=== PATIENT | female | born 1935 | race Caucasian/White ===

== ENCOUNTER 2019-12-17 15:47 | Outpatient (CLI) | payer MEDICARE, SELFPAY ==
--- NOTE | ~2019-12-17 | XR_ITS ---
EXAMINATION: XR abdomen obstructive series DATE: 12/17/2019 16:37 INDICATION: Crohn disease TECHNIQUE: Upright and supine views of the abdomen were obtained. COMPARISON: None. FINDINGS: There is a large volume of colonic stool. No dilated loops of bowel are evident. There is n o free intraperitoneal gas. The visualized lung bases are clear. There is calcified atherosclerosis. IMPRESSION: 1. Constipation. Reviewed, dictated and finalized at location A. IMPRESSION: 1. Constipation.
[2019-12-17 16:12] LABS: Hematocrit 38.7 % (37.0-47.0); Hemoglobin 12.1 g/dL (12.0-15.0); Mean Corpuscular HGB Conc 31.3 g/dl (32-36); Mean Corpuscular Hemoglobin 32.1 pg (26-34); Mean Corpuscular Volume 102.7 fl (80-100); Mean Platelet Volume 9.6 fl (7.4-10.4); Platelet Count Result 368 k/mm3 (150-375); Red Blood Count 3.77 M/mm3 (4.2-5.4); Red Cell Distribution Width 12.5 % (11.5-14.5); White Blood Count 7.1 K/mm3 (4.5-10.0)
[2019-12-17 16:25] LABS: Alanine Aminotransferase 10 U/L (4-35); Albumin Level 4.3 g/dL (3.5-5.1); Alkaline Phosphatase 62 U/L (38-126); Aspartate Amino Transferase 26 U/L (14-36); Bilirubin,Total 0.4 mg/dL (0.2-1.3); Blood Urea Nitrogen 12 mg/dL (7-17); Calcium 9.4 mg/dL (8.4-10.2); Carbon Dioxide 32 mmol/L (22-30); Chloride 100 mmol/L (98-107); Estimated Glomerular Filt Rate > 60; Glucose 102 mg/dL (65-105); Sodium 137 mmol/L (137-145)
[2019-12-17 16:41] LABS: Erythrocyte Sedimentation Rate 58 mm/hr (0-20)
== END 2019-12-17 15:48 | disposition home or self-care (01) ==
DX: K50.90 Crohn's disease, unspecified, without complications (principal); K59.00 Constipation, unspecified
CPT/HCPCS: 36415; 74019; 80053; 85027; 85652

== ENCOUNTER 2020-05-18 16:40 | Outpatient (CLI) | payer MEDICARE, SELFPAY ==
--- NOTE | ~2020-05-18 | XR_ITS ---
EXAMINATION: XR lumbar spine 2-3V DATE: 05/18/2020 17:47 INDICATION: Low back pain. Injury. TECHNIQUE: 3 views of lumbar spine were obtained. COMPARISON: Lumbar spine radiographs 12/15/2018 FINDINGS: There is 5 degrees dextrocurvature of lumbar spine. Vertebral body heights are normal. Ther e is mildly decreased disc height at L4-L5. There is moderate facet joint osteoarthritis in lower lum bar spine. IMPRESSION: 1. Mild lumbar spondylosis. Reviewed, dictated and finalized at location A. IMPRESSION: 1. Mild lumbar spondylosis.
--- NOTE | ~2020-05-18 | XR_ITS ---
EXAMINATION: XR_CERV2-3V_CR DATE: 05/18/2020 17:47 INDICATION: Spine pain. TECHNIQUE: 3 views of cervical spine on 4 radiographs were obtained. COMPARISON: Spine radiographs 04/22/2013 FINDINGS: There is 15 degrees levoscoliosis of cervicothoracic spine. Vertebral body heights are norm al. There is mildly decreased disc height at C4-C5 and moderately decreased disc height at C5-C6 and C6-C7. There is multilevel severe facet joint osteoarthritis. There is mild central canal stenosis at C5-C6. No prevertebral soft tissue swelling. IMPRESSION: 1. Moderate cervical spondylosis. 2. Cervicothoracic levoscoliosis. Reviewed, dictated and finalized at location A.
--- NOTE | ~2020-05-18 | XR_ITS ---
EXAMINATION: XR thoracic spine 3V DATE: 05/18/2020 17:47 INDICATION: Spine pain. TECHNIQUE: 3 views of thoracic spine were obtained. COMPARISON: Chest 2 views 09/17/2017, chest CT 09/19/2017 FINDINGS: There is 12 degrees dextroscoliosis of upper thoracic spine and 10 degrees levoscoliosis of lower thoracic spine. There is kyphosis of thoracic spine. Vertebral body heights are normal. There is moderately decreased disc height at multiple levels in mid thoracic spine. There are endplate oste ophytes at most levels. IMPRESSION: 1. Moderate thoracic spondylosis. 2. Scoliosis and thoracic kyphosis. Reviewed, dictated and finalized at location A.
[2020-05-18 18:06] LABS: Hematocrit 35.9 % (37.0-47.0); Hemoglobin 11.4 g/dL (12.0-15.0)
[2020-05-18 18:13] LABS: Alanine Aminotransferase 9 U/L (4-35); Albumin Level 4.4 g/dL (3.5-5.1); Alkaline Phosphatase 58 U/L (38-126); Anion Gap 7 mmol/L (8-16); Aspartate Amino Transferase 25 U/L (14-36); Bilirubin,Total 0.4 mg/dL (0.2-1.3); Blood Urea Nitrogen 15 mg/dL (7-17); Calcium 9.3 mg/dL (8.4-10.2); Carbon Dioxide 28 mmol/L (22-30); Chloride 100 mmol/L (98-107); Estimated Glomerular Filt Rate 60; Glucose 97 mg/dL (65-105); Potassium 4.1 mmol/L (3.4-5.0); Sodium 135 mmol/L (137-145)
[2020-05-18 18:46] LABS: Iron 59 ug/dL (37-170)
[2020-05-18 18:56] LABS: Percent Iron Saturation 22 % (20-50)
[2020-05-18 20:36] LABS: Vitamin D 25 Hydroxy 75.5 ng/mL
== END 2020-05-18 16:41 | disposition home or self-care (01) ==
PROVIDERS: Visit Provider Internal Medicine
DX: M54.9 Dorsalgia, unspecified (principal); D50.9 Iron deficiency anemia, unspecified; E53.8 Deficiency of other specified B group vitamins; I50.30 Unspecified diastolic (congestive) heart failure; N18.3 Chronic kidney disease, stage 3 (moderate); E55.9 Vitamin D deficiency, unspecified; M47.816 Spondylosis without myelopathy or radiculopathy, lumbar region; M47.814 Spondylosis without myelopathy or radiculopathy, thoracic region; M41.84 Other forms of scoliosis, thoracic region; M40.294 Other kyphosis, thoracic region; M47.812 Spondylosis without myelopathy or radiculopathy, cervical region; M41.83 Other forms of scoliosis, cervicothoracic region
CPT/HCPCS: 36415; 72040; 72072; 72100; 80053; 82306; 82607; 83540; 83550; 85014; 85018

== ENCOUNTER 2020-11-18 14:58 | Outpatient (CLI) | payer MEDICARE, SELFPAY ==
[2020-11-18 15:17] LABS: Hematocrit 35.2 % (35.0-42.0); Hemoglobin 10.8 g/dL (11.7-13.8)
[2020-11-18 15:47] LABS: Alanine Aminotransferase 8 U/L (14-59); Albumin Level 3.9 g/dL (3.4-5.0); Alkaline Phosphatase 49 U/L (46-116); Anion Gap 12 mmol/L (8-16); Aspartate Amino Transferase 16 U/L (15-37); Bilirubin,Total 0.4 mg/dL (0.00-1.00); Blood Urea Nitrogen 19 mg/dL (7-18); Calcium 8.6 mg/dL (8.5-10.1); Carbon Dioxide 30 mmol/L (21-32); Chloride 98 mmol/L (98-108); Cholesterol 173 mg/dL (0-200); Estimated Glomerular Filt Rate 47; Glucose 156 mg/dL (70-99); HDL Direct 78 mg/dL (40-60); Iron 78 ug/dL (50-170); LDL Cholesterol Calculated 67 mg/dL (<130); Osmolality Calculated 295 mOsm/kg (285-295); Percent Iron Saturation 33 % (12-57); Potassium 4.1 mmol/L (3.5-5.1); Sodium 140 mmol/L (136-145); Total Protein 6.7 g/dL (6.4-8.2); Triglycerides 140 mg/dL (0-150)
== END 2020-11-18 14:59 | disposition home or self-care (01) ==
LOC: CHSLAB 15:01
PROVIDERS: Visit Provider Nurse Practitioner
DX: E78.5 Hyperlipidemia, unspecified (principal); D50.9 Iron deficiency anemia, unspecified
CPT/HCPCS: 36415; 80053; 80061; 83540; 83550; 85014; 85018

== ENCOUNTER 2021-01-14 00:38 | Inpatient (IN) | payer MEDICARE, SELFPAY ==
[2021-01-14] VITALS (21 sets, daily range): BP systolic 130–166; BP diastolic 58–91; PULSE 81–131; RESP 16–26; TEMP 36.2–37; O2SAT 84–99; BMI 20.2
--- NOTE | ~2021-01-14 | XR_ITS ---
EXAMINATION: XR chest 1V portable INDICATION: Shortness of breath TECHNIQUE: Portable AP chest at 0533 hours COMPARISON: 01/21/2021 FINDINGS: There are minimal airspace opacities of the lung bases. No pleural effusion or pneumothorax is identified. The cardiomediastinal silhouette is stable. IMPRESSION: 1. Minimal bibasilar airspace opacity, consistent with atelectasis versus pneumonia. Reviewed, dictated and finalized at location A. IMPRESSION: 1. Minimal bibasilar airspace opacity, consistent with atelectasis versus pneum onia.
--- NOTE | ~2021-01-14 | XR_ITS ---
EXAMINATION: XR chest 1V portable DATE: 01/21/2021 05:48 INDICATION: Bilateral pneumonia TECHNIQUE: frontal view of the chest was obtained. COMPARISON: Chest radiograph dated 01/17/2021 FINDINGS: Increased lucency with some architectural distortion consistent with emphysema in the bilateral upper lung zones. Scattered mild linear discoid atelectasis/scarring most prominent in the right upper dany g zone. No pulmonary edema, pleural effusion or pneumothorax. The cardiomediastinal silhouette is nor mal. Mild thoracolumbar levocurvature and mild scattered degenerative skeletal changes. IMPRESSION: 1. Scattered mild linear discoid atelectasis. 2. Emphysema. Reviewed, dictated and finalized at location A.
--- NOTE | ~2021-01-14 | XR_ITS ---
XR chest 1V portable DATE: 01/14/2021 01:44 INDICATION: Dyspnea. Shortness of breath. Hypoxia. History of COPD. TECHNIQUE: Portable AP chest on 01/14/2021 at 0145 hours COMPARISON: 01/14/2021 CT pulmonary scan 09/17/2017 PA and lateral chest 09/19/2017 CT pulmonary scan FINDINGS: Bilateral hyperinflation and relative flattening the diaphragms consistent with COPD. Patchy infiltrate in the left mid lung and to a greater extent left lower lung field. Cardiomegaly. Aortic calcification. No pleural effusion or pulmonary vascular congestion or pneumothorax is evident. Diffuse osteopenia. Dextroscoliosis of the thoracic spine. IMPRESSION: Left mid and particularly left lower lung infiltrate, suggesting pneumonia COPD Cardiomegaly Aortic atherosclerosis Reviewed, dictated and finalized at location A. IMPRESSION: Left mid and particularly left lower lung infiltrate, suggesting pn eumonia COPD Cardiomegaly Aortic atherosclerosis
--- NOTE | ~2021-01-14 | MR_ITS ---
EXAMINATION: MR brain/brain stem wo/w con EXAM DATE: 01/17/2021 15:12 INDICATION: Stroke. Right-sided hemiparesis. Symptoms started 3 days ago. TECHNIQUE: Magnetic resonance imaging (MRI) of the brain/brain stem obtained without contrast. Sagit venancio T1, axial diffusion, gradient echo (T2*), T1, T2, FLAIR sequences obtained. Patient was then inj ected with 10 cc intravenous Multihance contrast. Axial and coronal postcontrast T1 weighted sequence s obtained. There is no prior study for comparison. FINDINGS: There is a punctate acute infarction in the left cerebellar hemisphere. There is no acute h emorrhage seen on the T2*, a hemosiderin sensitive sequence. No intraparenchymal brain mass lesion. There is moderate periventricular and subcortical T2/FLAIR signal hyperintensity, nonspecific but pro bably related to small vessel ischemic disease (microangiopathy). There is mild prominence of the s ulci and ventricles related to cerebral atrophy. There are no extra-axial collections. Flow voids are seen in the cerebral arteries on the T2-weighted sequences consistent with their expected patency . Patient has had bilateral ocular lens surgery. Soft tissue is unremarkable. There are no areas o f abnormal enhancement on the postcontrast images. Arachnoid granulation in the sagittal sinus poste riorly. IMPRESSION: 1. Punctate acute left cerebellar infarction. 2. Chronic age related findings. Reviewed, dictated and finalized at location A.
--- NOTE | ~2021-01-14 | XR_ITS ---
EXAMINATION: XR chest 1V portable DATE: 01/17/2021 05:31 INDICATION: Shortness of breath. TECHNIQUE: A single frontal view of the chest was obtained. COMPARISON: Chest single view 01/14/2021, chest CT 01/14/2021 FINDINGS: There are lucencies in the lungs, consistent with emphysema. There is bandlike scarring in right upper lobe. There are airspace opacities in right perihilar region and at left lung base. No pl eural effusion or pneumothorax. Cardiomegaly is noted. IMPRESSION: 1. Airspace opacities in right perihilar region and at left lung base with worsening on the right and improvement on the left, consistent with pneumonia. 2. Severe emphysema. 3. Cardiomegaly. Reviewed, dictated and finalized at location A. IMPRESSION: 1. Airspace opacities in right perihilar region and at left lung base with wors ening on the right and improvement on the left, consistent with pneumonia. 2. Severe emphysema. 3. Cardiomegaly.
--- NOTE | ~2021-01-14 | XR_ITS ---
EXAMINATION: XR ankle RT 2V INDICATION: Right ankle pain and swelling TECHNIQUE: Two views of the right ankle are obtained. COMPARISON: 08/01/2015 FINDINGS: There is soft tissue swelling the ankle. No fracture is identified. Bone alignment is ned l. The bones are osteopenic. IMPRESSION: 1. Soft tissue swelling without acute osseous abnormality. Reviewed, dictated and finalized at location A.
--- NOTE | ~2021-01-14 | US_ITS ---
EXAMINATION: US carotid duplex BI EXAM DATE: 01/17/2021 14:59 INDICATION: Stroke. TECHNIQUE: Grayscale, color and pulsed Doppler images of the cervical carotid arteries were obtained . The degree of vessel stenosis is placed in one of the following categories: normal, <50% stenosis, 50-69% stenosis, >=70% stenosis but less than near-occlusion, near-occlusion, or occlusion. Note that percent stenosis relative to normal distal artery lumen diameter is indirectly measured from velocit y measurements as described by Artemio, et al. Radiology 2003; 229:340-346. There is no prior study fo r comparison. FINDINGS: RIGHT SIDE: Right common carotid artery peak systolic velocity (PSV in cm/s): 70 Right bulb/internal carotid artery peak systolic velocity (PSV in cm/s): 55 Right internal carotid artery end diastolic velocity (EDV in cm/s): 16 Right ICA/CCA peak systolic ratio: 0.8 Right external carotid artery peak systolic velocity (PSV in cm/s): 68 Right vertebral artery antegrade flow: yes There is mild carotid bulb plaque. Velocity and Doppler waveforms in the common and internal carotid arteries is normal. LEFT SIDE: Left common carotid artery peak systolic velocity (PSV in cm/s): 85 Left bulb/internal carotid artery peak systolic velocity (PSV in cm/s): 74 Left internal carotid artery end diastolic velocity (EDV in cm/s): 24 Left ICA/CCA peak systolic ratio: 0.9 Left external carotid artery peak systolic velocity (PSV in cm/s): 82 Left vertebral artery antegrade flow: yes There is mild carotid bulb plaque. Velocity and Doppler waveforms in the common and internal carotid arteries is normal. IMPRESSION: 1. Less than 50 percent stenosis in the right internal carotid artery. 2. Less than 50 percent stenosis in the left internal carotid artery. Reviewed, dictated and finalized at location A.
--- NOTE | ~2021-01-14 | CT_ITS ---
EXAMINATION: CTA chest PE protocol DATE: 01/14/2021 02:53 INDICATION: Shortness of breath. Hypoxia. TECHNIQUE: Computed tomography angiography (CTA) of the chest was performed with 100 mL Omnipaque-350 intravenous contrast timed to evaluate the pulmonary arteries. Coronal maximum intensity projection 3D-reconstructions were created by the technologist. Automated exposure control and iterative reconst ruction technique were employed. Exam dose: 191.28 mGy-cm total exam DLP. COMPARISON: 01/14/2021 portable AP chest 09/19/2017 CT pulmonary scan FINDINGS: There is diagnostic contrast enhancement of the pulmonary arteries and no evidence of pulmo nary embolism. No hilar or mediastinal mass lesion or lymphadenopathy. No thoracic aortic aneurysm or dissection. There is atherosclerotic calcification of the thoracic and abdominal aorta and great vessels. There are 2 new interval intersecting discoid bands of density in the anterior right upper lobe since 09/19/2017 with approximately 6.4 x 15 mm associated soft tissue density (series 4 image 37). Approximately 4 x 6 mm new opacity in the medial right upper lung (series 4 image 30). Consider PET/CT imaging to exclude malignancy. Severe emphysematous changes of the lungs are again demonstrated. Interval patchy peripheral bilateral left upper lobe infiltrate, suggesting infectious process. There are patchy infiltrates in the left lower lobe, particularly in the posterior basilar left lower lobe where air bronchograms are demonstrated. Findings suggest pneumonia. No suspicious osteolytic or osteoblastic lesions. IMPRESSION: No evidence of pulmonary embolism Emphysema Left upper and to a greater extent left lower lobe pulmonary infiltrates suggesting pneumonia New opacities of the right upper lobe; differential diagnosis includes scarring versus malignancy. Co nsider PET/CT imaging Reviewed, dictated and finalized at [facility]. Reviewed, dictated and finalized at location A. IMPRESSION: No evidence of pulmonary embolism Emphysema Left upper and to a greater extent left lower lobe pulmonary infiltrates sugges ting pneumonia New opacities of the right upper lobe; differential diagnosis includes scarring versus malignancy. Consider PET/CT imaging
--- NOTE | 2021-01-14 00:50 | ECG_ITS ---
Measurements Intervals [place] Rate: 128 P: [place]: 0 QRS: -50 QRSD: 124 T: 66 QT: 317 QTc: 464 Interpretive Statements SINUS TACHYCARDIA INCOMPLETE RIGHT BUNDLE BRANCH BLOCK LEFT ANTERIOR FASCICULAR BLOCK BASELINE WANDER- III, AVF, V4 ABNORMAL ECG Electronically Signed On 01-14-2021 6:48:30 CDT by Gato Fisher D.O.
[2021-01-14] MEDS: ALBUTEROL SULFATE NEB 2.5 MG/0.5 ML INH 5 MG INHALATION ×4 (01:02→19:45)
[2021-01-14] MEDS: IPRATROPIUM BR 0.02% INH SOLN 0.5 MG/2.5 ML VIAL INHALATION ×4 (01:03→19:45)
[2021-01-14 01:08] LABS: Basophils Absolute Auto 0.1 K/mm3 (0.0-0.1); Basophils Percent Auto 0.2 % (0.2-1.2); Hematocrit 37.6 % (37.0-47.0); Hemoglobin 12.2 g/dL (12.0-15.0); Immature Granulocyte Absolute 0.82 K/mm3 (0.00-0.031); Immature Granulocyte Percent A 2.4 % (0-0.5); Lymphocytes Absolute Auto 0.52 K/mm3 (0.9-3.2); Lymphocytes Percent Auto 1.5 % (18.3-44.2); Mean Corpuscular HGB Conc 32.4 g/dl (32-36); Mean Corpuscular Hemoglobin 33.7 pg (26-34); Mean Corpuscular Volume 103.9 fl (80-100); Mean Platelet Volume 10.1 fl (7.4-10.4); Monocytes Absolute Auto 1.3 K/mm3 (0.1-0.6); Monocytes Percent Auto 3.9 % (2.6-8.5); Neutrophils Absolute Auto 31.6 K/mm3 (1.3-6.7); Platelet Count Result 306 k/mm3 (150-375); Red Blood Count 3.62 M/mm3 (4.2-5.4); Red Cell Distribution Width 12.4 % (11.5-14.5); White Blood Count 34.4 K/mm3 (4.5-10.0)
[2021-01-14] MEDS: methylPREDNISolone SOD SUCC 125 MG VIAL IV PUSH (01:15)
--- NOTE | 2021-01-14 01:20 | PC.NURSE ---
Pt here for shortness of breath and increased work of breathing. reports hx of copd. here c who drove pt to ED; no hx of covid exposure or covid vaccines. former smoker.
[2021-01-14 01:21] LABS: Alanine Aminotransferase 12 U/L (4-35); Albumin Level 4.6 g/dL (3.5-5.1); Alkaline Phosphatase 58 U/L (38-126); Anion Gap 8 mmol/L (8-16); Aspartate Amino Transferase 35 U/L (14-36); Bilirubin,Total 0.6 mg/dL (0.2-1.3); Blood Urea Nitrogen 13 mg/dL (7-17); Calcium 9.7 mg/dL (8.4-10.2); Carbon Dioxide 32 mmol/L (22-30); Chloride 97 mmol/L (98-107); Estimated Glomerular Filt Rate > 60; Glucose 154 mg/dL (65-105); Magnesium 1.7 mg/dL (1.6-2.3); Potassium 4.2 mmol/L (3.4-5.0); Sodium 137 mmol/L (137-145)
[2021-01-14 01:22] LABS: Lactic Acid Reflex 1.3 mmol/L (0.7-2.1)
[2021-01-14 01:27] LABS: INR 0.9; Prothrombin Time 12.8 Seconds (11.1-14.7)
[2021-01-14 01:28] LABS: Partial Thromboplastin Time 34.4 SECONDS (22.3-36.8)
[2021-01-14 01:33] LABS: NT Pro B Type Natriuretic Pept 2620 pg/mL (5-100)
[2021-01-14 02:22] LABS: Alveolar/Arterial O2 Gradient 100.2 mmHg; Fractional Inspired Oxygen 32 %; HCO3 ABG 25.3 mEq/l (22.0-26.0); Oxygen Content ABG 15.8 %vol (16.0-22.0); Oxygen Saturation ABG 96.3 % (95.0-100.0); Oxyhemoglobin 94.7 % THb (90.0-100.0); PCO2 ABG 39.4 mmHg (35.0-45.0); PO2 ABG 81.9 mmHg (80.0-100.0); PO2 FiO2 Ratio Arterial Blood 2.56 %; Total Hemoglobin 11.8 g/dL (12.0-18.0); pH ABG 7.426 (7.350-7.450)
[2021-01-14 02:23] LABS: Device NASAL CANNULA; Modified Allen's Test Pass; Site Drawn RIGHT RADIAL
--- NOTE | 2021-01-14 02:39 | ED.GENADULT ---
HPI - General Adult General Chief complaint: Shortness of Breath/Dyspnea Stated complaint: sob Time Seen by Provider: 01/14/21 00:47 History of Present Illness HPI narrative: Patient is a 85-year-old female who presents the emergency department with chief complaint of shortness of breath. The patient states that approximately 4 AM she started having discomfort and more shortness of breath. The patient states that she noticed that her oxygen levels were lower than normal and reports that she is had a low-grade fever of 99 at home. The patient states that she has had some wheezing and has had coughing. Patient reports she has prior history of COPD and has had prior admissions for COPD exacerbations in the past. Patient reports that she has not had COVID-19 previously and reports that she has not had a Covid vaccine. Related Data Home Medications Medication Instructions Recorded Confirmed albuterol sulfate 2.5 mg INHALATION Q4-6H PRN 09/16/19 12/14/20 albuterol sulfate 90 mcg/actuation 1 puff INHALATION Q4H PRN 09/16/19 12/14/20 aerosol inhaler aspirin 81 mg tablet,delayed 81 mg PO DAILY 09/16/19 12/14/20 release sulfasalazine 500 mg tablet 0.5 gm PO DAILY 09/16/19 12/14/20 calcium carbonate 500 mg (1,250 1 tablet PO DAILY 07/11/20 12/14/20 mg)-vitamin D3 125 unit tablet mecobalamin (vitamin B12) 1,000 1,000 mcg PO DAILY 12/11/20 12/14/20 mcg chewable tablet Allergies Allergy/AdvReac Type Severity Reaction Status Date / Time No Known Allergies Allergy Unknown Verified 01/14/21 01:12 Review of Systems Review of Systems: Narrative: A 10 system review of systems was completed on the patient and is negative except for what is stated in the HPI. Nursing and ancillary documentation was reviewed. [facility] Past Medical History Medical History (Updated 01/14/21 @ 03:49 by Alex Alvarenga MD) Hypertension, essential Family History Family History Mother Family history of cardiovascular disease Father Family history of emphysema Family history of chronic obstructive pulmonary disease Sibling Family history of malignant neoplasm Social History Social History Smoking packs per day: 1 Smoking cigarettes per day: 20.0 Years smoked: 40 Smoking pack-years: 40.00 Smoking status: Former smoker Second hand tobacco smoke exposure: No Smoking end date: 09/01/12 Alcohol intake: never Exam Narrative: Exam Narrative: GENERAL: Well-appearing, well-nourished, and in no acute distress. HEAD: Normocephalic, atraumatic. EYES: PERRLA and EOMI. ENT: Nares clear, no rhinorrhea or epistaxis. Mucous membranes moist. NECK: Supple. CHEST: Diminished breath sounds bilaterally moderate respiratory distress. HEART: Tachycardic rate and rhythm. No murmur heard. Normal peripheral pulses. ABDOMEN: Soft, nontender, nondistended, normal active bowel sounds. EXTREMITIES: Normal range of motion. No edema. SKIN: Warm, dry, no rash. NEURO: No focal deficits. Alert and oriented x3. PSYCH: Normal mood and affect. Course Vital Signs Vital signs: Vital Signs Temperature 36.3 C L 01/14/21 00:41 Pulse Rate 131 H 01/14/21 00:41 Respiratory Rate 26 H 01/14/21 00:41 Blood Pressure 166/91 H 01/14/21 00:41 Pulse Oximetry 84 L 01/14/21 00:41 Temperature 36.3 C L 01/14/21 00:41 Pulse Rate 111 H 01/14/21 03:15 Respiratory Rate 22 H 01/14/21 03:15 Blood Pressure 138/68 01/14/21 03:15 Pulse Oximetry 98 01/14/21 03:15 Medical Decision Making Vital Signs Vital Signs: Vital Signs Temperature 36.3 C L 01/14/21 00:41 Pulse Rate 131 H 01/14/21 00:41 Respiratory Rate 26 H 01/14/21 00:41 Blood Pressure 166/91 H 01/14/21 00:41 Pulse Oximetry 84 L 01/14/21 00:41 Temperature 36.3 C L 01/14/21 00:41 Pulse Rate 111 H
--- NOTE | 2021-01-14 04:38 | PM.IMHP ---
H&P: HPI History of Present Illness Date/Time: 01/14/21 04:38 Chief Complaint: SHORTNESS OF BREATH Narrative: This is an 85-year-old female with past medical history significant for COPD/emphysema patient is on 2 L of supplemental by nasal cannula at home patient states that she has not been feeling well for the last 3 days or so she had been to her doctor who asked her to increase her oxygen to 2-1/2 with activity patient noticed that she was progressively getting worse and decided to increase it to 3 she was not able to asleep due to worsening shortness of breath on to she finally decided to come to the emergency room. Patient states that she has had some chills some cough with sputum production of greenish yellowish sputum to bradshaw sputum. Preliminary workup was significant for leukocytosis, chest x-ray with right lower lobe infiltrate and a CTA with no pulmonary emboli, BNP was elevated. Patient that denies any nausea vomiting abdominal pain or diarrhea no leg swelling.States that her appetite is good. Review of Systems Review of Systems: Narrative: PATIENT CAME TO THE EMERGENCY ROOM SHE WAS BROUGHT BY HER DUE TO WORSENING SHORTNESS OF BREATH PATIENT HAD BEEN TO HER DOCTOR WHO HAS ASKED HER TO INCREASE HER OXYGEN TO 2 AND HALF SHE INCREASED TO 3 AND STILL NOT WORKING AND SHE GOT PROGRESSIVELY MORE SHORT OF BREATH SHE WAS UNABLE TO GET ANY SLEEP WAS GETTING TIRED Constitutional: Constitutional: Reports chills, Reports fatigue and Reports fever(s) Eyes: Eyes: Denies change in vision ENT: Denies dysphagia, Denies nasal congestion, Denies nasal discharge and Denies neck pain Cardiovascular: Cardiovascular: Denies irregular heart rhythm, Denies leg edema and Denies lightheadedness Respiratory: Respiratory: Reports change in phlegm color, Reports cough, Reports dyspnea and Reports wheezing Gastrointestinal: Gastrointestinal: Denies abdominal pain, Denies dysphagia, Denies dyspepsia, Denies heartburn, Denies diarrhea and Denies vomiting Genitourinary: Genitourinary: Denies dysuria Musculoskeletal: Musculoskeletal: Denies muscle weakness Integumentary/Breasts: Skin/Breast: Denies rash Neurologic: Denies focal weakness and Denies Sensory deficit (Neuro) Endocrine: Endocrine: Denies no additional endocrine complaints Hematologic/Lymphatic: Hematologic/Lymphatic: Denies no additional hematologic/lymphatic complaints Allergic/Immunologic: Allergic/Immunologic: Denies no additional allergic/immunologic complaints [facility] Past Medical History Medical History (Updated 01/14/21 @ 04:51 by Francisca Stevens MD) Hypertension, essential Family History Family History Mother Family history of cardiovascular disease Father Family history of emphysema Family history of chronic obstructive pulmonary disease Sibling Family history of malignant neoplasm Social History Social History Smoking packs per day: 1 Smoking cigarettes per day: 20.0 Years smoked: 40 Smoking pack-years: 40.00 Smoking status: Former smoker Second hand tobacco smoke exposure: No Smoking end date: 09/01/12 Alcohol intake: never Meds Home Medications and Allergies Home Medications Medication Instructions Recorded Confirmed Type albuterol sulfate 2.5 mg INHALATION Q4-6H PRN 09/16/19 12/14/20 History albuterol sulfate 90 mcg/actuation 1 puff INHALATION Q4H PRN 09/16/19 12/14/20 History aerosol inhaler aspirin 81 mg tablet,delayed 81 mg PO DAILY 09/16/19 12/14/20 History release sulfasalazine 500 mg tablet 0.5 gm PO DAILY 09/16/19 12/14/20 History arformoterol 15 mcg/2 mL solution 2 ml INHALATION BID 30 Days #60 ml 01/17/20 12/14/20 Rx for nebulization budesonide 0.5 mg/2 mL suspension 0.5 mg INHALATION BID 30 Days #120 02/04/20 12/14/20 Rx for nebulization ml atorvastat
[2021-01-14] MEDS: SODIUM CHLORIDE 0.9% IV 1,000 ML 125 ML IV CONT ×2 (05:29→14:24)
[2021-01-14 06:06] LABS: Add Urine Microscopic? YES; Appearance Urine Clear (Clear); Bilirubin Urine Negative (Negative); Blood Urine Negative (Negative); Color Urine Yellow (Yellow); Glucose Urine UA Negative (Negative); Ketones Urine 1+ mg/dL (Negative); Leukocyte Esterase Ur Negative LEU/UL (Negative); Mucus Urine Rare /lpf; Nitrate Urine Negative (Negative); Protein Urine 1+ mg/dL (Negative); RBC Urine 0-2 /hpf (0-2); Squamous Epithelial Cell Urine Rare /hpf (Few); Urobilinogen Urine Negative mg/dL (<2.0); WBC Urine 0-3 /hpf
[2021-01-14 06:15] LABS: Specific Grav Ur 1.047 (1.001-1.035)
[2021-01-14] MEDS: methylPREDNISolone SOD SUCC 125 MG VIAL 60 MG IV PUSH ×3 (06:52→22:03)
--- NOTE | 2021-01-14 07:44 | ADMGEN ---
This patient, Humaira Moralez, was admitted to 3 [facility] Surg Room 303-01. Patient/family oriented to hospital policies and general routines including ID bracelet, bed and alarms, visiting hours, pain management, procedures, bathroom and other care routines, personal items, smoking policy, room service/diet, and visiting hours. Information on how to activate the Rapid Response Team has been discussed. Patient/Family are encouraged to report perceived risks to care and to ask questions if they do not understand what they are told or what they should do. Patient arrived at 0545, all policies and procedures discussed, questions answered. General assessment and skin check performed.
--- NOTE | 2021-01-14 09:15 | PM.IMPN ---
Progress Note: A&P Assessment and Plan (1) Acute and chronic respiratory failure with hypoxia: Code(s): J96.21 - Acute and chronic respiratory failure with hypoxia Status: Acute Assessment and Plan: IMPROVED. now back on 2 L O2 NC (home level) - down from 3 L NC, able to carry on conversations with myself and her nurses feeling much better today left lower chest pain and pressure has resolved today Troponin x1 WNL, and EKG without ST concerns. FELIPE and LLL pneumonia. not had her COVID vaccination CTA PE protocol showed emphysema, severe COPD, No PE, speech therapy swallow study eval, which she passed on regular foods and consistencies. continue her IV azithromycin and IV Rocephin, ipratropium and albuterol nebulizer treatments, added Mucinex. white count was impressive at 34.4 and her COVID test results are pending. RR 22-23, no fevers. BNP level is 2620. Considering lasix dose, appears to be vascularly dry and no CHF findings on the CT scan. Holding off on the lasix at this time. Ordered ECHO. slightly tachy 90-100s, regular, with BP 142/74 CTA scan: there are 2 new interval intersecting discoid bands of density in the anterior right upper lobe since 09/19/2017 with approximately 6.4 x 15 mm associated soft tissue density. Approximately 4 x 6 mm new opacity in the medial right upper lung. (2) Acute exacerbation of chronic obstructive pulmonary disease: Code(s): J44.1 - Chronic obstructive pulmonary disease with (acute) exacerbation Status: Acute Assessment and Plan: ACUTE on CHRONIC Started on 60 mg methylprednisone IV every 6 hours after 3 doses, titrated down to every 8 hours now back on 2 L O2 NC (home level) - down from 3 L NC Needs her COVID vaccination CTA PE protocol showed emphysema, severe COPD, No PE, continue her IV azithromycin and IV Rocephin, ipratropium and albuterol nebulizer treatments, added Mucinex. white count was impressive at 34.4 and her COVID test results are pending. RR 22-23, no fevers (3) Left lower lobe pneumonia: Qualifiers: Pneumonia type: due to unspecified organism Qualified Code(s): J18.9 - Pneumonia, unspecified organism Code(s): J18.9 - Pneumonia, unspecified organism Status: Acute Assessment and Plan: now back on 2 L O2 NC (home level) - down from 3 L NC, able to carry on conversations with myself and her nurses feeling much better today left lower chest pain and pressure has resolved today FELIPE and LLL pneumonia. not had her COVID vaccination speech therapy swallow study eval, which she passed on regular foods and consistencies. continue her IV azithromycin and IV Rocephin, ipratropium and albuterol nebulizer treatments, added Mucinex. white count was impressive at 34.4 and her COVID test results are pending. RR 22-23, no fevers. (4) Dependence on supplemental oxygen: Code(s): Z99.81 - Dependence on supplemental oxygen Status: Acute Assessment and Plan: CONTINUE SUPPLEMENTAL OXYGEN at 2 L or more as needed (5) (HFpEF) heart failure with preserved ejection fraction: Code(s): I50.30 - Unspecified diastolic (congestive) heart failure Status: Acute Assessment and Plan: BNP elevated at 2620 paired with SOB ECHO order placed patient was on 125 mils per hour of IV fluids from the ER, discontinued considering Lasix dosing ordered strict intake and output order daily weights (6) Chronic kidney disease, stage III (moderate): Code(s): N18.3 - Chronic kidney disease, stage 3 (moderate) Status: Acute Assessment and Plan: BUN AND CREATININE AT PATIENT'S BASELINE, creatinine 0.8 UA was clear ordered strict I&O (7) QAMAR (obstructive sleep apnea): Code(s): G47.33 - Obstructive sleep apnea (adult) (pediatric) Status: Acute Assessment and Plan: patient is on continuous oxygen per nasal cannula 2 L (8) Former smoker: Code(s): Z87.89
[2021-01-14] MEDS: sulfaSALAzine 500 MG TABLET PO (10:50)
[2021-01-14] MEDS: FERROUS SULFATE 324 MG TABLET PO ×2 (10:51→16:40)
[2021-01-14] MEDS: ATORVASTATIN 5 MG TABLET PO (10:51)
[2021-01-14] MEDS: ASPIRIN 81 MG ENTERIC TABLET PO (10:51)
[2021-01-14] MEDS: guaiFENesin 12 HR 600 MG TABCR PO ×2 (10:51→22:03)
[2021-01-14] MEDS: CYANOCOBALAMIN 1,000 MCG TABLET 1000 MCG PO (10:51)
[2021-01-14] MEDS: lisinopriL 20 MG TABLET PO (10:51)
[2021-01-14] MEDS: PANTOPRAZOLE 40 MG TABLET PO (10:51)
[2021-01-14] MEDS: MONTELUKAST SODIUM 10 MG TABLET PO (10:51)
[2021-01-14] MEDS: MAGNESIUM OXIDE 400 MG TABLET PO (10:52)
--- NOTE | 2021-01-14 13:36 | PCSTNOTE ---
Bedside swallow evaluation completed. Please see ST evaluation for details and recommendations.
[2021-01-14] MEDS: BUDESONIDE RESPULE NEB 0.5 MG/2 ML AMP INHALATION (19:45)
[2021-01-14] MEDS: SALMETEROL XINAFOATE 50 MCG DISKUS 1 PUFF INHALATION (19:45)
[2021-01-15] VITALS (16 sets, daily range): BP systolic 146–184; BP diastolic 69–86; PULSE 89–102; RESP 18–24; TEMP 36.4–37; O2SAT 95–98
[2021-01-15] MEDS: ALBUTEROL SULFATE NEB 2.5 MG/0.5 ML INH 5 MG INHALATION ×4 (01:57→20:59)
[2021-01-15] MEDS: IPRATROPIUM BR 0.02% INH SOLN 0.5 MG/2.5 ML VIAL INHALATION ×4 (01:58→20:58)
[2021-01-15] MEDS: methylPREDNISolone SOD SUCC 125 MG VIAL 60 MG IV PUSH ×3 (05:56→21:29)
[2021-01-15 06:25] LABS: Basophils Absolute Auto 0.1 K/mm3 (0.0-0.1); Basophils Percent Auto 0.2 % (0.2-1.2); Eosinophils Percent Auto 0.1 % (0-4.4); Hemoglobin 9.6 g/dL (12.0-15.0); Immature Granulocyte Absolute 1.21 K/mm3 (0.00-0.031); Immature Granulocyte Percent A 4.2 % (0-0.5); Lymphocytes Absolute Auto 0.33 K/mm3 (0.9-3.2); Lymphocytes Percent Auto 1.1 % (18.3-44.2); Mean Corpuscular Hemoglobin 33.3 pg (26-34); Mean Corpuscular Volume 104.2 fl (80-100); Mean Platelet Volume 10.7 fl (7.4-10.4); Monocytes Absolute Auto 0.7 K/mm3 (0.1-0.6); Monocytes Percent Auto 2.3 % (2.6-8.5); Neutrophils Absolute Auto 26.8 K/mm3 (1.3-6.7); Neutrophils Percent Auto 92.1 % (45.5-73.1); Platelet Count Result 252 k/mm3 (150-375); Red Blood Count 2.88 M/mm3 (4.2-5.4); Red Cell Distribution Width 12.3 % (11.5-14.5); White Blood Count 29.1 K/mm3 (4.5-10.0)
[2021-01-15 06:45] LABS: NT Pro B Type Natriuretic Pept 5010 pg/mL (5-100)
[2021-01-15 06:49] LABS: Anion Gap 5 mmol/L (8-16); Blood Urea Nitrogen 18 mg/dL (7-17); Calcium 9.6 mg/dL (8.4-10.2); Carbon Dioxide 30 mmol/L (22-30); Chloride 102 mmol/L (98-107); Estimated CRCL calculation 34 ml/min; Estimated Glomerular Filt Rate > 60; Glucose 161 mg/dL (65-105); Potassium 3.7 mmol/L (3.4-5.0); Sodium 137 mmol/L (137-145)
[2021-01-15] MEDS: BUDESONIDE RESPULE NEB 0.5 MG/2 ML AMP INHALATION ×2 (07:50→20:59)
[2021-01-15] MEDS: SALMETEROL XINAFOATE 50 MCG DISKUS 1 PUFF INHALATION ×2 (07:51→21:00)
[2021-01-15] MEDS: sulfaSALAzine 500 MG TABLET PO (09:51)
[2021-01-15] MEDS: ASPIRIN 81 MG ENTERIC TABLET PO (09:51)
[2021-01-15] MEDS: MONTELUKAST SODIUM 10 MG TABLET PO (09:51)
[2021-01-15] MEDS: lisinopriL 20 MG TABLET PO (09:51)
[2021-01-15] MEDS: guaiFENesin 12 HR 600 MG TABCR PO ×2 (09:51→21:30)
[2021-01-15] MEDS: FERROUS SULFATE 324 MG TABLET PO ×2 (09:51→16:50)
[2021-01-15] MEDS: MAGNESIUM OXIDE 400 MG TABLET PO (09:51)
[2021-01-15] MEDS: CYANOCOBALAMIN 1,000 MCG TABLET 1000 MCG PO (09:51)
[2021-01-15] MEDS: ATORVASTATIN 5 MG TABLET PO (09:51)
[2021-01-15] MEDS: PANTOPRAZOLE 40 MG TABLET PO (09:51)
[2021-01-15 11:59] LABS: Hematocrit 31.1 % (37.0-47.0); Hemoglobin 9.9 g/dL (12.0-15.0)
--- NOTE | 2021-01-15 14:57 | PM.IMPN ---
Progress Note: A&P Assessment and Plan (1) Left lower lobe pneumonia: Qualifiers: Pneumonia type: due to unspecified organism Qualified Code(s): J18.9 - Pneumonia, unspecified organism <Ruba Zelaya PA-C - Last Filed: 01/15/21 15:09> Code(s): J18.9 - Pneumonia, unspecified organism <Rubadave Zelaya PA-C - Last Filed: 01/15/21 15:09> Status: Acute <Ruba ABj Zelaya PA-C - Last Filed: 01/15/21 15:09> Assessment and Plan: CTA showing left sided PNA consistent with her symptoms -Continue ceftriaxone, azithromycin, and solumedrol (decreased to Q12 hours today) -Pt is at her home o2 settings of 2L -sputum cx growing gram + cocci in pairs, await further identification -Awaiting COVID PCR, although seems less likely -speech therapy swallow study eval showed she passed on regular foods and consistencies. -Continue breathing tx -WBC coming down nicely even with steroids. It was quiet high on admission <Rubadave Zelaya PA-C - Last Filed: 01/15/21 15:09> (2) Acute and chronic respiratory failure with hypoxia: Code(s): J96.21 - Acute and chronic respiratory failure with hypoxia <Rubadave Zelaya PA-C - Last Filed: 01/15/21 15:09> Status: Acute <Ruba Alexa Zelaya PA-C - Last Filed: 01/15/21 15:09> Assessment and Plan: Resolved. Pt back to her baseline o2 requirements -continue tx as above -BNP elevated, previous provider has ordered an echo. Will await results. <Rubadave Zelaya PA-C - Last Filed: 01/15/21 15:09> (3) Acute exacerbation of chronic obstructive pulmonary disease: Code(s): J44.1 - Chronic obstructive pulmonary disease with (acute) exacerbation <Rubadave Zelaya PA-C - Last Filed: 01/15/21 15:09> Status: Acute <Ruba ABj Zelaya PA-C - Last Filed: 01/15/21 15:09> Assessment and Plan: As above -continues steroids, abx, and nebulizers. <Ruba A. Cadmus, PA-C - Last Filed: 01/15/21 15:09> (4) Dependence on supplemental oxygen: Code(s): Z99.81 - Dependence on supplemental oxygen <Ruba A. Cadmus, PA-C - Last Filed: 01/15/21 15:09> Status: Acute <Ruba A. Cadmus, PA-C - Last Filed: 01/15/21 15:09> Assessment and Plan: Continue on 2L as needed <Ruba A. Cadmus, PA-C - Last Filed: 01/15/21 15:09> (5) (HFpEF) heart failure with preserved ejection fraction: Code(s): I50.30 - Unspecified diastolic (congestive) heart failure <Ruba A. Cadmus, PA-C - Last Filed: 01/15/21 15:09> Status: Acute <Ruba A. Cadmus, PA-C - Last Filed: 01/15/21 15:09> Assessment and Plan: BNP elevated paired with SOB -ECHO ordered by previous provider; await results. -No lasix needed at this time but will monitor <Ruba A. Cadmus, PA-C - Last Filed: 01/15/21 15:09> (6) Chronic kidney disease, stage III (moderate): Code(s): N18.3 - Chronic kidney disease, stage 3 (moderate) <Ruba A. Cadmus, PA-C - Last Filed: 01/15/21 15:09> Status: Acute <Ruba A. Cadmus, PA-C - Last Filed: 01/15/21 15:09> Assessment and Plan: at baseline -monitor <Ruba A. Cadmus, PA-C - Last Filed: 01/15/21 15:09> (7) QAMAR (obstructive sleep apnea): Code(s): G47.33 - Obstructive sleep apnea (adult) (pediatric) <Ruba A. Cadmus, PA-C - Last Filed: 01/15/21 15:09> Status: Acute <Ruba A. Cadmus, PA-C - Last Filed: 01/15/21 15:09> Assessment and Plan: Chronic <Ruba A. Cadmus, PA-C - Last Filed: 01/15/21 15:09> (8) Former smoker: Code(s): Z87.891 - Personal history of nicotine dependence <Ruba Zelaya PA-C - Last Filed: 01/15/21 15:09> Status: Acute <Ruba Zelaya PA-C - Last Filed: 01/15/21 15:09> Assessment and Plan: NO longer smokes <Ruba Zelaya PA-C - Last Filed: 01/15/21 15:09> (9) HTN (h
[2021-01-15 18:48] LABS: SARS-CoV-2 RNA PCR Negative
[2021-01-16] VITALS (11 sets, daily range): BP systolic 144–173; BP diastolic 68–82; PULSE 94–104; RESP 18–24; TEMP 36.4–36.7; O2SAT 92–94
--- NOTE | 2021-01-16 | ECHO_ITS ---
Patient Info Name: Humaira Moralez Age: 85 years : 1935 Gender: Female Ht: 61 in Wt: 107 lbs BSA: 1.45 m2 HR: 110 bpm BP: 144 / 68 mmHg Technical Quality: Good Exam Date: 01/16/2021 8:51 AM Exam Location: [facility] Pulmonary Patient Status: Inpatient Admit Date: 01/14/2021 Staff Ordering Physician: Annette Cherry NP Public Safety Telecommunicator: Bryson Riggs RDCS, RT Attending Provider: Ruba Zelaya PA-C Referring Physician: Dilip VENEGAS; Exam Type: CA echo dop color flow w con Study Info Indications R06.02 - Shortness of breath Complete two-dimensional, color flow and Doppler transthoracic echocardiogram is performed. Strain analysis performed. Summary 1. Complete two-dimensional, color flow and Doppler transthoracic echocardiogram is performed. 2. Left ventricular chamber dimension is normal. 3. Left ventricular systolic function is normal, estimated at 55-60%. 4. There is mildly increased left ventricular wall thickness. 5. The left ventricular diastolic function is grade I diastolic dysfunction. 6. E/e' 19 is elevated. 7. Global longitudinal strain is abnormal at -15.2%. 8. Left atrial chamber dimension is mildly enlarged. 9. The mitral valve has mildly calcified annulus. 10. There is mild to moderate tricuspid valve regurgitation. 11. Moderate pulmonary hypertension, estimated pulmonary arterial systolic pressure is 55 mmHg. Left Ventricle E/e' 19 is elevated. Global longitudinal strain is abnormal at -15.2%. Left ventricular chamber dimension is normal. Left ventricular systolic function is normal, estimated at 55-60%. There is mildly increased left ventricular wall thickness. The left ventricular diastolic function is grade I diastolic dysfunction. Right Ventricle Right ventricular systolic function is normal with normal TAPSE 2.3 cm. Right ventricular chamber dimension is normal. Left Atria Left atrial chamber dimension is mildly enlarged. Right Atria Right atrial chamber dimension is normal. Aortic Valve The aortic valve is trileaflet. There is no aortic valve stenosis. There is no aortic valve regurgitation. Pulmonic Valve There is no pulmonic regurgitation. Mitral Valve The mitral valve has mildly calcified annulus. There is no mitral valve stenosis. There is no mitral valve regurgitation. Tricuspid Valve There is mild to moderate tricuspid valve regurgitation. Moderate pulmonary hypertension, estimated pulmonary arterial systolic pressure is 55 mmHg. Pericardium/Pleural There is no pericardial effusion. Inferior Vena Cava Normal inferior vena cava with >50% collapse upon inspiration consistent with normal right atrial pressure, 5 mmHg. Aorta The aortic root size at the sinus of Valsalva is normal. Left Ventricular Outflow Tract Name Value Normal LVOT 2D LVOT Diameter 2.01 cm LVOT Doppler LVOT Peak Gradient 6 mmHg LVOT Mean Gradient 3 mmHg LVOT VTI 20.22 cm LVOT VTI/AV VTI Ratio 0.63 LVOT Stroke Volume 63.99 ml
[2021-01-16] MEDS: ALBUTEROL SULFATE NEB 2.5 MG/0.5 ML INH 5 MG INHALATION ×4 (02:37→19:58)
[2021-01-16] MEDS: IPRATROPIUM BR 0.02% INH SOLN 0.5 MG/2.5 ML VIAL INHALATION ×4 (02:37→19:58)
[2021-01-16 06:21] LABS: Basophils Absolute Auto 0.1 K/mm3 (0.0-0.1); Basophils Percent Auto 0.3 % (0.2-1.2); Hematocrit 28.6 % (37.0-47.0); Hemoglobin 9.3 g/dL (12.0-15.0); Immature Granulocyte Percent A 4.2 % (0-0.5); Lymphocytes Percent Auto 1.4 % (18.3-44.2); Mean Corpuscular HGB Conc 32.5 g/dl (32-36); Mean Corpuscular Hemoglobin 32.7 pg (26-34); Mean Corpuscular Volume 100.7 fl (80-100); Mean Platelet Volume 10.7 fl (7.4-10.4); Monocytes Absolute Auto 0.6 K/mm3 (0.1-0.6); Monocytes Percent Auto 2.7 % (2.6-8.5); Neutrophils Absolute Auto 19.7 K/mm3 (1.3-6.7); Neutrophils Percent Auto 91.4 % (45.5-73.1); Platelet Count Result 281 k/mm3 (150-375); Red Blood Count 2.84 M/mm3 (4.2-5.4); Red Cell Distribution Width 12.2 % (11.5-14.5); White Blood Count 21.6 K/mm3 (4.5-10.0)
[2021-01-16] MEDS: sulfaSALAzine 500 MG TABLET PO (07:58)
[2021-01-16] MEDS: ATORVASTATIN 5 MG TABLET PO (07:58)
[2021-01-16] MEDS: PANTOPRAZOLE 40 MG TABLET PO (07:59)
[2021-01-16] MEDS: guaiFENesin 12 HR 600 MG TABCR PO ×2 (07:59→20:53)
[2021-01-16] MEDS: CYANOCOBALAMIN 1,000 MCG TABLET 1000 MCG PO (07:59)
[2021-01-16] MEDS: MAGNESIUM OXIDE 400 MG TABLET PO (07:59)
[2021-01-16] MEDS: lisinopriL 20 MG TABLET PO (07:59)
[2021-01-16] MEDS: FERROUS SULFATE 324 MG TABLET PO ×2 (07:59→16:48)
[2021-01-16] MEDS: ASPIRIN 81 MG ENTERIC TABLET PO (07:59)
[2021-01-16] MEDS: methylPREDNISolone SOD SUCC 125 MG VIAL 60 MG IV PUSH ×2 (08:00→20:53)
[2021-01-16] MEDS: MONTELUKAST SODIUM 10 MG TABLET PO (08:01)
[2021-01-16] MEDS: BUDESONIDE RESPULE NEB 0.5 MG/2 ML AMP INHALATION ×2 (08:23→19:58)
[2021-01-16] MEDS: polyethylene glycoL 3350 17 GM POWD.PACK PO (13:04)
--- NOTE | 2021-01-16 16:37 | PM.IMPN ---
Progress Note: A&P Assessment and Plan (1) Left lower lobe pneumonia: Qualifiers: Pneumonia type: due to unspecified organism Qualified Code(s): J18.9 - Pneumonia, unspecified organism Code(s): J18.9 - Pneumonia, unspecified organism Status: Acute Assessment and Plan: CTA showing left sided PNA rpt cxr hanna Am -Continue ceftriaxone, azithromycin, and solumedrol to continue -Pt is at her home o2 settings of 2L -Continue breathing treatment. continue current treatments rpt CXr tomorrow COVID is negative wcc is high (2) Acute and chronic respiratory failure with hypoxia: Code(s): J96.21 - Acute and chronic respiratory failure with hypoxia Status: Acute Assessment and Plan: -Left ventricular systolic function is normal, estimated at 55-60%. (3) Acute exacerbation of chronic obstructive pulmonary disease: Code(s): J44.1 - Chronic obstructive pulmonary disease with (acute) exacerbation Status: Acute Assessment and Plan: -Continues steroids, abx, and nebulizers. (4) Dependence on supplemental oxygen: Code(s): Z99.81 - Dependence on supplemental oxygen Status: Acute Assessment and Plan: Continue on 2L as needed (5) (HFpEF) heart failure with preserved ejection fraction: Code(s): I50.30 - Unspecified diastolic (congestive) heart failure Status: Acute Assessment and Plan: Continue SUMAN inhibitors (6) Chronic kidney disease, stage III (moderate): Code(s): N18.3 - Chronic kidney disease, stage 3 (moderate) Status: Acute Assessment and Plan: creat is 0.8 (7) QAMAR (obstructive sleep apnea): Code(s): G47.33 - Obstructive sleep apnea (adult) (pediatric) Status: Acute Assessment and Plan: Chronic (8) Former smoker: Code(s): Z87.891 - Personal history of nicotine dependence Status: Acute Assessment and Plan: Ex smoker (9) HTN (hypertension): Onset Date: 02/06/15 Code(s): I10 - Essential (primary) hypertension Status: Acute Assessment and Plan: -Continue lisinopril and Cardizem (10) Atrial fibrillation: Code(s): I48.91 - Unspecified atrial fibrillation Status: Acute Assessment and Plan: Chronic with rate control -Continue Diltiazem 120 mg daily 81mg daily aspirin (11) Chronic bilateral low back pain without sciatica: Code(s): M54.5 - Low back pain; G89.29 - Other chronic pain Status: Acute Assessment and Plan: Pt is better now she is out of bed and in the chair Continue PT/ OT (12) GERD without esophagitis: Code(s): K21.9 - Gastro-esophageal reflux disease without esophagitis Status: Acute Assessment and Plan: Continue pantoprazole 40 mg daily (13) Abnormal CT scan, lung: Code(s): R91.8 - Other nonspecific abnormal finding of lung field Status: Acute Assessment and Plan: CTA shows new opacities of the right upper lobe which could be scarring vs malignancy -Would recommend repeat CT outpt or PET scan in 3 months -after discharge Subjective Date/time seen: 01/16/21 16:37 Interval history: Pt is a 85 y/o female here for PNA. Pt feels Sob with cough doing well with nebuliser treatments. I will order CXR for HANNA AM Review of Systems Review of Systems: All systems reviewed & are unremarkable except as noted in HPI and below Exam Narrative: Exam Narrative: General: Well developed, SOB at rest with cough HEENT: normocephalic Neck: supple Neuro: Alert and oriented x4 CV:RRR Resp: Abd: Soft, non distended. No pain to palpation. Positive bowel sounds Extremities: No swelling, erythema, or pain to palpation. Objective Data Vital Signs Vital Signs: Vital Signs - 24 hr 01/15/21 20:00 01/15/21 21:05 01/15/21 21:23 Temperature 36.7 C
[2021-01-16] MEDS: SALMETEROL XINAFOATE 50 MCG DISKUS 1 PUFF INHALATION (20:08)
[2021-01-17] VITALS (13 sets, daily range): BP systolic 154–172; BP diastolic 87–90; PULSE 83–109; RESP 16–20; TEMP 36.3–36.9; O2SAT 88–98
[2021-01-17] MEDS: ALBUTEROL SULFATE NEB 2.5 MG/0.5 ML INH 5 MG INHALATION ×4 (01:54→19:37)
[2021-01-17] MEDS: IPRATROPIUM BR 0.02% INH SOLN 0.5 MG/2.5 ML VIAL INHALATION ×4 (01:54→19:37)
[2021-01-17] MEDS: BUDESONIDE RESPULE NEB 0.5 MG/2 ML AMP INHALATION ×2 (08:43→19:37)
[2021-01-17] MEDS: ASPIRIN 81 MG ENTERIC TABLET PO (09:19)
[2021-01-17] MEDS: MAGNESIUM OXIDE 400 MG TABLET PO (09:19)
[2021-01-17] MEDS: PANTOPRAZOLE 40 MG TABLET PO (09:19)
[2021-01-17] MEDS: MONTELUKAST SODIUM 10 MG TABLET PO (09:19)
[2021-01-17] MEDS: ATORVASTATIN 5 MG TABLET PO (09:19)
[2021-01-17] MEDS: guaiFENesin 12 HR 600 MG TABCR PO ×2 (09:19→21:22)
[2021-01-17] MEDS: FERROUS SULFATE 324 MG TABLET PO ×2 (09:20→16:30)
[2021-01-17] MEDS: sulfaSALAzine 500 MG TABLET PO (09:20)
[2021-01-17] MEDS: lisinopriL 20 MG TABLET PO (09:20)
[2021-01-17] MEDS: methylPREDNISolone SOD SUCC 125 MG VIAL 60 MG IV PUSH ×2 (09:20→21:20)
[2021-01-17] MEDS: CYANOCOBALAMIN 1,000 MCG TABLET 1000 MCG PO (09:20)
[2021-01-17] MEDS: polyethylene glycoL 3350 17 GM POWD.PACK PO (09:21)
--- NOTE | 2021-01-17 13:50 | PM.IMPN ---
Progress Note: A&P Assessment and Plan (1) Left lower lobe pneumonia: Qualifiers: Pneumonia type: due to unspecified organism Qualified Code(s): J18.9 - Pneumonia, unspecified organism Code(s): J18.9 - Pneumonia, unspecified organism Status: Acute Assessment and Plan: CTA showing left sided PNA rpt cxr shanelle Am -Continue ceftriaxone, azithromycin, and solumedrol to continue -Pt is at her home o2 settings of 2L -Continue breathing treatment. continue current treatments Wcc being monitored, cxr rpt reviwed (2) Acute and chronic respiratory failure with hypoxia: Code(s): J96.21 - Acute and chronic respiratory failure with hypoxia Status: Acute Assessment and Plan: -Left ventricular systolic function is normal, estimated at 55-60%. (3) Acute exacerbation of chronic obstructive pulmonary disease: Code(s): J44.1 - Chronic obstructive pulmonary disease with (acute) exacerbation Status: Acute Assessment and Plan: -Continues steroids, abx, and nebulizers. (4) Dependence on supplemental oxygen: Code(s): Z99.81 - Dependence on supplemental oxygen Status: Acute Assessment and Plan: Continue on 2L as needed (5) (HFpEF) heart failure with preserved ejection fraction: Code(s): I50.30 - Unspecified diastolic (congestive) heart failure Status: Acute Assessment and Plan: Continue SUMAN inhibitors (6) Chronic kidney disease, stage III (moderate): Code(s): N18.3 - Chronic kidney disease, stage 3 (moderate) Status: Acute Assessment and Plan: creat is 0.8 (7) QAMAR (obstructive sleep apnea): Code(s): G47.33 - Obstructive sleep apnea (adult) (pediatric) Status: Acute Assessment and Plan: Chronic (8) Former smoker: Code(s): Z87.891 - Personal history of nicotine dependence Status: Acute Assessment and Plan: Ex smoker (9) HTN (hypertension): Onset Date: 02/06/15 Code(s): I10 - Essential (primary) hypertension Status: Acute Assessment and Plan: -Continue lisinopril and Cardizem (10) Atrial fibrillation: Code(s): I48.91 - Unspecified atrial fibrillation Status: Acute Assessment and Plan: Chronic with rate control -Continue Diltiazem 120 mg daily 81mg daily aspirin (11) Chronic bilateral low back pain without sciatica: Code(s): M54.5 - Low back pain; G89.29 - Other chronic pain Status: Acute Assessment and Plan: Pt is better now she is out of bed and in the chair Continue PT/ OT (12) GERD without esophagitis: Code(s): K21.9 - Gastro-esophageal reflux disease without esophagitis Status: Acute Assessment and Plan: Continue pantoprazole 40 mg daily (13) Abnormal CT scan, lung: Code(s): R91.8 - Other nonspecific abnormal finding of lung field Status: Acute Assessment and Plan: CTA shows new opacities of the right upper lobe which could be scarring vs malignancy -Would recommend repeat CT outpt or PET scan in 3 months -after discharge (14) Weakness: Code(s): R53.1 - Weakness Status: Acute Assessment and Plan: R sided weakness arm and leg order MRI brain, us carotid and echo already completed already Subjective Date/time seen: 01/17/21 13:50 Interval history: Pt is a 85 y/o female here for PNA. Pt feels Sob with cough, but improving from respiratory point of view. Cxr BL pneumonia and emphysema. Pt concerned about right sided weakness in her arm and leg. Feels she had a stroke on day of admission but is not sure. I will order MRI brain to determine stroke. Pt notes her right ankle in swollen. I will order xray of he right ankle. Review of Systems Review of Systems: All systems reviewed & are unremarkable except as noted in HPI and below Exam
--- NOTE | 2021-01-17 14:25 | PC.NURSE ---
Patient down to MRI,X-RAY,US per stretcher.
--- NOTE | 2021-01-17 15:26 | PC.NURSE ---
Patient returned to room from MRI,US,XRAY per stretcher.
[2021-01-17] MEDS: SALMETEROL XINAFOATE 50 MCG DISKUS 1 PUFF INHALATION (19:37)
[2021-01-18] VITALS (13 sets, daily range): BP systolic 140–173; BP diastolic 77–84; PULSE 87–104; RESP 18–24; TEMP 36.4–36.5; O2SAT 91–98
[2021-01-18] MEDS: IPRATROPIUM BR 0.02% INH SOLN 0.5 MG/2.5 ML VIAL INHALATION ×4 (01:44→20:13)
[2021-01-18] MEDS: ALBUTEROL SULFATE NEB 2.5 MG/0.5 ML INH 5 MG INHALATION ×4 (01:45→20:13)
[2021-01-18] MEDS: BUDESONIDE RESPULE NEB 0.5 MG/2 ML AMP INHALATION ×2 (07:36→20:13)
[2021-01-18] MEDS: SALMETEROL XINAFOATE 50 MCG DISKUS 1 PUFF INHALATION (07:37)
[2021-01-18] MEDS: ASPIRIN 81 MG ENTERIC TABLET PO (07:51)
[2021-01-18] MEDS: guaiFENesin 12 HR 600 MG TABCR PO ×2 (07:51→20:28)
[2021-01-18] MEDS: ATORVASTATIN 5 MG TABLET PO (07:51)
[2021-01-18] MEDS: MAGNESIUM OXIDE 400 MG TABLET PO (07:51)
[2021-01-18] MEDS: sulfaSALAzine 500 MG TABLET PO (07:51)
[2021-01-18] MEDS: CYANOCOBALAMIN 1,000 MCG TABLET 1000 MCG PO (07:51)
[2021-01-18] MEDS: lisinopriL 20 MG TABLET PO (07:51)
[2021-01-18] MEDS: PANTOPRAZOLE 40 MG TABLET PO (07:51)
[2021-01-18] MEDS: MONTELUKAST SODIUM 10 MG TABLET PO (07:52)
[2021-01-18] MEDS: polyethylene glycoL 3350 17 GM POWD.PACK PO (07:52)
[2021-01-18] MEDS: FERROUS SULFATE 324 MG TABLET PO ×2 (07:52→16:23)
[2021-01-18] MEDS: methylPREDNISolone SOD SUCC 125 MG VIAL 60 MG IV PUSH ×2 (07:52→20:28)
--- NOTE | 2021-01-18 12:35 | PM.IMPN ---
Progress Note: A&P Assessment and Plan (1) Left lower lobe pneumonia: Qualifiers: Pneumonia type: due to unspecified organism Qualified Code(s): J18.9 - Pneumonia, unspecified organism Code(s): J18.9 - Pneumonia, unspecified organism Status: Acute Assessment and Plan: CTA showing left sided PNA rpt cxr shanelle Am -Continue ceftriaxone, azithromycin, and solumedrol to continue -Pt is at her home o2 settings of 2L -Continue breathing treatment. continue current treatments Wcc being monitored, cxr rpt reviwed (2) Acute and chronic respiratory failure with hypoxia: Code(s): J96.21 - Acute and chronic respiratory failure with hypoxia Status: Acute Assessment and Plan: -Left ventricular systolic function is normal, estimated at 55-60%. (3) Acute exacerbation of chronic obstructive pulmonary disease: Code(s): J44.1 - Chronic obstructive pulmonary disease with (acute) exacerbation Status: Acute Assessment and Plan: -Continues steroids, abx, and nebulizers. (4) Dependence on supplemental oxygen: Code(s): Z99.81 - Dependence on supplemental oxygen Status: Acute Assessment and Plan: Continue on 2L as needed (5) (HFpEF) heart failure with preserved ejection fraction: Code(s): I50.30 - Unspecified diastolic (congestive) heart failure Status: Acute Assessment and Plan: Continue SUMAN inhibitors (6) Chronic kidney disease, stage III (moderate): Code(s): N18.3 - Chronic kidney disease, stage 3 (moderate) Status: Acute Assessment and Plan: creat is 0.8 (7) QAMAR (obstructive sleep apnea): Code(s): G47.33 - Obstructive sleep apnea (adult) (pediatric) Status: Acute Assessment and Plan: Chronic (8) Former smoker: Code(s): Z87.891 - Personal history of nicotine dependence Status: Acute Assessment and Plan: Ex smoker (9) HTN (hypertension): Onset Date: 02/06/15 Code(s): I10 - Essential (primary) hypertension Status: Acute Assessment and Plan: -Continue lisinopril and Cardizem (10) Atrial fibrillation: Code(s): I48.91 - Unspecified atrial fibrillation Status: Acute Assessment and Plan: Chronic with rate control -Continue Diltiazem 120 mg daily 81mg daily aspirin (11) Chronic bilateral low back pain without sciatica: Code(s): M54.5 - Low back pain; G89.29 - Other chronic pain Status: Acute Assessment and Plan: Pt is better now she is out of bed and in the chair Continue PT/ OT (12) GERD without esophagitis: Code(s): K21.9 - Gastro-esophageal reflux disease without esophagitis Status: Acute Assessment and Plan: Continue pantoprazole 40 mg daily (13) Abnormal CT scan, lung: Code(s): R91.8 - Other nonspecific abnormal finding of lung field Status: Acute Assessment and Plan: CTA shows new opacities of the right upper lobe which could be scarring vs malignancy -Would recommend repeat CT outpt or PET scan in 3 months -after discharge (14) Weakness: Code(s): R53.1 - Weakness Status: Acute Assessment and Plan: R sided weakness arm and leg order MRI brain, us carotid and echo already completed already (15) Stroke: Code(s): I63.9 - Cerebral infarction, unspecified Status: Acute Assessment and Plan: Recent stroke mild left leg weakness, no speech or swallow problems STarted on ASA started PT/ OT neurology consulted ECHO and US carotids completed Subjective Date/time seen: 01/18/21 12:35 Interval history: Pt is a 85 y/o female here for PNA. Pt feels Sob with cough, but improving from respiratory point of view. Cxr BL pneumonia and emphysema. Pt concerned about right sided weakness in her arm and leg. Feels she had a stroke on day o
--- NOTE | 2021-01-18 12:51 | WPDNEURCNPN ---
Assessment and Plan Additional Plan as ordered Consult date: 01/20/21 Time Seen: 12:51 HPI: Humaira Moralez is a 85 year old female admitted to the hospital with the complaints of difficulties in breathing and with the history of underlying COPD with emphysema for which she is on 2L of supplemental oxygen by nasal cannula at home. Patient has bone repeatedly not feeling well over the last several days and initial workup was done in the emergency room with negative CTA of the chest but abnormal chest x-ray evaluation up until now include the WBC 21.6 with hemoglobin only 9.3 and the platelet count of 281 chemistry with blood sugar of 161 UA with specific gravity of 1047 1+ protein 1+ ketone and serology negative for COVID brain MRI documented punctate acute left cerebellar infarction, echocardiogram documented left atrial chamber mildly enlarged with mitral valvular calcification of the annulus Review of Systems Review of Systems: All systems reviewed & are unremarkable except as noted in HPI and below PMFSH Past Medical History Medical History Hypertension, essential Family History Family History Mother Family history of cardiovascular disease Father Family history of emphysema Family history of chronic obstructive pulmonary disease Sibling Family history of malignant neoplasm Social History Social History Smoking status: Former smoker Second hand tobacco smoke exposure: No Alcohol intake: never Substance use: never Gender identity (if verbalized by the patient): Female Spiritual care concerns: No Meds Home Medications and Allergies Home Medications Medication Instructions Recorded Confirmed Type albuterol sulfate 2.5 mg INHALATION QID 09/16/19 01/14/21 History albuterol sulfate 90 mcg/actuation 1 puff INHALATION Q4H 09/16/19 01/19/21 History aerosol inhaler aspirin 81 mg tablet,delayed 81 mg PO DAILY 09/16/19 01/14/21 History release sulfasalazine 500 mg tablet 0.5 gm PO DAILY 09/16/19 01/14/21 History arformoterol 15 mcg/2 mL solution 2 ml INHALATION BID 30 Days #60 ml 01/17/20 01/14/21 Rx for nebulization budesonide 0.5 mg/2 mL suspension 0.5 mg INHALATION BID 30 Days #120 02/04/20 01/14/21 Rx for nebulization ml atorvastatin 10 mg tablet 5 mg PO DAILY #90 tablet 02/11/20 01/14/21 Rx calcium carbonate 500 mg (1,250 1 tablet PO DAILY 07/11/20 01/14/21 History mg)-vitamin D3 125 unit tablet diltiazem HCl 120 mg See Rx Instructions .ROUTE 11/21/20 01/14/21 Rx capsule,extended release 24 hr .COMPLEX #90 cap ergocalciferol (vitamin D2) 1,250 See Rx Instructions .ROUTE 11/21/20 01/14/21 Rx mcg (50,000 unit) capsule .COMPLEX #12 cap mecobalamin (vitamin B12) 1,000 1,000 mcg PO DAILY 12/11/20 01/14/21 History mcg chewable tablet alendronate 70 mg PO WEEKLY 01/14/21 01/14/21 History ferrous sulfate 325 mg PO BID 01/14/21 01/14/21 History lisinopril 20 mg PO DAILY 01/14/21 01/14/21 History montelukast 10 mg PO DAILY 01/14/21 01/14/21 History pantoprazole 40 mg PO DAILY 01/14/21 01/14/21 History Allergies Allergy/AdvReac Type Severity Reaction Status Date / Time No Known Allergies Allergy Unknown Verified 01/14/21 01:12 Vital Signs Vital Signs - 24 hr 01/17/21 13:42 01/17/21 13:49 01/17/21 19:35 Temperature Pulse Rate 109 H 100 94 Respiratory Rate 20 20 20 Blood Pressure Pulse Oximetry 94 01/17/21 19:51 01/17/21 22:00 01/18/21 01:45 Temperature 36.3 C L Pulse Rate 95 94 87 Respiratory Rate 20 20 24 H Blood Pressure 154/90 H Pulse Oximetry 98 01/18/21 01:54 01/18/21 05:59 01/18/21 07:36 Temperature 36.4 C Pulse Rate 88 95 97 Respiratory Rate 22 H 20 20 Blood Pressure 173/81 H Pulse Oximetry 97 94 01/18/21 07:53 01/18/21 08:00 Temperature Pulse
[2021-01-18] MEDS: ASPIRIN 325 MG TABLET PO (16:22)
[2021-01-19] VITALS (11 sets, daily range): BP systolic 152–171; BP diastolic 76–81; PULSE 88–102; RESP 14–24; TEMP 36.2–36.3; O2SAT 91–100
[2021-01-19] MEDS: ALBUTEROL SULFATE NEB 2.5 MG/0.5 ML INH 5 MG INHALATION ×4 (02:14→20:16)
[2021-01-19] MEDS: IPRATROPIUM BR 0.02% INH SOLN 0.5 MG/2.5 ML VIAL INHALATION ×4 (02:14→20:16)
[2021-01-19 06:30] LABS: Hemoglobin 10.8 g/dL (12.0-15.0); Mean Corpuscular HGB Conc 30.9 g/dl (32-36); Mean Corpuscular Volume 103.9 fl (80-100); Mean Platelet Volume 10.5 fl (7.4-10.4); Platelet Count Result 334 k/mm3 (150-375); Red Blood Count 3.37 M/mm3 (4.2-5.4); Red Cell Distribution Width 12.3 % (11.5-14.5); White Blood Count 15.5 K/mm3 (4.5-10.0)
[2021-01-19 06:47] LABS: Anion Gap 2 mmol/L (8-16); Blood Urea Nitrogen 28 mg/dL (7-17); Calcium 9.1 mg/dL (8.4-10.2); Carbon Dioxide 38 mmol/L (22-30); Chloride 97 mmol/L (98-107); Estimated CRCL calculation 31 ml/min; Estimated Glomerular Filt Rate 60; Glucose 170 mg/dL (65-105); Potassium 4.1 mmol/L (3.4-5.0); Sodium 137 mmol/L (137-145)
[2021-01-19] MEDS: BUDESONIDE RESPULE NEB 0.5 MG/2 ML AMP INHALATION ×2 (07:47→20:16)
[2021-01-19] MEDS: MONTELUKAST SODIUM 10 MG TABLET PO (08:25)
[2021-01-19] MEDS: sulfaSALAzine 500 MG TABLET PO (08:25)
[2021-01-19] MEDS: PANTOPRAZOLE 40 MG TABLET PO (08:25)
[2021-01-19] MEDS: lisinopriL 20 MG TABLET PO (08:25)
[2021-01-19] MEDS: MAGNESIUM OXIDE 400 MG TABLET PO (08:25)
[2021-01-19] MEDS: CYANOCOBALAMIN 1,000 MCG TABLET 1000 MCG PO (08:25)
[2021-01-19] MEDS: methylPREDNISolone SOD SUCC 125 MG VIAL 60 MG IV PUSH ×2 (08:26→21:00)
[2021-01-19] MEDS: FERROUS SULFATE 324 MG TABLET PO ×2 (08:26→16:53)
[2021-01-19] MEDS: ASPIRIN 325 MG TABLET PO (08:26)
[2021-01-19] MEDS: ATORVASTATIN 5 MG TABLET PO (08:26)
[2021-01-19] MEDS: guaiFENesin 12 HR 600 MG TABCR PO ×2 (10:34→21:00)
[2021-01-19] MEDS: SALMETEROL XINAFOATE 50 MCG DISKUS 1 PUFF INHALATION ×2 (12:23→20:22)
--- NOTE | 2021-01-19 12:34 | PM.IMPN ---
Progress Note: A&P Assessment and Plan (1) Left lower lobe pneumonia: Qualifiers: Pneumonia type: due to unspecified organism Qualified Code(s): J18.9 - Pneumonia, unspecified organism Code(s): J18.9 - Pneumonia, unspecified organism Status: Acute Assessment and Plan: CTA showing left sided PNA BC and sputum cultures are negative -Continue ceftriaxone, azithromycin, and solumedrol to continue -Pt is at her home o2 settings of 2L -Continue breathing treatment. continue current treatments Wcc staying high because of steroids. (2) Acute and chronic respiratory failure with hypoxia: Code(s): J96.21 - Acute and chronic respiratory failure with hypoxia Status: Acute Assessment and Plan: -Left ventricular systolic function is normal, estimated at 55-60%. (3) Acute exacerbation of chronic obstructive pulmonary disease: Code(s): J44.1 - Chronic obstructive pulmonary disease with (acute) exacerbation Status: Acute Assessment and Plan: -Continues steroids, abx, and nebulizers. (4) Dependence on supplemental oxygen: Code(s): Z99.81 - Dependence on supplemental oxygen Status: Acute Assessment and Plan: Continue on 2L as needed (5) (HFpEF) heart failure with preserved ejection fraction: Code(s): I50.30 - Unspecified diastolic (congestive) heart failure Status: Acute Assessment and Plan: Continue SUMAN inhibitors (6) Chronic kidney disease, stage III (moderate): Code(s): N18.3 - Chronic kidney disease, stage 3 (moderate) Status: Acute Assessment and Plan: creat is 0.8 (7) QAMAR (obstructive sleep apnea): Code(s): G47.33 - Obstructive sleep apnea (adult) (pediatric) Status: Acute Assessment and Plan: Chronic (8) Former smoker: Code(s): Z87.891 - Personal history of nicotine dependence Status: Acute Assessment and Plan: Ex smoker (9) HTN (hypertension): Onset Date: 02/06/15 Code(s): I10 - Essential (primary) hypertension Status: Acute Assessment and Plan: -Continue lisinopril and Cardizem (10) Atrial fibrillation: Code(s): I48.91 - Unspecified atrial fibrillation Status: Acute Assessment and Plan: Chronic with rate control -Continue Diltiazem 120 mg daily 81mg daily aspirin (11) Chronic bilateral low back pain without sciatica: Code(s): M54.5 - Low back pain; G89.29 - Other chronic pain Status: Acute Assessment and Plan: Pt is better now she is out of bed and in the chair Continue PT/ OT (12) GERD without esophagitis: Code(s): K21.9 - Gastro-esophageal reflux disease without esophagitis Status: Acute Assessment and Plan: Continue pantoprazole 40 mg daily (13) Abnormal CT scan, lung: Code(s): R91.8 - Other nonspecific abnormal finding of lung field Status: Acute Assessment and Plan: CTA shows new opacities of the right upper lobe which could be scarring vs malignancy -Would recommend repeat CT outpt or PET scan in 3 months -after discharge (14) Weakness: Code(s): R53.1 - Weakness Status: Acute Assessment and Plan: R sided weakness arm and leg order MRI brain, us carotid and echo already completed already (15) Stroke: Code(s): I63.9 - Cerebral infarction, unspecified Status: Acute Assessment and Plan: Recent stroke mild left leg weakness, no speech or swallow problems STarted on ASA started PT/ OT neurology consulted ECHO and US carotids completed Subjective Date/time seen: 01/19/21 12:34 Interval history: Pt is a 85 y/o female here for PNA. Pt feels Sob with cough, but improving from respiratory point of view. Cxr BL pneumonia and emphysema. Pt concerned about right sided weakness in her arm and leg. Feels she h
[2021-01-20] VITALS (13 sets, daily range): BP systolic 149–165; BP diastolic 71–80; PULSE 76–99; RESP 16–22; TEMP 36.7–36.8; O2SAT 95–98
[2021-01-20] MEDS: ALBUTEROL SULFATE NEB 2.5 MG/0.5 ML INH 5 MG INHALATION ×4 (01:51→19:22)
[2021-01-20] MEDS: IPRATROPIUM BR 0.02% INH SOLN 0.5 MG/2.5 ML VIAL INHALATION ×4 (01:51→19:22)
[2021-01-20] MEDS: ACETAMINOPHEN 325 MG TABLET 650 MG PO ×2 (06:20→21:14)
[2021-01-20] MEDS: ASPIRIN 325 MG TABLET PO (08:51)
[2021-01-20] MEDS: ATORVASTATIN 5 MG TABLET PO (08:51)
[2021-01-20] MEDS: FERROUS SULFATE 324 MG TABLET PO ×2 (08:51→17:48)
[2021-01-20] MEDS: lisinopriL 20 MG TABLET PO (08:52)
[2021-01-20] MEDS: MONTELUKAST SODIUM 10 MG TABLET PO (08:52)
[2021-01-20] MEDS: PANTOPRAZOLE 40 MG TABLET PO (08:52)
[2021-01-20] MEDS: CYANOCOBALAMIN 1,000 MCG TABLET 1000 MCG PO (08:52)
[2021-01-20] MEDS: MAGNESIUM OXIDE 400 MG TABLET PO (08:52)
[2021-01-20] MEDS: guaiFENesin 12 HR 600 MG TABCR PO ×2 (08:52→21:15)
[2021-01-20] MEDS: sulfaSALAzine 500 MG TABLET PO (08:53)
[2021-01-20] MEDS: methylPREDNISolone SOD SUCC 125 MG VIAL 60 MG IV PUSH ×2 (08:53→21:15)
[2021-01-20] MEDS: BUDESONIDE RESPULE NEB 0.5 MG/2 ML AMP INHALATION ×2 (09:28→19:22)
[2021-01-20] MEDS: SALMETEROL XINAFOATE 50 MCG DISKUS 1 PUFF INHALATION ×2 (09:29→21:27)
--- NOTE | 2021-01-20 12:28 | P.PNIM_ITS ---
Progress Note: A&P Assessment and Plan (1) Left lower lobe pneumonia: Qualifiers: Pneumonia type: due to unspecified organism Qualified Code(s): J18.9 - Pneumonia, unspecified organism Code(s): J18.9 - Pneumonia, unspecified organism Status: Acute Assessment and Plan: CTA showing left sided PNA BC and sputum cultures are negative -Continue ceftriaxone, azithromycin, and solumedrol to continue -Pt is at her home o2 settings of 2L -Continue breathing treatment. continue current treatments Wcc staying high because of steroids. (2) Acute and chronic respiratory failure with hypoxia: Code(s): J96.21 - Acute and chronic respiratory failure with hypoxia Status: Acute Assessment and Plan: -Left ventricular systolic function is normal, estimated at 55-60%. (3) Acute exacerbation of chronic obstructive pulmonary disease: Code(s): J44.1 - Chronic obstructive pulmonary disease with (acute) exacerbation Status: Acute Assessment and Plan: -Continues steroids, abx, and nebulizers. (4) Dependence on supplemental oxygen: Code(s): Z99.81 - Dependence on supplemental oxygen Status: Acute Assessment and Plan: Continue on 2L as needed (5) (HFpEF) heart failure with preserved ejection fraction: Code(s): I50.30 - Unspecified diastolic (congestive) heart failure Status: Acute Assessment and Plan: Continue SUMAN inhibitors (6) Chronic kidney disease, stage III (moderate): Code(s): N18.3 - Chronic kidney disease, stage 3 (moderate) Status: Acute Assessment and Plan: creat is 0.8 (7) QAMAR (obstructive sleep apnea): Code(s): G47.33 - Obstructive sleep apnea (adult) (pediatric) Status: Acute Assessment and Plan: Chronic (8) Former smoker: Code(s): Z87.891 - Personal history of nicotine dependence Status: Acute Assessment and Plan: Ex smoker (9) HTN (hypertension): Onset Date: 02/06/15 Code(s): I10 - Essential (primary) hypertension Status: Acute Assessment and Plan: -Continue lisinopril and Cardizem (10) Atrial fibrillation: Code(s): I48.91 - Unspecified atrial fibrillation Status: Acute Assessment and Plan: Chronic with rate control -Continue Diltiazem 120 mg daily 81mg daily aspirin (11) Chronic bilateral low back pain without sciatica: Code(s): M54.5 - Low back pain; G89.29 - Other chronic pain Status: Acute Assessment and Plan: Pt is better now she is out of bed and in the chair Continue PT/ OT (12) GERD without esophagitis: Code(s): K21.9 - Gastro-esophageal reflux disease without esophagitis Status: Acute Assessment and Plan: Continue pantoprazole 40 mg daily (13) Abnormal CT scan, lung: Code(s): R91.8 - Other nonspecific abnormal finding of lung field Status: Acute Assessment and Plan: CTA shows new opacities of the right upper lobe which could be scarring vs malignancy -Would recommend repeat CT outpt or PET scan in 3 months -after discharge (14) Weakness: Code(s): R53.1 - Weakness Status: Acute Assessment and Plan: R sided weakness arm and leg order MRI brain, us
[2021-01-20] MEDS: ONDANSETRON INJ 4 MG/2 ML VIAL IV PUSH (22:21)
[2021-01-21] VITALS (13 sets, daily range): BP systolic 143–159; BP diastolic 67–89; PULSE 80–93; RESP 16–20; TEMP 36.1–37.1; O2SAT 93–98
[2021-01-21] MEDS: ALBUTEROL SULFATE NEB 2.5 MG/0.5 ML INH 5 MG INHALATION ×4 (01:32→20:20)
[2021-01-21] MEDS: IPRATROPIUM BR 0.02% INH SOLN 0.5 MG/2.5 ML VIAL INHALATION ×4 (01:32→20:20)
[2021-01-21] MEDS: ONDANSETRON INJ 4 MG/2 ML VIAL IV PUSH (06:53)
[2021-01-21] MEDS: SALMETEROL XINAFOATE 50 MCG DISKUS 1 PUFF INHALATION ×2 (09:26→20:53)
[2021-01-21] MEDS: BUDESONIDE RESPULE NEB 0.5 MG/2 ML AMP INHALATION ×2 (09:26→20:20)
[2021-01-21] MEDS: ATORVASTATIN 5 MG TABLET PO (09:54)
[2021-01-21] MEDS: CYANOCOBALAMIN 1,000 MCG TABLET 1000 MCG PO (09:54)
[2021-01-21] MEDS: FERROUS SULFATE 324 MG TABLET PO ×2 (09:54→17:25)
[2021-01-21] MEDS: sulfaSALAzine 500 MG TABLET PO (09:54)
[2021-01-21] MEDS: guaiFENesin 12 HR 600 MG TABCR PO ×2 (09:54→20:49)
[2021-01-21] MEDS: MONTELUKAST SODIUM 10 MG TABLET PO (09:54)
[2021-01-21] MEDS: ASPIRIN 325 MG TABLET PO (09:54)
[2021-01-21] MEDS: PANTOPRAZOLE 40 MG TABLET PO (09:54)
[2021-01-21] MEDS: MAGNESIUM OXIDE 400 MG TABLET PO (09:55)
[2021-01-21] MEDS: methylPREDNISolone SOD SUCC 125 MG VIAL 60 MG IV PUSH (09:55)
[2021-01-21] MEDS: lisinopriL 20 MG TABLET PO (09:55)
[2021-01-21] MEDS: ACETAMINOPHEN 325 MG TABLET 650 MG PO (09:57)
[2021-01-21] MEDS: LOPERAMIDE HCL 2 MG CAPSULE PO (10:59)
--- NOTE | 2021-01-21 11:48 | PCPTNOTE ---
Per RN patient has been using the restroom a lot this morning and is weak. Spoke with patient about participating in therapy and she would like therapy to come back at a later time. Will check on patient at a later time.
--- NOTE | 2021-01-21 12:55 | PCPTNOTE ---
Patient was sitting with her eating lunch. Will check back on patient at later time/date.
--- NOTE | 2021-01-21 13:12 | PM.IMPN ---
Progress Note: A&P Assessment and Plan (1) Left lower lobe pneumonia: Qualifiers: Pneumonia type: due to unspecified organism Qualified Code(s): J18.9 - Pneumonia, unspecified organism Code(s): J18.9 - Pneumonia, unspecified organism Status: Acute Assessment and Plan: CTA showing left sided PNA BC and sputum cultures are negative -Dc Iv zithromax wean off steroids -Pt is at her home o2 settings of 2L -Continue breathing treatment. continue current treatments (2) Acute and chronic respiratory failure with hypoxia: Code(s): J96.21 - Acute and chronic respiratory failure with hypoxia Status: Acute Assessment and Plan: -Left ventricular systolic function is normal, estimated at 55-60%. (3) Acute exacerbation of chronic obstructive pulmonary disease: Code(s): J44.1 - Chronic obstructive pulmonary disease with (acute) exacerbation Status: Acute Assessment and Plan: -Continues steroids, abx, and nebulizers. (4) Dependence on supplemental oxygen: Code(s): Z99.81 - Dependence on supplemental oxygen Status: Acute Assessment and Plan: Continue on 2L as needed (5) (HFpEF) heart failure with preserved ejection fraction: Code(s): I50.30 - Unspecified diastolic (congestive) heart failure Status: Acute Assessment and Plan: Continue SUMAN inhibitors (6) Chronic kidney disease, stage III (moderate): Code(s): N18.3 - Chronic kidney disease, stage 3 (moderate) Status: Acute Assessment and Plan: creat is 0.8 (7) QAMAR (obstructive sleep apnea): Code(s): G47.33 - Obstructive sleep apnea (adult) (pediatric) Status: Acute Assessment and Plan: Chronic (8) Former smoker: Code(s): Z87.891 - Personal history of nicotine dependence Status: Acute Assessment and Plan: Ex smoker (9) HTN (hypertension): Onset Date: 02/06/15 Code(s): I10 - Essential (primary) hypertension Status: Acute Assessment and Plan: -Continue lisinopril and Cardizem (10) Atrial fibrillation: Code(s): I48.91 - Unspecified atrial fibrillation Status: Acute Assessment and Plan: Chronic with rate control -Continue Diltiazem 120 mg daily 81mg daily aspirin (11) Chronic bilateral low back pain without sciatica: Code(s): M54.5 - Low back pain; G89.29 - Other chronic pain Status: Acute Assessment and Plan: Pt is better now she is out of bed and in the chair Continue PT/ OT (12) GERD without esophagitis: Code(s): K21.9 - Gastro-esophageal reflux disease without esophagitis Status: Acute Assessment and Plan: Continue pantoprazole 40 mg daily (13) Abnormal CT scan, lung: Code(s): R91.8 - Other nonspecific abnormal finding of lung field Status: Acute Assessment and Plan: CTA shows new opacities of the right upper lobe which could be scarring vs malignancy -Would recommend repeat CT outpt or PET scan in 3 months -after discharge (14) Weakness: Code(s): R53.1 - Weakness Status: Acute Assessment and Plan: R sided weakness arm and leg order MRI brain, us carotid and echo already completed already (15) Stroke: Code(s): I63.9 - Cerebral infarction, unspecified Status: Acute Assessment and Plan: Recent stroke mild left leg weakness, no speech or swallow problems STarted on ASA started PT/ OT neurology consulted ECHO and US carotids completed Subjective Date/time seen: 01/21/21 13:12 Interval history: Pt is a 85 y/o female here for PNA. Pt feels Sob with cough, but improving from respiratory point of view. Cxr BL pneumonia and emphysema. Pt concerned about right sided weakness in her arm and leg. Feels she had a stroke on day of admission but is not sure. MRI shows punct
--- NOTE | 2021-01-21 13:22 | PCPTNOTE ---
Attempted to see patient for PT this afternoon, however patient declined due to having to walk to the restroom multiple times today and is worn out. Reported she will participate with therapy tomorrow.
--- NOTE | 2021-01-21 14:00 | PCOTNOTE ---
Patient declined treatment this pm due to c/o fatigue and I just don't feel well today. I did not have a good night sleep . Patient declined lunch tray on bedside table stating I don't have an appetite this afternoon .
[2021-01-21] MEDS: AMOXICILLIN/CLAVULANATE K 875-125 MG TAB 1 TABLET PO (20:49)
[2021-01-22] VITALS (13 sets, daily range): BP systolic 112–145; BP diastolic 60–94; PULSE 76–112; RESP 16–26; TEMP 36.3–36.6; O2SAT 92–99
[2021-01-22] MEDS: IPRATROPIUM BR 0.02% INH SOLN 0.5 MG/2.5 ML VIAL INHALATION ×4 (01:49→20:46)
[2021-01-22] MEDS: ALBUTEROL SULFATE NEB 2.5 MG/0.5 ML INH 5 MG INHALATION ×4 (01:50→20:46)
[2021-01-22] MEDS: ACETAMINOPHEN 325 MG TABLET 650 MG PO ×2 (08:50→22:51)
[2021-01-22] MEDS: guaiFENesin 12 HR 600 MG TABCR PO ×2 (08:51→20:14)
[2021-01-22] MEDS: AMOXICILLIN/CLAVULANATE K 875-125 MG TAB 1 TABLET PO ×2 (08:51→20:14)
[2021-01-22] MEDS: ATORVASTATIN 5 MG TABLET PO (08:51)
[2021-01-22] MEDS: sulfaSALAzine 500 MG TABLET PO (08:51)
[2021-01-22] MEDS: MAGNESIUM OXIDE 400 MG TABLET PO (08:51)
[2021-01-22] MEDS: CYANOCOBALAMIN 1,000 MCG TABLET 1000 MCG PO (08:51)
[2021-01-22] MEDS: FERROUS SULFATE 324 MG TABLET PO ×2 (08:51→17:21)
[2021-01-22] MEDS: lisinopriL 20 MG TABLET PO (08:52)
[2021-01-22] MEDS: methylPREDNISolone SOD SUCC 40 MG VIAL IV PUSH (08:52)
[2021-01-22] MEDS: MONTELUKAST SODIUM 10 MG TABLET PO (08:52)
[2021-01-22] MEDS: ASPIRIN 325 MG TABLET PO (08:52)
[2021-01-22] MEDS: SALMETEROL XINAFOATE 50 MCG DISKUS 1 PUFF INHALATION ×2 (08:55→20:46)
[2021-01-22] MEDS: BUDESONIDE RESPULE NEB 0.5 MG/2 ML AMP INHALATION ×2 (09:20→20:46)
--- NOTE | 2021-01-22 11:07 | PCNWS ---
Weekly nutritional screen. Patient is tolerating current diet with adequate intake. No weight loss reported. No nutritional needs at this time.
--- NOTE | 2021-01-22 14:29 | PM.IMPN ---
Progress Note: A&P Assessment and Plan (1) Left lower lobe pneumonia: Qualifiers: Pneumonia type: due to unspecified organism Qualified Code(s): J18.9 - Pneumonia, unspecified organism Code(s): J18.9 - Pneumonia, unspecified organism Status: Acute Assessment and Plan: CTA showing left sided PNA BC and sputum cultures are negative -Dc Iv zithromax wean off steroids -Pt is at her home o2 settings of 2L -Continue breathing treatment. continue current treatments CXR for tomorrow (2) Acute and chronic respiratory failure with hypoxia: Code(s): J96.21 - Acute and chronic respiratory failure with hypoxia Status: Acute Assessment and Plan: -Left ventricular systolic function is normal, estimated at 55-60%. (3) Acute exacerbation of chronic obstructive pulmonary disease: Code(s): J44.1 - Chronic obstructive pulmonary disease with (acute) exacerbation Status: Acute Assessment and Plan: -Continues steroids, abx, and nebulizers. (4) Dependence on supplemental oxygen: Code(s): Z99.81 - Dependence on supplemental oxygen Status: Acute Assessment and Plan: Continue on 2L as needed (5) (HFpEF) heart failure with preserved ejection fraction: Code(s): I50.30 - Unspecified diastolic (congestive) heart failure Status: Acute Assessment and Plan: Continue SUMAN inhibitors (6) Chronic kidney disease, stage III (moderate): Code(s): N18.3 - Chronic kidney disease, stage 3 (moderate) Status: Acute Assessment and Plan: creat is 0.8 (7) QAMAR (obstructive sleep apnea): Code(s): G47.33 - Obstructive sleep apnea (adult) (pediatric) Status: Acute Assessment and Plan: Chronic (8) Former smoker: Code(s): Z87.891 - Personal history of nicotine dependence Status: Acute Assessment and Plan: Ex smoker (9) HTN (hypertension): Onset Date: 02/06/15 Code(s): I10 - Essential (primary) hypertension Status: Acute Assessment and Plan: -Continue lisinopril and Cardizem (10) Atrial fibrillation: Code(s): I48.91 - Unspecified atrial fibrillation Status: Acute Assessment and Plan: Chronic with rate control -Continue Diltiazem 120 mg daily 81mg daily aspirin (11) Chronic bilateral low back pain without sciatica: Code(s): M54.5 - Low back pain; G89.29 - Other chronic pain Status: Acute Assessment and Plan: Pt is better now she is out of bed and in the chair Continue PT/ OT (12) GERD without esophagitis: Code(s): K21.9 - Gastro-esophageal reflux disease without esophagitis Status: Acute Assessment and Plan: Continue pantoprazole 40 mg daily (13) Abnormal CT scan, lung: Code(s): R91.8 - Other nonspecific abnormal finding of lung field Status: Acute Assessment and Plan: CTA shows new opacities of the right upper lobe which could be scarring vs malignancy -Would recommend repeat CT outpt or PET scan in 3 months -after discharge (14) Weakness: Code(s): R53.1 - Weakness Status: Acute Assessment and Plan: R sided weakness arm and leg order MRI brain, us carotid and echo already completed already (15) Stroke: Code(s): I63.9 - Cerebral infarction, unspecified Status: Acute Assessment and Plan: Recent stroke mild left leg weakness, no speech or swallow problems STarted on ASA started PT/ OT neurology consulted ECHO and US carotids completed Subjective Date/time seen: 01/22/21 14:29 Interval history: Pt is a 85 y/o female here for PNA. Pt feels Sob with cough, but improving from respiratory point of view. Cxr BL pneumonia and emphysema. Pt concerned about right sided weakness in her arm and leg. Feels she had a stroke on day of admission. MRI shows pu
[2021-01-22] MEDS: PANTOPRAZOLE 40 MG TABLET PO (17:21)
[2021-01-22] MEDS: LOPERAMIDE HCL 2 MG CAPSULE PO ×2 (18:38→22:39)
[2021-01-23] VITALS (11 sets, daily range): BP systolic 154–163; BP diastolic 71–86; PULSE 66–97; RESP 16–24; TEMP 36.4–36.7; O2SAT 96–100
--- NOTE | 2021-01-23 00:14 | PC.NURSE ---
patient had 6+ bouts of watery diarrhea before 00:00 tonight (01/22/21).. Wondering if it may be due to amoxicillin use as opposed to the fast food she has been brought. -AEW RN
[2021-01-23] MEDS: ALBUTEROL SULFATE NEB 2.5 MG/0.5 ML INH 5 MG INHALATION ×4 (02:09→19:53)
[2021-01-23] MEDS: IPRATROPIUM BR 0.02% INH SOLN 0.5 MG/2.5 ML VIAL INHALATION ×4 (02:09→19:53)
[2021-01-23] MEDS: guaiFENesin 12 HR 600 MG TABCR PO ×2 (08:59→21:57)
[2021-01-23] MEDS: lisinopriL 20 MG TABLET PO (08:59)
[2021-01-23] MEDS: ATORVASTATIN 5 MG TABLET PO (08:59)
[2021-01-23] MEDS: LOPERAMIDE HCL 2 MG CAPSULE PO (08:59)
[2021-01-23] MEDS: CYANOCOBALAMIN 1,000 MCG TABLET 1000 MCG PO (08:59)
[2021-01-23] MEDS: methylPREDNISolone SOD SUCC 40 MG VIAL IV PUSH (09:00)
[2021-01-23] MEDS: MONTELUKAST SODIUM 10 MG TABLET PO (09:00)
[2021-01-23] MEDS: PANTOPRAZOLE 40 MG TABLET PO (09:00)
[2021-01-23] MEDS: ASPIRIN 325 MG TABLET PO (09:00)
[2021-01-23] MEDS: FERROUS SULFATE 324 MG TABLET PO ×2 (09:00→16:26)
[2021-01-23] MEDS: MAGNESIUM OXIDE 400 MG TABLET PO (09:00)
[2021-01-23] MEDS: sulfaSALAzine 500 MG TABLET PO (09:00)
[2021-01-23] MEDS: BUDESONIDE RESPULE NEB 0.5 MG/2 ML AMP INHALATION ×2 (09:13→19:53)
[2021-01-23] MEDS: SALMETEROL XINAFOATE 50 MCG DISKUS 1 PUFF INHALATION ×2 (09:14→19:53)
[2021-01-23] MEDS: ACETAMINOPHEN 325 MG TABLET 650 MG PO (11:53)
--- NOTE | 2021-01-23 14:18 | P.PNIM_ITS ---
Progress Note: A&P Assessment and Plan (1) Left lower lobe pneumonia: Qualifiers: Pneumonia type: due to unspecified organism Qualified Code(s): J18.9 - Pneumonia, unspecified organism Code(s): J18.9 - Pneumonia, unspecified organism Status: Acute Assessment and Plan: CTA showing left sided PNA BC and sputum cultures are negative -Dc Iv zithromax wean off steroids -Pt is at her home o2 settings of 2L -Continue breathing treatment. continue current treatments CXR for tomorrow 01/23/21 14:18 Patient 85-year-old female admitted with shortness of breath was found to have pneumonia and had been treated with antibiotics, steroids and updraft repeat chest x-ray today showed near resolution of the pneumonia, and is clinically stable wants to go home, patient does have loose bowel movement most likely secondary to antibiotic does not seem to be C diff by stool is sent to check for C diff and culture, if remains clinically stable and C diff is negative will discharge the patient home tomorrow. (2) Acute and chronic respiratory failure with hypoxia: Code(s): J96.21 - Acute and chronic respiratory failure with hypoxia Status: Acute Assessment and Plan: -Left ventricular systolic function is normal, estimated at 55-60%. (3) Acute exacerbation of chronic obstructive pulmonary disease: Code(s): J44.1 - Chronic obstructive pulmonary disease with (acute) exacerbation Status: Acute Assessment and Plan: -Continues steroids, abx, and nebulizers. (4) Dependence on supplemental oxygen: Code(s): Z99.81 - Dependence on supplemental oxygen Status: Acute Assessment and Plan: Continue on 2L as needed (5) (HFpEF) heart failure with preserved ejection fraction: Code(s): I50.30 - Unspecified diastolic (congestive) heart failure Status: Acute Assessment and Plan: Continue SUMAN inhibitors (6) Chronic kidney disease, stage III (moderate): Code(s): N18.3 - Chronic kidney disease, stage 3 (moderate) Status: Acute Assessment and Plan: creat is 0.8 (7) QAMAR (obstructive sleep apnea): Code(s): G47.33 - Obstructive sleep apnea (adult) (pediatric) Status: Acute Assessment and Plan: Chronic (8) Former smoker: Code(s): Z87.891 - Personal history of nicotine dependence Status: Acute Assessment and Plan: Ex smoker (9) HTN (hypertension): Onset Date: 02/06/15 Code(s): I10 - Essential (primary) hypertension Status: Acute Assessment and Plan: -Continue lisinopril and Cardizem (10) Atrial fibrillation: Code(s): I48.91 - Unspecified atrial fibrillation Status: Acute Assessment and Plan: Chronic with rate control -Continue Diltiazem 120 mg daily 81mg daily aspirin (11) Chronic bilateral low back pain without sciatica: Code(s): M54.5 - Low back pain; G89.29 - Other chronic pain Status: Acute Assessment and Plan: Pt is better now she is out of bed and in the chair Continue PT/ OT (12) GERD without esophagitis: Code(s): K21.9 - Gastro-esophageal reflux disease without esophagitis Status: Acute Assessment and Plan: Continue pantoprazole 40 mg daily (13) Abnormal CT scan, lung: Code
[2021-01-24] MEDS: IPRATROPIUM BR 0.02% INH SOLN 0.5 MG/2.5 ML VIAL INHALATION ×2 (01:42→09:20)
[2021-01-24] MEDS: ALBUTEROL SULFATE NEB 2.5 MG/0.5 ML INH 5 MG INHALATION ×2 (01:42→09:19)
[2021-01-24 01:45] VITALS: PULSE 81; RESP 18
[2021-01-24 01:50] VITALS: PULSE 67; RESP 18
[2021-01-24 05:40] VITALS: BP 152/65; PULSE 76; RESP 18; TEMP 36.4; O2SAT 100
[2021-01-24 08:00] VITALS: O2SAT 95
[2021-01-24] MEDS: FERROUS SULFATE 324 MG TABLET PO (08:52)
[2021-01-24] MEDS: sulfaSALAzine 500 MG TABLET PO (08:53)
[2021-01-24] MEDS: CYANOCOBALAMIN 1,000 MCG TABLET 1000 MCG PO (08:53)
[2021-01-24] MEDS: PANTOPRAZOLE 40 MG TABLET PO (08:53)
[2021-01-24] MEDS: guaiFENesin 12 HR 600 MG TABCR PO (08:53)
[2021-01-24] MEDS: lisinopriL 20 MG TABLET PO (08:53)
[2021-01-24] MEDS: ATORVASTATIN 5 MG TABLET PO (08:53)
[2021-01-24] MEDS: MAGNESIUM OXIDE 400 MG TABLET PO (08:53)
[2021-01-24] MEDS: MONTELUKAST SODIUM 10 MG TABLET PO (08:53)
[2021-01-24] MEDS: ASPIRIN 325 MG TABLET PO (08:53)
[2021-01-24] MEDS: predniSONE 20 MG TABLET 40 MG PO (08:53)
[2021-01-24] MEDS: ACETAMINOPHEN 325 MG TABLET 650 MG PO (09:04)
[2021-01-24] MEDS: BUDESONIDE RESPULE NEB 0.5 MG/2 ML AMP INHALATION (09:20)
[2021-01-24 09:22] VITALS: PULSE 81; RESP 20; O2SAT 91
[2021-01-24] MEDS: SALMETEROL XINAFOATE 50 MCG DISKUS 1 PUFF INHALATION (09:32)
[2021-01-24 09:36] VITALS: PULSE 85; RESP 20
--- NOTE | 2021-01-24 10:04 | WPDNEUROPN ---
Progress Note: A&P Additional Plan stable treatment as such Review of Systems Review of Systems: All systems reviewed & are unremarkable except as noted in HPI and below Exam Const: General: cooperative Nutritional Appearance: thin Orientation/consciousness: oriented to person HENMT: Head: normal to inspection General nose exam: Normal external nose present Eyes: General: appearance normal, both eyes and all related structures Resp: Effort & Inspection: normal respiratory effort Neuro: General: oriented to person Cranial nerves: Yes CN's II-XII intact bilaterally Cognition (Neuro): normal cognition Gait exam (Neuro): Unable to assess gait Motor exam (neuro): Abnormal motor strength present Deep tendon reflexes (DTR's): Right triceps reflex intensity grade: 1+, Left triceps reflex intensity grade: 1+, Rt Biceps (C5, C6): 1+, Left biceps reflex intensity grade: 1+, Right brachioradialis reflex intensity grade: 1+, Left brachioradialis reflex intensity grade: 1+, Right patellar reflex intensity grade: 1+, Left patellar reflex intensity grade: 1+, Right ankle reflex intensity grade: 1+ and Left ankle reflex intensity grade: 1+ Plantar Reflex Responses: equivocal: bilateral Objective Data Vital Signs Vital Signs: Vital Signs - 24 hr 01/23/21 14:00 01/23/21 14:33 01/23/21 14:50 Temperature 36.4 C Pulse Rate 94 96 77 Respiratory Rate 16 20 20 Blood Pressure 157/75 H Pulse Oximetry 100 01/23/21 19:58 01/23/21 20:09 01/23/21 22:00 Temperature 36.7 C Pulse Rate 94 97 93 Respiratory Rate 16 16 20 Blood Pressure 163/86 H Pulse Oximetry 97 96 01/24/21 01:45 01/24/21 01:50 01/24/21 05:40 Temperature 36.4 C L Pulse Rate 81 67 76 Respiratory Rate 18 18 18 Blood Pressure 152/65 H Pulse Oximetry 100 01/24/21 08:00 01/24/21 09:22 01/24/21 09:36 Temperature Pulse Rate 81 85 Respiratory Rate 20 20 Blood Pressure Pulse Oximetry 95 91 Intake/Output Intake/Output: Intake & Output 01/21/21 01/22/21 01/23/21 01/24/21 23:59 23:59 23:59 23:59 Intake Total 1040 1770 1780 600 Balance 1040 1770 1780 600 Meds/Results Medications: Active Medications Generic Name Dose Route Start Last Admin Trade Name Freq PRN Reason Stop Dose Admin Acetaminophen 650 mg 01/19/21 21:16 01/24/21 09:04 Acetaminophen 325 Mg Tablet PO 650 mg Q4H PRN Administration Pain Rated 4-6 Albuterol 5 mg 01/14/21 08:00 01/24/21 09:19 Albuterol Sulfate Neb 2.5 Mg/0.5 Ml Inh INHALATION 5 mg Q6HRT KALA Administration Albuterol 2.5 mg 01/14/21 05:12 Albuterol Sulfate Neb 2.5 Mg/0.5 Ml Inh INHALATION Q4HRT PRN Shortness Of Breath Aspirin 325 mg 01/18/21 12:45 01/24/21 08:53 Aspirin 325 Mg Tablet PO 325 mg DAILY@0800 KALA Administration Atorvastatin Calcium 5 mg 01/14/21 09:00 01/24/21 08:53 Atorvastatin 5 Mg Tablet PO 5 mg DAILY KALA Administration Bisacodyl 5 mg 01/15/21 14:40 Bisacodyl 5 Mg Tablet Ec PO PRN PRN Constipation Budesonide 0.5 mg 01/14/21 08:00 01/24/21 09:20 Budesonide Respule Neb 0.5 Mg/2 Ml Amp INHALATION 0.5 mg Q12HRT KALA Administration Calcium Carbonate 500 mg 01/14/21 09:00 01/24/21 08:53 Calcium/Vitamin D 500 Mg Tablet PO 500 mg DAILY KALA Administration Cyanocobalamin 1,000 mcg 01/14/21 09:00 01/24/21 08:53 Cyanocobalamin 1,000 Mcg Tablet PO 02/14/21 09:01 1,000 mcg DAILY KALA Administration Diltiazem HCl 120 mg 01/14/21 09:15 01/24/21 08:52 Diltiazem Hcl Cd 120 Mg Cap.Sa.24h BY MOUTH 120 mg DAILY KALA Administration Ferrous Sulfate 324 mg 01/14/21 09:25 01/24/21 08:52 Ferrous Sulfate 324 Mg Tablet PO 324 mg BIDWM KALA Administration Guaifenesin 600 mg 01/14/21 09:10 01/24/21 08:53 Guaifenesin 12 Hr 600 Mg Tabcr PO 600 mg Q12HR KALA Administration Ipratropium [place] 0.5 mg 01/14/21 08:00 01/24/21 09:20 Ipratropium Br 0.02% Inh Soln 0.5 M
--- NOTE | 2021-01-24 11:54 | PM.DS ---
DS: Admitting Diagnosis Admitting Diagnosis Admitting Diagnosis: Chief Complaint: SHORTNESS OF BREATH DS: Discharge Diagnosis Discharge Diagnosis (1) Left lower lobe pneumonia: Qualifiers: Pneumonia type: due to unspecified organism Qualified Code(s): J18.9 - Pneumonia, unspecified organism Code(s): J18.9 - Pneumonia, unspecified organism Status: Acute Assessment and Plan: CTA showing left sided PNA BC and sputum cultures are negative -Dc Iv zithromax wean off steroids -Pt is at her home o2 settings of 2L -Continue breathing treatment. continue current treatments CXR for tomorrow 01/23/21 14:18 Patient 85-year-old female admitted with shortness of breath was found to have pneumonia and had been treated with antibiotics, steroids and updraft repeat chest x-ray today showed near resolution of the pneumonia, and is clinically stable wants to go home, patient does have loose bowel movement most likely secondary to antibiotic does not seem to be C diff by stool is sent to check for C diff and culture, if remains clinically stable and C diff is negative will discharge the patient home tomorrow. (2) Acute and chronic respiratory failure with hypoxia: Code(s): J96.21 - Acute and chronic respiratory failure with hypoxia Status: Acute Assessment and Plan: -Left ventricular systolic function is normal, estimated at 55-60%. (3) Acute exacerbation of chronic obstructive pulmonary disease: Code(s): J44.1 - Chronic obstructive pulmonary disease with (acute) exacerbation Status: Acute Assessment and Plan: -Continues steroids, abx, and nebulizers. (4) Dependence on supplemental oxygen: Code(s): Z99.81 - Dependence on supplemental oxygen Status: Acute Assessment and Plan: Continue on 2L as needed (5) (HFpEF) heart failure with preserved ejection fraction: Code(s): I50.30 - Unspecified diastolic (congestive) heart failure Status: Acute Assessment and Plan: Continue SUMAN inhibitors (6) Chronic kidney disease, stage III (moderate): Code(s): N18.3 - Chronic kidney disease, stage 3 (moderate) Status: Acute Assessment and Plan: creat is 0.8 (7) QAMAR (obstructive sleep apnea): Code(s): G47.33 - Obstructive sleep apnea (adult) (pediatric) Status: Acute Assessment and Plan: Chronic (8) Former smoker: Code(s): Z87.891 - Personal history of nicotine dependence Status: Acute Assessment and Plan: Ex smoker (9) HTN (hypertension): Onset Date: 02/06/15 Code(s): I10 - Essential (primary) hypertension Status: Acute Assessment and Plan: -Continue lisinopril and Cardizem (10) Atrial fibrillation: Code(s): I48.91 - Unspecified atrial fibrillation Status: Acute Assessment and Plan: Chronic with rate control -Continue Diltiazem 120 mg daily 81mg daily aspirin (11) Chronic bilateral low back pain without sciatica: Code(s): M54.5 - Low back pain; G89.29 - Other chronic pain Status: Acute Assessment and Plan: Pt is better now she is out of bed and in the chair Continue PT/ OT (12) GERD without esophagitis: Code(s): K21.9 - Gastro-esophageal reflux disease without esophagitis Status: Acute Assessment and Plan: Continue pantoprazole 40 mg daily (13) Abnormal CT scan, lung: Code(s): R91.8 - Other nonspecific abnormal finding of lung field Status: Acute Assessment and Plan: CTA shows new opacities of the right upper lobe which could be scarring vs malignancy -Would recommend repeat CT outpt or PET scan in 3 months -after discharge (14) Weakness: Code(s): R53.1 - Weakness Status: Acute Assessment and Plan: R sided weakness arm and leg order MRI brain, us carotid and
== END 2021-01-24 12:30 | disposition home or self-care (01) | DRG 193 ==
LOC: ANHED 03:49 → ANH3MEDSUR 05:06
PROVIDERS: Family Medicine; Physician Assistant; Admitting Provider Internal Medicine; Emergency Provider Emergency Medicine; PCP Internal Medicine; Visit Provider Physician Assistant
DX: J18.9 Pneumonia, unspecified organism (principal); J96.21 Acute and chronic respiratory failure with hypoxia; I50.31 Acute diastolic (congestive) heart failure; I63.9 Cerebral infarction, unspecified; G81.91 Hemiplegia, unspecified affecting right dominant side; I13.0 Hypertensive heart and chronic kidney disease with heart failure and stage 1 through stage 4 chronic kidney disease, or unspecified chronic kidney disease; J43.9 Emphysema, unspecified; Z20.822 Contact with and (suspected) exposure to COVID-19; N18.30 Chronic kidney disease, stage 3 unspecified; G47.33 Obstructive sleep apnea (adult) (pediatric); M54.5 Low back pain; G89.29 Other chronic pain; I48.91 Unspecified atrial fibrillation; R91.8 Other nonspecific abnormal finding of lung field; K21.9 Gastro-esophageal reflux disease without esophagitis; M13.0 Polyarthritis, unspecified; Z87.891 Personal history of nicotine dependence; Z99.81 Dependence on supplemental oxygen
CPT/HCPCS: 36415; 36600; 70553; 71045; 71275; 73600; 80048; 80053; 81001; 82805; 83605; 83735; 83880; 84484; 85014; 85018; 85025; 85027; 85610; 85730; 87040; 87045; 87046; 87070; 87205; 87324; 87427; 92610; 93005; 93880; 94640; 94667; 94668; 96365; 96375; 97110; 97116; 97161; 97165; 97530; 97535; 99285; A9270; A9577; C8929; C9803; J0131; J0456; J0696; J2405; J2920; J2930; J7030; J7512; Q9967; U0003; U0005

== ENCOUNTER 2021-01-31 14:18 | Outpatient (CLI) | payer MEDICARE, SELFPAY ==
--- NOTE | ~2021-01-31 | XR_ITS ---
XR chest 2V DATE: 01/31/2021 14:48 INDICATION: Pneumonia TECHNIQUE: AP and lateral views COMPARISON: 01/23/2021 portable upright AP chest 01/14/2021 CT pulmonary scan FINDINGS: There is cardiomegaly. There is aortic calcification. The central pulmonary arteries are pr ominent, consistent with pulmonary hypertension. Emphysematous changes are noted including bilateral hyperinflation and relative flattening the diaphragm. There is discoid scarring in the right upper lobe. There is mild infiltrate, atelectasis and/or fibrotic change at the lower lung zones. IMPRESSION: Patchy infiltrate, atelectasis and/or scarring in the lower lung zones Emphysema Cardiomegaly Aortic atherosclerosis Diffuse osteopenia Reviewed, dictated and finalized at location A. IMPRESSION: Patchy infiltrate, atelectasis and/or scarring in the lower lung zo lynn Emphysema Cardiomegaly Aortic atherosclerosis Diffuse osteopenia
== END 2021-01-31 14:19 | disposition home or self-care (01) ==
PROVIDERS: PCP Internal Medicine; Visit Provider Nurse Practitioner
DX: J18.9 Pneumonia, unspecified organism (principal); R91.8 Other nonspecific abnormal finding of lung field; J43.9 Emphysema, unspecified; I51.7 Cardiomegaly; I70.0 Atherosclerosis of aorta; M85.89 Other specified disorders of bone density and structure, multiple sites
CPT/HCPCS: 71046

== ENCOUNTER 2021-02-12 12:06 | Outpatient (CLI) | payer MEDICARE, SELFPAY ==
[2021-02-12 12:43] LABS: Anion Gap 8 mmol/L (8-16); Blood Urea Nitrogen 14 mg/dL (7-17); Calcium 9.1 mg/dL (8.4-10.2); Carbon Dioxide 34 mmol/L (22-30); Chloride 99 mmol/L (98-107); Estimated Glomerular Filt Rate 60; Glucose 124 mg/dL (65-105); Potassium 4.1 mmol/L (3.4-5.0); Sodium 141 mmol/L (137-145)
== END 2021-02-12 12:07 | disposition home or self-care (01) ==
PROVIDERS: PCP Internal Medicine; Visit Provider Nurse Practitioner
DX: R60.9 Edema, unspecified (principal)
CPT/HCPCS: 36415; 80048

== ENCOUNTER 2021-03-15 13:00 | Outpatient (RCR) | payer MEDICARE, SELFPAY ==
--- NOTE | 2021-01-03 10:57 | PTOPEVAL ---
PHYSICAL THERAPY EVALUATION AND PLAN OF CARE 01-03-21 Thank you for referring Humaira Moralez to [facility] for the diagnosis of decreased gait and balance. She is scheduled to be seen for therapy? 2 x/week for 5 weeks. Please review, sign, date and return this plan of care NEAL. I agree with and certify that the following plan of care is medically necessary. Referring Physician Date Attending Provider: Jluis Damon DO *PT Outpatient Evaluation Start: 01/03/21 10:12 Document 01/03/21 10:05 DARRIN (Rec: 01/03/21 10:57 DARRIN [id number]) Past Medical History Source of Past Medical History Patient Neurological History Hx Cerebrovascular Accident (CVA) Yes: '09; Hx Transient Ischemic Attacks (TIA) Yes: few times, did not go to dr; R weakness Cardiovascular History Hx Hypertension Yes: meds Respiratory History Hx Chronic Obstructive Pulmonary Disease Yes: use oxygen 2-3 L/min (COPD) Gastrointestinal History Hx Crohn's Disease Yes: constipation issues Musculoskeletal History Hx Back Pain Yes Hx Other Musculoskeletal Disorders Yes: chronic neck, shoulders, upper arms, feet and back pain , R hand; HEENT History Hx Other HEENT Disorders Yes: wear glasses, last eye exam 2 yr ago;L eye blood vessel rupture-decr vision Evaluation Information Problem Diagnosis decreased gait and balance Onset about 1 year Subjective Information gradual increase in weakness; Query Text:As Reported By Patient/ in past year, have fallen 4 Family times-- legs gave away when walking and when leaning over to pick something up off floor ; when fall, cannot get up due to arm weakness; is not doing any home exercises; does not have any fitness equiptment at home; Previous Treatments Previous Treatments For This Problem had PT several years ago for balance and leg strength Prior Level of Function Activity Level (Last 3 Months) Occupation retired Activity of Daily Living Ability Independent Indoor/Home Mobility Independent Cooking Yes Cleaning No Laundry No Shopping No Driving No Home Setting Home Type House,Multiple Levels Environmental Barriers Railing, Ascend Right,Stairs, 2-4,Stairs, Greater than 4 Living Situation
--- NOTE | 2021-01-19 11:27 | PCPTNOTE ---
talked with pt on the phone, she is still hospitalized; cancel all remaining appointments and she will require a new order to resume therapy. Pt voiced an understanding of this.
--- NOTE | 2021-02-12 11:41 | PTOPEVAL ---
PHYSICAL THERAPY REEVALUATION AND UPDATED PLAN OF CARE 02-12-21 Refer to the clinical summary below for her status with the reeval, compared to the initial eval. Continue PT 2x/week for 5 weeks. Thank you for referring Humaira Moralez to [facility] [place] [facility] [place] Please review, sign, date and return this plan of care NEAL. I agree with and certify that the following plan of care is medically necessary. Referring Physician Date Admitting Provider: Aga De Paz APN Attending Provider: Jluis Damon, Document 02/12/21 11:10 DARRIN (Rec: 02/12/21 11:40 DARRIN [id number]) Assessment Status Re-evaluation Subjective Information Humaira reports: feeling Query Text:As Reported By Patient/ better; [facility] and trying to do more and get stronger; feet and lower legs are swollen and hurt all time; want to continue therapy to get stronger; have not felt up to doing the leg exercises yet; want to try to get going on them again; at home, have done dishes a time or two, but not up to doing much yet; using oxygen at 2-3 L/miin; Pain Assessment Timing of Pain Assessment Timing of Pain Assessment Assessment Pain Scale Pain Scale Used Numeric (1 - 10) Self Report Pain Assessment Bilateral Generalized Reported Pain Level 7 Pain Frequency Chronic,Continuous Other Pain Description low back pain; swelling in lower legs and feet cause pain also Pain Score Pain Score 7: Self Report Interventions Used Interventions Used By Clinicians Education Lower Extremity Muscle Strength Testing General Lower Extremity Strength Gross Lower Extremity Strength sitting: ankle DF R x 10 reps ~ half range of the L ankle; sit to stand transfer with B UE use; decreased control with sititng, plops into chair and feet slide forward; static standing without UE use : 12 seconds with wide base of support; Balance Assessment Tinetti Balance Assessment Sitting Balance Steady, safe Ability to Arise Able, uses arms to help Attempts to Arise Able, requires >1 attempt Immediate Standing Balance Steady with support Standing Balance Unsteady Nudged Response Begins to fall
--- NOTE | 2021-03-15 13:42 | PTOPEVAL ---
PHYSICAL THERAPY DISCHARGE 03-15-21 Refer to the clinical summary below, for her status today, compared to the last reevaluation. The goals were partially met. Humaira is independent with her home exercises and in home/ short distances with mobility using the wheeled walker. Thank you for referring Humaira Moralez to [facility].? Please review, sign, date and return this Discharge NEAL. I agree with and certify that the following plan of care is medically necessary. Referring Physician Date Attending Provider: Jluis Damon DO Document 03/15/21 13:00 DARRIN (Rec: 03/15/21 13:42 DARRIN [id number]) Assessment Status Discharge Subjective Information Humaira reports: feels like Query Text:As Reported By Patient/ she is doing better with Family walking; no falls; is comfortable walking in her house, in the kitchen is not using the walker- holding onto the countertop; still have some swelling in her ankles- taking water pills; doing home exercises; is doing some light cooking and cleaning, assisting ; Pain Assessment Timing of Pain Assessment Timing of Pain Assessment Assessment Pain Scale Pain Scale Used Numeric (1 - 10) Self Report Pain Assessment Bilateral Generalized Reported Pain Level 4 Other Pain Description B shoulders and low back; Pain Score Pain Score 4: Self Report Interventions Used Interventions Used By Clinicians Exercise Lower Extremity Muscle Strength Testing General Lower Extremity Strength Gross Lower Extremity Strength -static stand without UE support x 15 seconds- unsteady and reports dizzy and legs going to buckle; - sit to stand from 18 seat with 1 UE and control motion, slow pace and concentrating on the transfer; tends to use B UE and plop with sitting; - sitting: R ankle DF to (-5') active range; inversion to neutral position; tends to move ankle in everted motion with attempting DF; - supine: SLR R 10 /L 10 reps - sit to supine, uses UE to assist moving legs -verbal review of HEP, reports doing 5-10 reps of exercises; Balance Assessment Steve
== END 2021-03-15 16:46 | disposition home or self-care (01) ==
LOC: ANHPT 13:00
PROVIDERS: PCP Internal Medicine; Visit Provider Internal Medicine
DX: R26.9 Unspecified abnormalities of gait and mobility (principal); I50.30 Unspecified diastolic (congestive) heart failure; Z79.899 Other long term (current) drug therapy
CPT/HCPCS: 97110; 97162

== ENCOUNTER 2021-04-18 17:54 | Outpatient (CLI) | payer MEDICARE, SELFPAY ==
--- NOTE | ~2021-04-18 | XR_ITS ---
XR lumbar spine 2-3V DATE: 04/18/2021 18:12 INDICATION: Low back pain, right sciatica TECHNIQUE: AP, lateral, coned lateral lumbosacral views COMPARISON: 05/18/2020 lumbar spine FINDINGS: Diffuse osteopenia. There is minimal dextroscoliosis of the lumbar spine. No fracture or bone destruction or spondylolisthesis. Moderate degenerative disc disease at L5-S1; mild degenerative disc disease at the remaining lumbar i nterspaces. Degenerative change at the lower lumbar apophyseal joints. No fracture or bone destruction. The lumbar pedicles are intact. The sacroiliac joints are normal. There is extensive calcification of the abdominal aorta and common iliac arteries, without evidence o f aneurysm. IMPRESSION: Osteopenia Minimal dextro scoliosis Moderate degenerative disc disease at L5-S1, mild degenerative change of the remaining lumbar intersp aces Degenerative change at the lower lumbar apophyseal joints Reviewed, dictated and finalized at location A. IMPRESSION: Osteopenia Minimal dextro scoliosis Moderate degenerative disc disease at L5-S1, mild degenerative change of the re maining lumbar interspaces Degenerative change at the lower lumbar apophyseal joints
== END 2021-04-18 17:55 | disposition home or self-care (01) ==
LOC: ANHIMG 17:56
PROVIDERS: PCP Internal Medicine; Visit Provider Internal Medicine
DX: M54.30 Sciatica, unspecified side (principal); M85.88 Other specified disorders of bone density and structure, other site; M51.36 Other intervertebral disc degeneration, lumbar region
CPT/HCPCS: 72100

== ENCOUNTER 2021-04-27 09:04 | Outpatient (CLI) | payer MEDICARE, SELFPAY ==
--- NOTE | ~2021-04-27 | MR_ITS ---
EXAMINATION: MR lumbar spine wo con EXAM DATE: 04/27/2021 10:04 INDICATION: M54.30 - Sciatica, unspecified side . TECHNIQUE: Multi-sequential, multiplanar MR images of the lumbar spine were obtained without contrast . Sagittal T1, T2, T2 fat saturation images. Axial T2 weighted images. There is no prior study for comparison. FINDINGS: There is mild to moderate loss of the L5-S1 disc height. The vertebral bodies are aligned i n the AP dimension. Vertebral body heights are maintained. The conus medullaris terminates at the L1/ 2 level and has normal signal intensity and morphology. There are no suspicious marrow signal abnorm alities. Paraspinal soft tissue is unremarkable. Level by level evaluation: T12-L1: Disc does not extend beyond the endplate margin. Facet arthropathy: None. Neural foraminal stenosis: No stenosis. Central canal stenosis: No stenosis. L1-L2: There is a mild diffuse disc bulge. Facet arthropathy: None. Neural foraminal stenosis: No stenosis. Central canal stenosis: No stenosis. L2-L3: There is a mild diffuse disc bulge. Facet arthropathy: Mild. Neural foraminal stenosis: No stenosis. Central canal stenosis: No stenosis. L3-L4: There is a mild diffuse disc bulge. Facet arthropathy: Mild. Neural foraminal stenosis: No stenosis. Central canal stenosis: No stenosis. L4-L5: There is a moderate diffuse disc bulge. Facet arthropathy: Mild to moderate. Neural foraminal stenosis: Mild to moderate left, mild right. Central canal stenosis: Moderate right lateral recess narrowing. L5-S1: There is a moderate diffuse disc bulge. Facet arthropathy: Mild to moderate. Neural foraminal stenosis: Moderate right, mild to moderate left. Central canal stenosis: Mild. IMPRESSION: 1. L4-5 moderate right lateral recess stenosis causing some mass effect on traversing L5 nerve root. 2. L5-S1 moderate right neural foraminal stenosis. Reviewed, dictated and finalized at location A. IMPRESSION: 1. L4-5 moderate right lateral recess stenosis causing some mass effect on tra versing L5 nerve root. 2. L5-S1 moderate right neural foraminal stenosis.
== END 2021-04-27 09:05 | disposition home or self-care (01) ==
PROVIDERS: PCP Internal Medicine; Visit Provider Internal Medicine
DX: M54.30 Sciatica, unspecified side (principal); M48.061 Spinal stenosis, lumbar region without neurogenic claudication
CPT/HCPCS: 72148

== ENCOUNTER 2021-05-25 15:59 | Outpatient (CLI) | payer MEDICARE, SELFPAY ==
[2021-05-25 16:21] LABS: Hematocrit 38.4 % (37.0-47.0); Hemoglobin 12.2 g/dL (12.0-15.0)
[2021-05-25 16:31] LABS: Alanine Aminotransferase 12 U/L (4-35); Albumin Level 4.6 g/dL (3.5-5.1); Alkaline Phosphatase 46 U/L (38-126); Anion Gap 8 mmol/L (8-16); Aspartate Amino Transferase 24 U/L (14-36); Bilirubin,Total 0.5 mg/dL (0.2-1.3); Blood Urea Nitrogen 15 mg/dL (7-17); Calcium 9.6 mg/dL (8.4-10.2); Carbon Dioxide 34 mmol/L (22-30); Chloride 98 mmol/L (98-107); Cholesterol 195 mg/dL (0-200); Estimated Glomerular Filt Rate > 60; Glucose 150 mg/dL (65-110); HDL Direct 85 mg/dL; Potassium 3.8 mmol/L (3.4-5.0); Sodium 140 mmol/L (137-145); Triglycerides 81 mg/dL (<150)
[2021-05-25 16:42] LABS: LDL Cholesterol Direct 79 mg/dL
== END 2021-05-25 16:00 | disposition home or self-care (01) ==
LOC: ANHLAB 16:02
PROVIDERS: PCP Internal Medicine; Visit Provider Internal Medicine
DX: D64.9 Anemia, unspecified (principal); I50.30 Unspecified diastolic (congestive) heart failure; E53.8 Deficiency of other specified B group vitamins; Z79.899 Other long term (current) drug therapy
CPT/HCPCS: 36415; 80053; 80061; 82607; 85014; 85018

== ENCOUNTER 2021-08-22 10:53 | Outpatient (CLI) | payer MEDICARE, SELFPAY ==
--- NOTE | ~2021-08-22 | XR_ITS ---
XR ankle LT 2V DATE: 08/22/2021 11:45 INDICATION: Fall yesterday. Dorsal foot and anterior ankle pain TECHNIQUE: 2 views COMPARISON: None FINDINGS: There is diffuse osteopenia. Mild plantar calcaneal enthesopathy. No fracture or dislocation of the ankle or disruption of the ankle mortise is detected. No periosteal reaction or bone destruction. IMPRESSION: Osteopenia Plantar calcaneal enthesopathy Reviewed, dictated and finalized at location B. ANALYSIS WELL LOGGING CAPTAIN
--- NOTE | ~2021-08-22 | XR_ITS ---
XR lumbar spine 2-3V DATE: 08/22/2021 11:45 INDICATION: Fall yesterday. Low back pain. TECHNIQUE: AP, lateral, coned lateral lumbosacral views COMPARISON: 04/27/2021 MRI lumbar spine 04/18/2021 lumbar spine FINDINGS: There is mild dextroscoliosis of the lumbar spine. There is diffuse osteopenia. No fracture or dislocation or bone destruction. No spondylolisthesis is noted. The lumbar pedicles ar e intact. Lumbar and lumbosacral interspaces appear relatively preserved. The sacroiliac joints are i ntact. There is extensive calcification of the abdominal aorta and common iliac arteries; no evidence of abd ominal aortic aneurysm. IMPRESSION: Diffuse osteopenia Extensive calcification of the abdominal aorta and common iliac arteries Reviewed, dictated and finalized at location B. RONMENTAL FIELD PROFESSIONAL
--- NOTE | ~2021-08-22 | XR_ITS ---
XR chest 2V DATE: 08/22/2021 11:48 INDICATION: Left lateral and anterior chest pain after fall yesterday TECHNIQUE: 2 views COMPARISON: 01/31/2021 2 view chest FINDINGS: There is prominent bilateral hyperinflation and increased retrosternal airspace as well as flattening the diaphragm, consistent with COPD. Central pulmonary arteries are prominent, suggesting pulmonary hypertension. There is aortic calcification and mild tortuosity. Cardiomegaly. No pulmonary infiltrate or consolidation, pleural effusion or pulmonary vascular congestion or pneumo thorax. There is mild dextro scoliosis of the thoracic spine. There is diffuse osteopenia. IMPRESSION: COPD and probable pulmonary hypertension No active pulmonary disease Cardiomegaly Aortic atherosclerosis Diffuse osteopenia Reviewed, dictated and finalized at location B. TABLE ENGINEER
--- NOTE | ~2021-08-22 | XR_ITS ---
XR hip LT min 2V 08/22/2021 11:47 Indication: Left hip pain Procedure: 2 views left hip Comparison: No prior studies for comparison. Findings: No fracture, subluxation or dislocation. No significant joint space narrowing. There are va scular calcifications. Normal mineralization. Anatomic alignment. Impression: 1: No significant bone or joint abnormality. Reviewed, dictated and finalized at location A. ICATION PACKAGING CONSULTANT Impression: 1: No significant bone or joint abnormality.
== END 2021-08-22 10:54 | disposition home or self-care (01) ==
LOC: CHSLAB 10:57
PROVIDERS: PCP Internal Medicine; Visit Provider Internal Medicine
DX: M25.572 Pain in left ankle and joints of left foot (principal)
CPT/HCPCS: 71046; 72100; 73502; 73600

== ENCOUNTER 2021-08-27 12:46 | Outpatient (CLI) | payer MEDICARE, SELFPAY ==
[2021-08-27 17:30] LABS: Influenza A QL RT-PCR Negative (Negative); Influenza B QL RT-PCR Negative (Negative); SARS-CoV-2 RNA PCR Negative (Negative)
== END 2021-08-27 12:47 | disposition home or self-care (01) ==
LOC: CHSLAB 12:50
PROVIDERS: PCP Nurse Practitioner; Visit Provider Nurse Practitioner
DX: R68.89 Other general symptoms and signs (principal); Z20.822 Contact with and (suspected) exposure to COVID-19
CPT/HCPCS: 87502; C9803; U0003; U0005

== ENCOUNTER 2021-09-04 11:06 | Outpatient (CLI) | payer MEDICARE, SELFPAY ==
[2021-09-04 12:43] LABS: Influenza Control Valid (Valid)
== END 2021-09-04 11:07 | disposition home or self-care (01) ==
LOC: CHSLAB 11:10
PROVIDERS: PCP Internal Medicine; Visit Provider Internal Medicine
DX: J06.9 Acute upper respiratory infection, unspecified (principal)
CPT/HCPCS: 87804

== ENCOUNTER 2021-09-18 11:44 | Outpatient (CLI) | payer MEDICARE, SELFPAY ==
[2021-09-19 21:11] LABS: SARS-CoV-2 RNA PCR Negative
== END 2021-09-18 11:45 | disposition home or self-care (01) ==
LOC: CHSLAB 11:45
PROVIDERS: PCP Internal Medicine; Visit Provider Internal Medicine
DX: Z20.822 Contact with and (suspected) exposure to COVID-19 (principal)
CPT/HCPCS: C9803; U0003; U0005

== ENCOUNTER 2021-12-26 13:04 | Outpatient (CLI) | payer MEDICARE, SELFPAY ==
[2021-12-26 13:25] LABS: Hematocrit 35.3 % (35.0-42.0)
[2021-12-26 13:42] LABS: Hemoglobin A1C 5.6 % (<5.7)
[2021-12-26 14:19] LABS: Alanine Aminotransferase 13 U/L (14-59); Albumin Level 3.6 g/dL (3.4-5.0); Alkaline Phosphatase 51 U/L (46-116); Anion Gap 5 mmol/L (8-16); Aspartate Amino Transferase 16 U/L (15-37); Bilirubin,Total 0.3 mg/dL (0.00-1.00); Blood Urea Nitrogen 17 mg/dL (7-18); Calcium 9.1 mg/dL (8.5-10.1); Carbon Dioxide 32 mmol/L (21-32); Chloride 100 mmol/L (98-108); Cholesterol 194 mg/dL (0-200); Estimated Glomerular Filt Rate 57; Glucose 117 mg/dL (70-99); HDL Direct 89 mg/dL (40-60); Iron 35 ug/dL (50-170); LDL Cholesterol Calculated 92 mg/dL (<130); Osmolality Calculated 286 mOsm/kg (285-295); Percent Iron Saturation 13 % (12-57); Sodium 137 mmol/L (136-145); Triglycerides 67 mg/dL (0-150); Vitamin B12 388 pg/mL (193-986)
== END 2021-12-26 13:05 | disposition home or self-care (01) ==
LOC: CHSLAB 13:07
PROVIDERS: PCP Internal Medicine; Visit Provider Internal Medicine
DX: I12.9 Hypertensive chronic kidney disease with stage 1 through stage 4 chronic kidney disease, or unspecified chronic kidney disease (principal); N18.30 Chronic kidney disease, stage 3 unspecified; Z79.899 Other long term (current) drug therapy; R73.9 Hyperglycemia, unspecified; D64.9 Anemia, unspecified; D50.9 Iron deficiency anemia, unspecified; E78.5 Hyperlipidemia, unspecified; E53.8 Deficiency of other specified B group vitamins
CPT/HCPCS: 36415; 80053; 80061; 82607; 83036; 83540; 83550; 85014; 85018

== ENCOUNTER 2022-01-04 13:39 | Outpatient (CLI) | payer MEDICARE, SELFPAY ==
[2022-01-04 15:17] LABS: SARS-CoV-2 RNA PCR Positive (Negative)
== END 2022-01-04 13:40 | disposition home or self-care (01) ==
LOC: CHSLAB 13:42
PROVIDERS: PCP Internal Medicine; Visit Provider Internal Medicine
DX: U07.1 COVID-19 (principal)
CPT/HCPCS: C9803; U0003; U0005

== ENCOUNTER 2022-02-18 12:28 | Outpatient (CLI) | payer MEDICARE, SELFPAY ==
--- NOTE | ~2022-02-18 | CT_ITS ---
EXAMINATION:CT diagnostic chest wo con DATE: 02/18/2022 13:12 INDICATION: Chronic respiratory failure with hypoxia. TECHNIQUE: Computed tomography (CT) of the chest was performed without intravenous contrast. Automate d exposure control and iterative reconstruction technique were employed. The dose-length product (DLP ) was 130.86 mGy-cm. COMPARISON: Chest CT 01/14/2021 FINDINGS: There is severe emphysema. There is stable bandlike scarring in right upper lobe. There is a stable 5 mm nodule in left lower lobe. There are a few 2-3 mm nodules in the lungs, likely benign. No pleural effusion. Cardiomegaly is noted. There are coronary artery calcifications. No pericardial effusion. The central pulmonary arteries are enlarged, consistent with pulmonary arterial hypertensio n. There is a chronic 2.1 cm mass of left adrenal gland measuring low-attenuation, consistent with an adenoma. There is thoracic kyphosis with mild chronic anterior wedging of multiple midthoracic verte bral bodies. There is mild thoracic spondylosis. IMPRESSION: 1. Severe emphysema. Reviewed, dictated and finalized at location A. IMPRESSION: 1. Severe emphysema.
== END 2022-02-18 12:29 | disposition home or self-care (01) ==
PROVIDERS: PCP Internal Medicine; Visit Provider Physician Assistant
DX: J44.9 Chronic obstructive pulmonary disease, unspecified (principal); J96.11 Chronic respiratory failure with hypoxia; R91.8 Other nonspecific abnormal finding of lung field
CPT/HCPCS: 71250

== ENCOUNTER 2022-04-18 15:40 | Outpatient (CLI) | payer MEDICARE, SELFPAY ==
--- NOTE | 2022-04-18 15:43 | ECG_ITS ---
Measurements Intervals [place] Rate: 75 P: 79 TN: 185 QRS: -66 QRSD: 113 T: 52 QT: 395 QTc: 444 Interpretive Statements SINUS RHYTHM POSSIBLE RIGHT VENTRICULAR CONDUCTION DELAY [RSR (QR) IN V1/V2] LEFT ANTERIOR FASCICULAR BLOCK [QRS AXIS <= -45, QR IN I, RS IN II] COMPARED TO ECG 01/14/2021 00:48:31 HEART RATE IS REDUCED, NO OTHER SIGNIFICANT DIFFERENCE Electronically Signed On 04-19-2022 12:08:30 CDT by Estuardo Webb M.D.
== END 2022-04-18 15:41 | disposition home or self-care (01) ==
LOC: CHSCARD 15:43
PROVIDERS: PCP Internal Medicine; Visit Provider Internal Medicine Cardiovascular Disease
DX: I49.9 Cardiac arrhythmia, unspecified (principal)
CPT/HCPCS: 93005

== ENCOUNTER 2022-05-13 11:53 | Outpatient (CLI) | payer MEDICARE, SELFPAY ==
--- NOTE | 2022-05-13 11:56 | EST_ITS ---
Patient Info Name: Humaira Moralez Age: 87 years : 1935 Gender: Female Ht: 60 in Wt: 92 lbs BSA: 1.32 m2 Exam Date: 05/13/2022 1:04 PM Exam Location: [facility] Patient Status: Outpatient Admit Date: 05/13/2022 Staff Ordering Physician: Gato Fisher DO Attending Provider: Gato Fisher DO Exam Type: CA stress dimitri w NM Summary 1. 1. Negative Lexiscan stress test for ischemic ST changes by ECG criteria. 2. 2. Baseline hypertension. 3. 3. Nuclear scan to follow and will be reported separately. Please correlate with it. 4. 4. Patient informed of the above results. Protocol: LEXISCAN Stress ECG Details Stage: REST Duration (min): 0 min : 56 sec HR (bpm): 73 SBP (mmHg): 155 DBP (mmHg): 84 Stage: REST Duration (min): 11 min : 42 sec HR (bpm): 75 SBP (mmHg): 155 DBP (mmHg): 84 Stage: STAGE 1 Duration (min): 0 min : 12 sec HR (bpm): 72 SBP (mmHg): 155 DBP (mmHg): 84 Stage: RECOVERY Duration (min): 0 min : 47 sec HR (bpm): 89 SBP (mmHg): 155 DBP (mmHg): 84 Stage: RECOVERY Duration (min): 1 min : 47 sec HR (bpm): 102 SBP (mmHg): 160 DBP (mmHg): 78 Stage: RECOVERY Duration (min): 2 min : 47 sec HR (bpm): 104 SBP (mmHg): 161 DBP (mmHg): 78 Stage: RECOVERY Duration (min): 3 min : 47 sec HR (bpm): 104 SBP (mmHg): 159 DBP (mmHg): 78 Stage: RECOVERY Duration (min): 4 min : 47 sec HR (bpm): 105 SBP (mmHg): 171 DBP (mmHg): 80 Stage: RECOVERY Duration (min): 5 min : 47 sec HR (bpm): 107 SBP (mmHg): 173 DBP (mmHg): 82 Stage: RECOVERY Duration (min): 6 min : 3 sec HR (bpm): 108 SBP (mmHg): 173 DBP (mmHg): 82 Rest HR: 75 bpm Peak HR: 107 bpm Rest Sys BP: 155 mmHg Peak Sys BP: 173 mmHg Max Pred HR: 134 bpm % Max Pred HR: 80 % Target HR: 114 bpm Max RPP: 18,511 bpm*mmHg Termination Reason: Completed protocol Cardiac Symptoms: Shortness of breath Total Time: 0 min : 12 sec Rest Gilbert BP: 84 mmHg Peak Gilbert BP: 82 mmHg Total Dose: 0.4 mg Resting ECG Sinus rhythm, RBBB. Stress ECG No ST changes. Arrhythmias None. Report Signatures
--- NOTE | 2022-05-13 17:53 | WPDCARIOSTRE ---
Nuclear Stress Test INDICATIONS Indications: Chest pain PROCEDURE Procedure Performed: Myocardial Perf Spect-Multi Procedure: Patient underwent a lexiscan stress test and immediately was injected with 34.9 mCi of cardiolyte. Multiple tomographic images were obtained. These are of good quality. There is no evidence of perfusion defect with stress imaging. A separate resting images were obtained after patient was injected with 10.4 mCi of cardiolyte. Multiple tomographic images were obtained. These are of good quality. There is no evidence of perfusion defect with rest imaging. CONCLUSION Conclusion: 1. Normal myocardial perfusion imaging demonstrating no perfusion defects with stress or rest imaging. 2. No reversible ischemia. 3. Left ventriculogram demonstrates ned measured ejection fraction of 70% with no wall motion abnormalities. 4. TID score of 1 is normal.
== END 2022-05-13 11:54 | disposition home or self-care (01) ==
LOC: CHSIMG 11:56
PROVIDERS: PCP Internal Medicine; Visit Provider Internal Medicine Cardiovascular Disease
DX: R07.9 Chest pain, unspecified (principal)
CPT/HCPCS: 78452; 93017; A9502; J2785

== ENCOUNTER 2022-06-28 18:03 | Outpatient (CLI) | payer MEDICARE, SELFPAY ==
[2022-06-28 18:29] LABS: Hemoglobin A1C 5.3 % (<5.7)
[2022-06-28 19:28] LABS: Alanine Aminotransferase 12 U/L (14-59); Albumin Level 3.8 g/dL (3.4-5.0); Alkaline Phosphatase 54 U/L (46-116); Anion Gap 4 mmol/L (8-16); Aspartate Amino Transferase 15 U/L (15-37); Bilirubin,Total 0.3 mg/dL (0.00-1.00); Blood Urea Nitrogen 14 mg/dL (7-18); Calcium 8.7 mg/dL (8.5-10.1); Carbon Dioxide 35 mmol/L (21-32); Chloride 101 mmol/L (98-108); Cholesterol 188 mg/dL (0-200); Estimated Glomerular Filt Rate 59; Glucose 106 mg/dL (70-99); HDL Direct 86 mg/dL (40-60); Iron 31 ug/dL (50-170); LDL Cholesterol Calculated 85 mg/dL (<130); Osmolality Calculated 290 mOsm/kg (285-295); Percent Iron Saturation 14 % (12-57); Potassium 3.9 mmol/L (3.5-5.1); Sodium 140 mmol/L (136-145); Total Protein 6.8 g/dL (6.4-8.2); Triglycerides 86 mg/dL (0-150); Vitamin B12 346 pg/mL (193-986)
[2022-07-07 21:38] LABS: Vitamin D 25 Hydroxy 104 ng/mL (30-100)
== END 2022-06-28 18:04 | disposition home or self-care (01) ==
LOC: CHSLAB 18:06
PROVIDERS: PCP Internal Medicine; Visit Provider Nurse Practitioner
DX: E78.2 Mixed hyperlipidemia (principal); R73.9 Hyperglycemia, unspecified; D50.9 Iron deficiency anemia, unspecified; E53.8 Deficiency of other specified B group vitamins; Z13.21 Encounter for screening for nutritional disorder; M81.0 Age-related osteoporosis without current pathological fracture
CPT/HCPCS: 36415; 80053; 80061; 82306; 82607; 83036; 83540; 83550

== ENCOUNTER 2022-07-10 16:11 | Emergency (ER) | payer MEDICARE, SELFPAY ==
--- NOTE | 2022-07-10 17:27 | PC.NURSE ---
Patient called multiple times for triage without response. Patient assumed to have left without being triaged.
== END 2022-07-10 16:30 | disposition left against medical advice (07) ==
PROVIDERS: PCP Internal Medicine
DX: Z53.21 Procedure and treatment not carried out due to patient leaving prior to being seen by health care provider (principal)
CPT/HCPCS: 99199

== ENCOUNTER 2022-08-22 09:06 | Outpatient (CLI) | payer MEDICARE, SELFPAY ==
--- NOTE | ~2022-08-22 | MR_ITS ---
MRI of the lumbar spine Clinical History: Back pain radiating to lower extremities Technique: Axial T2-weighted images, and sagittal T1-weighted, T2-weighted, and T2 fat-sat images wer e acquired. COMPARISON: 04/27/2021 Findings: No fracture or subluxation of the lumbar spine identified. Osseous alignment is unchanged. No suspicious or focal bone marrow signal abnormality identified. At L1-L2, there is no disc bulge or herniation. No spinal canal stenosis or definite neural foraminal narrowing. At L2-L3, there is no disc bulge or herniation. No spinal canal stenosis or definite neural foraminal narrowing. At L3-L4, there is no significant disc bulge or herniation. No spinal canal stenosis or definite neur al foraminal narrowing. At L4-L5, diffuse disc bulge/protrusion and facet arthropathy contribute to focally severe thecal sac compression. There is moderate bilateral neural foraminal narrowing. At L5-S1, there is minimal disc bulge and mild facet arthropathy. No spinal canal stenosis. There is moderate to advanced right neural foraminal narrowing and mild left neural foraminal narrowing. Impression: Disc bulge/protrusion with facet arthropathy which result in focally severe thecal sac compression at L4-L5. Moderate bilateral neural foraminal narrowing at this level. Bilateral neural foraminal narrowing at L5-S1, right worse than left, as detailed above. Reviewed, dictated and finalized at [facility]. SWORKER Impression: Disc bulge/protrusion with facet arthropathy which result in focally severe the tim sac compression at L4-L5. Moderate bilateral neural foraminal narrowing at this level. Bilateral neural foraminal narrowing at L5-S1, right worse than left, as detail ed above.
== END 2022-08-22 09:07 | disposition home or self-care (01) ==
LOC: CHSIMG 09:08
PROVIDERS: PCP Internal Medicine; Visit Provider Nurse Practitioner Family
DX: M54.16 Radiculopathy, lumbar region (principal); M48.061 Spinal stenosis, lumbar region without neurogenic claudication; M99.83 Other biomechanical lesions of lumbar region
CPT/HCPCS: 72148

== ENCOUNTER 2022-11-05 13:04 | Outpatient (RCR) | payer MEDICARE, SELFPAY ==
--- NOTE | 2022-11-05 13:44 | PTOPEVAL1 ---
Assessment and note entered by Estuardo Stover Evaluation Information Assessment Status Evaluation Diagnosis loaw back pain Onset 10/31/22 Subjective Information Pt. reports she has had on/off back pain for years . She reports she has been doing injections in her back recently. She states that she has been noticing increasing pain. she reports that pain is increased with long periods of sitting and standing. She states that she can only stand for about 10 minutes before needing to sit. She reports that washing dishes is getting difficult and recalls her pain being so intense recently that she began to cry. Pain will radiate across the low back all the way down to her feet. She reports that her pain will wake her at night on occasion. She reports that her goal for therapy is to decrease her low back pain. Reported Pain Level Pain Score 7: Self Report Assessment PT Clinical Summary Pt. is an 87 year old female who enters the clinic with a diagnosis of low back pain. she presents with impaired postural awareness, impaired l.e. strength, impaired balance, impaired standing endurance and pain. Continued treatment is indicated in order to improve these areas to allow the pt. to participate in standing activities with less discomfort. Plan of Care Interventions Electrical Stimulation,Hot Pack/Cold Pack,Manual Therapy,Neuro Re-education,Therapeutic Activities, Therapeutic Exercise PT Services Indicated Yes Treatment Frequency and 2x/week x 12 visits Duration These treatments will address the objective and functional deficits as defined above. The patient will be advanced safely and appropriately in order for the patient to progress towards his/her prior level of function. Additional exercises will be introduced and as well as a comprehensive home exercise program upon discharge, if needed, ?to ensure carryover of functional gains achieved in the clinic. This treatment plan has been reviewed and agreement upon by the patient.
== END 2022-11-28 13:24 | disposition home or self-care (01) ==
LOC: CHSPT 13:04
PROVIDERS: Visit Provider Neurological Surgery
DX: M54.50 Low back pain, unspecified (principal)
CPT/HCPCS: 97014; 97110; 97161; G0283

== ENCOUNTER 2023-01-08 16:49 | Outpatient (CLI) | payer MEDICARE, SELFPAY ==
[2023-01-08 17:27] LABS: Basophils Absolute Auto 0.05 K/mm3 (0.00-0.10); Basophils Percent Auto 0.7 % (0.0-1.0); Eosinophils Absolute Auto 0.15 K/mm3 (0.02-0.50); Eosinophils Percent Auto 2.1 % (1.0-6.0); Hematocrit 35.1 % (35.0-42.0); Hemoglobin 11.2 g/dL (11.7-13.8); Immature Granulocyte Absolute 0.04 K/mm3 (0.00-0.00); Immature Granulocyte Percent A 0.6 % (0.0-0.0); Lymphocytes Absolute Auto 0.91 K/mm3 (1.10-4.50); Lymphocytes Percent Auto 12.9 % (18.0-42.0); Mean Corpuscular HGB Conc 31.9 g/dL (32.0-36.0); Mean Corpuscular Volume 100.3 fL (78.0-102.0); Mean Platelet Volume 10.2 fl (9.2-11.8); Monocytes Absolute Auto 0.77 K/mm3 (0.10-0.90); Monocytes Percent Auto 10.9 % (2.0-11.0); Neutrophils Absolute Auto 5.2 K/mm3 (1.7-7.2); Neutrophils Percent Auto 72.8 % (50.0-70.0); Platelet Count Result 346 K/mm3 (150-420); White Blood Count 7.1 K/mm3 (4.8-10.8)
[2023-01-08 18:26] LABS: Thyroid Stimulating Hormone 1.53 uIU/mL (0.36-3.74)
== END 2023-01-08 16:50 | disposition home or self-care (01) ==
LOC: CHSLAB 16:51
PROVIDERS: PCP Internal Medicine; Visit Provider Internal Medicine
DX: R53.1 Weakness (principal)
CPT/HCPCS: 36415; 84443; 85025

== ENCOUNTER 2023-03-11 20:39 | Inpatient (IN) | payer MEDICARE, SELFPAY ==
--- NOTE | ~2023-03-11 | XR_ITS ---
EXAMINATION: XR chest 2V DATE: 03/11/2023 21:11 INDICATION: Chest pain. Chronic obstructive pulmonary disease. TECHNIQUE: Frontal and lateral views of the chest were obtained. COMPARISON: Chest 2 views 08/22/2021, chest CT 02/18/2022 FINDINGS: The lungs are hyperexpanded with lucencies, consistent with emphysema. No pleural effusion or pneumothorax. The heart size is normal. IMPRESSION: 1. Severe emphysema. Reviewed, dictated and finalized at location [facility]. IMPRESSION: 1. Severe emphysema.
--- NOTE | ~2023-03-11 | CT_ITS ---
Clinical Indication: Chest pain radiating to back CT Scan of the Chest, Abdomen, and Pelvis with Contrast: Technique: Contiguous sections were acquired throughout the chest, abdomen, and pelvis after intraven ous administration of 100 cc of Omnipaque 350. Dose reduction technique was used on this scan by uti lizing automated exposure control and iterative reconstruction technique. The dose-length product (DL P) was 285.54 mGy-cm. COMPARISON: 02/18/2022 Findings: There is no evidence of any significant mediastinal, hilar or axillary lymphadenopathy. Atherosclerot ic changes of the aorta. No aortic aneurysm or dissection. There is pulmonary embolus within segmenta l branch in the right lower lobe (axial images 68-74).. There is no evidence of pleural or pericardial effusion. There is severe emphysema with probable focal scarring in the right upper lobe. The liver, spleen, pancreas, gallbladder, adrenals and kidneys are within normal limits. There are at herosclerotic calcifications of the aorta. No lymphadenopathy. No bowel obstruction or bowel wall thickening. There is no evidence to suggest acute appendicitis. Urinary bladder is unremarkable. No adnexal mass evident. No ascites. Impression: Right lower lobe segmental level pulmonary embolus, as detailed above. Severe emphysema with probable focal scarring in the right upper lobe, which is unchanged from prior exam. No significant abnormality seen in the abdomen or pelvis. Reviewed, dictated and finalized at [facility]. Impression: Right lower lobe segmental level pulmonary embolus, as detailed above. Severe emphysema with probable focal scarring in the right upper lobe, which is unchanged from prior exam. No significant abnormality seen in the abdomen or pelvis.
--- NOTE | 2023-03-11 20:40 | ECG_ITS ---
Measurements Intervals [place] Rate: 92 P: 87 LA: 170 QRS: -76 QRSD: 117 T: 62 QT: 376 QTc: 466 Interpretive Statements SINUS RHYTHM POSSIBLE LEFT ATRIAL ENLARGEMENT INCOMPLETE RIGHT BUNDLE BRANCH BLOCK LEFT ANTERIOR FASCICULAR BLOCK MINIMAL Q WAVES- ANTEROLATERAL LEADS BORDERLINE T WAVE ABNORMALITY- ANTERIOR LEADS ABNORMAL ECG COMPARED TO ECG 04/18/2022 16:03:57 NO SIGNIFICANT CHANGES Electronically Signed On 03-12-2023 7:02:14 CDT by Gato Fisher D.O.
[2023-03-11 20:48] VITALS: BP 177/78; PULSE 91; RESP 16; TEMP 37.1; O2SAT 99
[2023-03-11 21:16] LABS: Alanine Aminotransferase 17 U/L (6-35); Albumin Level 4.4 g/dL (3.5-5.1); Alkaline Phosphatase 63 U/L (38-126); Anion Gap 10 mmol/L (8-16); Aspartate Amino Transferase 40 U/L (14-36); Bilirubin,Total 0.6 mg/dL (0.2-1.3); Blood Urea Nitrogen 27 mg/dL (7-17); Carbon Dioxide 31 mmol/L (22-30); Chloride 92 mmol/L (98-107); Estimated CRCL calculation 28 ml/min; Estimated Glomerular Filt Rate > 60; Glucose 115 mg/dL (65-110); Lipase 44 U/L (23-300); Sodium 133 mmol/L (137-145)
[2023-03-11 21:23] LABS: INR 0.8; Prothrombin Time 11.8 Seconds (11.1-14.7)
[2023-03-11 21:25] LABS: Partial Thromboplastin Time 35.2 SECONDS (22.3-36.8)
[2023-03-11 21:30] LABS: Troponin I 0.042 ng/mL (0.000-0.034)
[2023-03-11 21:33] LABS: Basophils Percent Auto 0.4 % (0.2-1.2); Eosinophils Percent Auto 0.4 % (0-4.4); Hematocrit 41.1 % (37.0-47.0); Hemoglobin 13.1 g/dL (12.0-15.0); Immature Granulocyte Absolute 0.04 K/mm3 (0.00-0.031); Immature Granulocyte Percent A 0.4 % (0-0.5); Lymphocytes Absolute Auto 0.79 K/mm3 (0.9-3.2); Lymphocytes Percent Auto 8.2 % (18.3-44.2); Mean Corpuscular HGB Conc 31.9 g/dl (32-36); Mean Corpuscular Hemoglobin 31.3 pg (26-34); Mean Corpuscular Volume 98.3 fl (80-100); Mean Platelet Volume 10.7 fl (7.4-10.4); Monocytes Absolute Auto 0.4 K/mm3 (0.1-0.6); Monocytes Percent Auto 4.5 % (2.6-8.5); Neutrophils Absolute Auto 8.3 K/mm3 (1.3-6.7); Neutrophils Percent Auto 86.1 % (45.5-73.1); Platelet Count Result 311 k/mm3 (150-375); Red Blood Count 4.18 M/mm3 (4.2-5.4); Red Cell Distribution Width 12.3 % (11.5-14.5); White Blood Count 9.6 K/mm3 (4.5-10.0)
[2023-03-11 21:44] VITALS: BP 182/94; PULSE 83; RESP 21; O2SAT 100
[2023-03-11] MEDS: ASPIRIN 81 MG CHEWABLE TABLET 324 MG PO (22:00)
[2023-03-11 22:05] VITALS: O2SAT 98
[2023-03-12] VITALS (22 sets, daily range): BP systolic 159–199; BP diastolic 82–97; PULSE 73–100; RESP 16–22; TEMP 36.4–37.7; O2SAT 96–99; BMI 15.7
--- NOTE | 2023-03-12 00:04 | ED.GENADULT ---
HPI - General Adult General Chief complaint: Chest Pain Stated complaint: chest pain Time Seen by Provider: 03/11/23 21:37 History of Present Illness HPI narrative: This is an 87-year-old female presenting ED with chief complaint of chest pain. The patient says that her pain started 3 days ago. She describes as a burning pain in the center of her chest that radiates to her back. Sign out 10 intensity and constant. She has never had pain like this further no exacerbating alleviating symptoms. It is associated with nausea cough and increased shortness of breath. No vomiting diaphoresis or exertional component. patient has COPD and then 2 L home oxygen. Related Data Home Medications Medication Instructions Recorded Confirmed albuterol sulfate 2.5 mg/3 mL 2.5 mg inhalation QID 09/16/19 03/10/23 (0.083 %) solution for nebulization albuterol sulfate 90 mcg/actuation 1 puff inhalation Q4H 09/16/19 03/10/23 aerosol inhaler (ProAir HFA) aspirin 81 mg tablet,delayed 81 mg PO DAILY 09/16/19 03/10/23 release (Adult Low Dose Aspirin) sulfasalazine 500 mg tablet 0.5 gm PO DAILY 09/16/19 03/10/23 calcium carbonate 500 mg-vitamin 1 tablet PO DAILY 07/11/20 03/10/23 D3 3.125 mcg (125 unit) tablet mecobalamin (vitamin B12) 1,000 1,000 mcg PO DAILY 12/11/20 03/10/23 mcg chewable tablet Allergies Allergy/AdvReac Type Severity Reaction Status Date / Time No Known Allergies Allergy Unknown Verified 03/11/23 20:39 [facility] Past Medical History Medical History (HFpEF) heart failure with preserved ejection fraction Atrial fibrillation Chronic bilateral low back pain without sciatica Chronic hypoxemic respiratory failure Chronic obstructive pulmonary disease Fall with injury GERD without esophagitis Hypertension, essential Mixed hyperlipidemia Osteoporosis PAD (peripheral artery disease) Stroke Family History Family History Mother Family history of cardiovascular disease Father Family history of emphysema Family history of chronic obstructive pulmonary disease Sibling Family history of malignant neoplasm Social History Social History Smoking packs per day: 1 Smoking cigarettes per day: 20.0 Years smoked: 40 Smoking pack-years: 40.00 Smoking status: Former smoker Second hand tobacco smoke exposure: No Alcohol intake: never Substance use: never Substance use type: does not use Lack of Transportation: No Lack of Food: Never True Current Housing: I Have Housing Concerned About Future Housing: No Difficulty Paying Gas/Electric Bills: No Difficulty Paying for Meds: No Currently Unemployed: No Education: Grade School Difficulty w/ Childcare or Family Care: No Gender identity (if verbalized by the patient): Female Spiritual care concerns: No Exam Narrative: APPEARANCE: No apparent distress. patient is elderly and frail Head: atraumatic. EYES: EOMI, NOSE: Atraumatic NECK: Trachea midline RESPIRATORY: No increased rate of breathing, decreased lung sounds bilaterally CARDIOVASCULAR: RRR, no peripheral edema +2 pulses in all extremities ABDOMINAL: Non-distended MUSCULOSKELETAl: No obvious deformities NEURO: Alert. Moving 4/4 extremities SKIN:: Warm, dry. Normal color PSYCHIATRIC: Normal affect Course Vital Signs Vital signs: Vital Signs Temperature 98.7 F 03/11/23 20:48 Pulse Rate 91 03/11/23 20:48 Respiratory Rate 16 03/11/23 20:48 Blood Pressure 177/78 H 03/11/23 20:48 Pulse Oximetry 99 03/11/23 20:48 Oxygen Delivery Nasal Cannula 03/11/23 20:48 Oxygen Flow Rate 2 03/11/23 20:48 Temperature 98.7 F 03/11/23 20:48 Pulse Rate 83 03/11/23 21:44 Respiratory Rate 21 H 03/11/23 21:44 Blood Pressure 182/94 H 03/11/23 21:44 Pulse O
--- NOTE | 2023-03-12 00:33 | PM.IMHP ---
H&P: HPI History of Present Illness Date/Time: 03/12/23 00:33 Chief Complaint: Chest pain. Narrative: This is an 87-year-old female past medical history significant for osteoporosis, COPD/emphysema, on 2 L of supplemental oxygen at home, chronic hypoxic respiratory failure, GERD, atrial fibrillation, patient comes to the emergency room due to chest pain with radiation to the back. Patient denies any dizziness, lightheadedness, hemoptysis, radiation to the neck or to or shoulder or left arm. Preliminary workup was significant for PE. Clinical Indication: Chest pain radiating to back CT Scan of the Chest, Abdomen, and Pelvis with Contrast: Technique: Contiguous sections were acquired throughout the chest, abdomen, and pelvis after intravenous administration of? 100 cc of Omnipaque 350. Dose reduction technique was used on this scan by utilizing automated exposure control and iterative reconstruction technique. The dose-length product (DLP) was 285.54 mGy-cm. COMPARISON: 02/18/2022 Findings: There is no evidence of any significant mediastinal, hilar or axillary lymphadenopathy. Atherosclerotic changes of the aorta. No aortic aneurysm or dissection. There is pulmonary embolus within segmental branch in the right lower lobe (axial images 68-74).. There is no evidence of pleural or pericardial effusion. There is severe emphysema with probable focal scarring in the right upper lobe. The liver, spleen, pancreas, gallbladder, adrenals and kidneys are within normal limits. There are atherosclerotic calcifications of the aorta.? No lymphadenopathy. No bowel obstruction or bowel wall thickening. There is no evidence to suggest acute appendicitis. Urinary bladder is unremarkable. No adnexal mass evident. No ascites. Impression: Right lower lobe segmental level pulmonary embolus, as detailed above. Severe emphysema with probable focal scarring in the right upper lobe, which is unchanged from prior exam. No significant abnormality seen in the abdomen or pelvis. Review of Systems Review of Systems: Chest pain Constitutional: Constitutional: Denies chills, Reports fatigue, Denies fever(s), Denies night sweats and Reports weakness Eyes: Eyes: Denies change in vision ENT: Denies dysphagia, Denies vertigo, Denies dizziness and Denies odynophagia Cardiovascular: Cardiovascular: Reports chest pain, Denies leg edema, Denies radiating jaw, neck or arm pain and Denies palpitations Respiratory: Respiratory: Denies chest congestion, Denies cough and Denies excessive phlegm production Gastrointestinal: Gastrointestinal: Denies abdominal pain, Denies dyspepsia, Denies heartburn, Denies diarrhea, Denies nausea and Denies vomiting Genitourinary: Genitourinary: Denies dysuria and Denies flank pain Musculoskeletal: Musculoskeletal: Denies myalgias Integumentary/Breasts: Skin/Breast: Denies rash Neurologic: Denies focal weakness and Denies Sensory deficit (Neuro) Psychiatric: Psychiatric: Reports no additional psychiatric complaints and Reports as per HPI Endocrine: Endocrine: Denies cold intolerance, Denies flushing, Denies heat intolerance, Denies polyphagia, Denies polydipsia and Denies palpitations Hematologic/Lymphatic: Hematologic/Lymphatic: Reports no additional hematologic/lymphatic complaints and Reports as per HPI Allergic/Immunologic: Allergic/Immunologic: Reports no additional allergic/immunologic complaints and Reports as per HPI PMFSH Past Medical History Medical History (HFpEF) heart failure with preserved ejection fraction Atrial fibrillation Chronic bilateral low back pain without sciatica Chronic hypoxemic respiratory failure Chronic obstructive pulmonary disease Fall with injury GERD without esophagitis Hypertension, essential Mixed hyperlipidemia Osteoporosis PAD (peripheral artery disease) Stroke Family History Family History (Reviewe
[2023-03-12 00:52] LABS: Troponin I 0.038 ng/mL (0.000-0.034)
[2023-03-12] MEDS: ENOXAPARIN 60 MG/0.6 ML SYRINGE 36 MG SUB-Q ×2 (02:09→21:04)
--- NOTE | 2023-03-12 02:45 | ADMGEN ---
This patient, Humaira Moralez, was admitted to IMU Room 205-02. Patient/family oriented to hospital policies and general routines including ID bracelet, bed and alarms, visiting hours, pain management, procedures, bathroom and other care routines, personal items, smoking policy, room service/diet, and visiting hours. Information on how to activate the Rapid Response Team has been discussed. Patient/Family are encouraged to report perceived risks to care and to ask questions if they do not understand what they are told or what they should do.
[2023-03-12 03:35] LABS: Basophils Absolute Auto 0.1 K/mm3 (0.0-0.1); Basophils Percent Auto 0.8 % (0.2-1.2); Eosinophils Absolute Auto 0.1 K/mm3 (0-0.3); Eosinophils Percent Auto 0.8 % (0-4.4); Hematocrit 40.4 % (37.0-47.0); Hemoglobin 12.6 g/dL (12.0-15.0); Immature Granulocyte Absolute 0.04 K/mm3 (0.00-0.031); Immature Granulocyte Percent A 0.5 % (0-0.5); Lymphocytes Absolute Auto 1.16 K/mm3 (0.9-3.2); Lymphocytes Percent Auto 13.2 % (18.3-44.2); Mean Corpuscular HGB Conc 31.2 g/dl (32-36); Mean Corpuscular Hemoglobin 31.9 pg (26-34); Mean Corpuscular Volume 102.3 fl (80-100); Mean Platelet Volume 10.7 fl (7.4-10.4); Monocytes Absolute Auto 0.9 K/mm3 (0.1-0.6); Monocytes Percent Auto 9.7 % (2.6-8.5); Neutrophils Absolute Auto 6.6 K/mm3 (1.3-6.7); Platelet Count Result 293 k/mm3 (150-375); Red Blood Count 3.95 M/mm3 (4.2-5.4); Red Cell Distribution Width 12.4 % (11.5-14.5); White Blood Count 8.8 K/mm3 (4.5-10.0)
[2023-03-12 03:45] LABS: Lactic Acid Reflex 0.9 mmol/L (0.7-2.0); Prothrombin Time 13.3 Seconds (11.1-14.7)
[2023-03-12 03:47] LABS: Partial Thromboplastin Time 57.2 SECONDS (22.3-36.8)
[2023-03-12 04:03] LABS: Alanine Aminotransferase 16 U/L (6-35); Albumin Level 4.2 g/dL (3.5-5.1); Alkaline Phosphatase 69 U/L (38-126); Anion Gap 10 mmol/L (8-16); Aspartate Amino Transferase 37 U/L (14-36); Bilirubin,Total 0.6 mg/dL (0.2-1.3); Blood Urea Nitrogen 20 mg/dL (7-17); Calcium 8.8 mg/dL (8.4-10.2); Carbon Dioxide 33 mmol/L (22-30); Chloride 94 mmol/L (98-107); Estimated CRCL calculation 29 ml/min; Estimated Glomerular Filt Rate > 60; Glucose 64 mg/dL (65-110); Potassium 4.1 mmol/L (3.4-5.0); Sodium 137 mmol/L (137-145)
[2023-03-12 04:09] LABS: Troponin I 0.044 ng/mL (0.000-0.034)
[2023-03-12 04:15] LABS: Glucose Point of Care 69 mg/dl (65-105)
[2023-03-12] MEDS: HYDROcodone/acetaminophen (*CRX) 10-325 MG TABLET 1 TAB PO ×3 (04:37→23:12)
[2023-03-12] MEDS: DEXTROSE 50% 25 GM/50 ML SYRINGE IV PUSH (04:38)
[2023-03-12 06:17] LABS: Glucose Point of Care 177 mg/dl (65-105)
[2023-03-12] MEDS: lisinopriL 20 MG TABLET PO (09:40)
--- NOTE | 2023-03-12 16:55 | WPDPN ---
Progress Note: A&P Assessment and Plan (1) Pulmonary embolism: Code(s): I26.99 - Other pulmonary embolism without acute cor pulmonale Status: Acute Assessment and Plan: ED-HPI narrative: ?This is an 87-year-old female presenting ED with chief complaint of chest pain.? The patient says that her pain started 3 days ago.? She describes as a burning pain in the center of her chest that radiates to her back.? Sign out 10 intensity and constant.? She has never had pain like this further no exacerbating alleviating symptoms.? It is associated with nausea cough and increased shortness of breath.? No vomiting diaphoresis or exertional component.? 03/12/2023 interval history: patient present with c/o CP and is found to have PE, started patient on lovenox therpeutic dose, patient stats her pain is improving, will do cardiac echo to further evaluate, will monitor. (2) Chest pain: Code(s): R07.9 - Chest pain, unspecified Status: Acute Assessment and Plan: Most likely secondary to pulmonary emboli, patient tropes are elevated mild and flat most likely demand ischemia due to pulmonary emboli will continue to monitor (3) Atrial fibrillation: Code(s): I48.91 - Unspecified atrial fibrillation Status: Acute Assessment and Plan: Patient with history of atrial fibrillation now in sinus rhythm. Subjective Date/time seen: 03/12/23 16:55 Interval history: ED-HPI narrative: ?This is an 87-year-old female presenting ED with chief complaint of chest pain.? The patient says that her pain started 3 days ago.? She describes as a burning pain in the center of her chest that radiates to her back.? Sign out 10 intensity and constant.? She has never had pain like this further no exacerbating alleviating symptoms.? It is associated with nausea cough and increased shortness of breath.? No vomiting diaphoresis or exertional component.? 03/12/2023 interval history: patient present with c/o CP and is found to have PE, started patient on lovenox therpeutic dose, patient stats her pain is improving, will do cardiac echo to further evaluate, will monitor. Review of Systems Review of Systems: All systems reviewed & are unremarkable except as noted in HPI and below Exam Narrative: Patient under diuresed Patient is comfortable, NAD HEENT: eyes are clear and none icteric LUNGS: Normal respiratory effort ABD: Not distended Lower extremities: no edema SKIN: nonjaundiced Neuro: grossly intact. Objective Data Vital Signs Vital Signs: Vital Signs - 24 hr 03/11/23 20:48 03/11/23 21:44 03/11/23 22:05 Temperature 98.7 F Pulse Rate 91 83 Respiratory Rate 16 21 H Blood Pressure 177/78 H 182/94 H Pulse Oximetry 99 100 98 Oxygen Delivery Nasal Cannula Nasal Cannula Oxygen Flow Rate 2 2 03/12/23 01:56 03/12/23 03:01 03/12/23 04:00 Temperature 97.6 F Pulse Rate 81 75 Respiratory Rate 16 19 Blood Pressure 187/88 H 185/96 H Pulse Oximetry 97 97 97 Oxygen Delivery Nasal Cannula Oxygen Flow Rate 2 03/12/23 04:47 03/12/23 02:51 03/12/23 05:42 Temperature 97.7 F Pulse Rate 83 89 75 Respiratory Rate 20 Blood Pressure 159/83 H Pulse Oximetry 96 Oxygen Delivery Oxygen Flow Rate 03/12/23 06:00 03/12/23 08:20 03/12/23 10:22 Temperature 99.8 F H Pulse Rate 73 100 Respiratory Rate 22 H Blood Pressure 197/91 H Pulse Oximetry 96 97 Oxygen Delivery Nasal Cannula Oxygen Flow Rate 1 03/12/23 08:00 03/12/23 08:00 03/12/23 10:00 Temperature Pulse Rate 96 97 Respiratory Rate Blood Pressure Pulse Oximetry 97 Oxygen Delivery Nasal Cannula Oxygen Flow Rate 2 03/12/23 12:00 03/12/23 12:00 03/12/23 12:52 Temperature 99.2 F Pulse Rate 96 94 Respiratory Rate 20 Blood Pressure 199/92 H Pulse Oximetry 97 98 Oxygen Delivery Nasal Cannula Oxygen Flow Rate 2 03/12/23 14:00 03/12/23 15:48 Temperature 99.5 F Pulse Rate
[2023-03-12] MEDS: hydrALAZINE HCL 20 MG/ML VIAL 10 MG IV PUSH (23:12)
[2023-03-13] VITALS (18 sets, daily range): BP systolic 133–163; BP diastolic 77–86; PULSE 77–121; RESP 16–20; TEMP 36.5–36.8; O2SAT 96–99
--- NOTE | 2023-03-13 | ECHO_ITS ---
Patient Info Name: Humaira Moralez Age: 87 years : 1935 Gender: Female Ht: 60 in Wt: 75 lbs BSA: 1.19 m2 HR: 93 bpm BP: 152 / 85 mmHg Heart Rhythm: Sinus Rhythm, Tachycardia Technical Quality: Good Exam Date: 03/13/2023 12:14 PM Exam Location: [facility] Patient Status: Inpatient Admit Date: 03/12/2023 Staff Ordering Physician: Juliette Esquivel MD Fur Nailer: Bebeto Metz RDCS Attending Provider: Francisca Stevens MD Exam Type: CA echo doppler color flow Study Info Indications - PE Complete two-dimensional, color flow and Doppler transthoracic echocardiogram is performed. Summary 1. Complete two-dimensional, color flow and Doppler transthoracic echocardiogram is performed. 2. Left ventricular chamber dimension is normal. 3. There is moderately increased left ventricular wall thickness. 4. Left ventricular systolic function is normal, estimated at 60-65%. 5. Left ventricular septal wall motion is abnormal with septal motion related to bundle branch block. 6. The left ventricular diastolic function is grade I diastolic dysfunction. 7. Right ventricular systolic function is normal. 8. There is mild to moderate tricuspid valve regurgitation. 9. There is small pericardial effusion. 10. Estimated pulmonary arterial systolic pressure is 40 mmHg. Left Ventricle Left ventricular chamber dimension is normal. Left ventricular systolic function is normal, estimated at 60-65%. There is moderately increased left ventricular wall thickness. Left ventricular septal wall motion is abnormal with septal motion related to bundle branch block. The left ventricular diastolic function is grade I diastolic dysfunction. Right Ventricle Right ventricular chamber dimension is normal. Right ventricular systolic function is normal. Left Atria Left atrial chamber dimension is normal. Right Atria Right atrial chamber dimension is normal. Atrial Septum Intact interatrial septum visualized by color flow imaging. Aortic Valve The aortic valve is trileaflet. There is mild aortic valve sclerosis. There is no aortic valve stenosis. There is no aortic valve regurgitation. Pulmonic Valve The pulmonic valve is not well visualized. Mitral Valve There is trace mitral valve regurgitation. The mitral valve annulus is mildly calcified. Tricuspid Valve There is mild to moderate tricuspid valve regurgitation. Estimated pulmonary arterial systolic pressure is 40 mmHg. Pericardium/Pleural There is small pericardial effusion. Inferior Vena Cava Normal inferior vena cava with >50% collapse upon inspiration consistent with normal right atrial pressure, 3 mmHg. Aorta The aortic root size at the sinus of Valsalva is normal. Left Ventricular Outflow Tract Name Value Normal LVOT 2D LVOT Diameter 1.6 cm LVOT Doppler LVOT Peak Gradient 4 mmHg LVOT Mean Gradient 2 mmHg LVOT VTI 17 cm LVOT VTI/AV VTI Ratio 1.0 LVOT Stroke Volume 36 ml LVOT CO 3.5 l/min LVOT CI 2.9 l/min/m2 Pulmonic Valve
[2023-03-13] MEDS: BUDESONIDE RESPULE NEB 0.5 MG/2 ML AMP INHALATION ×2 (08:58→20:06)
[2023-03-13] MEDS: NORTRIPTYLINE HCL 10 MG CAPSULE PO (09:13)
[2023-03-13] MEDS: lisinopriL 20 MG TABLET PO (09:13)
[2023-03-13] MEDS: HYDROcodone/acetaminophen (*CRX) 10-325 MG TABLET 1 TAB PO ×2 (09:13→21:09)
[2023-03-13] MEDS: PANTOPRAZOLE 40 MG TABLET PO (09:13)
[2023-03-13] MEDS: FUROSEMIDE 20 MG TABLET PO (09:14)
[2023-03-13] MEDS: ENOXAPARIN 60 MG/0.6 ML SYRINGE 36 MG SUB-Q (09:14)
[2023-03-13] MEDS: FERROUS SULFATE 325 MG TABLET DR PO (09:14)
[2023-03-13] MEDS: CYANOCOBALAMIN 1,000 MCG TABLET 1000 MCG PO (09:14)
[2023-03-13] MEDS: MONTELUKAST SODIUM 10 MG TABLET BY MOUTH (09:14)
[2023-03-13] MEDS: ASPIRIN 81 MG ENTERIC TABLET PO (09:14)
[2023-03-13] MEDS: ATORVASTATIN 5 MG TABLET PO (09:14)
[2023-03-13 10:22] LABS: Hematocrit 41.8 % (37.0-47.0); Hemoglobin 13.2 g/dL (12.0-15.0); Mean Corpuscular HGB Conc 31.6 g/dl (32-36); Mean Corpuscular Hemoglobin 31.7 pg (26-34); Mean Corpuscular Volume 100.2 fl (80-100); Mean Platelet Volume 10.4 fl (7.4-10.4); Platelet Count Result 322 k/mm3 (150-375); Red Blood Count 4.17 M/mm3 (4.2-5.4); Red Cell Distribution Width 12.5 % (11.5-14.5); White Blood Count 8.4 K/mm3 (4.5-10.0)
[2023-03-13 10:40] LABS: Blood Urea Nitrogen 16 mg/dL (7-17); Carbon Dioxide > 40 mmol/L (22-30); Chloride 91 mmol/L (98-107); Estimated CRCL calculation 27 ml/min; Estimated Glomerular Filt Rate > 60; Glucose 190 mg/dL (65-110); Magnesium 2.1 mg/dL (1.6-2.3); Potassium 3.3 mmol/L (3.4-5.0); Sodium 136 mmol/L (137-145)
--- NOTE | 2023-03-13 14:52 | PM.DS ---
DS: Admitting Diagnosis Discharge Date 03/13/2023 Admitting Diagnosis Chest pain DS: Discharge Diagnosis Discharge Diagnosis (1) Pulmonary embolism: Code(s): I26.99 - Other pulmonary embolism without acute cor pulmonale Status: Acute Assessment and Plan: Admit to regular medical floor Will start anticoagulation (2) Respiratory failure: Code(s): J96.90 - Respiratory failure, unspecified, unspecified whether with hypoxia or hypercapnia Status: Acute Assessment and Plan: Continue supplemental oxygen by nasal cannula (3) Lumbar stenosis with neurogenic claudication: Code(s): M48.062 - Spinal stenosis, lumbar region with neurogenic claudication Status: Acute Assessment and Plan: Unchanged (4) Atrial fibrillation: Code(s): I48.91 - Unspecified atrial fibrillation Status: Acute Assessment and Plan: Patient with history of atrial fibrillation now in sinus rhythm. (5) (HFpEF) heart failure with preserved ejection fraction: Code(s): I50.30 - Unspecified diastolic (congestive) heart failure Status: Acute Assessment and Plan: Continue to monitor daily intake and output (6) Acute and chronic respiratory failure with hypoxia: Code(s): J96.21 - Acute and chronic respiratory failure with hypoxia Status: Acute Assessment and Plan: Wean off of oxygen to her baseline as needed try and keep oxygen saturation at 94% (7) Chronic kidney disease, stage III (moderate): Code(s): N18.3 - Chronic kidney disease, stage 3 (moderate) Status: Acute Assessment and Plan: Continue to monitor BUN and creatinine daily BMP (8) QAMAR (obstructive sleep apnea): Code(s): G47.33 - Obstructive sleep apnea (adult) (pediatric) Status: Acute Assessment and Plan: Patient is on supplemental oxygen by nasal cannula at home DS: Summary Hospital Course Reason for hospitalization: Chest pain. 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 Patient denies any dizziness, lightheadedness, hemoptysis, radiation to the neck or to or shoulder or left arm.? Preliminary workup was significant for PE. Hospital Course: ?patient present with c/o CP and is found to have PE, started patient on lovenox therpeutic dose, patient stats her pain is improving, will do cardiac echo to further evaluate, will monitor. Patient presented with complaint of chest pain is found to have a PE, will discharge the patient on Eliquis, cardiac echo did not show any right heart strain, patient is clinically stable will discharge patient today. Time Spent with Patient Time attestation: Total time spent providing and/or coordinating discharge services: Exam Narrative: Elderly frail Patient is comfortable, NAD HEENT: eyes are clear and none icteric LUNGS: Normal respiratory effort ABD: Not distended Lower extremities: no edema SKIN: nonjaundiced Neuro: grossly intact. DS: Data Data Completed and Pending Labs on day of discharge: Labs from last 24 hours 03/13/23 03/12/23 03/12/23 10:08 03:19 00:13 WBC 8.4 8.8 RBC 4.17 L 3.95 L Hgb 13.2 12.6 Hct 41.8 40.4 MCV 100.2 H 102.3 H MCH 31.7 31.9 MCHC 31.6 L 31.2 L RDW 12.5 12.4 Plt Count 322 293 MPV 10.4 10.7 H Immature Gran % (Auto) 0.5 Neut % (Auto) 75.0 H Lymph % (Auto) 13.2 L Miller % (Auto) 9.7 H Eos % (Auto) 0.8 Baso % (Auto) 0.8 Lymph # (Auto) 1.16 Miller # (Auto) 0.9 H Eos # (Auto) 0.1 Baso # (Auto) 0.1 Abs Immat Gran (auto) 0.04 H Absolute Neuts (auto) 6.6 Absolute Nucleated RBC 0.0 Nucleated RBC % 0.0 PT 13.3 INR 1.0 APTT 57.2 H Sodium
--- NOTE | 2023-03-13 17:27 | PCCCNOTE ---
received call from greenhouse transplanter inquiring about transportation home for patient. per floor medical records secretary, patients daughter is the transportation, and she is currently working until 10:30 pm. patients RN and composition floor setter spoke and decided that patient would stay another night. Dr Esquivel has cancelled discharge. at this time there are no other CC needs. CC will continue to follow for any other needs.
[2023-03-13] MEDS: APIXABAN 5 MG TABLET 10 MG PO (21:05)
[2023-03-14] VITALS (12 sets, daily range): BP systolic 141–156; BP diastolic 62–82; PULSE 65–91; RESP 18; TEMP 36.4–37.1; O2SAT 95–99
[2023-03-14 05:09] LABS: Hematocrit 37.8 % (37.0-47.0); Mean Corpuscular HGB Conc 31.7 g/dl (32-36); Mean Corpuscular Hemoglobin 31.2 pg (26-34); Mean Corpuscular Volume 98.2 fl (80-100); Mean Platelet Volume 10.6 fl (7.4-10.4); Platelet Count Result 302 k/mm3 (150-375); Red Blood Count 3.85 M/mm3 (4.2-5.4); Red Cell Distribution Width 12.2 % (11.5-14.5); White Blood Count 8.4 K/mm3 (4.5-10.0)
[2023-03-14 05:27] LABS: Blood Urea Nitrogen 18 mg/dL (7-17); Calcium 8.9 mg/dL (8.4-10.2); Carbon Dioxide > 40 mmol/L (22-30); Chloride 93 mmol/L (98-107); Estimated CRCL calculation 26 ml/min; Estimated Glomerular Filt Rate > 60; Glucose 101 mg/dL (65-110); Magnesium 2.1 mg/dL (1.6-2.3); Potassium 3.2 mmol/L (3.4-5.0); Sodium 135 mmol/L (137-145)
[2023-03-14] MEDS: NORTRIPTYLINE HCL 10 MG CAPSULE PO (09:07)
[2023-03-14] MEDS: MONTELUKAST SODIUM 10 MG TABLET BY MOUTH (09:07)
[2023-03-14] MEDS: FERROUS SULFATE 325 MG TABLET DR PO (09:07)
[2023-03-14] MEDS: PANTOPRAZOLE 40 MG TABLET PO (09:07)
[2023-03-14] MEDS: FUROSEMIDE 20 MG TABLET PO (09:07)
[2023-03-14] MEDS: lisinopriL 20 MG TABLET PO (09:07)
[2023-03-14] MEDS: ATORVASTATIN 5 MG TABLET PO (09:08)
[2023-03-14] MEDS: ASPIRIN 81 MG ENTERIC TABLET PO (09:08)
[2023-03-14] MEDS: CYANOCOBALAMIN 1,000 MCG TABLET 1000 MCG PO (09:08)
[2023-03-14] MEDS: APIXABAN 5 MG TABLET 10 MG PO (09:08)
[2023-03-14] MEDS: BUDESONIDE RESPULE NEB 0.5 MG/2 ML AMP INHALATION (09:42)
--- NOTE | 2023-03-14 09:42 | PCOTNOTE ---
Pt. is discharging home today with family and caregiver, with HH ordered. Per nursing and care coordination stated that OT evaluation is not necessary at this time. Following if need changes.
[2023-03-14] MEDS: POTASSIUM CHLORIDE 20 MEQ PACKET (FOR LIQUID) 40 MEQ PO (10:37)
--- NOTE | 2023-03-14 12:23 | PCPTNOTE ---
On 03/14/23, the student, SHIKHA Milian, provided care and completed [facility] documentation on this patient. I have reviewed the student's documentation and agree with the findings.
== END 2023-03-14 12:05 | disposition home health service (06) | DRG 175 ==
LOC: ANHED 03-12 00:36 → ANHIMU 03-12 02:52
PROVIDERS: Admitting Provider Internal Medicine; Emergency Provider Emergency Medicine; PCP Nurse Practitioner Family; Visit Provider Family Medicine
DX: I26.99 Other pulmonary embolism without acute cor pulmonale (principal); I50.33 Acute on chronic diastolic (congestive) heart failure; I24.8 Other forms of acute ischemic heart disease; J96.11 Chronic respiratory failure with hypoxia; E44.0 Moderate protein-calorie malnutrition; Z68.1 Body mass index [BMI] 19.9 or less, adult; I11.0 Hypertensive heart disease with heart failure; E78.2 Mixed hyperlipidemia; I73.9 Peripheral vascular disease, unspecified; M81.0 Age-related osteoporosis without current pathological fracture; K21.9 Gastro-esophageal reflux disease without esophagitis; I48.91 Unspecified atrial fibrillation; J43.9 Emphysema, unspecified; G47.33 Obstructive sleep apnea (adult) (pediatric); M48.061 Spinal stenosis, lumbar region without neurogenic claudication; Z99.81 Dependence on supplemental oxygen; Z79.82 Long term (current) use of aspirin; Z87.891 Personal history of nicotine dependence
CPT/HCPCS: 36415; 71046; 71275; 74174; 80048; 80053; 82948; 83605; 83690; 83735; 84484; 85025; 85027; 85610; 85730; 93005; 93306; 94640; 97161; 99291; A9270; J0360; J1650; Q9967

== ENCOUNTER 2023-06-05 16:17 | Emergency (ER) | payer MEDICARE, SELFPAY ==
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
[2023-06-05 16:17] VITALS: BP 181/93; PULSE 95; RESP 20; TEMP 37.7; O2SAT 93
[2023-06-05] MEDS: KETOROLAC 30 MG/ML VIAL (*BKC) 15 MG IM (17:13)
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
[2023-06-05 18:09] VITALS: BP 170/83; PULSE 80; RESP 20; TEMP 36.7; O2SAT 95
== END 2023-06-05 18:12 | disposition home or self-care (01) ==
PROVIDERS: Emergency Provider Emergency Medicine; PCP Nurse Practitioner Family
DX: S29.011A Strain of muscle and tendon of front wall of thorax, initial encounter (principal); J90 Pleural effusion, not elsewhere classified; M47.816 Spondylosis without myelopathy or radiculopathy, lumbar region; M47.814 Spondylosis without myelopathy or radiculopathy, thoracic region; V49.40XA Driver injured in collision with unspecified motor vehicles in traffic accident, initial encounter; J44.9 Chronic obstructive pulmonary disease, unspecified; I11.0 Hypertensive heart disease with heart failure; I50.9 Heart failure, unspecified; I48.91 Unspecified atrial fibrillation; J96.11 Chronic respiratory failure with hypoxia; K21.9 Gastro-esophageal reflux disease without esophagitis; E78.2 Mixed hyperlipidemia; M81.0 Age-related osteoporosis without current pathological fracture; I73.9 Peripheral vascular disease, unspecified; Z86.73 Personal history of transient ischemic attack (TIA), and cerebral infarction without residual deficits; Z79.891 Long term (current) use of opiate analgesic; Z79.82 Long term (current) use of aspirin; Z79.51 Long term (current) use of inhaled steroids
CPT/HCPCS: 71250; 72128; 72131; 74176; 96372; 99284; J1885

== ENCOUNTER 2023-10-06 14:47 | Outpatient (RCR) | payer MEDICARE, SELFPAY ==
--- NOTE | 2023-10-06 15:59 | OPREHPOC ---
Outpatient Therapy Plan of Care This is a Multidisciplinary Plan of Care that may contain components documented by all disciplines (PT, OT, and ST.) PT Problem 1 PT Problem #1 Knowledge Deficit PT Goal 1 Goal Patient to demonstrate independence with HEP Target Visit 6 PT Problem 2 PT Problem #2 Pain PT Goal 1 Goal 1. patient to report highest pain at 4/10 2. patient to report no increase in pain with ambulation into clinic Target Visit 12 PT Problem 3 PT Problem #3 Impaired Strength PT Goal 1 Goal Patient to demonstrate 4/5 B LE strength to improve ability to get out of chair at PLOF Target Visit 12 PT Problem 4 PT Problem #4 Impaired Functional Mobil PT Goal 1 Goal 1. Patient to score 30% improvement on Back Index 2. Patient to report ability to enter steps to house without assistance from granddaughter 3. Patient to report ability to get into and out of bed without assistance Target Visit 12
--- NOTE | 2023-10-06 15:59 | PTOPEVAL1 ---
Assessment and note entered by Adelina Weinstein DPT Evaluation Information Assessment Status Evaluation Diagnosis back pain, decreased balance, weakness Onset 09/24/23 Subjective Information Patient reports she has had back pain (mostly R sided due to stroke in 2008). She reports she also reports she feels like she has gotten weaker. She reports back pain has been increasing over the last few months but has been unable to attend PT due to the passing of her . She reports 1 fall in the past 6 minths where she tripped on the carpet ledging. She reports she is now living with her Granddaughter who is able to help most of the time. She reports she uses a rollator and 2 L of O2. She reports pain is worse with walking, getting out of bed, getting up out of a chair and prolonged positioning. Reported Pain Level Pain Score 7: Self Report Assessment PT Clinical Summary Mrs. Moralez is a 88 year old female who presents to PT with low back pain and weakness. She demonstrates decreased B LE strength, decreased B LE flexibility and impaired gait mechanics limiting her ability to stand up from a chair, ambulate prolonged periods, and getting out of bed . She would benefit from skilled PT to address impairments and return to PLOF. Plan of Care Interventions Electrical Stimulation,Gait Training,Hot Pack/Cold Pack,Manual Therapy,Neuro Re-education,Patient/ Caregiver Educati,Therapeutic Activities, Therapeutic Exercise PT Services Indicated Yes Treatment Frequency and 2x weekly for 12 visits Duration These treatments will address the objective and functional deficits as defined above. The patient will be advanced safely and appropriately in order for the patient to progress towards his/her prior level of function. Additional exercises will be introduced and as well as a comprehensive home exercise program upon discharge, if needed, ?to ensure carryover of functional gains achieved in the clinic. This treatment plan has been reviewed and agreement upon by the patient.
--- NOTE | 2023-10-21 13:51 | PCPTNOTE ---
pt cancelled due to feeling ill and going to ER
--- NOTE | 2023-10-23 12:01 | PCPTNOTE ---
10/23/23: Pt cancelled today with no reason given. -Devi Adam, PT
--- NOTE | 2023-11-04 14:52 | PCPTNOTE ---
patient's granddaughter called to cancel
--- NOTE | 2023-11-27 13:03 | PCPTNOTE ---
Patient cancelled session today. States O2 levels have dropped and she is going to the doctor.
== END 2023-11-20 20:00 | disposition home or self-care (01) ==
LOC: CHSPT 14:47
PROVIDERS: Visit Provider Nurse Practitioner Family
DX: M54.50 Low back pain, unspecified (principal); R53.1 Weakness; G89.29 Other chronic pain; Z91.81 History of falling
CPT/HCPCS: 97110; 97161

== ENCOUNTER 2023-10-21 16:27 | Outpatient (CLI) | payer MEDICARE, SELFPAY ==
--- NOTE | ~2023-10-21 | XR_ITS ---
EXAMINATION: XR chest 2V DATE: 10/21/2023 17:15 INDICATION: Cough, unspecified. TECHNIQUE: Frontal and lateral views of the chest were obtained. COMPARISON: Chest 2 views 03/11/2023, chest CT 06/05/2023 FINDINGS: The lungs are hyperexpanded with lucencies, consistent with emphysema. There is mild scarri ng in right upper lobe. No pleural effusion or pneumothorax. The heart size is normal. IMPRESSION: 1. Severe emphysema. Reviewed, dictated and finalized at location E. ND [employer] IMPRESSION: 1. Severe emphysema.
[2023-10-21 17:24] LABS: Influenza A QL RT-PCR Negative (Negative); Influenza B QL RT-PCR Negative (Negative); RSV RNA, RT-PCR Negative (Negative); SARS-CoV-2 RNA PCR Negative (Negative)
== END 2023-10-21 16:28 | disposition home or self-care (01) ==
LOC: CHSLAB 16:29
PROVIDERS: PCP Nurse Practitioner Family; Visit Provider Nurse Practitioner Family
DX: I27.81 Cor pulmonale (chronic) (principal); R05.9 Cough, unspecified; J43.9 Emphysema, unspecified; Z20.822 Contact with and (suspected) exposure to COVID-19
CPT/HCPCS: 71046; 87637

== ENCOUNTER 2023-11-27 14:57 | Outpatient (CLI) | payer MEDICARE, SELFPAY ==
--- NOTE | ~2023-11-27 | XR_ITS ---
EXAMINATION: XR chest 2V Exam Date/Time: 11/27/2023 15:20 CDT HISTORY: R05.9 - Cough, unspecified Comparison: 10/21/2023. RESULT: Lines, tubes, and devices: None. Lungs and pleura: Emphysematous change. Increased left basilar reticular opacities. Minimal bilatera l costophrenic angle blunting. Cardiomediastinal silhouette: Stable. Other: No acute osseous or upper abdominal finding. IMPRESSION: Increasing interstitial edema with trace bilateral pleural effusions. Infection, including atypical i nfection, not excluded. Reviewed, dictated and finalized at location K. IMPRESSION: Increasing interstitial edema with trace bilateral pleural effusions. Infection , including atypical infection, not excluded.
[2023-11-27 16:09] LABS: SARS-CoV-2 RNA PCR Negative (Negative)
[2023-11-27 16:10] LABS: Influenza A QL RT-PCR Negative (Negative); Influenza B QL RT-PCR Negative (Negative); RSV RNA, RT-PCR Negative (Negative)
== END 2023-11-27 14:58 | disposition home or self-care (01) ==
LOC: CHSLAB 15:00
PROVIDERS: PCP Nurse Practitioner Family; Visit Provider Nurse Practitioner Family
DX: I27.81 Cor pulmonale (chronic) (principal); R05.9 Cough, unspecified; R60.9 Edema, unspecified; J90 Pleural effusion, not elsewhere classified
CPT/HCPCS: 71046; 87637

== ENCOUNTER 2024-01-09 16:49 | Emergency (ER) | payer MEDICARE, SELFPAY ==
--- NOTE | ~2024-01-09 | XR_ITS ---
EXAMINATION: XR chest 1V DATE: 01/09/2024 19:58 INDICATION: Shortness of breath TECHNIQUE: frontal view of the chest was obtained. COMPARISON: Chest radiograph dated 11/27/2023 FINDINGS: Hyperexpansion of lungs with increased lucency and architectural distortion in the upper lung zones c onsistent with emphysema. Linear discoid atelectasis/scarring at the right upper lung zone. Unchanged mild elevation of left hemidiaphragm. Persistent mild reticular opacities at bilateral lung bases, l eft greater than right. No other airspace opacities, pleural effusion or pneumothorax. Cardiomegaly. IMPRESSION: 1. Emphysema with unchanged mild reticular opacities at bilateral lung bases, left greater than right most likely atelectasis/scarring with differential including mild pulmonary edema or less likely pne umonia. 2. Cardiomegaly. Reviewed, dictated and finalized at location A. IMPRESSION: 1. Emphysema with unchanged mild reticular opacities at bilateral lung bases, l eft greater than right most likely atelectasis/scarring with differential inclu ding mild pulmonary edema or less likely pneumonia. 2. Cardiomegaly.
[2024-01-09 16:54] VITALS: BP 164/78; PULSE 88; RESP 22; TEMP 36.7; O2SAT 99
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
--- NOTE | 2024-01-09 20:39 | PC.NURSE ---
Pt granddaughter to intake desk at this time. Pt granddaughter asking again why more people continue to come back before her grandmother. This RN explained to the granddaughter that she was still next in line to go to the back as long as no one more critical/unstable. This RN also explained that we were constantly pulling people back to triage, draw blood, etc. Granddaughter upset that they had been sitting out there for over 4 hours at this time. SHELBI Ventura came to the intake desk and explained that they were cleaning 1 open room at this time if she wanted to wait she could be going back next. Granddaughter stepped away from front desk agent to speak with family. Granddaughter returned and explained that they were not going to continue to wait. Pt wheeled outside by family.
== END 2024-01-09 20:59 | disposition left against medical advice (07) ==
LOC: ANHED 20:53
PROVIDERS: Emergency Provider Emergency Medicine; PCP Nurse Practitioner Family
DX: R06.02 Shortness of breath (principal)
CPT/HCPCS: 71045; 99199

== ENCOUNTER 2024-01-10 15:11 | Emergency (ER) | payer MEDICARE, SELFPAY ==
--- NOTE | ~2024-01-10 | XR_ITS ---
EXAMINATION: XR chest 2V Exam Date/Time: 01/10/2024 16:23 CDT HISTORY: copd short of breath Comparison: 01/09/2024. RESULT: Lines, tubes, and devices: None. Lungs and pleura: Severe emphysematous changes. No focal consolidation, pleural effusion, or pneumot horax. Cardiomediastinal silhouette: Stable. Other: No acute osseous or upper abdominal finding. Stable mild anterior wedge deformity of a midtho racic vertebral body. IMPRESSION: No acute cardiopulmonary process. Reviewed, dictated and finalized at location K.
[2024-01-10 15:20] VITALS: BP 168/67; PULSE 70; RESP 16; TEMP 36.6; O2SAT 99
--- NOTE | 2024-01-10 15:39 | ECG_ITS ---
SEE SCANNED COPY FOR CONFIRMED REPORT MTDD
[2024-01-10 15:48] VITALS: O2SAT 100
[2024-01-10 16:01] LABS: Basophils Percent Auto 0.4 % (0.2-1.2); Eosinophils Absolute Auto 0.2 K/mm3 (0-0.3); Hematocrit 34.8 % (37.0-47.0); Hemoglobin 10.9 g/dL (12.0-15.0); Immature Granulocyte Absolute 0.04 K/mm3 (0.00-0.031); Immature Granulocyte Percent A 0.4 % (0-0.5); Lymphocytes Absolute Auto 1.33 K/mm3 (0.9-3.2); Lymphocytes Percent Auto 13.9 % (18.3-44.2); Mean Corpuscular HGB Conc 31.3 g/dl (32-36); Mean Corpuscular Volume 102.1 fl (80-100); Monocytes Absolute Auto 1.1 K/mm3 (0.1-0.6); Monocytes Percent Auto 11.1 % (2.6-8.5); Neutrophils Absolute Auto 6.9 K/mm3 (1.3-6.7); Neutrophils Percent Auto 72.2 % (45.5-73.1); Platelet Count Result 267 k/mm3 (150-375); Red Blood Count 3.41 M/mm3 (4.2-5.4); Red Cell Distribution Width 12.1 % (11.5-14.5); White Blood Count 9.6 K/mm3 (4.5-10.0)
[2024-01-10 16:13] LABS: Alveolar/Arterial O2 Gradient 40.3 mmHg; Base Excess ABG 4.9 mEq/l (+/-2.0); Carboxyhemoglobin 0.7 % THb (0-2.0); Fractional Inspired Oxygen 28 %; HCO3 ABG 30.6 mEq/l (22.0-26.0); Methemoglobin ABG 0.3 %THb (0-1.5); Oxygen Saturation ABG 97.5 % (95.0-100.0); Oxyhemoglobin 96.7 % THb (90.0-100.0); PCO2 ABG 50.3 mmHg (35.0-45.0); PO2 FiO2 Ratio Arterial Blood 3.57 %; Reduced Hemoglobin 2.3 %THb (0-5.0); Total Hemoglobin 11.7 g/dL (12.0-18.0); pH ABG 7.402 (7.350-7.450)
[2024-01-10 16:14] LABS: Device NASAL CANNULA; Modified Allen's Test Pass; Site Drawn RIGHT RADIAL
[2024-01-10 16:18] LABS: Alanine Aminotransferase 10 U/L (6-35); Albumin Level 4.1 g/dL (3.5-5.1); Alkaline Phosphatase 60 U/L (38-126); Anion Gap 4 mmol/L (4-12); Aspartate Amino Transferase 21 U/L (14-36); Bilirubin,Total 0.5 mg/dL (0.2-1.3); Blood Urea Nitrogen 16 mg/dL (7-17); Calcium 9.2 mg/dL (8.4-10.2); Carbon Dioxide 35 mmol/L (22-30); Chloride 100 mmol/L (98-107); Estimated CRCL calculation 29 ml/min; Estimated Glomerular Filt Rate > 60; Glucose 113 mg/dL (65-110); Potassium 3.7 mmol/L (3.4-5.0); Sodium 139 mmol/L (137-145)
[2024-01-10 16:42] VITALS: BP 158/68; PULSE 63; RESP 15; O2SAT 100
--- NOTE | 2024-01-10 17:13 | ED.GENADULT ---
HPI - General Adult General Chief complaint: Shortness of Breath/Dyspnea Stated complaint: SOB Time Seen by Provider: 01/10/24 15:45 Source: patient and family Mode of arrival: EMS Limitations: no limitations History of Present Illness HPI narrative: 88-year-old with a history of AF, COPD on 2 L, hyperlipidemia was brought in from home by EMS with complaints of mild weakness and shortness of breath. Patient's granddaughter who is the main caregiver for the patient states that she was recently diagnosed with the pneumonia had finished 2 rounds of of antibiotics , her granddaughter mentions that she is feeling weak and not back to her self . Patient denies any unusual shortness of breath, chest pain, fever. Onset (ago): week(s) (2) Relieving factors: none Related Data Home Medications Medication Instructions Recorded Confirmed aspirin 81 mg tablet,delayed 81 mg PO DAILY 09/16/19 12/19/23 release (Adult Low Dose Aspirin) oxycodone-acetaminophen 7.5 mg-325 1 tablet PO Q8H PRN Pain, Severe 06/05/23 12/19/23 mg tablet Allergies Allergy/AdvReac Type Severity Reaction Status Date / Time No Known Allergies Allergy Unknown Verified 01/10/24 15:52 Review of Systems Review of Systems: All systems reviewed & are unremarkable except as noted in HPI and below Constitutional: Constitutional: Reports no additional constitutional complaints Eyes: Eyes: Reports no additional eye complaints ENT: Reports system reviewed and no additional complaints, except as documented Cardiovascular: Cardiovascular: Reports no additional cardiovascular complaints Respiratory: Respiratory: Reports no additional respiratory complaints Gastrointestinal: Gastrointestinal: Reports no additional gastrointestinal complaints Musculoskeletal: Musculoskeletal: Reports no additional musculoskeletal complaints Integumentary/Breasts: Skin/Breast: Reports system reviewed and no additional complaints, except as docu PMFSH Past Medical History Medical History (HFpEF) heart failure with preserved ejection fraction Abnormal CT scan, lung Atrial fibrillation Chronic hypoxemic respiratory failure Chronic obstructive pulmonary disease Coccyx pain Former smoker GERD without esophagitis Hx of completed stroke Hypertension, essential Mixed hyperlipidemia Opacity of lung on imaging study Osteoporosis PAD (peripheral artery disease) Pleural effusion Pulmonary embolism Rhinitis Stroke Family History Family History Mother Family history of cardiovascular disease Father Family history of emphysema Family history of chronic obstructive pulmonary disease Sibling Family history of malignant neoplasm Social History Social History Smoking packs per day: 1 Smoking cigarettes per day: 20.0 Years smoked: 40 Smoking pack-years: 40.00 Smoking status: Former smoker Second hand tobacco smoke exposure: No Alcohol intake: never Substance use: never Substance use type: does not use Do You Feel Safe in your Home?: Yes Lack of Transportation: No Lack of Food: Never True Current Housing: I Have Housing Concerned About Future Housing: No Difficulty Paying Gas/Electric Bills: No Difficulty Paying for Meds: No Currently Unemployed: No Education: High School Diploma/GED Difficulty w/ Childcare or Family Care: No Gender identity (if verbalized by the patient): Female Spiritual care concerns: No Exam Narrative: GENERAL: Well-appearing, thin and frail, and in no acute distress. HEAD: Normocephalic, atraumatic. EYES: PERRLA and EOMI. ENT: Nares clear, no rhinorrhea or epistaxis. Mucous membranes moist. NECK: Supple. CHEST: Clear to auscultation. No respiratory distress. HEART: Regular rate and rhythm. No murmur heard. Normal
[2024-01-10 17:19] VITALS: BP 137/75; PULSE 65; RESP 16; O2SAT 100
[2024-01-10 17:41] VITALS: PULSE 61; RESP 18; O2SAT 100
== END 2024-01-10 17:41 | disposition home or self-care (01) ==
PROVIDERS: Emergency Provider Family Medicine; PCP Nurse Practitioner Family
DX: J44.9 Chronic obstructive pulmonary disease, unspecified (principal); R53.1 Weakness; I48.91 Unspecified atrial fibrillation; I50.30 Unspecified diastolic (congestive) heart failure; I11.0 Hypertensive heart disease with heart failure; I73.9 Peripheral vascular disease, unspecified; J96.11 Chronic respiratory failure with hypoxia; K21.9 Gastro-esophageal reflux disease without esophagitis; M81.0 Age-related osteoporosis without current pathological fracture; Z86.73 Personal history of transient ischemic attack (TIA), and cerebral infarction without residual deficits; Z86.711 Personal history of pulmonary embolism; Z87.891 Personal history of nicotine dependence
CPT/HCPCS: 36415; 36600; 71046; 80053; 82375; 82805; 83050; 85025; 93005; 99284

== ENCOUNTER 2024-06-07 15:44 | Outpatient (CLI) | payer MEDICARE, SELFPAY ==
--- NOTE | ~2024-06-07 | CT_ITS ---
CT Scan of the Chest without Contrast: Clinical Indication: Pneumonia Technique: Contiguous sections were acquired throughout the chest without intravenous contrast. Dose reduction technique was used on this scan by utilizing automated exposure control and iterative recon struction technique. The dose-length product (DLP) was 162.25 mGy-cm. COMPARISON: 03/11/2023 Findings: There is no evidence of any significant mediastinal, hilar or axillary lymphadenopathy. There are ath erosclerotic calcifications of the aorta and coronary arteries. There is no evidence of pleural or pericardial effusion. There is advanced emphysema. Stable irregular right upper lobe pulmonary nodule, likely focal scarrin g. Images through the upper abdomen reveal no abnormalities. Impression: Advanced emphysema with stable probable focal scarring or the right upper lobe nodule, as noted above . Reviewed, dictated and finalized at [facility]. Impression: Advanced emphysema with stable probable focal scarring or the right upper lobe nodule, as noted above.
== END 2024-06-07 15:45 | disposition home or self-care (01) ==
PROVIDERS: PCP Nurse Practitioner Family; Visit Provider Physician Assistant
DX: J18.9 Pneumonia, unspecified organism (principal); J44.9 Chronic obstructive pulmonary disease, unspecified; J43.9 Emphysema, unspecified
CPT/HCPCS: 71250

== ENCOUNTER 2024-09-16 15:09 | Emergency (ER) | payer MEDICARE, SELFPAY ==
--- NOTE | ~2024-09-16 | XR_ITS ---
XR chest 1V portable 09/16/2024 15:53 Indication: Weakness Procedure: AP portable chest Comparison: Comparison to multiple prior studies sequentially, with oldest reviewed study dated 10/21. Findings: Heart size normal. No focal air space disease, pulmonary edema, pleural effusion or suspect ed pneumothorax. The lungs are hyperinflated which is consistent with, but not diagnostic of chronic obstructive pulmonary disease. There is chronic scarring in the right upper lobe. No acute osseous ab normality. No significant effusion. No pneumothorax. Impression: 1: No acute cardiopulmonary disease. Reviewed, dictated and finalized at location A. DRIVER Impression: 1: No acute cardiopulmonary disease.
[2024-09-16 15:11] VITALS: BP 140/79; PULSE 101; RESP 18; TEMP 36.8; O2SAT 92
[2024-09-16 15:52] LABS: Basophils Absolute Auto 0.09 K/mm3 (0.00-0.10); Basophils Percent Auto 0.9 % (0.0-1.0); Eosinophils Absolute Auto 0.51 K/mm3 (0.02-0.50); Eosinophils Percent Auto 5.2 % (1.0-6.0); Hematocrit 38.6 % (35.0-42.0); Hemoglobin 11.9 g/dL (11.7-13.8); Immature Granulocyte Absolute 0.05 K/mm3 (0.00-0.00); Immature Granulocyte Percent A 0.5 % (0.0-0.0); Lymphocytes Absolute Auto 1.29 K/mm3 (1.10-4.50); Lymphocytes Percent Auto 13.1 % (18.0-42.0); Mean Corpuscular HGB Conc 30.8 g/dL (32-36); Mean Corpuscular Hemoglobin 30.3 pg (27.0-31.0); Mean Corpuscular Volume 98.2 fL (78.0-102.0); Mean Platelet Volume 10.4 fl (9.2-11.8); Monocytes Absolute Auto 0.76 K/mm3 (0.10-0.90); Monocytes Percent Auto 7.7 % (2.0-11.0); Neutrophils Absolute Auto 7.14 K/mm3 (1.70-7.20); Neutrophils Percent Auto 72.6 % (50.0-70.0); Platelet Count Result 328 K/mm3 (150-420); Red Blood Count 3.93 M/mm3 (4.20-5.40); Red Cell Distribution Width 12.6 % (11.6-14.4); White Blood Count 9.8 K/mm3 (4.8-10.8)
[2024-09-16 15:52] LABS: Add Urine Microscopic? NO; Appearance Urine Clear (Clear); Bilirubin Urine Negative (Negative); Blood Urine Negative (Negative); Color Urine Light Yellow (Yellow); Glucose Urine UA Negative (Negative); Ketones Urine Negative (Negative); Leukocyte Esterase Ur Negative LEU/UL (Negative); Nitrate Urine Negative (Negative); Protein Urine Negative (Negative); Specific Grav Ur 1.015 (1.010-1.020); Urobilinogen Urine 0.2 mg/dL (0.2-1.0)
[2024-09-16 16:16] LABS: Alanine Aminotransferase 9 U/L (14-59); Alkaline Phosphatase 57 U/L (46-116); Anion Gap 7 mmol/L (4-12); Aspartate Amino Transferase 14 U/L (15-37); Bilirubin,Total 0.4 mg/dL (0.00-1.00); Blood Urea Nitrogen 43 mg/dL (7-18); Calcium 9.9 mg/dL (8.5-10.1); Carbon Dioxide 35 mmol/L (21-32); Chloride 99 mmol/L (98-108); Estimated CRCL calculation 13 ml/min; Estimated Glomerular Filt Rate 35; Glucose 118 mg/dL (70-99); NT Pro B Type Natriuretic Pept 654 pg/mL (0-450); Osmolality Calculated 303 mOsm/kg (285-295); Potassium 5.3 mmol/L (3.5-5.1); Sodium 141 mmol/L (136-145); Thyroid Stimulating Hormone 1.84 uIU/mL (0.36-3.74); Total Protein 7.4 g/dL (6.4-8.2)
--- NOTE | 2024-09-16 16:20 | ED_ITS ---
HPI - Weakness General Chief complaint: Weakness Stated complaint: failure to thrive Time Seen by Provider: 09/16/24 15:18 Source: patient and family Mode of arrival: wheelchair Limitations: physical limitation History of Present Illness HPI Narrative: this is a an 89-year-old female with some history of COPD and has been having issues with some losing weight has talked to her provider and was sent to the ER for further evaluation. Patient is on 2L of oxygen routinely with no shortnes of breath, no chest pain no diarrhea constipation no abdominal pain no flank pain no dysuria no fever chills. Complaint: generalized weakness Onset (ago): month(s) Duration: constant Location: generalized Severity: mild Related Data Home Medications ?Medication ?Instructions ?Recorded ?Confirmed ?Last Taken ?Type aspirin 81 mg tablet,delayed 81 mg PO DAILY 09/16/19 09/07/24 Unknown History release (Adult Low Dose Aspirin) oxycodone-acetaminophen 7.5 mg-325 1 tablet PO Q8H PRN Pain, Severe 06/05/23 09/07/24 Unknown History mg tablet Allergies Allergy/AdvReac Type Severity Reaction Status Date / Time No Known Allergies Allergy Unknown Verified 09/16/24 15:20 Review of Systems 2 Review of Systems: All systems reviewed & are unremarkable except as noted in HPI and below PMFSH Past Medical History Medical History Pleural effusion Pulmonary embolism Coccyx pain Opacity of lung on imaging study Stroke Abnormal CT scan, lung Osteoporosis (HFpEF) heart failure with preserved ejection fraction Atrial fibrillation Chronic hypoxemic respiratory failure Frailty GERD without esophagitis Hx of completed stroke Mixed hyperlipidemia PAD (peripheral artery disease) Rhinitis Chronic obstructive pulmonary disease Former smoker Hypertension, essential Family History Family History Mother Family history of cardiovascular disease Father Family history of emphysema Family history of chronic obstructive pulmonary disease Sibling Family history of malignant neoplasm Social History Social History Smoking packs per day: 1 Smoking cigarettes per day: 20.0 Years smoked: 40 Smoking pack-years: 40.00 Smoking status: Former smoker Second hand tobacco smoke exposure: No Alcohol intake: never Substance use: never Substance use type: does not use Do You Feel Safe in your Home?: Yes Lack of Transportation: No Lack of Food: Never True Current Housing: I Have Housing Concerned About Future Housing: No Difficulty Paying Gas/Electric Bills: No Difficulty Paying for Meds: No Currently Unemployed: No Education: High School Diploma/GED Difficulty w/ Childcare or Family Care: No Gender identity (if verbalized by the patient): Female Spiritual care concerns: No Exam 2 Const: General: no acute distress and alert Nutritional Appearance: thin Orientation/consciousness: patient oriented x3 Limitations: physical limitations HENMT: Head: normal to inspection Neck: Neck: normal visual inspection Chest: Chest palpation & inspection: normal inspection of the chest Resp: Effort & Inspection: normal respiratory effort Auscultation: clear to auscultation bilaterally Cardio: Rate: regular rate Rhythm: regular rhythm GI: GI Palp: Yes Soft to palpation Auscultation: normal bowel sounds : General: Yes bladder normal to palpation Urinary Catheter: Urinary Catheter: patent and draining Back/Spine/Pelvis: Back: no CVA tenderness Skin: General skin exam: normal color Rashes: no rashes Neuro: General: patient oriented x3 and moves all extremities Psych: Mental Status: mental status grossly normal Course Course Emergency Course: X-ray with no acute cardiopulmonary abnormality urinalysis is normal blood work unremarkable patient has dark green sputum and will treat for a upper respiratory tract infection give her a dose of Zithromax while in the ER. Advised patient's family to follow-up with her primary for further evaluation. Vital Signs Vital signs: Vital Signs Temperature 36.8 C 09/16/24 15:11 Pulse Rate 101 H 09/16/24 15:11 Respiratory Rate 18 09/16/24 15:11 Blood Pressure 140/79 09/16/24 15:11 Pulse Oximetry 92 09/16/24 15:11 Oxygen Delivery Nasal Cannula 09/16/24 15:11 Oxygen Flow Rate 2 09/16/24 15:11 Temperature 36.8 C 09/16/24 15:11 Pulse Rate 101 H 09/16/24 15:11 Respiratory Rate 18 09/16/24 15:11 Blood Pressure 140/79 09/16/24 15:11 Pulse Oximetry 92 09/16/24 15:11 Oxygen Delivery Nasal Cannula 09/16/24 15:11 Oxygen Flow Rate 2 09/16/24 15:11 MDM - Weakness Lab Data 09/16/24 15:47 09/16/24 15:48 Labs: Lab Results 09/16/24 09/16/24 Range/Units 15:47 15:48 WBC 9.8 (4.8-10.8) K/mm3 RBC 3.93 L (4.20-5.40) M/mm3 Hgb 11.9 (11.7-13.8) g/dL Hct 38.6 (35.0-42.0) % MCV 98.2 (78.0-102.0) fL MCH 30.3 (27.0-31.0) pg MCHC 30.8 L (32-36) g/dL RDW 12.6 (11.6-14.4) % Plt Count 328 (150-420) K/mm3 MPV 10.4 (9.2-11.8) fl Immature Gran % (Auto) 0.5 H (0.0-0.0) % Neut % (Auto) 72.6 H (50.0-70.0) % Lymph % (Auto) 13.1 L (18.0-42.0) % [place] % (Auto) 7.7 (2.0-11.0) % Eos % (Auto) 5.2 (1.0-6.0) % Baso % (Auto) 0.9 (0.0-1.0) % Lymph # (Auto) 1.29 (1.10-4.50) K/mm3 [place] # (Auto) 0.76 (0.10-0.90) K/mm3 Eos # (Auto) 0.51 H (0.02-0.50) K/mm3 Baso # (Auto) 0.09 (0.00-0.10) K/mm3 Abs Immat Gran (auto) 0.05 H (0.00-0.00) K/mm3 Absolute Neuts (auto) 7.14 (1.70-7.20) K/mm3 Absolute Nucleated RBC 0.00 (0.00-0.00) K/mm3 Nucleated RBC % 0.0 (0-0.0) % Sodium 141 (136-145) mmol/L Potassium 5.3 H (3.5-5.1) mmol/L Chloride 99 (98-108) mmol/L Carbon Dioxide 35 H (21-32) mmol/L Anion Gap 7 (4-12) mmol/L BUN 43 H (7-18) mg/dL Creatinine 1.43 H (0.55-1.02) mg/dL Estim Creat Clear Calc 13 ml/min Estimated GFR 35 L (59 - ) Glucose 118 H (70-99) mg/dL Calculated Osmolality 303 H (285-295) mOsm/kg Calcium 9.9 (8.5-10.1) mg/dL Total Bilirubin 0.4 (0.00-1.00) mg/dL AST 14 L (15-37) U/L ALT 9 L (14-59) U/L Alkaline Phosphatase 57 (46-116) U/L NT-Pro-B Natriuret Pep 654 H (0-450) pg/mL Total Protein 7.4 (6.4-8.2) g/dL Albumin 4.0 (3.4-5.0) g/dL TSH 1.84 (0.36-3.74) uIU/mL Urine Color Light yellow (Yellow) Urine Appearance Clear (Clear) Urine pH 5.0 (5.0-8.0) Ur Specific [place] 1.015 (1.010-1.020) Urine Protein Negative (Negative) Urine Glucose (UA) Negative (Negative) Urine Ketones Negative (Negative) Ur Blood (Man) Negative (Negative) Urine Nitrate Negative (Negative) Urine Bilirubin Negative (Negative) Urine Urobilinogen 0.2 (0.2-1.0) mg/dL Leukocyte Esterase Rfl Negative (Negative) MALAIKA/UL Critical Care Time Critical Care Time Critical Care Time: No Discharge Plan Discharge Clinical Impression: Weakness Upper respiratory tract infection Qualifiers: URI type: unspecified URI Qualified Code(s): J06.9 - Acute upper respiratory infection, unspecified Patient Disposition: Home, Self-Care Condition: Stable Instructions: Antibiotic Form, Upper Respiratory Infection (ED), Weakness (ED) Additional Instructions: advised to take medication as prescribed and to follow with primary care physician within 1 week for further evaluation treatment. Patient Language: French Prescriptions: New azithromycin [Zithromax Z-Earle] 250 mg tablet See Rx Instructions .ROUTE .COMPLEX Qty: 6 0RF Rx Instructions: For 250 mg dose pack: take 500 mg today (day 1), then 250 mg for 4 days (days 2-5) prednisone 20 mg tablet 20 mg PO DAILY 5 Days Qty: 5 0RF No Action oxycodone-acetaminophen 7.5-325 mg tablet 1 tablet PO Q8H PRN (Reason: Pain, Severe) mirtazapine 7.5 mg tablet 7.5 mg PO DAILY Qty: 30 0RF aspirin [Adult Low Dose Aspirin] 81 mg tablet,delayed release (DR/EC) 81 mg PO DAILY atorvastatin 10 mg tablet 5 mg PO DAILY Qty: 90 2RF potassium chloride 20 mEq tablet extended release 20 meq PO DAILY Qty: 90 1RF budesonide 0.5 mg/2 mL suspension for nebulization See Rx Instructions .ROUTE .COMPLEX Qty: 60 11RF Dose Instruction: USE 1 VIAL IN NEBULIZER TWICE DAILY - Rinse mouth after use Rx Instructions: USE 1 VIAL IN NEBULIZER TWICE DAILY - Rinse mouth after use albuterol sulfate 2.5 mg /3 mL (0.083 %) solution for nebulization See Rx Instructions .ROUTE .COMPLEX Qty: 30 11RF Dose Instruction: USE 1 VIAL IN NEBULIZER DAILY - As needed (for rescue) shortness of breath. Rx Instructions: USE 1 VIAL IN NEBULIZER DAILY - As needed (for rescue) shortness of breath. ipratropium bromide 0.02 % solution See Rx Instructions .ROUTE .COMPLEX Qty: 120 11RF Dose Instruction: USE 1 VIAL IN NEBULIZER 4 TIMES DAILY - As needed for shortness of breath Rx Instructions: USE 1 VIAL IN NEBULIZER 4 TIMES DAILY - As needed for shortness of breath arformoterol 15 mcg/2 mL solution for nebulization See Rx Instructions .ROUTE .COMPLEX Qty: 60 11RF Dose Instruction: USE 1 VIAL IN NEBULIZER TWICE DAILY - Morning and evening Rx Instructions: USE 1 VIAL IN NEBULIZER TWICE DAILY - Morning and evening mecobalamin (vitamin B12) 1,000 mcg tablet,chewable 1,000 mcg PO DAILY Qty: 90 3RF montelukast 10 mg tablet 10 mg PO DAILY Qty: 30 5RF Rx Instructions: Take 1 tablet by mouth once daily lisinopril 20 mg tablet 20 mg PO DAILY Qty: 90 1RF Rx Instructions: Take 1 tablet by mouth daily esomeprazole magnesium 40 mg capsule,delayed release(DR/EC) See Rx Instructions .ROUTE .COMPLEX Qty: 90 0RF Dose Instruction: TAKE ONE CAPSULE ORALLY DAILY Rx Instructions: TAKE ONE CAPSULE ORALLY DAILY ergocalciferol (vitamin D2) 1,250 mcg (50,000 unit) capsule See Rx Instructions .ROUTE .COMPLEX Qty: 12 0RF Dose Instruction: TAKE ONE CAPSULE BY MOUTH EVERY 2 WEEKS. Rx Instructions: TAKE ONE CAPSULE BY MOUTH EVERY 2 WEEKS. furosemide 40 mg tablet 40 mg PO QAM Qty: 90 1RF albuterol sulfate 90 mcg/actuation HFA aerosol inhaler 2 inh inhalation Q4-6H PRN (Reason: shortness of breath or wheezing) Qty: 8.5 0RF sulfasalazine 500 mg tablet See Rx Instructions .ROUTE .COMPLEX Qty: 180 0RF Dose Instruction: TAKE TWO TABLETS BY MOUTH THREE TIMES A DAY Rx Instructions: TAKE TWO TABLETS BY MOUTH THREE TIMES A DAY alendronate 70 mg tablet 70 mg PO WEEKLY Qty: 12 1RF Rx Instructions: Take 1 tablet by mouth once a week ferrous sulfate 325 mg (65 mg iron) tablet 325 mg PO DAILY Qty: 90 1RF Rx Instructions: Take 1 tablet by mouth once daily Follow-up/Referrals: Jaden Gardner MD [Primary Care Provider] -
[2024-09-16] MEDS: AZITHROMYCIN 250 MG TABLET 500 MG PO (16:31)
[2024-09-16 16:41] VITALS: BP 145/78; PULSE 88; RESP 20; TEMP 37.6; O2SAT 95
== END 2024-09-16 16:35 | disposition home or self-care (01) ==
PROVIDERS: Emergency Provider Emergency Medicine; PCP Family Medicine
DX: R53.1 Weakness (principal); J06.9 Acute upper respiratory infection, unspecified; J44.9 Chronic obstructive pulmonary disease, unspecified; I48.91 Unspecified atrial fibrillation; E78.2 Mixed hyperlipidemia; I11.0 Hypertensive heart disease with heart failure; I50.9 Heart failure, unspecified; Z87.891 Personal history of nicotine dependence; Z99.81 Dependence on supplemental oxygen; Z86.73 Personal history of transient ischemic attack (TIA), and cerebral infarction without residual deficits
CPT/HCPCS: 36415; 71045; 80053; 81003; 83880; 84443; 85025; 99283; A9270

== ENCOUNTER 2024-10-08 07:33 | Inpatient (IN) | payer MEDICARE, SELFPAY ==
[2024-10-08] VITALS (36 sets, daily range): BP systolic 106–171; BP diastolic 56–126; PULSE 68–130; RESP 14–20; TEMP 36.9–37.1; O2SAT 85–100; BMI 15.0
--- NOTE | ~2024-10-08 | MR_ITS ---
EXAMINATION: MR brain/brain stem wo/w con DATE: 10/09/2024 10:23 INDICATION: Increased tremor. Cerebrovascular accident. TECHNIQUE: Magnetic resonance imaging (MRI) of the brain and brainstem was performed without and with 6 mL MultiHance intravenous contrast. COMPARISON: Brain MRI 01/17/2021, head CT 10/08/2024 FINDINGS: There are scattered areas of nonspecific increased T2-weighted signal intensity in the cere bral white matter. There is no intracranial hemorrhage, acute infarction, or abnormal intracranial ma ss lesion. There is an old infarct involving the posterior limb left internal capsule and left fronto parietal deep white matter. The ventricles are normal in size. There are likely changes of ocular farida s replacement surgeries. There is mild mucosal thickening in the paranasal sinuses. The mastoid air c ells are normal. IMPRESSION: 1. 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 2. Moderate nonspecific cerebral white matter disease, which likely represents chronic small vessel i schemic disease. Reviewed, dictated and finalized at location A. RINTENDENT MAINTENANCE IMPRESSION: 1. Old infarct involving the posterior limb left internal capsule and left fron toparietal deep white matter. 2. Moderate nonspecific cerebral white matter disease, which likely represents chronic small vessel ischemic disease.
--- NOTE | ~2024-10-08 | XR_ITS ---
EXAMINATION: XR chest 1V portable DATE: 10/09/2024 09:11 INDICATION: Cough. TECHNIQUE: A single frontal view of the chest was obtained. COMPARISON: Chest single view 09/16/2024, chest CT 10/08/2024 FINDINGS: The lungs are hyperexpanded with lucencies, consistent with emphysema. There is focal scarr ing in right upper lobe. No pleural effusion or pneumothorax. The heart size is normal. IMPRESSION: 1. Severe emphysema. Reviewed, dictated and finalized at location A. MEDIA STRATEGIST IMPRESSION: 1. Severe emphysema.
--- NOTE | ~2024-10-08 | XR_ITS ---
EXAMINATION: XR barium swallow modified DATE: 10/09/2024 12:43 INDICATION: Dysphagia. Choking when swallowing. TECHNIQUE: The patient was given barium-containing material of multiple consistencies to swallow by t kanwal speech pathologist while I performed fluoroscopy. Fluoroscopy exposure time was 2.8 minutes. The n umber of fluoroscopy images saved to the PACS was 1. Dose-area product was 1.5 Gy-cm^2. FINDINGS: There is reduced laryngeal elevation, reduced tongue base retraction, vallecular residue, laryngeal p enetration, and aspiration. IMPRESSION: 1. Aspiration. 2. Please refer to the speech therapy report for recommendations. Reviewed, dictated and finalized at location A. STYLIST
--- NOTE | ~2024-10-08 | CT_ITS ---
EXAMINATION: CT chest abdomen pelvis w con DATE: 10/08/2024 11:02 INDICATION: Hiccups. Tremor. TECHNIQUE: Computed tomography (CT) of the chest, abdomen, and pelvis was performed with 100 mL Omnip aque 350 intravenous contrast. Automated exposure control and iterative reconstruction technique were employed. The dose-length product was 225.53 mGy-cm. COMPARISON: CT chest 06/07/2024, CT chest, abdomen, and pelvis 03/11/2023 FINDINGS: CHEST CT: There is severe emphysema. There is chronic focal scarring in right upper lobe. There are few chronic nodules in the lungs measuring up to 5 mm in left lower lobe, likely benign. No pleural effusion. Th e heart size is normal. There are coronary artery calcifications. No pericardial effusion. There is t horacic kyphosis and mild spondylosis. There is severe cervical spondylosis. ABDOMEN/PELVIS CT: The liver, gallbladder, spleen, pancreas, and right adrenal gland are normal. There is chronic thicke reese of left adrenal gland, likely benign. There is cortical thinning of the kidneys. There is a 1.8 cm cyst in right kidney. There is calcified atherosclerosis of the aorta and many of the other arteri es. There are no dilated loops of bowel. The appendix is not visualized. There are no pathologically enlarged lymph nodes. There is no free intraperitoneal fluid. There is mild lumbar spondylosis. IMPRESSION: 1. Severe emphysema. Reviewed, dictated and finalized at location A. HANGER IMPRESSION: 1. Severe emphysema.
--- NOTE | ~2024-10-08 | CT_ITS ---
EXAMINATION: CTA brain carotid DATE: 10/08/2024 11:59 INDICATION: Tremor. TECHNIQUE: Computed tomographic angiography (CTA) of the head was performed with 76 mL Omnipaque-350 intravenous contrast. CTA of the neck was performed with intravenous contrast. Automated exposure con trol and iterative reconstruction technique were employed. The dose-length product was 983.44 mGy-cm. Maximum intensity projection and volume rendered 3D-reconstructions were created by the technologist on a separate workstation. COMPARISON: Head CT 10/08/2024 FINDINGS: HEAD CTA: There are scattered areas of low attenuation in the cerebral white matter. There is no intr acranial hemorrhage, acute infarction, or abnormal intracranial mass lesion. The ventricles are ned l in size. There are likely changes of ocular lens replacement surgeries. There is mild mucosal thick ening in the paranasal sinuses. The mastoid air cells are normal. Right vertebral artery is dominant. There is severe stenosis of distal left vertebral artery. There is no significant stenosis of the ba silar artery or the posterior cerebral arteries. There is no significant stenosis of the intracranial internal carotid arteries or anterior or middle cerebral arteries. Anterior communicating artery is normal. The posterior communicating arteries are normal. There is no aneurysm. NECK CTA: There is severe emphysema. There is focal scarring in right upper lobe. There is moderate s tenosis of multifocal moderate stenosis of cervical left vertebral artery. There is plaque in the pro ximal internal carotid arteries. There are no pathologically enlarged lymph nodes. There is 0% stenos is of the proximal right internal carotid artery relative to normal distal artery lumen diameter (ARTEM CET criteria). There is 0% stenosis of the proximal left internal carotid artery relative to normal d istal artery lumen diameter. There is severe cervical spondylosis. IMPRESSION: 1. Moderate nonspecific cerebral white matter disease, which likely represents chronic small vessel i schemic disease. 2. 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 Multifocal moderate stenosis of cervical left ivory tebral artery. 3. 0% stenosis of the proximal internal carotid arteries relative to normal distal artery lumen diame ters (NASCET criteria). Reviewed, dictated and finalized at location A. C INDUSTRY INTERN IMPRESSION: 1. Moderate nonspecific cerebral white matter disease, which likely represents chronic small vessel ischemic disease. 2. 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 Multifocal moderate stenosi s of cervical left vertebral artery. 3. 0% stenosis of the proximal internal carotid arteries relative to normal dis venancio artery lumen diameters (NASCET criteria).
--- NOTE | ~2024-10-08 | CT_ITS ---
EXAMINATION: CT brain wo con DATE: 10/08/2024 11:02 INDICATION: Tremor and hiccups TECHNIQUE: Computed tomography (CT) of the head was performed without intravenous contrast. Sagittal and coronal reconstructions were performed. Automated exposure control and iterative reconstruction t echnique were employed. The dose-length product was 908.00 mGy-cm. COMPARISON: head CT dated 03/13/2016 and brain MR dated 01/17/2021 FINDINGS: No acute intracranial hemorrhage, acute infarction or abnormal extra axial fluid collection. Unchange d small old lacunar infarct at the left basal ganglia. There is moderate scattered white matter hypoa ttenuation consistent with chronic small vessel ischemic disease. Symmetric prominence of the sulci a nd ventricles consistent with mild age-appropriate diffuse cerebral volume loss. No mass/mass effect. Chronic large arachnoid granulation within the posterior aspect of the sagittal sinus. Changes of bi lateral intraocular lens replacement. The orbits and mastoid air cells are normal. Mild mucosal thick ening the left maxillary and bilateral ethmoid sinuses. IMPRESSION: 1. 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 No acute intracranial process. 2. Normal aging brain with mild diffuse volume loss and moderate scattered white matter hypoattenuati on consistent with chronic small vessel ischemic disease. Reviewed, dictated and finalized at location B. LBENZENE CONVERTER HELPER IMPRESSION: 1. 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 No acute intracranial process. 2. Normal aging brain with mild diffuse volume loss and moderate scattered whit e matter hypoattenuation consistent with chronic small vessel ischemic disease.
--- NOTE | ~2024-10-08 | XR_ITS ---
EXAMINATION: XR chest 1V portable DATE: 10/11/2024 15:05 INDICATION: Cough. TECHNIQUE: A single frontal view of the chest was obtained. COMPARISON: Chest view 10/09/2024, chest CT 10/08/2024 FINDINGS: The lungs are hyperexpanded with lucencies and interstitial opacities, consistent with emph ysema. No pleural effusion or pneumothorax. The heart size is normal. IMPRESSION: 1. Severe emphysema. Reviewed, dictated and finalized at location A. ER/WAITRESS BUFFET IMPRESSION: 1. Severe emphysema.
--- NOTE | 2024-10-08 08:12 | ED.GENADULT ---
HPI - General Adult General Chief complaint: Unspecified Stated complaint: involuntary tremors Time Seen by Provider: 10/08/24 07:43 History of Present Illness HPI narrative: 81-year-old female presenting to the emergency department for evaluation for acute onset of tremor. Patient states that approximately 4:00 a.m. this morning she noticed she began having increased tremor. Patient attempted to contact her granddaughter that lives with her but the issue was not found until approximately 630. EMS was called for seizure. Patient had no seizure on arrival but was having tremor. Patient is able to speak with no dysarthria and has no focal numbness or weakness. Patient is alert and oriented. Patient does have what appears to be intermittent hiccups or tremor. This does affect her speaking at the moment and does cause some jaw tremor. No other focal neural deficit noted on exam. Patient denies any other complaints. Family confirmed with the patient that she is a DNI DNR Related Data Home Medications ?Medication ?Instructions ?Recorded ?Confirmed ?Last Taken ?Type aspirin 81 mg tablet,delayed 81 mg PO DAILY 09/16/19 10/08/24 10/07/24 History release (Adult Low Dose Aspirin) oxycodone-acetaminophen 7.5 mg-325 1 tablet PO Q8H PRN Pain, Severe 06/05/23 10/08/24 10/07/24 History mg tablet Allergies Allergy/AdvReac Type Severity Reaction Status Date / Time No Known Allergies Allergy Unknown Verified 09/16/24 15:20 Review of Systems Review of Systems: All systems reviewed & are unremarkable except as noted in HPI and below PMFSH Past Medical History Medical History Pleural effusion Pulmonary embolism Coccyx pain Opacity of lung on imaging study Stroke Abnormal CT scan, lung Osteoporosis (HFpEF) heart failure with preserved ejection fraction Atrial fibrillation Chronic hypoxemic respiratory failure Frailty GERD without esophagitis Hx of completed stroke Mixed hyperlipidemia PAD (peripheral artery disease) Rhinitis Chronic obstructive pulmonary disease Former smoker Hypertension, essential Family History Family History Mother Family history of cardiovascular disease Father Family history of emphysema Family history of chronic obstructive pulmonary disease Sibling Family history of malignant neoplasm Social History Social History Smoking packs per day: 1 Smoking cigarettes per day: 20.0 Years smoked: 40 Smoking pack-years: 40.00 Smoking status: Former smoker Second hand tobacco smoke exposure: No Alcohol intake: never Substance use: never Substance use type: does not use Do You Feel Safe in your Home?: Yes Lack of Transportation: No Lack of Food: Never True Current Housing: I Have Housing Concerned About Future Housing: No Difficulty Paying Gas/Electric Bills: No Difficulty Paying for Meds: No Currently Unemployed: No Education: Decline to Answer Difficulty w/ Childcare or Family Care: No Gender identity (if verbalized by the patient): Female Spiritual care concerns: No Exam Narrative: APPEARANCE: Well appearing but does have intermittent tremor primarily of the chin HEAD: normocephalic, atraumatic. EYES: PERRLA/EOMI, conjunctivae clear. NOSE: Normal no drainage EARS:TMS clear with good light reflex. THROAT: Pharynx clear, no exudate. NECK: Supple. No adenopathy, no masses. RESPIRATORY: Airway patent, respirations nonlabored. Clear to auscultation bilaterally, no rales, rhonchi, wheezing. CARDIOVASCULAR: Regular rate and rhythm without murmurs rubs or gallops. ABDOMINAL: Soft, nontender, nondistended, normal bowel sounds MUSCULOSKELETAL: Moves all extremities. Strength/ROM intact, No edema, No calf tenderness. NEURO: Tremor of lower jaw, otherwise normal focal neuro exam with no deficit SKIN: Warm, dry. Normal Color Course Vital Signs Vital signs: Vital Signs Temperature 98.8 F 10/08/24 07:38 Pulse Rate 78 10/08/24 07:38 Respiratory Rate 18 10/08/24 07:38 Blood Pressure 117/92 H 10/08/24 07:38 Pulse Oximetry 97 10/08/24 07:38 Oxygen Delivery Nasal Cannula 10/08/24 07:38 Oxygen Flow Rate 2 10/08/24 07:38 Temperature 98.8 F 10/08/24 07:38 Pulse Rate 68 10/08/24 15:35 Respiratory Rate 16 10/08/24 15:35 Blood Pressure 139/77 10/08/24 15:35 Pulse Oximetry 99 10/08/24 15:35 Oxygen Delivery Nasal Cannula 10/08/24 07:38 Oxygen Flow Rate 2 10/08/24 07:38 Medical Decision Making MDM Narrative Medical decision making narrative: 81-year-old female presented emergency department for evaluation for tremor versus seizure. Patient appears to be having intermittent hiccups verses tremor. Patient is afebrile but does have a white blood cell count of 12.8 and hemoglobin 11.0. INR 0.9. Patient did have potassium of 5.4 and a his suspected new SAUNDRA with a creatinine of 1.40 BUN of 49. Patient was treated with a L of IV for IV fluids. UA was negative for infection. Patient was negative for influenza RSV and for COVID. Head CT does show old lacunar infarct with no acute infarct, and no acute thrombosis. Abdominal CT was ordered to better evaluate the diaphragm and well patient does have some chronic nodules there are no acute findings involving the diaphragm. This is possibly a neurologic issue. I did discuss the case with the hospitalist and they are willing to admit the patient for an MRI. While we are waiting on a bed the family did become upset the duration that they are in the emergency department. Initially they did request to be transferred. I explained that it would be approximately 3-4 days if we were to transfer them at this point. At that time the patient's bed was available and they were willing to be admitted for the MRI. Patient was unchanged at time of re-evaluation. Differential Diagnosis Differential Diagnosis: Hiccups, pneumonia, COVID, influenza, RSV, electrolyte abnormality, dehydration, tremor, SAUNDRA Vital Signs Vital Signs: Vital Signs Temperature 98.8 F 10/08/24 07:38 Pulse Rate 78 10/08/24 07:38 Respiratory Rate 18 10/08/24 07:38 Blood Pressure 117/92 H 10/08/24 07:38 Pulse Oximetry 97 10/08/24 07:38 Oxygen Delivery Nasal Cannula 10/08/24 07:38 Oxygen Flow Rate 2 10/08/24 07:38 Temperature 98.8 F 10/08/24 07:38 Pulse Rate 68 10/08/24 15:35 Respiratory Rate 16 10/08/24 15:35 Blood Pressure 139/77 10/08/24 15:35 Pulse Oximetry 99 10/08/24 15:35 Oxygen Delivery Nasal Cannula 10/08/24 07:38 Oxygen Flow Rate 2 10/08/24 07:38 Lab Data Lab results reviewed: Yes I reviewed the patient's lab results. 10/08/24 09:49 10/08/24 09:49 Labs: Lab Results 10/08/24 10/08/24 Range/Units 09:49 10:03 WBC 12.8 H (4.5-10.0) K/mm3 RBC 3.66 L (4.2-5.4) M/mm3 Hgb 11.0 L (12.0-15.0) g/dL Hct 36.4 L (37.0-47.0) % MCV 99.5 (80-100) fl MCH 30.1 (26-34) pg MCHC 30.2 L (32-36) g/dl RDW 12.8 (11.5-14.5) % Plt Count 269 (150-375) k/mm3 MPV 10.8 H (7.4-10.4) fl Immature Gran % (Auto) 0.5 (0-0.5) % Neut % (Auto) 70.6 (45.5-73.1) % Lymph % (Auto) 13.6 L (18.3-44.2) % [place] % (Auto) 8.8 H (2.6-8.5) % Eos % (Auto) 6.0 H (0-4.4) % Baso % (Auto) 0.5 (0.2-1.2) % Lymph # (Auto) 1.74 (0.9-3.2) K/mm3 [place] # (Auto) 1.1 H (0.1-0.6) K/mm3 Eos # (Auto) 0.8 H (0-0.3) K/mm3 Baso # (Auto) 0.1 (0.0-0.1) K/mm3 Abs Immat Gran (auto) 0.06 H (0.00-0.031) K/mm3 Absolute Neuts (auto) 9.0 H (1.3-6.7) K/mm3 Absolute Nucleated RBC 0.000 (0.0-0.012) K/mm3 Nucleated RBC % 0.0 (0.0-0.2) % PT 12.3 (11.1-14.7) Seconds INR 0.9 APTT 27.7 (22.3-36.8) Seconds Sodium 139 (137-145) mmol/L Potassium 5.4 H (3.4-5.0) mmol/L Chloride 96 L (98-107) mmol/L Carbon Dioxide 33 H (22-30) mmol/L Anion Gap 10 (4-12) mmol/L BUN 49 H D (7-17) mg/dL Creatinine 1.41 H (0.7-1.0) mg/dL Estim Creat Clear Calc 14 ml/min Estimated GFR 35 L (59 - ) Glucose 114 H (65-110) mg/dL Calcium 9.0 (8.4-10.2) mg/dL Total Bilirubin 0.4 (0.2-1.3) mg/dL AST 21 (14-36) U/L ALT 9 (6-35) U/L Alkaline Phosphatase 59 (38-126) U/L Total Protein 7.0 (6.3-8.2) g/dL Albumin 4.1 (3.5-5.1) g/dL Urine Color Yellow (Yellow) Urine Appearance Clear (Clear) Urine pH 6.5 (5.0-9.0) Ur Specific [place] 1.017 (1.001-1.035) Urine Protein Negative (Negative) mg/dL Urine Glucose (UA) Negative (Negative) mg/dL Urine Ketones Negative (Negative) mg/dL Ur Blood (Man) Negative (Negative) Urine Nitrate Negative (Negative) Urine Bilirubin Negative (Negative) Urine Urobilinogen 0.2 (<2.0) mg/dL Leukocyte Esterase Rfl Negative (Negative) [place]/UL Influenza A (RT-PCR) Negative (Negative) Influenza B (RT-PCR) Negative (Negative) RSV (RT-PCR) Negative (Negative) SARS-CoV-2 RNA (RT-PCR) Negative (Negative) Imaging Data Radiologist's impression: Impressions Head CT 10/08/24 11:02 IMPRESSION: 1. 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 No acute intracranial process. 2. Normal aging brain with mild diffuse volume loss and moderate scattered white matter hypoattenuation consistent with chronic small vessel ischemic disease. Chest/Abdomen/Pelvis CT 10/08/24 11:07 IMPRESSION: 1. Severe emphysema. Head/Neck CTA 10/08/24 12:08 IMPRESSION: 1. Moderate nonspecific cerebral white matter disease, which likely represents chronic small vessel ischemic disease. 2. 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 Multifocal moderate stenosis of cervical left vertebral artery. 3. 0% stenosis of the proximal internal carotid arteries relative to normal distal artery lumen diameters (NASCET criteria). Discharge Plan Discharge Clinical Impression: Tremor, SAUNDRA (acute kidney injury) Patient Disposition: Still a Patient Condition: Serious
[2024-10-08 09:59] LABS: Basophils Absolute Auto 0.1 K/mm3 (0.0-0.1); Basophils Percent Auto 0.5 % (0.2-1.2); Eosinophils Absolute Auto 0.8 K/mm3 (0-0.3); Hematocrit 36.4 % (37.0-47.0); Immature Granulocyte Absolute 0.06 K/mm3 (0.00-0.031); Immature Granulocyte Percent A 0.5 % (0-0.5); Lymphocytes Absolute Auto 1.74 K/mm3 (0.9-3.2); Lymphocytes Percent Auto 13.6 % (18.3-44.2); Mean Corpuscular HGB Conc 30.2 g/dl (32-36); Mean Corpuscular Hemoglobin 30.1 pg (26-34); Mean Corpuscular Volume 99.5 fl (80-100); Mean Platelet Volume 10.8 fl (7.4-10.4); Monocytes Absolute Auto 1.1 K/mm3 (0.1-0.6); Monocytes Percent Auto 8.8 % (2.6-8.5); Neutrophils Percent Auto 70.6 % (45.5-73.1); Platelet Count Result 269 k/mm3 (150-375); Red Blood Count 3.66 M/mm3 (4.2-5.4); Red Cell Distribution Width 12.8 % (11.5-14.5); White Blood Count 12.8 K/mm3 (4.5-10.0)
[2024-10-08 10:11] LABS: Alanine Aminotransferase 9 U/L (6-35); Albumin Level 4.1 g/dL (3.5-5.1); Alkaline Phosphatase 59 U/L (38-126); Anion Gap 10 mmol/L (4-12); Aspartate Amino Transferase 21 U/L (14-36); Bilirubin,Total 0.4 mg/dL (0.2-1.3); Blood Urea Nitrogen 49 mg/dL (7-17); Carbon Dioxide 33 mmol/L (22-30); Chloride 96 mmol/L (98-107); Estimated CRCL calculation 14 ml/min; Estimated Glomerular Filt Rate 35; Glucose 114 mg/dL (65-110); Potassium 5.4 mmol/L (3.4-5.0); Sodium 139 mmol/L (137-145)
[2024-10-08 10:12] LABS: Add Urine Microscopic? NO; Appearance Urine Clear (Clear); Bilirubin Urine Negative (Negative); Blood Urine Negative (Negative); Color Urine Yellow (Yellow); Glucose Urine UA Negative (Negative); Ketones Urine Negative (Negative); Leukocyte Esterase Ur Negative LEU/UL (Negative); Nitrate Urine Negative (Negative); Protein Urine Negative (Negative); Specific Grav Ur 1.017 (1.001-1.035); Urobilinogen Urine 0.2 mg/dL (<2.0); pH Urine 6.5 (5.0-9.0)
[2024-10-08 10:23] LABS: INR 0.9; Prothrombin Time 12.3 Seconds (11.1-14.7)
[2024-10-08 10:24] LABS: Partial Thromboplastin Time 27.7 Seconds (22.3-36.8)
[2024-10-08 10:35] LABS: Influenza A QL RT-PCR Negative (Negative); Influenza B QL RT-PCR Negative (Negative); RSV RNA, RT-PCR Negative (Negative); SARS-CoV-2 RNA PCR Negative (Negative)
[2024-10-08] MEDS: SODIUM CHLORIDE 0.9% IV 1,000 ML 999 ML IV CONT (12:01)
--- NOTE | 2024-10-08 18:22 | PM.IMHP ---
H&P: HPI History of Present Illness Date/Time: 10/08/24 18:22 Chief Complaint: Spastic Tremors Narrative: This is an 89-year-old female patient who lives at home with her granddaughter. Patient awoke this morning around 4:00 a.m. experiencing jaw tremors that were intermittent every few minutes and nonpainful. Once the patient was able to reach the granddaughter and the granddaughter witnessed these events they called EMS for possible seizures. Patient brought to our emergency department and evaluated with multiple episodes witnessed by care team. Initially these were isolated to the face and jaw and did affect speech at time of event but throughout the day episodes became more frequent and began to involve more aspects of the body. Workup in the emergency department included a noncontrast CT scan of the head as well as CTA of the head neck and CT abdomen pelvis. 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 CTA shows stenosis of the left vertebral artery and nonspecific cerebellar white matter disease consistent with chronic small-vessel ischemic disease. Internal carotids are 0% stenosed. Neurology will be on service and consulted tomorrow and MRI has been ordered by the ER. Initial suspicion from ER provider was diaphragmatic spasms causing these episodes of tremors. Throughout the day the episodes have become more frequent and involve more of the patient's body now including the jaw, face, eyes, upper extremities and to a certain extent the torso. Patient was using mouth swabs and had tremor episode leading to possible aspiration. She was made NPO and speech therapy swallow study was ordered. On time of my exam patient having multiple 5-10 second spasms every minute however there is no loss of cognition or consciousness. Patient's voice does stutter then stop until the spasm resolves then she can speak normally until the next event. Patient stated she could not sleep last night and thinks that the more tired she gets the more often these episodes are happening. Long time spent at bedside discussing case with patient and her granddaughter. Ordered IV fluids for hydration as patient also has SAUNDRA and mild hyperkalemia on labs. Patient denies any pain, shortness of breath, nausea, vomiting, constipation or diarrhea. Granddaughter states patient has lost about 20 pounds since June 2024. Patient reports that she uses supplemental oxygen and has for about the last 8-10 years. Granddaughter reports that patient was started on mirtazapine about a month ago and dose was recently escalated from 15 mg to 30 mg to attempt to stimulate appetite. Review of Systems Review of Systems: All systems reviewed & are unremarkable except as noted in HPI and below PMFSH Past Medical History Medical History Pleural effusion Pulmonary embolism Coccyx pain Opacity of lung on imaging study Stroke Abnormal CT scan, lung Osteoporosis (HFpEF) heart failure with preserved ejection fraction Atrial fibrillation Chronic hypoxemic respiratory failure Frailty GERD without esophagitis Hx of completed stroke Mixed hyperlipidemia PAD (peripheral artery disease) Rhinitis Chronic obstructive pulmonary disease Former smoker Hypertension, essential Family History Family History Mother Family history of cardiovascular disease Father Family history of emphysema Family history of chronic obstructive pulmonary disease Sibling Family history of malignant neoplasm Social History Social History Smoking packs per day: 1 Smoking cigarettes per day: 20.0 Years smoked: 40 Smoking pack-years: 40.00 Smoking status: Former smoker Second hand tobacco smoke exposure: No Alcohol intake: never Substance use: never Substance use type: does not use Do You Feel Safe in your Home?: Yes Lack of Transportation: No Lack of Food: Never True Current Housing: I Have Housing Concerned About Future Housing: No Difficulty Paying Gas/Electric Bills: No Difficulty Paying for Meds: No Currently Unemployed: No Education: Decline to Answer Difficulty w/ Childcare or Family Care: No Gender identity (if verbalized by the patient): Female Spiritual care concerns: No Meds Home Medications and Allergies Home Medications ?Medication ?Instructions ?Recorded ?Confirmed ?Type aspirin 81 mg tablet,delayed 81 mg PO DAILY 09/16/19 10/08/24 History release (Adult Low Dose Aspirin) atorvastatin 10 mg tablet 5 mg (1/2 x 10 mg) PO DAILY #90 06/05/23 10/08/24 Rx tabs oxycodone-acetaminophen 7.5 mg-325 1 tablet PO Q8H PRN Pain, Severe 06/05/23 10/08/24 History mg tablet albuterol sulfate 2.5 mg/3 mL See Rx Instructions .Route 12/29/23 10/08/24 Rx (0.083 %) solution for nebulization .COMPLEX #30 ea arformoterol 15 mcg/2 mL solution See Rx Instructions .Route 12/29/23 10/08/24 Rx for nebulization .COMPLEX #60 ea budesonide 0.5 mg/2 mL suspension See Rx Instructions .Route 12/29/23 09/07/24 Rx for nebulization .COMPLEX #60 ea ipratropium bromide 0.02 % See Rx Instructions .Route 12/29/23 09/07/24 Rx solution for inhalation .COMPLEX #120 ea potassium chloride 20 mEq 20 meq PO DAILY #90 tabs 01/13/24 10/08/24 Rx tablet,extended release mecobalamin (vitamin B12) 1,000 1,000 mcg PO DAILY #90 tabs 02/06/24 10/08/24 Rx mcg chewable tablet montelukast 10 mg tablet 10 mg PO DAILY #30 tabs 02/26/24 10/08/24 Rx lisinopril 20 mg tablet 20 mg PO DAILY #90 tabs 04/06/24 10/08/24 Rx ergocalciferol (vitamin D2) 1,250 See Rx Instructions .Route 05/04/24 10/08/24 Rx mcg (50,000 unit) capsule .COMPLEX #12 caps esomeprazole magnesium 40 mg See Rx Instructions .Route 05/04/24 10/08/24 Rx capsule,delayed release .COMPLEX #90 caps albuterol sulfate 90 mcg/actuation 2 inh inhalation Q4-6H PRN 06/07/24 10/08/24 Rx aerosol inhaler shortness of breath or wheezing #8.5 grams furosemide 40 mg tablet 40 mg PO QAM #90 tabs 06/07/24 10/08/24 Rx sulfasalazine 500 mg tablet See Rx Instructions .Route 08/30/24 10/08/24 Rx .COMPLEX #180 tabs alendronate 70 mg tablet 70 mg PO WEEKLY #12 tabs 09/08/24 10/08/24 Rx ferrous sulfate 325 mg (65 mg 325 mg PO DAILY #90 tabs 09/08/24 10/08/24 Rx iron) tablet mirtazapine 30 mg tablet 30 mg PO DAILY #7 tabs 10/01/24 10/08/24 Rx Allergies Allergy/AdvReac Type Severity Reaction Status Date / Time No Known Allergies Allergy Unknown Verified 09/16/24 15:20 Vital Signs Vital Signs - 24 hr 10/08/24 07:38 10/08/24 07:38 10/08/24 07:42 Temperature 37.1 C Pulse Rate 78 Respiratory Rate 18 Blood Pressure 117/92 H 121/104 H Pulse Oximetry 97 98 Oxygen Delivery Nasal Cannula Oxygen Flow Rate 2 2 10/08/24 07:43 10/08/24 07:45 10/08/24 07:47 Temperature Pulse Rate Respiratory Rate Blood Pressure 117/92 H Pulse Oximetry 97 100 100 Oxygen Delivery Oxygen Flow Rate 10/08/24 08:00 10/08/24 08:02 10/08/24 08:15 Temperature Pulse Rate Respiratory Rate Blood Pressure 131/100 H Pulse Oximetry 99 98 98 Oxygen Delivery Oxygen Flow Rate 10/08/24 08:16 10/08/24 08:17 10/08/24 08:30 Temperature Pulse Rate Respiratory Rate Blood Pressure 120/76 Pulse Oximetry 92 99 97 Oxygen Delivery Oxygen Flow Rate 10/08/24 08:31 10/08/24 08:45 10/08/24 08:48 Temperature Pulse Rate Respiratory Rate Blood Pressure 171/82 H 109/81 Pulse Oximetry 99 99 100 Oxygen Delivery Oxygen Flow Rate 10/08/24 09:01 10/08/24 09:02 10/08/24 09:15 Temperature Pulse Rate Respiratory Rate Blood Pressure 121/92 H Pulse Oximetry 92 99 98 Oxygen Delivery Oxygen Flow Rate 10/08/24 09:30 10/08/24 09:44 10/08/24 09:45 Temperature Pulse Rate Respiratory Rate Blood Pressure 118/93 H Pulse Oximetry 97 97 97 Oxygen Delivery Oxygen Flow Rate 10/08/24 09:46 10/08/24 09:48 10/08/24 10:02 Temperature Pulse Rate Respiratory Rate Blood Pressure 106/65 113/61 Pulse Oximetry 98 94 85 L Oxygen Delivery Oxygen Flow Rate 10/08/24 10:03 10/08/24 10:16 10/08/24 10:30 Temperature Pulse Rate Respiratory Rate Blood Pressure 131/106 H Pulse Oximetry 98 100 98 Oxygen Delivery Oxygen Flow Rate 10/08/24 10:32 10/08/24 11:00 10/08/24 11:02 Temperature Pulse Rate Respiratory Rate Blood Pressure 144/118 H 141/126 H Pulse Oximetry 100 100 100 Oxygen Delivery Oxygen Flow Rate 10/08/24 11:15 10/08/24 11:30 10/08/24 11:32 Temperature Pulse Rate Respiratory Rate Blood Pressure 116/90 Pulse Oximetry 98 99 100 Oxygen Delivery Oxygen Flow Rate 10/08/24 15:35 Temperature Pulse Rate 68 Respiratory Rate 16 Blood Pressure 139/77 Pulse Oximetry 99 Oxygen Delivery Oxygen Flow Rate Exam Narrative: GENERAL: Awake alert oriented, extremely thin and frail appearing with frequent upper body tremor episodes HEAD: Normocephalic, atraumatic. ENT:? Mucous membranes moist. CHEST: Mildly diminished to auscultation.? No respiratory distress. Supplemental oxygen in place HEART: Regular rate and rhythm. ? Normal peripheral pulses. ABDOMEN: Soft, nontender, nondistended. EXTREMITIES: Normal range of motion. No peripheral edema. SKIN: Warm dry normal color NEURO: Alert and oriented x3. PSYCH: Normal mood and affect H&P: Results Labs Labs: Short CBC 10/08/24 Range/Units 09:49 WBC 12.8 H (4.5-10.0) K/mm3 Hgb 11.0 L (12.0-15.0) g/dL Hct 36.4 L (37.0-47.0) % Plt Count 269 (150-375) k/mm3 BMP 10/08/24 09:49 Sodium 139 Potassium 5.4 H Chloride 96 L Carbon Dioxide 33 H BUN 49 H D Creatinine 1.41 H Glucose 114 H Calcium 9.0 Liver Function 10/08/24 Range/Units 09:49 Total Bilirubin 0.4 (0.2-1.3) mg/dL AST 21 (14-36) U/L ALT 9 (6-35) U/L Alkaline Phosphatase 59 (38-126) U/L Albumin 4.1 (3.5-5.1) g/dL Urine 10/08/24 Range/Units 10:03 Urine Color Yellow (Yellow) Urine Appearance Clear (Clear) Urine pH 6.5 (5.0-9.0) Ur Specific Ozone 1.017 (1.001-1.035) Urine Protein Negative (Negative) mg/dL Urine Glucose (UA) Negative (Negative) mg/dL Pulse Oximetry SpO2 results: 96% on 2 liters/minute Attestation: I personally reviewed and interpreted this pulse oximetry as follows: Interpretation: Continue home oxygen 2 liters/minute Imaging CT scan - head: Radiologist's impression: EXAMINATION: CT brain wo con DATE: 10/08/2024 11:02 INDICATION: Tremor and hiccups TECHNIQUE: Computed tomography (CT) of the head was performed without intravenous contrast. Sagittal and coronal reconstructions were performed. Automated exposure control and iterative reconstruction technique were employed. The dose-length product was 908.00 mGy-cm. COMPARISON: head CT dated 03/13/2016 and brain MR dated 01/17/2021 FINDINGS: No acute intracranial hemorrhage, acute infarction or abnormal extra axial fluid collection. Unchanged small old lacunar infarct at the left basal ganglia. There is moderate scattered white matter hypoattenuation consistent with chronic small vessel ischemic disease. Symmetric prominence of the sulci and ventricles consistent with mild age-appropriate diffuse cerebral volume loss. No mass/mass effect. Chronic large arachnoid granulation within the posterior aspect of the sagittal sinus. Changes of bilateral intraocular lens replacement. The orbits and mastoid air cells are normal. Mild mucosal thickening the left maxillary and bilateral ethmoid sinuses. IMPRESSION: 1. 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 No acute intracranial process. 2. Normal aging brain with mild diffuse volume loss and moderate scattered white matter hypoattenuation consistent with chronic small vessel ischemic disease. Reviewed, dictated and finalized at location B. PROGRAM COMPLIANCE SPECIALIST CTA Head/Neck: Radiologist's impression: EXAMINATION: CTA brain carotid DATE: 10/08/2024 11:59 INDICATION: Tremor. TECHNIQUE: Computed tomographic angiography (CTA) of the head was performed with 76 mL Omnipaque-350 intravenous contrast. CTA of the neck was performed with intravenous contrast. Automated exposure control and iterative reconstruction technique were employed. The dose-length product was 983.44 mGy-cm. Maximum intensity projection and volume rendered 3D-reconstructions were created by the technologist on a separate workstation. COMPARISON: Head CT 10/08/2024 FINDINGS: HEAD CTA: There are scattered areas of low attenuation in the cerebral white matter. There is no intracranial hemorrhage, acute infarction, or abnormal intracranial mass lesion. The ventricles are normal in size. There are likely changes of ocular lens replacement surgeries. There is mild mucosal thickening in the paranasal sinuses. The mastoid air cells are normal. Right vertebral artery is dominant. There is severe stenosis of distal left vertebral artery. There is no significant stenosis of the basilar artery or the posterior cerebral arteries. There is no significant stenosis of the intracranial internal carotid arteries or anterior or middle cerebral arteries. Anterior communicating artery is normal. The posterior communicating arteries are normal. There is no aneurysm. NECK CTA: There is severe emphysema. There is focal scarring in right upper lobe. There is moderate stenosis of multifocal moderate stenosis of cervical left vertebral artery. There is plaque in the proximal internal carotid arteries. There are no pathologically enlarged lymph nodes. There is 0% stenosis of the proximal right internal carotid artery relative to normal distal artery lumen diameter (NASCET criteria). There is 0% stenosis of the proximal left internal carotid artery relative to normal distal artery lumen diameter. There is severe cervical spondylosis. IMPRESSION: 1. Moderate nonspecific cerebral white matter disease, which likely represents chronic small vessel ischemic disease. 2. 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 Multifocal moderate stenosis of cervical left vertebral artery. 3. 0% stenosis of the proximal internal carotid arteries relative to normal distal artery lumen diameters (NASCET criteria). Reviewed, dictated and finalized at location A. PROGRAM COMPLIANCE SPECIALIST CT scan - abdomen: Radiologist's impression: EXAMINATION: CT chest abdomen pelvis w con DATE: 10/08/2024 11:02 INDICATION: Hiccups. Tremor. TECHNIQUE: Computed tomography (CT) of the chest, abdomen, and pelvis was performed with 100 mL Omnipaque 350 intravenous contrast. Automated exposure control and iterative reconstruction technique were employed. The dose-length product was 225.53 mGy-cm. COMPARISON: CT chest 06/07/2024, CT chest, abdomen, and pelvis 03/11/2023 FINDINGS: CHEST CT: There is severe emphysema. There is chronic focal scarring in right upper lobe. There are few chronic nodules in the lungs measuring up to 5 mm in left lower lobe, likely benign. No pleural effusion. The heart size is normal. There are coronary artery calcifications. No pericardial effusion. There is thoracic kyphosis and mild spondylosis. There is severe cervical spondylosis. ABDOMEN/PELVIS CT: The liver, gallbladder, spleen, pancreas, and right adrenal gland are normal. There is chronic thickening of left adrenal gland, likely benign. There is cortical thinning of the kidneys. There is a 1.8 cm cyst in right kidney. There is calcified atherosclerosis of the aorta and many of the other arteries. There are no dilated loops of bowel. The appendix is not visualized. There are no pathologically enlarged lymph nodes. There is no free intraperitoneal fluid. There is mild lumbar spondylosis. IMPRESSION: 1. Severe emphysema. Reviewed, dictated and finalized at location A. PROGRAM COMPLIANCE SPECIALIST Assessment and Plan Assessment and plan (1) Tremor: Code(s): R25.1 - Tremor, unspecified Status: Acute Assessment and Plan: -For lack of better descriptor, tremor of the jaw/face was presenting complaint but now involving most of the upper body -ER provider felt this may have been caused by diaphragmatic spasm -Episodes more frequent and more severe throughout the day -Now happening a few times per minute and lasting about 5-10 seconds on average with some shorter and some longer -No history of Parkinson's or seizures -Patient awake and alert, able to hear and recall/respond to questions asked during event -Does affect speech, causing stutter or complete stoppage of speech during event -Patient reports no sleep last night -NPO because she had cough/choking episode from mouth swab during tremor episode -Speech Therapy consulted for swallow study -CTA shows left vertebral artery stenosis but no signs of acute stroke, MRI ordered -Neurology consulted, will be on service tomorrow (10/09) -EEG ordered, unsure if this can be done over the weekend -Patient may need transfer for higher level of Neurology care but at this time vitals are stable and she has no airway compromise -IM Thorazine 25 mg x1 given to see if this would help decrease episodes and allow patient to get some rest (2) Dysphagia: Code(s): R13.10 - Dysphagia, unspecified Status: Acute Assessment and Plan: -Coughing/choking episode due to mouth swab during tremor event -NPO for now -ST consult for swallow study -IV fluids for hydration and IV/IM medications when possible -Potentially may need to discuss feeding tube (3) SAUNDRA (acute kidney injury): Code(s): N17.9 - Acute kidney failure, unspecified Status: Acute Assessment and Plan: -Cr 1.41, BUN 49, eGFR 35 and estimated creatinine clearance 14 -Labs similar on 09/16/24 but in December of 2023 Cr 0.7, BUN 16, eGFR >60 and estim cr clear 29 -NPO due to dysphagia -IV fluids LR at 45 mL/hr (weight 34.8 kg and hx HFpEF) (4) Severe protein-calorie malnutrition: Code(s): E43 - Unspecified severe protein-calorie malnutrition Status: Acute Assessment and Plan: Severely underweight with BMI 15 Weight loss of about 20 pounds since June 2024 per family report (5) (HFpEF) heart failure with preserved ejection fraction: Qualifiers: Heart failure chronicity: chronic Qualified Code(s): I50.32 - Chronic diastolic (congestive) heart failure Code(s): I50.30 - Unspecified diastolic (congestive) heart failure Status: Chronic Assessment and Plan: -Cautious use of diuretics PRN, careful to balance fluid volume status against SAUNDRA -Resume home oral meds when able to take PO after swallow study (6) HTN (hypertension): Onset Date: 02/06/15 Qualifiers: Hypertension type: primary hypertension Qualified Code(s): I10 - Essential (primary) hypertension Code(s): I10 - Essential (primary) hypertension Status: Chronic Assessment and Plan: -Hold lisinopril due to SAUNDRA -May need PRN IV labetalol or hydralazine if significantly elevated blood pressure (7) Atrial fibrillation: Qualifiers: Atrial fibrillation type: unspecified Qualified Code(s): I48.91 - Unspecified atrial fibrillation Code(s): I48.91 - Unspecified atrial fibrillation Status: Chronic Assessment and Plan: -Heart sounds and peripheral pulse regular at time of exam -Patient not on home anticoagulation, likely due to frail nature (8) Mixed hyperlipidemia: Code(s): E78.2 - Mixed hyperlipidemia Status: Chronic Assessment and Plan: -Resume home medication when possible Plan Modified Code status: Full treatment at this time but if heart stops no CPR, if breathing stops no intubation, contact family if elective intubation being considered for presumed short term needs Quality VTE Prophylaxis VTE prophylaxis: pharmacologic ordered Code status clarified: Full treatment at this time but if heart stops no CPR, if breathing stops no intubation, contact family if elective intubation being considered for presumed short term needs Over 140 dedicated minutes spent on patient assessment, treatment, documentation and bedside education of patient and family Due to a high probability of clinically significant, life threatening deterioration, the patient required my highest level of preparedness to intervene emergently and I personally spent this critical care time directly and personally managing the patient. This critical care time included obtaining a history; examining the patient; pulse oximetry; ordering and review of studies; arranging urgent treatment with development of a management plan; evaluation of patient's response to treatment; frequent reassessment; and discussions with other providers. It was exclusive of separately billable procedures and treating other patients and teaching time. Please see Assessment and Plan section and the rest of the note for further information on patient assessment and treatment. Critical Care time: 40 minutes Hospitalist MIPS Advance Care Plan I have confirmed that the patient's Advanced Care Plan is present, code status is documented, or surrogate decision maker is listed in patient medical record.: Yes Medication Reconciliation I have utilized all available resources to obtain, update and review the patients current medications (includes all prescriptions, OTC, herbals, cannabis, and nutritional supplements).: Yes
[2024-10-08] MEDS: chlorproMAZINE HCL INJ 50 MG/2 ML AMP 25 MG IM (21:03)
[2024-10-08] MEDS: PANTOPRAZOLE SODIUM IV 40 MG VIAL IV PUSH (21:04)
[2024-10-08] MEDS: LACTATED RINGERS 1,000 ML 45 ML IV CONT (21:15)
[2024-10-08] MEDS: MORPHINE SULFATE (*CRX) 2 MG/ML INJ 1 MG IV PUSH (22:54)
--- NOTE | 2024-10-08 23:25 | PCRCNOTE ---
Patient currently experiencing tremors/seizures. Unable to do Apnea link.
[2024-10-09 06:00] VITALS: BP 111/66; PULSE 95; RESP 20; TEMP 37.1; O2SAT 98
[2024-10-09 08:00] VITALS: O2SAT 100
--- NOTE | 2024-10-09 08:12 | P.PNIM_ITS ---
Progress Note: A&P Assessment and Plan (1) Pulmonary hypertension: Code(s): I27.20 - Pulmonary hypertension, unspecified Status: Acute (2) (HFpEF) heart failure with preserved ejection fraction: Qualifiers: Heart failure chronicity: chronic Qualified Code(s): I50.32 - Chronic diastolic (congestive) heart failure Code(s): I50.30 - Unspecified diastolic (congestive) heart failure Status: Chronic (3) Atrial fibrillation: Qualifiers: Atrial fibrillation type: unspecified Qualified Code(s): I48.91 - Unspecified atrial fibrillation Code(s): I48.91 - Unspecified atrial fibrillation Status: Chronic (4) PAD (peripheral artery disease): Code(s): I73.9 - Peripheral vascular disease, unspecified Status: Acute (5) Crohn's disease with complication: Qualifiers: Gastrointestinal tract location: unspecified location Qualified Code(s): K50.919 - Crohn's disease, unspecified, with unspecified complications Code(s): K50.919 - Crohn's disease, unspecified, with unspecified complications Status: Acute (6) Chronic obstructive pulmonary disease: Qualifiers: COPD type: unspecified COPD Qualified Code(s): J44.9 - Chronic obstructive pulmonary disease, unspecified Code(s): J44.9 - Chronic obstructive pulmonary disease, unspecified Status: Acute (7) Chronic hypoxemic respiratory failure: Code(s): J96.11 - Chronic respiratory failure with hypoxia Status: Acute (8) Severe protein-calorie malnutrition: Code(s): E43 - Unspecified severe protein-calorie malnutrition Status: Acute Plan Tremor: Code(s): R25.1 - Tremor, unspecified Status: Acute Assessment and Plan: -For lack of better descriptor, tremor of the jaw/face was presenting complaint but now involving most of the upper body -ER provider felt this may have been caused by diaphragmatic spasm -Episodes more frequent and more severe throughout the day -Now happening a few times per minute and lasting about 5-10 seconds on average with some shorter and some longer -No history of Parkinson's or seizures -Patient awake and alert, able to hear and recall/respond to questions asked during event -Does affect speech, causing stutter or complete stoppage of speech during event -Patient reports no sleep last night -NPO because she had cough/choking episode from mouth swab during tremor episode -Speech Therapy consulted for swallow study -CTA shows left vertebral artery stenosis but no signs of acute stroke, MRI ordered -Neurology consulted, will be on service tomorrow (10/09) -EEG ordered, unsure if this can be done over the weekend -Patient may need transfer for higher level of Neurology care but at this time vitals are stable and she has no airway compromise -IM Thorazine 25 mg x1 given to see if this would help decrease episodes and allow patient to get some rest 10/09, no tremor today, pending brain MRI. I discussed case with Dr. Rojo, he will see pt today Dysphagia: Code(s): R13.10 - Dysphagia, unspecified Status: Acute Assessment and Plan: -Coughing/choking episode due to mouth swab during tremor event -NPO for now -ST consult for swallow study -IV fluids for hydration and IV/IM medications when possible -Potentially may need to discuss feeding tube Pending barium swallowing test SIRS vs Sepsis patient has leukocytosis 12,800, tachycardia tachypnea CT shows severe emphysema UA unremarkable Patient has hypoxemia Possible early stage aspiration Start Unasyn IV Follow-up CBC, ABG, cxr SAUNDRA (acute kidney injury): Code(s): N17.9 - Acute kidney failure, unspecified Status: Acute Assessment and Plan: -Cr 1.41, BUN 49, eGFR 35 and estimated creatinine clearance 14 -Labs similar on 09/16/24 but in December of 2023 Cr 0.7, BUN 16, eGFR >60 and estim cr clear 29 -NPO due to dysphagia -IV fluids LR at 45 mL/hr (weight 34.8 kg and hx HFpEF) change to D51/2NS 100ML/H (4) Severe protein-calorie malnutrition: Code(s): E43 - Unspecified severe protein-calorie malnutrition Status: Acute Assessment and Plan: Severely underweight with BMI 15 Weight loss of about 20 pounds since June 2024 per family report (HFpEF) heart failure with preserved ejection fraction: Qualifiers: Heart failure chronicity: chronic Qualified Code(s): I50.32 - Chronic diastolic (congestive) heart failure Code(s): I50.30 - Unspecified diastolic (congestive) heart failure Status: Chronic Assessment and Plan: -Cautious use of diuretics PRN, careful to balance fluid volume status against SAUNDRA -Resume home oral meds when able to take PO after swallow study (6) HTN (hypertension): Onset Date: 02/06/15 Qualifiers: Hypertension type: primary hypertension Qualified Code(s): I10 - Essential (primary) hypertension Code(s): I10 - Essential (primary) hypertension Status: Chronic Assessment and Plan: -Hold lisinopril due to SAUNDRA -May need PRN IV labetalol or hydralazine if significantly elevated blood pressure (7) Atrial fibrillation: Qualifiers: Atrial fibrillation type: unspecified Qualified Code(s): I48.91 - Unspecified atrial fibrillation Code(s): I48.91 - Unspecified atrial fibrillation Status: Chronic Assessment and Plan: -Heart sounds and peripheral pulse regular at time of exam -Patient not on home anticoagulation, likely due to frail nature (8) Mixed hyperlipidemia: Code(s): E78.2 - Mixed hyperlipidemia Status: Chronic Assessment and Plan: -Resume home medication when possible Plan Modified Code status: Full treatment at this time but if heart stops no CPR, if breathing stops no intubation, contact family if elective intubation being considered for presumed short term needs Subjective Date/time seen: 10/09/24 08:12 Interval history: I saw examined the patient in present pension granddaughter. Patient feels comfortable today, no tremor today. Patient also denies headache, focal weakness, vision change. Patient denies chest pain, abdomen pain nausea vomiting. Patient is afebrile, has tachycardia, tachypnea, pulse ox 98 on 2 L ox, Exam Narrative: GENERAL: Pleasant, ill-appearing, in no acute distress. Severe malnutrition - EYES: EOMI. Anicteric. - HENT: Moist mucous membranes. - LUNGS: Clear to auscultation bilateral ly, no wheezing, rhonchi, or rales. - CARDIOVASCULAR: Regular rate and rhyth m. No murmur. No JVD. - ABDOMEN: Soft, non-tender and non-dist ended. No palpable masses. - EXTREMITIES: No edema. Peripheral puls es 2+. Non-tender. - NEUROLOGIC: No focal neurological defi cits. CN II-XII grossly intact. General weakness - PSYCHIATRIC: Awake, Alert and oriented x 3. Appropriate mood and affect. - SKIN: No rashes or lesions. Warm. - LYMPH: No cervical lymphadenopathy. Objective Data Vital Signs Vital Signs: Vital Signs - 24 hr 10/08/24 08:15 10/08/24 08:16 10/08/24 08:17 Temperature Pulse Rate Respiratory Rate Blood Pressure 120/76 Pulse Oximetry 98 92 99 Oxygen Delivery Oxygen Flow Rate 10/08/24 08:30 10/08/24 08:31 10/08/24 08:45 Temperature Pulse Rate Respiratory Rate Blood Pressure 171/82 H Pulse Oximetry 97 99 99 Oxygen Delivery Oxygen Flow Rate 10/08/24 08:48 10/08/24 09:01 10/08/24 09:02 Temperature Pulse Rate Respiratory Rate Blood Pressure 109/81 121/92 H Pulse Oximetry 100 92 99 Oxygen Delivery Oxygen Flow Rate 10/08/24 09:15 10/08/24 09:30 10/08/24 09:44 Temperature Pulse Rate Respiratory Rate Blood Pressure 118/93 H Pulse Oximetry 98 97 97 Oxygen Delivery Oxygen Flow Rate 10/08/24 09:45 10/08/24 09:46 10/08/24 09:48 Temperature Pulse Rate Respiratory Rate Blood Pressure 106/65 113/61 Pulse Oximetry 97 98 94 Oxygen Delivery Oxygen Flow Rate 10/08/24 10:02 10/08/24 10:03 10/08/24 10:16 Temperature Pulse Rate Respiratory Rate Blood Pressure 131/106 H Pulse Oximetry 85 L 98 100 Oxygen Delivery Oxygen Flow Rate 10/08/24 10:30 10/08/24 10:32 10/08/24 11:00 Temperature Pulse Rate Respiratory Rate Blood Pressure 144/118 H Pulse Oximetry 98 100 100 Oxygen Delivery Oxygen Flow Rate 10/08/24 11:02 10/08/24 11:15 10/08/24 11:30 Temperature Pulse Rate Respiratory Rate Blood Pressure 141/126 H Pulse Oximetry 100 98 99 Oxygen Delivery Oxygen Flow Rate 10/08/24 11:32 10/08/24 15:35 10/08/24 16:20 Temperature Pulse Rate 68 Respiratory Rate 16 Blood Pressure 116/90 139/77 Pulse Oximetry 100 99 97 Oxygen Delivery Nasal Cannula Oxygen Flow Rate 2 10/08/24 21:21 10/08/24 23:23 10/09/24 06:00 Temperature 98.4 F 98.7 F Pulse Rate 100 130 H 95 Respiratory Rate 20 14 20 Blood Pressure 110/56 L 140/70 111/66 Pulse Oximetry 96 96 98 Oxygen Delivery Oxygen Flow Rate Intake/Output Intake/Output: Intake & Output 10/06/24 10/07/24 10/08/24 10/09/24 23:59 23:59 23:59 23:59 Intake Total 1000 150 Balance 1000 150 Meds/Results Medications: Active Medications Generic Name Dose Route Start Last Admin Trade Name Freq PRN Reason Stop Dose Admin Albuterol 2.5 mg 10/08/24 18:29 Albuterol Sulfate Neb 2.5 Mg/3 Ml Inh NEBULIZE Q4HRT PRN wheezing Aspirin 81 mg 10/09/24 09:00 Aspirin 81 Mg Enteric Tablet PO DAILY [facility] Atorvastatin Calcium 5 mg 10/09/24 09:00 Atorvastatin 5 Mg Tablet PO DAILY [facility] Cyanocobalamin 1,000 mcg 10/09/24 09:00 Cyanocobalamin 1,000 Mcg Tablet PO DAILY [facility] Enoxaparin Sodium 30 mg 10/09/24 09:00 Enoxaparin 30 Mg/0.3 Ml Syringe SUB-Q DAILY [facility] Ferrous Sulfate 325 mg 10/09/24 09:00 Ferrous Sulfate [address] PO DAILY [facility] Lactated Ringer's 1,000 mls @ 45 mls/hr 10/08/24 20:30 10/08/24 21:15 Lr - Lactated Ringers Iv IV CONT 45 mls/hr .[id number] KALA Administration Mirtazapine 30 mg 10/09/24 09:00 Mirtazapine 30 Mg Tablet PO DAILY [facility] Miscellaneous Information 1 each 10/09/24 00:01 Arformoterol 15 Mcg/2 Ml Solution For Nebulization Is Nonform; Can Pt Use From Home? XX 11/08/24 00:00 CLARIFY [facility] Montelukast Sodium 10 mg 10/09/24 09:00 Montelukast Sodium 10 Mg Tablet PO DAILY [facility] Morphine Sulfate 1 mg 10/08/24 22:36 10/08/24 22:54 Morphine Sulfate (*Crx) 2 Mg/Ml Inj IV PUSH 1 mg Q4H PRN Administration Pain Rated 7-10 Non-Formulary Medication 0 mcg 10/08/24 18:30 Arformoterol .ROUTE 11/07/24 18:29 .COMPLEX [facility]ALA Oxycodone HCl 2.5 mg 10/08/24 18:37 Oxycodone Hcl (*Crx) 2.5 Mg Tab Ir PO Q8H PRN Pain, Severe Oxycodone/Acetaminophen 1 tablet 10/08/24 18:36 Oxycodone/Acetaminophen (*Crx) 5-325 Mg Tablet PO Q8H PRN Pain, Severe Pantoprazole Sodium 40 mg 10/09/24 09:00 Pantoprazole Sodium Iv 40 Mg Vial IV PUSH QAM [facility] Sulfasalazine 1,000 mg 10/08/24 18:35 10/08/24 19:56 Sulfasalazine 500 Mg Tablet PO Not Given TID [facility] Radiology Results: ITS Impressions Head CT 10/08/24 11:02 IMPRESSION: 1. 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 No acute intracranial process. 2. Normal aging brain with mild diffuse volume loss and moderate scattered white matter hypoattenuation consistent with chronic small vessel ischemic disease. Chest/Abdomen/Pelvis CT 10/08/24 11:07 IMPRESSION: 1. Severe emphysema. Head/Neck CTA 10/08/24 12:08 IMPRESSION: 1. Moderate nonspecific cerebral white matter disease, which likely represents chronic small vessel ischemic disease. 2. 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 Multifocal moderate stenosis of cervical left vertebral artery. 3. 0% stenosis of the proximal internal carotid arteries relative to normal distal artery lumen diameters (NASCET criteria). Labs Labs: Laboratory Results - last 24 hr 10/08/24 10/08/24 09:49 10:03 WBC 12.8 H RBC 3.66 L Hgb 11.0 L Hct 36.4 L MCV 99.5 MCH 30.1 MCHC 30.2 L RDW 12.8 Plt Count 269 MPV 10.8 H Immature Gran % (Auto) 0.5 Neut % (Auto) 70.6 Lymph % (Auto) 13.6 L [place] % (Auto) 8.8 H Eos % (Auto) 6.0 H Baso % (Auto) 0.5 Lymph # (Auto) 1.74 [place] # (Auto) 1.1 H Eos # (Auto) 0.8 H Baso # (Auto) 0.1 Abs Immat Gran (auto) 0.06 H Absolute Neuts (auto) 9.0 H Absolute Nucleated RBC 0.000 Nucleated RBC % 0.0 PT 12.3 INR 0.9 APTT 27.7 Sodium 139 Potassium 5.4 H Chloride 96 L Carbon Dioxide 33 H Anion Gap 10 BUN 49 H D Creatinine 1.41 H Estim Creat Clear Calc 14 Estimated GFR 35 L Glucose 114 H Calcium 9.0 Total Bilirubin 0.4 AST 21 ALT 9 Alkaline Phosphatase 59 Total Protein 7.0 Albumin 4.1 Urine Color Yellow Urine Appearance Clear Urine pH 6.5 Ur Specific [place] 1.017 Urine Protein Negative Urine Glucose (UA) Negative Urine Ketones Negative Ur Blood (Man) Negative Urine Nitrate Negative Urine Bilirubin Negative Urine Urobilinogen 0.2 Leukocyte Esterase Rfl Negative Influenza A (RT-PCR) Negative Influenza B (RT-PCR) Negative RSV (RT-PCR) Negative SARS-CoV-2 RNA (RT-PCR) Negative
--- NOTE | 2024-10-09 09:01 | PC.NURSE ---
RN was informed by provider to hold all meds until modified swallow.
[2024-10-09 09:07] LABS: Basophils Absolute Auto 0.1 K/mm3 (0.0-0.1); Basophils Percent Auto 0.6 % (0.2-1.2); Eosinophils Absolute Auto 0.5 K/mm3 (0-0.3); Hematocrit 30.9 % (37.0-47.0); Hemoglobin 9.3 g/dL (12.0-15.0); Immature Granulocyte Absolute 0.04 K/mm3 (0.00-0.031); Immature Granulocyte Percent A 0.4 % (0-0.5); Lymphocytes Absolute Auto 1.22 K/mm3 (0.9-3.2); Lymphocytes Percent Auto 13.7 % (18.3-44.2); Mean Corpuscular HGB Conc 30.1 g/dl (32-36); Mean Corpuscular Hemoglobin 30.2 pg (26-34); Mean Corpuscular Volume 100.3 fl (80-100); Mean Platelet Volume 10.7 fl (7.4-10.4); Monocytes Absolute Auto 0.8 K/mm3 (0.1-0.6); Monocytes Percent Auto 9.4 % (2.6-8.5); Neutrophils Absolute Auto 6.2 K/mm3 (1.3-6.7); Neutrophils Percent Auto 69.9 % (45.5-73.1); Platelet Count Result 225 k/mm3 (150-375); Red Blood Count 3.08 M/mm3 (4.2-5.4); Red Cell Distribution Width 12.9 % (11.5-14.5); White Blood Count 8.9 K/mm3 (4.5-10.0)
[2024-10-09 09:18] LABS: Alveolar/Arterial O2 Gradient 48.5 mmHg; Base Excess ABG 2.9 mEq/l (+/-2.0); Fractional Inspired Oxygen 28 %; HCO3 ABG 28.3 mEq/l (22.0-26.0); Oxygen Content ABG 14.3 %vol (16.0-22.0); Oxygen Saturation ABG 97.2 % (95.0-100.0); Oxyhemoglobin 96.8 % THb (90.0-100.0); PCO2 ABG 47.5 mmHg (35.0-45.0); PO2 ABG 95.1 mmHg (80.0-100.0); Total Hemoglobin 10.4 g/dL (12.0-18.0); pH ABG 7.393 (7.350-7.450)
[2024-10-09 09:22] LABS: Anion Gap 8 mmol/L (4-12); Blood Urea Nitrogen 30 mg/dL (7-17); Calcium 8.6 mg/dL (8.4-10.2); Carbon Dioxide 29 mmol/L (22-30); Chloride 104 mmol/L (98-107); Estimated CRCL calculation 19 ml/min; Estimated Glomerular Filt Rate 54; Glucose 76 mg/dL (65-110); Magnesium 2.3 mg/dL (1.6-2.3); Potassium 4.5 mmol/L (3.4-5.0); Sodium 141 mmol/L (137-145)
[2024-10-09 09:38] LABS: Device NASAL CANNULA; Modified Allen's Test Pass; Site Drawn LEFT BRACHIAL
--- NOTE | 2024-10-09 12:24 | P.CONNEU_ITS ---
Assessment and Plan Assessment and plan (1) Extrapyramidal movement disorder: Code(s): G25.9 - Extrapyramidal and movement disorder, unspecified Status: Acute (2) Vertebral artery stenosis: Code(s): I65.09 - Occlusion and stenosis of unspecified vertebral artery Status: Acute Plan 1. Movement Disorder facial muscles but without evidence of any resting tremor and cogwheeling on the passive movements of the upper and lower extremities but definitely not consistent with the seizures. 2. Status post left frontoparietal white matter stroke and left posterior limb internal capsular stroke 3. Incidental findings of severe stenosis of the distal left vertebral artery and multifocal moderate stenosis of the cervical left vertebral artery again involving the posterior circulation more so on the left side. 4. Patient is receiving aspirin 81mg daily that will be continued as such 5. Discussion with the family regarding the underlying large vessel disease weather want to pursue further, that she is a likely candidate Or not for the intervention, or should she be on anticoagulation therapy or simply continue aspirin and Plavix. Obviously at this level would not be recommending any other therapy for the tremor and family can be counseled him via not dealing with the seizure disorder. Consult date: 10/09/24 HPI: Humaira Moralez is a 89 year old female Has been admitted to the hospital through the emergency room where she came for the evaluation of acute onset of tremors. As per the information available in the ER around 4:00 a.m. in the morning she started having increasing tremor and attempted to contact her daughter that lives with her but was not found to attacked her up until 6:30 a.m. EMS were called at that particular time for the seizure and there was no noted seizure on arrival of the EMS but she was noted to have tremors. Patient was noted to be able to speak with no dysarthria and was not complaining of any focal numbness or weakness and she was awake alert and oriented though she was noted to have intermittent hiccups and tremor she was noted to have the tremors of her jaw which were affecting her speech. Patient has been taking aspirin 81mg daily along with oxycodone and Tylenol 1 tab q.8 hours p.r.n. and she has not reportedly allergic to any medication. In the past she has ongoing history of documented pulmonary embolism, stroke, atrial fibrillation, chronic obstructive pulmonary disease, and hypertension. She is a former smoker, with history of smoking cigarettes per day 20, history of years smoked 40 but at present she is a former smoker. She has never alcohol intake. On initial exam in the emergency room she was noted to have the intermittent tremor of her chin otherwise grossly nonfocal neurological examination. Her vital signs were normal, she was noted to have MCV of 100.3 on CBC, he was found to have the PC O2 of 47.5 on initial blood gases and BUN of 30 with estimated GFR of 54 serology was negative for routine viral infections, MRI of the brain has documented old infarct involving the posterior limb of the left internal capsule and left frontoparietal deep white matter, with moderate nonspecific white matter disease. X-ray chest with severe emphysema and head and neck CTA documenting severe stenosis of the distal left vertebral artery with multifocal moderate stenosis of the cervical left vertebral artery but no involvement of the internal carotid arteries. Review of Systems 2 Review of Systems: All systems reviewed & are unremarkable except as noted in HPI and below PMFSH Past Medical History Medical History Pleural effusion Pulmonary embolism Coccyx pain Opacity of lung on imaging study Stroke Abnormal CT scan, lung Osteoporosis (HFpEF) heart failure with preserved ejection fraction Atrial fibrillation Chronic hypoxemic respiratory failure Frailty GERD without esophagitis Hx of completed stroke Mixed hyperlipidemia PAD (peripheral artery disease) Rhinitis Chronic obstructive pulmonary disease Former smoker Hypertension, essential Family History Family History Mother Family history of cardiovascular disease Father Family history of emphysema Family history of chronic obstructive pulmonary disease Sibling Family history of malignant neoplasm Social History Social History Smoking packs per day: 1 Smoking cigarettes per day: 20.0 Years smoked: 40 Smoking pack-years: 40.00 Smoking status: Former smoker Second hand tobacco smoke exposure: No Alcohol intake: never Substance use: never Substance use type: does not use Do You Feel Safe in your Home?: Yes Lack of Transportation: No Lack of Food: Never True Current Housing: I Have Housing Concerned About Future Housing: No Difficulty Paying Gas/Electric Bills: No Difficulty Paying for Meds: No Currently Unemployed: No Education: Decline to Answer Difficulty w/ Childcare or Family Care: No Gender identity (if verbalized by the patient): Female Spiritual care concerns: No Meds Home Medications and Allergies Home Medications ?Medication ?Instructions ?Recorded ?Confirmed ?Type aspirin 81 mg tablet,delayed 81 mg PO DAILY 09/16/19 10/08/24 History release (Adult Low Dose Aspirin) atorvastatin 10 mg tablet 5 mg (1/2 x 10 mg) PO DAILY #90 06/05/23 10/08/24 Rx tabs oxycodone-acetaminophen 7.5 mg-325 1 tablet PO Q8H PRN Pain, Severe 06/05/23 10/08/24 History mg tablet albuterol sulfate 2.5 mg/3 mL See Rx Instructions .Route 12/29/23 10/08/24 Rx (0.083 %) solution for nebulization .COMPLEX #30 ea arformoterol 15 mcg/2 mL solution See Rx Instructions .Route 12/29/23 10/08/24 Rx for nebulization .COMPLEX #60 ea budesonide 0.5 mg/2 mL suspension See Rx Instructions .Route 12/29/23 09/07/24 Rx for nebulization .COMPLEX #60 ea ipratropium bromide 0.02 % See Rx Instructions .Route 12/29/23 09/07/24 Rx solution for inhalation .COMPLEX #120 ea potassium chloride 20 mEq 20 meq PO DAILY #90 tabs 01/13/24 10/08/24 Rx tablet,extended release mecobalamin (vitamin B12) 1,000 1,000 mcg PO DAILY #90 tabs 02/06/24 10/08/24 Rx mcg chewable tablet montelukast 10 mg tablet 10 mg PO DAILY #30 tabs 02/26/24 10/08/24 Rx lisinopril 20 mg tablet 20 mg PO DAILY #90 tabs 04/06/24 10/08/24 Rx ergocalciferol (vitamin D2) 1,250 See Rx Instructions .Route 05/04/24 10/08/24 Rx mcg (50,000 unit) capsule .COMPLEX #12 caps esomeprazole magnesium 40 mg See Rx Instructions .Route 05/04/24 10/08/24 Rx capsule,delayed release .COMPLEX #90 caps albuterol sulfate 90 mcg/actuation 2 inh inhalation Q4-6H PRN 06/07/24 10/08/24 Rx aerosol inhaler shortness of breath or wheezing #8.5 grams furosemide 40 mg tablet 40 mg PO QAM #90 tabs 06/07/24 10/08/24 Rx sulfasalazine 500 mg tablet See Rx Instructions .Route 08/30/24 10/08/24 Rx .COMPLEX #180 tabs alendronate 70 mg tablet 70 mg PO WEEKLY #12 tabs 09/08/24 10/08/24 Rx ferrous sulfate 325 mg (65 mg 325 mg PO DAILY #90 tabs 09/08/24 10/08/24 Rx iron) tablet mirtazapine 30 mg tablet 30 mg PO DAILY #7 tabs 10/01/24 10/08/24 Rx Allergies Allergy/AdvReac Type Severity Reaction Status Date / Time No Known Allergies Allergy Unknown Verified 09/16/24 15:20 Vital Signs Vital Signs - 24 hr 10/08/24 15:35 10/08/24 16:20 10/08/24 21:21 Temperature 36.9 C Pulse Rate 68 100 Respiratory Rate 16 20 Blood Pressure 139/77 110/56 L Pulse Oximetry 99 97 96 Oxygen Delivery Nasal Cannula Oxygen Flow Rate 2 10/08/24 23:23 10/09/24 06:00 Temperature 37.1 C Pulse Rate 130 H 95 Respiratory Rate 14 20 Blood Pressure 140/70 111/66 Pulse Oximetry 96 98 Oxygen Delivery Oxygen Flow Rate Exam 2 Narrative: On examination today she is awake alert but obviously ill appearing though in no acute distress. Head normocephalic with no cranial bruits, ear nose throat examination is normal, neck supple with no cervical bruit no thyromegaly no lymphadenopathy. Heart regular with no murmur and lungs with rhonchi. Abdomen is soft nontender with no abdominal masses normal bowel sounds. Extremities with intact pulses. Neurological examination revealed her to be awake alert able to follow the verbal commands, pupils round regular, feels the vision were grossly full to threat stimuli extraocular movements were full with no nystagmus facial sensation was intact, face was symmetrical, tongue in the oral cavity with no fasciculation and palate move symmetrically up for uvula was in midline motor examination revealed her to have decreased strength 4/5 in upper and lower extremities she was noted to have the tremors of the chin with some difficulties in conversation Results Labs 10/09/24 08:55 10/09/24 08:55 Labs: Short CBC 10/09/24 Range/Units 08:55 WBC 8.9 (4.5-10.0) K/mm3 Hgb 9.3 L (12.0-15.0) g/dL Hct 30.9 L (37.0-47.0) % Plt Count 225 (150-375) k/mm3 BMP 10/09/24 08:55 Sodium 141 Potassium 4.5 Chloride 104 Carbon Dioxide 29 BUN 30 H D Creatinine 0.98 Glucose 76 Calcium 8.6
[2024-10-09] MEDS: CYANOCOBALAMIN 1,000 MCG TABLET 1000 MCG PO (13:34)
[2024-10-09] MEDS: MONTELUKAST SODIUM 10 MG TABLET PO (13:34)
[2024-10-09] MEDS: ASPIRIN 81 MG ENTERIC TABLET PO (13:34)
[2024-10-09] MEDS: MIRTAZAPINE 30 MG TABLET PO (13:34)
[2024-10-09] MEDS: FERROUS SULFATE 325 MG TABLET DR PO (13:37)
[2024-10-09] MEDS: ATORVASTATIN 5 MG TABLET PO (13:37)
[2024-10-09] MEDS: PANTOPRAZOLE SODIUM IV 40 MG VIAL IV PUSH (13:37)
[2024-10-09] MEDS: sulfaSALAzine 500 MG TABLET 1000 MG PO ×2 (13:37→18:24)
[2024-10-09] MEDS: AMPICILLIN SULB 1.5 GM/NS 50ML 1.5 GM/50 ML VIAL IVPB (13:38)
[2024-10-09 14:00] VITALS: BP 135/70; PULSE 99; RESP 20; TEMP 37.2; O2SAT 100
--- NOTE | 2024-10-09 14:00 | PCSTNOTE ---
Please refer to the Modified Barium Swallow Evaluation in the EMR.
[2024-10-09] MEDS: ENOXAPARIN 30 MG/0.3 ML SYRINGE SUB-Q (14:02)
[2024-10-09] MEDS: DEXTROSE 5%/0.45% SOD CHL 1,000 ML 100 ML IV CONT (18:24)
[2024-10-09 20:00] VITALS: O2SAT 99
[2024-10-09 21:28] VITALS: BP 122/54; PULSE 91; RESP 14; TEMP 36.8; O2SAT 99
[2024-10-09 22:44] VITALS: O2SAT 99
[2024-10-10] MEDS: DEXTROSE 5%/0.45% SOD CHL 1,000 ML 100 ML IV CONT ×2 (05:38→18:32)
[2024-10-10 06:00] VITALS: BP 113/52; PULSE 76; RESP 12; TEMP 36.7; O2SAT 100
[2024-10-10 06:34] LABS: Basophils Absolute Auto 0.1 K/mm3 (0.0-0.1); Basophils Percent Auto 0.5 % (0.2-1.2); Eosinophils Absolute Auto 0.7 K/mm3 (0-0.3); Eosinophils Percent Auto 7.7 % (0-4.4); Hematocrit 28.5 % (37.0-47.0); Hemoglobin 8.7 g/dL (12.0-15.0); Immature Granulocyte Absolute 0.03 K/mm3 (0.00-0.031); Immature Granulocyte Percent A 0.3 % (0-0.5); Lymphocytes Absolute Auto 1.54 K/mm3 (0.9-3.2); Lymphocytes Percent Auto 16.7 % (18.3-44.2); Mean Corpuscular HGB Conc 30.5 g/dl (32-36); Mean Corpuscular Hemoglobin 30.5 pg (26-34); Mean Platelet Volume 10.9 fl (7.4-10.4); Monocytes Absolute Auto 0.9 K/mm3 (0.1-0.6); Monocytes Percent Auto 9.8 % (2.6-8.5); Platelet Count Result 222 k/mm3 (150-375); Red Blood Count 2.85 M/mm3 (4.2-5.4); White Blood Count 9.2 K/mm3 (4.5-10.0)
[2024-10-10 06:38] LABS: Anion Gap 7 mmol/L (4-12); Blood Urea Nitrogen 20 mg/dL (7-17); Carbon Dioxide 30 mmol/L (22-30); Chloride 102 mmol/L (98-107); Estimated CRCL calculation 24 ml/min; Estimated Glomerular Filt Rate > 60; Glucose 123 mg/dL (65-110); Magnesium 2.3 mg/dL (1.6-2.3); Potassium 3.8 mmol/L (3.4-5.0); Sodium 139 mmol/L (137-145)
[2024-10-10 08:00] VITALS: PULSE 76; RESP 12; O2SAT 100
[2024-10-10] MEDS: CYANOCOBALAMIN 1,000 MCG TABLET 1000 MCG PO (10:23)
[2024-10-10] MEDS: MONTELUKAST SODIUM 10 MG TABLET PO (10:23)
[2024-10-10] MEDS: MIRTAZAPINE 30 MG TABLET PO (10:23)
[2024-10-10] MEDS: ASPIRIN 81 MG ENTERIC TABLET PO (10:23)
[2024-10-10] MEDS: ATORVASTATIN 5 MG TABLET PO (10:23)
[2024-10-10] MEDS: FERROUS SULFATE 325 MG TABLET DR PO (10:23)
[2024-10-10] MEDS: sulfaSALAzine 500 MG TABLET 1000 MG PO ×3 (10:23→18:24)
[2024-10-10] MEDS: ENOXAPARIN 30 MG/0.3 ML SYRINGE SUB-Q (10:24)
[2024-10-10] MEDS: PANTOPRAZOLE SODIUM IV 40 MG VIAL IV PUSH (10:24)
[2024-10-10] MEDS: AMPICILLIN SULB 1.5 GM/NS 50ML 1.5 GM/50 ML VIAL IVPB (10:49)
--- NOTE | 2024-10-10 10:56 | P.PNIM_ITS ---
Progress Note: A&P Assessment and Plan (1) Pulmonary hypertension: Code(s): I27.20 - Pulmonary hypertension, unspecified Status: Acute (2) (HFpEF) heart failure with preserved ejection fraction: Qualifiers: Heart failure chronicity: chronic Qualified Code(s): I50.32 - Chronic diastolic (congestive) heart failure Code(s): I50.30 - Unspecified diastolic (congestive) heart failure Status: Chronic (3) Atrial fibrillation: Qualifiers: Atrial fibrillation type: unspecified Qualified Code(s): I48.91 - Unspecified atrial fibrillation Code(s): I48.91 - Unspecified atrial fibrillation Status: Chronic (4) PAD (peripheral artery disease): Code(s): I73.9 - Peripheral vascular disease, unspecified Status: Acute (5) Crohn's disease with complication: Qualifiers: Gastrointestinal tract location: unspecified location Qualified Code(s): K50.919 - Crohn's disease, unspecified, with unspecified complications Code(s): K50.919 - Crohn's disease, unspecified, with unspecified complications Status: Acute (6) Chronic obstructive pulmonary disease: Qualifiers: COPD type: unspecified COPD Qualified Code(s): J44.9 - Chronic obstructive pulmonary disease, unspecified Code(s): J44.9 - Chronic obstructive pulmonary disease, unspecified Status: Acute (7) Chronic hypoxemic respiratory failure: Code(s): J96.11 - Chronic respiratory failure with hypoxia Status: Acute (8) Severe protein-calorie malnutrition: Code(s): E43 - Unspecified severe protein-calorie malnutrition Status: Acute Plan Tremor: Code(s): R25.1 - Tremor, unspecified Status: Acute Assessment and Plan: -For lack of better descriptor, tremor of the jaw/face was presenting complaint but now involving most of the upper body -ER provider felt this may have been caused by diaphragmatic spasm -Episodes more frequent and more severe throughout the day -Now happening a few times per minute and lasting about 5-10 seconds on average with some shorter and some longer -No history of Parkinson's or seizures -Patient awake and alert, able to hear and recall/respond to questions asked during event -Does affect speech, causing stutter or complete stoppage of speech during event -Patient reports no sleep last night -NPO because she had cough/choking episode from mouth swab during tremor episode -Speech Therapy consulted for swallow study -CTA shows left vertebral artery stenosis but no signs of acute stroke, MRI ordered -Neurology consulted, will be on service tomorrow (10/09) -EEG ordered, unsure if this can be done over the weekend -Patient may need transfer for higher level of Neurology care but at this time vitals are stable and she has no airway compromise -IM Thorazine 25 mg x1 given to see if this would help decrease episodes and allow patient to get some rest 10/09, no tremor today, pending brain MRI. I discussed case with Dr. Rojo, he will see pt today MRI of brain 10/09 1. 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 2. Moderate nonspecific cerebral white matter disease, which likely represents chronic small vessel ischemic disease. severe stenosis of the distal left vertebral artery and multifocal moderate stenosis of the cervical left vertebral artery again involving the posterior circulation more so on the left side. Patient is receiving aspirin 81mg daily Management per neurologist Dysphagia: Code(s): R13.10 - Dysphagia, unspecified Status: Acute Assessment and Plan: -Coughing/choking episode due to mouth swab during tremor event -NPO for now -ST consult for swallow study -IV fluids for hydration and IV/IM medications when possible -Potentially may need to discuss feeding tube barium swallowing test: . Aspiration. SIRS vs Sepsis patient has leukocytosis 12,800, tachycardia tachypnea CT shows severe emphysema UA unremarkable Patient has hypoxemia Possible early stage aspiration Start Unasyn IV Follow-up CBC, ABG, cxr SAUNDRA (acute kidney injury): Code(s): N17.9 - Acute kidney failure, unspecified Status: Acute Assessment and Plan: -Cr 1.41, BUN 49, eGFR 35 and estimated creatinine clearance 14 -Labs similar on 09/16/24 but in December of 2023 Cr 0.7, BUN 16, eGFR >60 and estim cr clear 29 -NPO due to dysphagia -IV fluids LR at 45 mL/hr (weight 34.8 kg and hx HFpEF) change to D51/2NS 100ML/H resolved 10/10 Severe protein-calorie malnutrition: Code(s): E43 - Unspecified severe protein-calorie malnutrition Status: Acute Assessment and Plan: Severely underweight with BMI 15 Weight loss of about 20 pounds since June 2024 per family report (HFpEF) heart failure with preserved ejection fraction: Qualifiers: Heart failure chronicity: chronic Qualified Code(s): I50.32 - Chronic diastolic (congestive) heart failure Code(s): I50.30 - Unspecified diastolic (congestive) heart failure Status: Chronic Assessment and Plan: -Cautious use of diuretics PRN, careful to balance fluid volume status against SAUNDRA -Resume home oral meds when able to take PO after swallow study HTN (hypertension): Onset Date: 02/06/15 Qualifiers: Hypertension type: primary hypertension Qualified Code(s): I10 - Essential (primary) hypertension Code(s): I10 - Essential (primary) hypertension Status: Chronic Assessment and Plan: -Hold lisinopril due to SAUNDRA -May need PRN IV labetalol or hydralazine if significantly elevated blood pressure Atrial fibrillation: Qualifiers: Atrial fibrillation type: unspecified Qualified Code(s): I48.91 - Unspecified atrial fibrillation Code(s): I48.91 - Unspecified atrial fibrillation Status: Chronic Assessment and Plan: -Heart sounds and peripheral pulse regular at time of exam -Patient not on home anticoagulation, likely due to frail nature Mixed hyperlipidemia: Code(s): E78.2 - Mixed hyperlipidemia Status: Chronic Assessment and Plan: -Resume home medication when possible Plan Modified Code status: Full treatment at this time but if heart stops no CPR, if breathing stops no intubation, contact family if elective intubation being considered for presumed short term needs Subjective Date/time seen: 10/10/24 10:56 Interval history: I saw examined the patient in present of her granddaughter. Patient has no tremor today. Patient also denies headache, focal weakness, vision change. Patient denies chest pain, abdomen pain nausea vomiting. Patient is afebrile, has tachycardia, tachypnea, pulse ox 98 on 2 L ox, Exam Narrative: GENERAL: Pleasant, ill-appearing, in no acute distress. Severe malnutrition - EYES: EOMI. Anicteric. - HENT: Moist mucous membranes. - LUNGS: Clear to auscultation bilateral ly, no wheezing, rhonchi, or rales. - CARDIOVASCULAR: Regular rate and rhyth m. No murmur. No JVD. - ABDOMEN: Soft, non-tender and non-dist ended. No palpable masses. - EXTREMITIES: No edema. Peripheral puls es 2+. Non-tender. - NEUROLOGIC: No focal neurological defi cits. CN II-XII grossly intact. General weakness - PSYCHIATRIC: Awake, Alert and oriented x 3. Appropriate mood and affect. - SKIN: No rashes or lesions. Warm. - LYMPH: No cervical lymphadenopathy. Objective Data Vital Signs Vital Signs: Vital Signs - 24 hr 10/09/24 14:00 10/09/24 20:00 10/09/24 21:28 Temperature 99.0 F 98.2 F Pulse Rate 99 91 Respiratory Rate 20 14 Blood Pressure 135/70 122/54 L Pulse Oximetry 100 99 99 Oxygen Delivery Nasal Cannula Oxygen Flow Rate 2 Fraction of Inspired Oxygen 10/09/24 22:44 10/10/24 06:00 Temperature 98.1 F Pulse Rate 76 Respiratory Rate 12 Blood Pressure 113/52 L Pulse Oximetry 99 100 Oxygen Delivery Nasal Cannula Oxygen Flow Rate 2 Fraction of Inspired Oxygen 28 Intake/Output Intake/Output: Intake & Output 10/07/24 10/08/24 10/09/24 10/10/24 23:59 23:59 23:59 23:59 Intake Total 6493 420 3233 Balance 6492 617 2318 Meds/Results Medications: Active Medications Generic Name Dose Route Start Last Admin Trade Name Freq PRN Reason Stop Dose Admin Albuterol 2.5 mg 10/08/24 18:29 Albuterol Sulfate Neb 2.5 Mg/3 Ml Inh NEBULIZE Q4HRT PRN wheezing Aspirin 81 mg 10/09/24 09:00 10/10/24 10:23 Aspirin 81 Mg Enteric Tablet PO 81 mg DAILY KALA Administration Atorvastatin Calcium 5 mg 10/09/24 09:00 10/10/24 10:23 Atorvastatin 5 Mg Tablet PO 5 mg DAILY KALA Administration Cyanocobalamin 1,000 mcg 10/09/24 09:00 10/10/24 10:23 Cyanocobalamin 1,000 Mcg Tablet PO 1,000 mcg DAILY KALA Administration Enoxaparin Sodium 30 mg 10/09/24 09:00 10/10/24 10:24 Enoxaparin 30 Mg/0.3 Ml Syringe SUB-Q 30 mg DAILY KALA Administration Ferrous Sulfate 325 mg 10/09/24 09:00 10/10/24 10:23 Ferrous Sulfate [address] PO 325 mg DAILY KALA Administration Ampicillin Sodium/Sulbactam Sodium 1.5 gm in 50 mls @ 100 mls/hr 10/09/24 09:00 10/10/24 10:49 Unasyn 1.5 Gm/Ns 50 Ml IVPB 100 mls/hr Q24H KALA Administration Dextrose/Sodium Chloride 1,000 mls @ 100 mls/hr 10/09/24 08:30 10/10/24 05:38 Dextrose 5% Sodium Chloride 0.45% IV CONT 100 mls/hr .Q10H KALA Administration Mirtazapine 30 mg 10/09/24 09:00 10/10/24 10:23 Mirtazapine 30 Mg Tablet PO 30 mg DAILY KALA Administration Miscellaneous Information 1 each 10/09/24 00:01 Arformoterol 15 Mcg/2 Ml Solution For Nebulization Is Nonform; Can Pt Use From Home? XX 11/08/24 00:00 CLARIFY KALA Montelukast Sodium 10 mg 10/09/24 09:00 10/10/24 10:23 Montelukast Sodium 10 Mg Tablet PO 10 mg DAILY KALA Administration Morphine Sulfate 1 mg 10/08/24 22:36 10/08/24 22:54 Morphine Sulfate (*Crx) 2 Mg/Ml Inj IV PUSH 1 mg Q4H PRN Administration Pain Rated 7-10 Non-Formulary Medication 0 mcg 10/08/24 18:30 Arformoterol .ROUTE 11/07/24 18:29 .COMPLEX KALA Oxycodone HCl 2.5 mg 10/08/24 18:37 Oxycodone Hcl (*Crx) 2.5 Mg Tab Ir PO Q8H PRN Pain, Severe Oxycodone/Acetaminophen 1 tablet 10/08/24 18:36 Oxycodone/Acetaminophen (*Crx) 5-325 Mg Tablet PO Q8H PRN Pain, Severe Pantoprazole Sodium 40 mg 10/09/24 09:00 10/10/24 10:24 Pantoprazole Sodium Iv 40 Mg Vial IV PUSH 40 mg QAM KALA Administration Sulfasalazine 1,000 mg 10/08/24 18:35 10/10/24 10:23 Sulfasalazine 500 Mg Tablet PO 1,000 mg TID KALA Administration Radiology Results: ITS Impressions Head CT 10/08/24 11:02 IMPRESSION: 1. 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 No acute intracranial process. 2. Normal aging brain with mild diffuse volume loss and moderate scattered white matter hypoattenuation consistent with chronic small vessel ischemic disease. Chest/Abdomen/Pelvis CT 10/08/24 11:07 IMPRESSION: 1. Severe emphysema. Head/Neck CTA 10/08/24 12:08 IMPRESSION: 1. Moderate nonspecific cerebral white matter disease, which likely represents chronic small vessel ischemic disease. 2. 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 Multifocal moderate stenosis of cervical left vertebral artery. 3. 0% stenosis of the proximal internal carotid arteries relative to normal distal artery lumen diameters (NASCET criteria). Chest X-Ray 10/09/24 09:11 IMPRESSION: 1. Severe emphysema. Brain MRI 10/09/24 10:28 IMPRESSION: 1. 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 2. Moderate nonspecific cerebral white matter disease, which likely represents chronic small vessel ischemic disease. Modified Barium Swallow 10/09/24 12:57 IMPRESSION: 1. Aspiration. 2. Please refer to the speech therapy report for recommendations. Labs Labs: Laboratory Results - last 24 hr 10/10/24 05:52 WBC 9.2 RBC 2.85 L Hgb 8.7 L Hct 28.5 L MCV 100.0 MCH 30.5 MCHC 30.5 L RDW 13.0 Plt Count 222 MPV 10.9 H Immature Gran % (Auto) 0.3 Neut % (Auto) 65.0 Lymph % (Auto) 16.7 L Noble % (Auto) 9.8 H Eos % (Auto) 7.7 H Baso % (Auto) 0.5 Lymph # (Auto) 1.54 Noble # (Auto) 0.9 H Eos # (Auto) 0.7 H Baso # (Auto) 0.1 Abs Immat Gran (auto) 0.03 Absolute Neuts (auto) 6.0 Absolute Nucleated RBC 0.000 Nucleated RBC % 0.0 Sodium 139 Potassium 3.8 Chloride 102 Carbon Dioxide 30 Anion Gap 7 BUN 20 H D Creatinine 0.77 Estim Creat Clear Calc 24 Estimated GFR > 60 Glucose 123 H Calcium 8.0 L Magnesium 2.3
[2024-10-10 14:00] VITALS: BP 137/64; PULSE 104; RESP 16; TEMP 37; O2SAT 98
[2024-10-10 20:00] VITALS: O2SAT 100
[2024-10-10 22:00] VITALS: BP 134/71; PULSE 100; RESP 16; TEMP 36.9; O2SAT 100
[2024-10-11] VITALS (11 sets, daily range): BP systolic 113–130; BP diastolic 69–72; PULSE 63–112; RESP 16–20; TEMP 36–36.9; O2SAT 96–100; BMI 15.0
[2024-10-11 07:38] LABS: Basophils Absolute Auto 0.1 K/mm3 (0.0-0.1); Basophils Percent Auto 0.6 % (0.2-1.2); Eosinophils Absolute Auto 0.1 K/mm3 (0-0.3); Eosinophils Percent Auto 0.8 % (0-4.4); Hematocrit 37.6 % (37.0-47.0); Hemoglobin 11.5 g/dL (12.0-15.0); Immature Granulocyte Absolute 0.03 K/mm3 (0.00-0.031); Immature Granulocyte Percent A 0.3 % (0-0.5); Lymphocytes Percent Auto 6.1 % (18.3-44.2); Mean Corpuscular HGB Conc 30.6 g/dl (32-36); Mean Corpuscular Hemoglobin 30.7 pg (26-34); Mean Corpuscular Volume 100.5 fl (80-100); Mean Platelet Volume 11.2 fl (7.4-10.4); Neutrophils Absolute Auto 8.1 K/mm3 (1.3-6.7); Neutrophils Percent Auto 82.2 % (45.5-73.1); Platelet Count Result 281 k/mm3 (150-375); Red Blood Count 3.74 M/mm3 (4.2-5.4); Red Cell Distribution Width 12.9 % (11.5-14.5); White Blood Count 9.9 K/mm3 (4.5-10.0)
[2024-10-11 08:13] LABS: Anion Gap 8 mmol/L (4-12); Blood Urea Nitrogen 11 mg/dL (7-17); Carbon Dioxide 32 mmol/L (22-30); Chloride 102 mmol/L (98-107); Estimated CRCL calculation 25 ml/min; Estimated Glomerular Filt Rate > 60; Glucose 130 mg/dL (65-110); Magnesium 2.1 mg/dL (1.6-2.3); Potassium 4.3 mmol/L (3.4-5.0); Sodium 142 mmol/L (137-145)
[2024-10-11] MEDS: ENOXAPARIN 30 MG/0.3 ML SYRINGE SUB-Q (08:46)
[2024-10-11] MEDS: MONTELUKAST SODIUM 10 MG TABLET PO (08:47)
[2024-10-11] MEDS: ASPIRIN 81 MG ENTERIC TABLET PO (08:47)
[2024-10-11] MEDS: MIRTAZAPINE 30 MG TABLET PO (08:47)
[2024-10-11] MEDS: ATORVASTATIN 5 MG TABLET PO (08:47)
[2024-10-11] MEDS: CYANOCOBALAMIN 1,000 MCG TABLET 1000 MCG PO (08:47)
[2024-10-11] MEDS: FERROUS SULFATE 325 MG TABLET DR PO (08:47)
[2024-10-11] MEDS: sulfaSALAzine 500 MG TABLET 1000 MG PO ×3 (08:47→16:10)
--- NOTE | 2024-10-11 09:08 | P.PNIM_ITS ---
Progress Note: A&P Assessment and Plan (1) Pulmonary hypertension: Code(s): I27.20 - Pulmonary hypertension, unspecified Status: Acute (2) (HFpEF) heart failure with preserved ejection fraction: Qualifiers: Heart failure chronicity: chronic Qualified Code(s): I50.32 - Chronic diastolic (congestive) heart failure Code(s): I50.30 - Unspecified diastolic (congestive) heart failure Status: Chronic (3) Atrial fibrillation: Qualifiers: Atrial fibrillation type: unspecified Qualified Code(s): I48.91 - Unspecified atrial fibrillation Code(s): I48.91 - Unspecified atrial fibrillation Status: Chronic (4) PAD (peripheral artery disease): Code(s): I73.9 - Peripheral vascular disease, unspecified Status: Acute (5) Crohn's disease with complication: Qualifiers: Gastrointestinal tract location: unspecified location Qualified Code(s): K50.919 - Crohn's disease, unspecified, with unspecified complications Code(s): K50.919 - Crohn's disease, unspecified, with unspecified complications Status: Acute (6) Chronic obstructive pulmonary disease: Qualifiers: COPD type: unspecified COPD Qualified Code(s): J44.9 - Chronic obstructive pulmonary disease, unspecified Code(s): J44.9 - Chronic obstructive pulmonary disease, unspecified Status: Acute (7) Chronic hypoxemic respiratory failure: Code(s): J96.11 - Chronic respiratory failure with hypoxia Status: Acute (8) Severe protein-calorie malnutrition: Code(s): E43 - Unspecified severe protein-calorie malnutrition Status: Acute Plan Tremor: Code(s): R25.1 - Tremor, unspecified Status: Acute Assessment and Plan: -For lack of better descriptor, tremor of the jaw/face was presenting complaint but now involving most of the upper body -ER provider felt this may have been caused by diaphragmatic spasm -Episodes more frequent and more severe throughout the day -Now happening a few times per minute and lasting about 5-10 seconds on average with some shorter and some longer -No history of Parkinson's or seizures -Patient awake and alert, able to hear and recall/respond to questions asked during event -Does affect speech, causing stutter or complete stoppage of speech during event -Patient reports no sleep last night -NPO because she had cough/choking episode from mouth swab during tremor episode -Speech Therapy consulted for swallow study -CTA shows left vertebral artery stenosis but no signs of acute stroke, MRI ordered -Neurology consulted, will be on service tomorrow (10/09) -EEG ordered, unsure if this can be done over the weekend -Patient may need transfer for higher level of Neurology care but at this time vitals are stable and she has no airway compromise -IM Thorazine 25 mg x1 given to see if this would help decrease episodes and allow patient to get some rest 10/09, no tremor today, pending brain MRI. I discussed case with Dr. Rojo, he will see pt today MRI of brain 10/09 1. 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 2. Moderate nonspecific cerebral white matter disease, which likely represents chronic small vessel ischemic disease. severe stenosis of the distal left vertebral artery and multifocal moderate stenosis of the cervical left vertebral artery again involving the posterior circulation more so on the left side. Patient is receiving aspirin 81mg daily Management per neurologist Dysphagia: Code(s): R13.10 - Dysphagia, unspecified Status: Acute Assessment and Plan: -Coughing/choking episode due to mouth swab during tremor event -NPO for now -ST consult for swallow study -IV fluids for hydration and IV/IM medications when possible -Potentially may need to discuss feeding tube barium swallowing test: . Aspiration. SIRS vs Sepsis patient has leukocytosis 12,800, tachycardia tachypnea CT shows severe emphysema UA unremarkable Patient has hypoxemia Possible early stage aspiration Start Unasyn IV Follow-up CBC, ABG, cxr Influenza A infection Patient has sneezing and coughing intermittent today Coarse breath sound bilateral lung Repeated screening positive for influenza A today, on the admission day, influenza a was negative Suspecting infection from family visit Start Tamiflu p.o. DuoNeb scheduled q.6 hours, albuterol nebulizer q4h prn Repeat chest x-ray SAUNDRA (acute kidney injury): Code(s): N17.9 - Acute kidney failure, unspecified Status: Acute Assessment and Plan: -Cr 1.41, BUN 49, eGFR 35 and estimated creatinine clearance 14 -Labs similar on 09/16/24 but in December of 2023 Cr 0.7, BUN 16, eGFR >60 and estim cr clear 29 -NPO due to dysphagia -IV fluids LR at 45 mL/hr (weight 34.8 kg and hx HFpEF) change to D51/2NS 100ML/H resolved 10/10 dc iv fluid 10/11 Severe protein-calorie malnutrition: Code(s): E43 - Unspecified severe protein-calorie malnutrition Status: Acute Assessment and Plan: Severely underweight with BMI 15 Weight loss of about 20 pounds since June 2024 per family report (HFpEF) heart failure with preserved ejection fraction: Qualifiers: Heart failure chronicity: chronic Qualified Code(s): I50.32 - Chronic diastolic (congestive) heart failure Code(s): I50.30 - Unspecified diastolic (congestive) heart failure Status: Chronic Assessment and Plan: -Cautious use of diuretics PRN, careful to balance fluid volume status against SAUNDRA -Resume home oral meds when able to take PO after swallow study HTN (hypertension): Onset Date: 02/06/15 Qualifiers: Hypertension type: primary hypertension Qualified Code(s): I10 - Essential (primary) hypertension Code(s): I10 - Essential (primary) hypertension Status: Chronic Assessment and Plan: -Hold lisinopril due to SAUNDRA -May need PRN IV labetalol or hydralazine if significantly elevated blood pressure Atrial fibrillation: Qualifiers: Atrial fibrillation type: unspecified Qualified Code(s): I48.91 - Unspecified atrial fibrillation Code(s): I48.91 - Unspecified atrial fibrillation Status: Chronic Assessment and Plan: -Heart sounds and peripheral pulse regular at time of exam -Patient not on home anticoagulation, likely due to frail nature Mixed hyperlipidemia: Code(s): E78.2 - Mixed hyperlipidemia Status: Chronic Assessment and Plan: -Resume home medication when possible Plan Modified Code status: Full treatment at this time but if heart stops no CPR, if breathing stops no intubation, contact family if elective intubation being considered for presumed short term needs Subjective Date/time seen: 10/11/24 09:08 Interval history: I saw examined the patient. Patient patient has a cough with scant phlegm, sneezing intermittently. Also denies headache, focal weakness, vision change. Patient denies chest pain, abdomen pain nausea vomiting. Patient is afebrile, has tachycardia, tachypnea, pulse ox 98 on 2 L ox. Respiratory pathogen screen positive of influenza a, upon arrival 10/08, influenza a was negative Exam Narrative: GENERAL: Pleasant, ill-appearing, in no acute distress. Severe malnutrition - EYES: EOMI. Anicteric. - HENT: Moist mucous membranes. - LUNGS: Coarse breath sound bilaterall y - CARDIOVASCULAR: Regular rate and rhyth m. No murmur. No JVD. - ABDOMEN: Soft, non-tender and non-dist ended. No palpable masses. - EXTREMITIES: No edema. Peripheral puls es 2+. Non-tender. - NEUROLOGIC: No focal neurological defi cits. CN II-XII grossly intact. General weakness - PSYCHIATRIC: Awake, Alert and oriented x 3. Appropriate mood and affect. - SKIN: No rashes or lesions. Warm. - LYMPH: No cervical lymphadenopathy. Objective Data Vital Signs Vital Signs: Vital Signs - 24 hr 10/10/24 14:00 10/10/24 20:00 10/10/24 22:00 Temperature 98.6 F 98.4 F Pulse Rate 104 H 100 Respiratory Rate 16 16 Blood Pressure 137/64 134/71 Pulse Oximetry 98 100 100 Oxygen Delivery Nasal Cannula Oxygen Flow Rate 2 Fraction of Inspired Oxygen 28 10/11/24 06:00 Temperature 98.5 F Pulse Rate 100 Respiratory Rate 16 Blood Pressure 130/70 Pulse Oximetry 99 Oxygen Delivery Oxygen Flow Rate Fraction of Inspired Oxygen Intake/Output Intake/Output: Intake & Output 10/08/24 10/09/24 10/10/24 10/11/24 23:59 23:59 23:59 23:59 Intake Total 7312 378 1946 0 Balance 6201 885 9096 0 Meds/Results Medications: Active Medications Generic Name Dose Route Start Last Admin Trade Name Freq PRN Reason Stop Dose Admin Albuterol 2.5 mg 10/08/24 18:29 Albuterol Sulfate Neb 2.5 Mg/3 Ml Inh NEBULIZE Q4HRT PRN wheezing Aspirin 81 mg 10/09/24 09:00 10/11/24 08:47 Aspirin 81 Mg Enteric Tablet PO 81 mg DAILY KALA Administration Atorvastatin Calcium 5 mg 10/09/24 09:00 10/11/24 08:47 Atorvastatin 5 Mg Tablet PO 5 mg DAILY KALA Administration Cyanocobalamin 1,000 mcg 10/09/24 09:00 10/11/24 08:47 Cyanocobalamin 1,000 Mcg Tablet PO 1,000 mcg DAILY KALA Administration Enoxaparin Sodium 30 mg 10/09/24 09:00 10/11/24 08:46 Enoxaparin 30 Mg/0.3 Ml Syringe SUB-Q 30 mg DAILY KALA Administration Ferrous Sulfate 325 mg 10/09/24 09:00 10/11/24 08:47 Ferrous Sulfate [address] PO 325 mg DAILY KALA Administration Ampicillin Sodium/Sulbactam Sodium 1.5 gm in 50 mls @ 100 mls/hr 10/09/24 09:00 10/10/24 11:19 Unasyn 1.5 Gm/Ns 50 Ml IVPB Infused Q24H KALA Infusion Dextrose/Sodium Chloride 1,000 mls @ 100 mls/hr 10/09/24 08:30 10/10/24 18:32 Dextrose 5% Sodium Chloride 0.45% IV CONT 100 mls/hr .Q10H KALA Administration Mirtazapine 30 mg 10/09/24 09:00 10/11/24 08:47 Mirtazapine 30 Mg Tablet PO 30 mg DAILY KALA Administration Miscellaneous Information 1 each 10/09/24 00:01 Arformoterol 15 Mcg/2 Ml Solution For Nebulization Is Nonform; Can Pt Use From Home? XX 11/08/24 00:00 CLARIFY KALA Montelukast Sodium 10 mg 10/09/24 09:00 10/11/24 08:47 Montelukast Sodium 10 Mg Tablet PO 10 mg DAILY KALA Administration Morphine Sulfate 1 mg 10/08/24 22:36 10/08/24 22:54 Morphine Sulfate (*Crx) 2 Mg/Ml Inj IV PUSH 1 mg Q4H PRN Administration Pain Rated 7-10 Non-Formulary Medication 0 mcg 10/08/24 18:30 Arformoterol .ROUTE 11/07/24 18:29 .COMPLEX KALA Oxycodone HCl 2.5 mg 10/08/24 18:37 Oxycodone Hcl (*Crx) 2.5 Mg Tab Ir PO Q8H PRN Pain, Severe Oxycodone/Acetaminophen 1 tablet 10/08/24 18:36 Oxycodone/Acetaminophen (*Crx) 5-325 Mg Tablet PO Q8H PRN Pain, Severe Pantoprazole Sodium 40 mg 10/09/24 09:00 10/11/24 08:46 Pantoprazole Sodium Iv 40 Mg Vial IV PUSH 40 mg QAM KALA Administration Sulfasalazine 1,000 mg 10/08/24 18:35 10/11/24 08:47 Sulfasalazine 500 Mg Tablet PO 1,000 mg TID KALA Administration Radiology Results: ITS Impressions Head CT 10/08/24 11:02 IMPRESSION: 1. 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 No acute intracranial process. 2. Normal aging brain with mild diffuse volume loss and moderate scattered white matter hypoattenuation consistent with chronic small vessel ischemic disease. Chest/Abdomen/Pelvis CT 10/08/24 11:07 IMPRESSION: 1. Severe emphysema. Head/Neck CTA 10/08/24 12:08 IMPRESSION: 1. Moderate nonspecific cerebral white matter disease, which likely represents chronic small vessel ischemic disease. 2. 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 Multifocal moderate stenosis of cervical left vertebral artery. 3. 0% stenosis of the proximal internal carotid arteries relative to normal distal artery lumen diameters (NASCET criteria). Chest X-Ray 10/09/24 09:11 IMPRESSION: 1. Severe emphysema. Brain MRI 10/09/24 10:28 IMPRESSION: 1. 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 2. Moderate nonspecific cerebral white matter disease, which likely represents chronic small vessel ischemic disease. Modified Barium Swallow 10/09/24 12:57 IMPRESSION: 1. Aspiration. 2. Please refer to the speech therapy report for recommendations. Labs Labs: Laboratory Results - last 24 hr 10/11/24 06:58 WBC 9.9 RBC 3.74 L Hgb 11.5 L Hct 37.6 MCV 100.5 H MCH 30.7 MCHC 30.6 L RDW 12.9 Plt Count 281 MPV 11.2 H Immature Gran % (Auto) 0.3 Neut % (Auto) 82.2 H Lymph % (Auto) 6.1 L Baxter % (Auto) 10.0 H Eos % (Auto) 0.8 Baso % (Auto) 0.6 Lymph # (Auto) 0.60 L Baxter # (Auto) 1.0 H Eos # (Auto) 0.1 Baso # (Auto) 0.1 Abs Immat Gran (auto) 0.03 Absolute Neuts (auto) 8.1 H Absolute Nucleated RBC 0.000 Nucleated RBC % 0.0 Sodium 142 Potassium 4.3 Chloride 102 Carbon Dioxide 32 H Anion Gap 8 BUN 11 D Creatinine 0.74 Estim Creat Clear Calc 25 Estimated GFR > 60 Glucose 130 H Calcium 9.0 Magnesium 2.1
[2024-10-11] MEDS: AMPICILLIN SULB 1.5 GM/NS 50ML 1.5 GM/50 ML VIAL IVPB (09:10)
[2024-10-11] MEDS: DEXTROSE 5%/0.45% SOD CHL 1,000 ML 100 ML IV CONT (09:15)
[2024-10-11 11:46] LABS: Influenza A QL RT-PCR Positive (Negative); Influenza B QL RT-PCR Negative (Negative); RSV RNA, RT-PCR Negative (Negative); SARS-CoV-2 RNA PCR Negative (Negative)
[2024-10-11] MEDS: OSELTAMIVIR PHOSPHATE 30 MG CAPSULE PO (13:22)
[2024-10-11] MEDS: BENZONATATE 100 MG CAPSULE PO ×2 (13:22→16:10)
--- NOTE | 2024-10-11 14:10 | PC.NURSE ---
Patient belonging collected and sent with patient to [facility] room, 242. Report given to Kushal. All questions answered at length and family notified.
--- NOTE | 2024-10-11 14:27 | PC.NURSE ---
This patient, Humaira Moralez, was transferred to [facility] on 10/11/24 at 1427. Personal belongings sent with patient. Report given to Kushal MARIO. Appropriate documentation sent with patient.
[2024-10-11] MEDS: IPRATROPIUM 0.5 MG/ALBUTEROL SULFATE 2.5 MG AMPUL.NEB 3 ML INHALATION ×2 (14:50→20:02)
[2024-10-11] MEDS: BUDESONIDE RESPULE NEB 0.5 MG/2 ML AMP INHALATION (20:02)
[2024-10-12] VITALS (12 sets, daily range): BP systolic 124–137; BP diastolic 75–83; PULSE 64–110; RESP 16–18; TEMP 36.5–37.2; O2SAT 94–98
[2024-10-12] MEDS: BUDESONIDE RESPULE NEB 0.5 MG/2 ML AMP INHALATION ×2 (08:20→20:27)
[2024-10-12] MEDS: IPRATROPIUM 0.5 MG/ALBUTEROL SULFATE 2.5 MG AMPUL.NEB 3 ML INHALATION ×3 (08:20→20:28)
[2024-10-12] MEDS: polyethylene glycoL 3350 17 GM POWD.PACK PO (08:49)
[2024-10-12] MEDS: PANTOPRAZOLE SODIUM IV 40 MG VIAL IV PUSH (08:50)
[2024-10-12] MEDS: CYANOCOBALAMIN 1,000 MCG TABLET 1000 MCG PO (08:52)
[2024-10-12] MEDS: ATORVASTATIN 5 MG TABLET PO (08:52)
[2024-10-12] MEDS: sulfaSALAzine 500 MG TABLET 1000 MG PO ×3 (08:52→16:33)
[2024-10-12] MEDS: MONTELUKAST SODIUM 10 MG TABLET PO (08:52)
[2024-10-12] MEDS: ASPIRIN 81 MG ENTERIC TABLET PO (08:53)
[2024-10-12] MEDS: OSELTAMIVIR PHOSPHATE 30 MG CAPSULE PO (08:53)
[2024-10-12] MEDS: FERROUS SULFATE 325 MG TABLET DR PO (08:53)
[2024-10-12] MEDS: MIRTAZAPINE 30 MG TABLET PO (08:54)
[2024-10-12] MEDS: BENZONATATE 100 MG CAPSULE PO ×3 (08:54→16:35)
[2024-10-12] MEDS: AMPICILLIN SULB 1.5 GM/NS 50ML 1.5 GM/50 ML VIAL IVPB (08:54)
[2024-10-12] MEDS: ENOXAPARIN 30 MG/0.3 ML SYRINGE SUB-Q (08:54)
--- NOTE | 2024-10-12 09:11 | WPDNEUROLOGY ---
Neurology EEG Report General Information Date of Study: 10/11/24 TEST Eeg DIAGNOSIS new onset tremors. CONDITION OF RECORDING awake, drowsy and asleep. EEG NUMBER [id number] CLINICAL HISTORY Patient not sure why she is having this test. No visible tremors at the time of this particular tracing. EEG DESCRIPTION Background rhythm consists of low to medium voltage 8 to 10 hertz per 2nd alpha activity admixed with low-voltage 15 to 18 hertz per 2nd beta activity. Low-voltage beta, theta, and alpha activity seen during drowsiness with subsequent evolution of bilateral symmetrical sleep spindles. Photic stimulation not done. Hyperventilation not done. Non paroxysmal. Nonfocal. Nonlateralizing. IMPRESSION No significant abnormalities noted in this tracing to make the diagnosis of seizure disorder. Clinical correlation recommended. Patient can have a normal EEG and still have the seizures.
--- NOTE | 2024-10-12 11:09 | P.PNIM_ITS ---
Progress Note: A&P Assessment and Plan (1) Pulmonary hypertension: Code(s): I27.20 - Pulmonary hypertension, unspecified Status: Acute (2) (HFpEF) heart failure with preserved ejection fraction: Qualifiers: Heart failure chronicity: chronic Qualified Code(s): I50.32 - Chronic diastolic (congestive) heart failure Code(s): I50.30 - Unspecified diastolic (congestive) heart failure Status: Chronic (3) Atrial fibrillation: Qualifiers: Atrial fibrillation type: unspecified Qualified Code(s): I48.91 - Unspecified atrial fibrillation Code(s): I48.91 - Unspecified atrial fibrillation Status: Chronic (4) PAD (peripheral artery disease): Code(s): I73.9 - Peripheral vascular disease, unspecified Status: Acute (5) Crohn's disease with complication: Qualifiers: Gastrointestinal tract location: unspecified location Qualified Code(s): K50.919 - Crohn's disease, unspecified, with unspecified complications Code(s): K50.919 - Crohn's disease, unspecified, with unspecified complications Status: Acute (6) Chronic obstructive pulmonary disease: Qualifiers: COPD type: unspecified COPD Qualified Code(s): J44.9 - Chronic obstructive pulmonary disease, unspecified Code(s): J44.9 - Chronic obstructive pulmonary disease, unspecified Status: Acute (7) Chronic hypoxemic respiratory failure: Code(s): J96.11 - Chronic respiratory failure with hypoxia Status: Acute (8) Severe protein-calorie malnutrition: Code(s): E43 - Unspecified severe protein-calorie malnutrition Status: Acute Plan Tremor: Code(s): R25.1 - Tremor, unspecified Status: Acute Assessment and Plan: -For lack of better descriptor, tremor of the jaw/face was presenting complaint but now involving most of the upper body -ER provider felt this may have been caused by diaphragmatic spasm -Episodes more frequent and more severe throughout the day -Now happening a few times per minute and lasting about 5-10 seconds on average with some shorter and some longer -No history of Parkinson's or seizures -Patient awake and alert, able to hear and recall/respond to questions asked during event -Does affect speech, causing stutter or complete stoppage of speech during event -Patient reports no sleep last night -NPO because she had cough/choking episode from mouth swab during tremor episode -Speech Therapy consulted for swallow study -CTA shows left vertebral artery stenosis but no signs of acute stroke, MRI ordered -Neurology consulted, will be on service tomorrow (10/09) -EEG ordered, unsure if this can be done over the weekend -Patient may need transfer for higher level of Neurology care but at this time vitals are stable and she has no airway compromise -IM Thorazine 25 mg x1 given to see if this would help decrease episodes and allow patient to get some rest 10/09, no tremor today, pending brain MRI. I discussed case with Dr. Rojo, he will see pt today MRI of brain 10/09 1. 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 2. Moderate nonspecific cerebral white matter disease, which likely represents chronic small vessel ischemic disease. 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 Patient is receiving aspirin 81mg daily Management per neurologist Dysphagia: Code(s): R13.10 - Dysphagia, unspecified Status: Acute Assessment and Plan: -Coughing/choking episode due to mouth swab during tremor event -NPO for now -ST consult for swallow study -IV fluids for hydration and IV/IM medications when possible -Potentially may need to discuss feeding tube barium swallowing test: . Aspiration. SIRS vs Sepsis patient has leukocytosis 12,800, tachycardia tachypnea CT shows severe emphysema UA unremarkable Patient has hypoxemia Possible early stage aspiration Start Unasyn IV Follow-up CBC, ABG, cxr Influenza A infection Patient has sneezing and coughing intermittent today Coarse breath sound bilateral lung Repeated screening positive for influenza A today, on the admission day, influenza a was negative Suspecting infection from family visit Start Tamiflu p.o. DuoNeb scheduled q.6 hours, albuterol nebulizer q4h prn Repeat chest x-ray SAUNDRA (acute kidney injury): Code(s): N17.9 - Acute kidney failure, unspecified Status: Acute Assessment and Plan: -Cr 1.41, BUN 49, eGFR 35 and estimated creatinine clearance 14 -Labs similar on 09/16/24 but in December of 2023 Cr 0.7, BUN 16, eGFR >60 and estim cr clear 29 -NPO due to dysphagia -IV fluids LR at 45 mL/hr (weight 34.8 kg and hx HFpEF) change to D51/2NS 100ML/H resolved 10/10 dc iv fluid 10/11 Severe protein-calorie malnutrition: Code(s): E43 - Unspecified severe protein-calorie malnutrition Status: Acute Assessment and Plan: Severely underweight with BMI 15 Weight loss of about 20 pounds since June 2024 per family report (HFpEF) heart failure with preserved ejection fraction: Qualifiers: Heart failure chronicity: chronic Qualified Code(s): I50.32 - Chronic diastolic (congestive) heart failure Code(s): I50.30 - Unspecified diastolic (congestive) heart failure Status: Chronic Assessment and Plan: -Cautious use of diuretics PRN, careful to balance fluid volume status against SAUNDRA -Resume home oral meds when able to take PO after swallow study HTN (hypertension): Onset Date: 02/06/15 Qualifiers: Hypertension type: primary hypertension Qualified Code(s): I10 - Essential (primary) hypertension Code(s): I10 - Essential (primary) hypertension Status: Chronic Assessment and Plan: -Hold lisinopril due to SAUNDRA -May need PRN IV labetalol or hydralazine if significantly elevated blood pressure Atrial fibrillation: Qualifiers: Atrial fibrillation type: unspecified Qualified Code(s): I48.91 - Unspecified atrial fibrillation Code(s): I48.91 - Unspecified atrial fibrillation Status: Chronic Assessment and Plan: -Heart sounds and peripheral pulse regular at time of exam -Patient not on home anticoagulation, likely due to frail nature Mixed hyperlipidemia: Code(s): E78.2 - Mixed hyperlipidemia Status: Chronic Assessment and Plan: -Resume home medication when possible Plan Modified Code status: Full treatment at this time but if heart stops no CPR, if breathing stops no intubation, contact family if elective intubation being considered for presumed short term needs Subjective Date/time seen: 10/12/24 11:09 Interval history: I saw examined the patient. Patient feels better today, has general weakness, has cough, scant phlegm, patient denies dyspnea at rest. Patient also denies abdomen pain nausea vomiting. pulse ox 98 on 2 L ox. Respiratory pathogen screen positive of influenza a, upon arrival 10/08, influenza a was negative Exam Narrative: GENERAL: Pleasant, ill-appearing, in no acute distress. Severe malnutrition - EYES: EOMI. Anicteric. - HENT: Moist mucous membranes. - LUNGS: Coarse breath sound bilaterall y - CARDIOVASCULAR: Regular rate and rhyth m. No murmur. No JVD. - ABDOMEN: Soft, non-tender and non-dist ended. No palpable masses. - EXTREMITIES: No edema. Peripheral puls es 2+. Non-tender. - NEUROLOGIC: No focal neurological defi cits. CN II-XII grossly intact. General weakness - PSYCHIATRIC: Awake, Alert and oriented x 3. Appropriate mood and affect. - SKIN: No rashes or lesions. Warm. - LYMPH: No cervical lymphadenopathy. Objective Data Vital Signs Vital Signs: Vital Signs - 24 hr 10/11/24 14:00 10/11/24 14:50 10/11/24 14:50 Temperature 96.9 F L Pulse Rate 63 66 Respiratory Rate 16 20 Blood Pressure 113/69 Pulse Oximetry 100 96 Oxygen Delivery Nasal Cannula Oxygen Flow Rate 2 Fraction of Inspired Oxygen 10/11/24 14:57 10/11/24 15:36 10/11/24 20:00 Temperature 96.8 F L Pulse Rate 103 H 100 Respiratory Rate 20 19 Blood Pressure 122/72 Pulse Oximetry 98 98 Oxygen Delivery Nasal Cannula Oxygen Flow Rate 2 Fraction of Inspired Oxygen 10/11/24 20:02 10/11/24 20:03 10/11/24 20:07 Temperature Pulse Rate 112 H Respiratory Rate 20 Blood Pressure Pulse Oximetry 97 97 Oxygen Delivery Nasal Cannula Nasal Cannula Oxygen Flow Rate 2 2 Fraction of Inspired Oxygen 28 10/11/24 20:15 10/11/24 20:45 10/12/24 03:47 Temperature 98.2 F 99.0 F Pulse Rate 107 H 112 H 110 H Respiratory Rate 20 18 18 Blood Pressure 119/71 124/83 Pulse Oximetry 96 98 Oxygen Delivery Oxygen Flow Rate Fraction of Inspired Oxygen 10/12/24 08:54 Temperature Pulse Rate Respiratory Rate Blood Pressure Pulse Oximetry 98 Oxygen Delivery Nasal Cannula Oxygen Flow Rate 2 Fraction of Inspired Oxygen Intake/Output Intake/Output: Intake & Output 10/09/24 10/10/24 10/11/24 10/12/24 23:59 23:59 23:59 23:59 Intake Total 839 5690 1989 240 Balance 680 5270 1989 240 Meds/Results Medications: Active Medications Generic Name Dose Route Start Last Admin Trade Name Freq PRN Reason Stop Dose Admin Albuterol 2.5 mg 10/08/24 18:29 Albuterol Sulfate Neb 2.5 Mg/3 Ml Inh NEBULIZE Q4HRT PRN wheezing Albuterol/Ipratropium 3 ml 10/11/24 14:00 10/12/24 04:30 Ipratropium 0.5 Mg/Albuterol Sulfate 2.5 Mg Ampul.Neb 3 Ml INHALATION Not Given Q6HRT COUNTS INCLUDE 234 BEDS AT THE [facility] Aspirin 81 mg 10/09/24 09:00 10/12/24 08:53 Aspirin 81 Mg Enteric Tablet PO 81 mg DAILY KALA Administration Atorvastatin Calcium 5 mg 10/09/24 09:00 10/12/24 08:52 Atorvastatin 5 Mg Tablet PO 5 mg DAILY COUNTS INCLUDE 234 BEDS AT THE [facility] Administration Benzonatate 100 mg 10/11/24 13:00 10/12/24 08:54 Benzonatate 100 Mg Capsule PO 100 mg TID KALA Administration Budesonide 0.5 mg 10/11/24 20:00 10/11/24 20:02 Budesonide Respule Neb 0.5 Mg/2 Ml Amp INHALATION 0.5 mg Q12HRT KALA Administration Cyanocobalamin 1,000 mcg 10/09/24 09:00 10/12/24 08:52 Cyanocobalamin 1,000 Mcg Tablet PO 1,000 mcg DAILY KALA Administration Enoxaparin Sodium 30 mg 10/09/24 09:00 10/12/24 08:54 Enoxaparin 30 Mg/0.3 Ml Syringe SUB-Q 30 mg DAILY KALA Administration Ferrous Sulfate 325 mg 10/09/24 09:00 10/12/24 08:53 Ferrous Sulfate [address] PO 325 mg DAILY KALA Administration Ampicillin Sodium/Sulbactam Sodium 1.5 gm in 50 mls @ 100 mls/hr 10/09/24 09:00 10/12/24 08:54 Unasyn 1.5 Gm/Ns 50 Ml IVPB 100 mls/hr Q24H KALA Administration Mirtazapine 30 mg 10/09/24 09:00 10/12/24 08:54 Mirtazapine 30 Mg Tablet PO 30 mg DAILY KALA Administration Montelukast Sodium 10 mg 10/09/24 09:00 10/12/24 08:52 Montelukast Sodium 10 Mg Tablet PO 10 mg DAILY KALA Administration Morphine Sulfate 1 mg 10/08/24 22:36 10/08/24 22:54 Morphine Sulfate (*Crx) 2 Mg/Ml Inj IV PUSH 1 mg Q4H PRN Administration Pain Rated 7-10 Oseltamivir Phosphate 30 mg 10/11/24 13:00 10/12/24 08:53 Oseltamivir Phosphate 30 Mg Capsule PO 10/15/24 09:01 30 mg DAILY KALA Administration Oxycodone HCl 2.5 mg 10/08/24 18:37 Oxycodone Hcl (*Crx) 2.5 Mg Tab Ir PO Q8H PRN Pain, Severe Oxycodone/Acetaminophen 1 tablet 10/08/24 18:36 Oxycodone/Acetaminophen (*Crx) 5-325 Mg Tablet PO Q8H PRN Pain, Severe Pantoprazole Sodium 40 mg 10/09/24 09:00 10/12/24 08:50 Pantoprazole Sodium Iv 40 Mg Vial IV PUSH 40 mg QAM KALA Administration Polyethylene Glycol 17 gm 10/12/24 09:00 10/12/24 08:49 Polyethylene Glycol 3350 17 Gm Powd.Pack PO 17 gm QAM KALA Administration Polyethylene Glycol 17 gm 10/11/24 10:07 Polyethylene Glycol 3350 17 Gm Powd.Pack PO QAM PRN Constipation Sulfasalazine 1,000 mg 10/08/24 18:35 10/12/24 08:52 Sulfasalazine 500 Mg Tablet PO 1,000 mg TID KALA Administration Radiology Results: ITS Impressions Head CT 10/08/24 11:02 IMPRESSION: 1. 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 No acute intracranial process. 2. Normal aging brain with mild diffuse volume loss and moderate scattered white matter hypoattenuation consistent with chronic small vessel ischemic disease. Chest/Abdomen/Pelvis CT 10/08/24 11:07 IMPRESSION: 1. Severe emphysema. Head/Neck CTA 10/08/24 12:08 IMPRESSION: 1. Moderate nonspecific cerebral white matter disease, which likely represents chronic small vessel ischemic disease. 2. 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 Multifocal moderate stenosis of cervical left vertebral artery. 3. 0% stenosis of the proximal internal carotid arteries relative to normal distal artery lumen diameters (NASCET criteria). Brain MRI 10/09/24 10:28 IMPRESSION: 1. 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 2. Moderate nonspecific cerebral white matter disease, which likely represents chronic small vessel ischemic disease. Modified Barium Swallow 10/09/24 12:57 IMPRESSION: 1. Aspiration. 2. Please refer to the speech therapy report for recommendations. Chest X-Ray 10/11/24 15:41 IMPRESSION: 1. Severe emphysema. Labs Labs: Laboratory Results - last 24 hr 10/11/24 10:27 Influenza A (RT-PCR) Positive A Influenza B (RT-PCR) Negative RSV (RT-PCR) Negative SARS-CoV-2 RNA (RT-PCR) Negative
--- NOTE | 2024-10-12 12:53 | P.CDI_ITS ---
CDI Query Clarification Request SIRS versus Sepsis has been documented, please clarify if known SIRS or Sepsis. ? * SIRS due to noninfectious cause (e.g. trauma, owusu, pancreatitis) * Sepsis (SIRS due to an infection) <Devi Galeas RN - Last Filed: 10/12/24 12:53> Clarified Diagnosis Clarified Diagnosis: possible sepsis due to aspiration and influenza A infection <Meenu Valle MD - Last Filed: 10/12/24 15:01>
[2024-10-12] MEDS: AMOXICILLIN/CLAVULANATE K 500-125 MG TAB 1 TABLET PO (21:21)
[2024-10-13] VITALS (10 sets, daily range): BP systolic 122–127; BP diastolic 71–78; PULSE 96–131; RESP 16–20; TEMP 37–37.2; O2SAT 91–98
[2024-10-13] MEDS: IPRATROPIUM 0.5 MG/ALBUTEROL SULFATE 2.5 MG AMPUL.NEB 3 ML INHALATION ×3 (02:28→13:24)
[2024-10-13] MEDS: BUDESONIDE RESPULE NEB 0.5 MG/2 ML AMP INHALATION (07:30)
--- NOTE | 2024-10-13 09:09 | P.PNIM_ITS ---
Progress Note: A&P Assessment and Plan (1) Pulmonary hypertension: Code(s): I27.20 - Pulmonary hypertension, unspecified Status: Acute (2) (HFpEF) heart failure with preserved ejection fraction: Qualifiers: Heart failure chronicity: chronic Qualified Code(s): I50.32 - Chronic diastolic (congestive) heart failure Code(s): I50.30 - Unspecified diastolic (congestive) heart failure Status: Chronic (3) Atrial fibrillation: Qualifiers: Atrial fibrillation type: unspecified Qualified Code(s): I48.91 - Unspecified atrial fibrillation Code(s): I48.91 - Unspecified atrial fibrillation Status: Chronic (4) PAD (peripheral artery disease): Code(s): I73.9 - Peripheral vascular disease, unspecified Status: Acute (5) Crohn's disease with complication: Qualifiers: Gastrointestinal tract location: unspecified location Qualified Code(s): K50.919 - Crohn's disease, unspecified, with unspecified complications Code(s): K50.919 - Crohn's disease, unspecified, with unspecified complications Status: Acute (6) Chronic obstructive pulmonary disease: Qualifiers: COPD type: unspecified COPD Qualified Code(s): J44.9 - Chronic obstructive pulmonary disease, unspecified Code(s): J44.9 - Chronic obstructive pulmonary disease, unspecified Status: Acute (7) Chronic hypoxemic respiratory failure: Code(s): J96.11 - Chronic respiratory failure with hypoxia Status: Acute (8) Severe protein-calorie malnutrition: Code(s): E43 - Unspecified severe protein-calorie malnutrition Status: Acute Plan Tremor: Code(s): R25.1 - Tremor, unspecified Status: Acute Assessment and Plan: -For lack of better descriptor, tremor of the jaw/face was presenting complaint but now involving most of the upper body -ER provider felt this may have been caused by diaphragmatic spasm -Episodes more frequent and more severe throughout the day -Now happening a few times per minute and lasting about 5-10 seconds on average with some shorter and some longer -No history of Parkinson's or seizures -Patient awake and alert, able to hear and recall/respond to questions asked during event -Does affect speech, causing stutter or complete stoppage of speech during event -Patient reports no sleep last night -NPO because she had cough/choking episode from mouth swab during tremor episode -Speech Therapy consulted for swallow study -CTA shows left vertebral artery stenosis but no signs of acute stroke, MRI ordered -Neurology consulted, will be on service tomorrow (10/09) -EEG ordered, unsure if this can be done over the weekend -Patient may need transfer for higher level of Neurology care but at this time vitals are stable and she has no airway compromise -IM Thorazine 25 mg x1 given to see if this would help decrease episodes and allow patient to get some rest 10/09, no tremor today, pending brain MRI. I discussed case with Dr. Rjoo, he will see pt today MRI of brain 10/09 1. 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 2. Moderate nonspecific cerebral white matter disease, which likely represents chronic small vessel ischemic disease. 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 Patient is receiving aspirin 81mg daily Management per neurologist att Plavix 75 mg daily p.o. per neurologist recommendation Dysphagia: Code(s): R13.10 - Dysphagia, unspecified Status: Acute Assessment and Plan: -Coughing/choking episode due to mouth swab during tremor event -NPO for now -ST consult for swallow study -IV fluids for hydration and IV/IM medications when possible -Potentially may need to discuss feeding tube barium swallowing test: . Aspiration. Re-evaluation. Resolved, Sepsis patient has leukocytosis 12,800, tachycardia tachypnea CT shows severe emphysema UA unremarkable Patient has hypoxemia Possible early stage aspiration Received Unasyn IV changed to Augmentin since October 12, will finish last does October 18 per ID pharmacist recommendation Influenza A infection Patient has sneezing and coughing intermittent today Coarse breath sound bilateral lung Repeated screening positive for influenza A today, on the admission day, influenza a was negative Suspecting infection from family visit Start Tamiflu p.o. DuoNeb scheduled q.6 hours, albuterol nebulizer q4h prn Repeat chest x-ray, showed emphysema SAUNDRA (acute kidney injury): Code(s): N17.9 - Acute kidney failure, unspecified Status: Acute Assessment and Plan: -Cr 1.41, BUN 49, eGFR 35 and estimated creatinine clearance 14 -Labs similar on 09/16/24 but in December of 2023 Cr 0.7, BUN 16, eGFR >60 and estim cr clear 29 -NPO due to dysphagia -IV fluids LR at 45 mL/hr (weight 34.8 kg and hx HFpEF) change to D51/2NS 100ML/H resolved 10/10 dc iv fluid 10/11 Severe protein-calorie malnutrition: Code(s): E43 - Unspecified severe protein-calorie malnutrition Status: Acute Assessment and Plan: Severely underweight with BMI 15 Weight loss of about 20 pounds since June 2024 per family report (HFpEF) heart failure with preserved ejection fraction: Qualifiers: Heart failure chronicity: chronic Qualified Code(s): I50.32 - Chronic diastolic (congestive) heart failure Code(s): I50.30 - Unspecified diastolic (congestive) heart failure Status: Chronic Assessment and Plan: -Cautious use of diuretics PRN, careful to balance fluid volume status against SAUNDRA -Resume home oral meds when able to take PO after swallow study HTN (hypertension): Onset Date: 02/06/15 Qualifiers: Hypertension type: primary hypertension Qualified Code(s): I10 - Essential (primary) hypertension Code(s): I10 - Essential (primary) hypertension Status: Chronic Assessment and Plan: -Hold lisinopril due to SAUNDRA -May need PRN IV labetalol or hydralazine if significantly elevated blood pressure Atrial fibrillation: Qualifiers: Atrial fibrillation type: unspecified Qualified Code(s): I48.91 - Unspecified atrial fibrillation Code(s): I48.91 - Unspecified atrial fibrillation Status: Chronic Assessment and Plan: -Heart sounds and peripheral pulse regular at time of exam -Patient not on home anticoagulation, likely due to frail nature Mixed hyperlipidemia: Code(s): E78.2 - Mixed hyperlipidemia Status: Chronic Assessment and Plan: -Resume home medication when possible Plan Modified Code status: Full treatment at this time but if heart stops no CPR, if breathing stops no intubation, contact family if elective intubation being considered for presumed short term needs Patient family request discharge patient home and declines rehab in senior living Subjective Date/time seen: 10/13/24 09:09 Interval history: I saw examined the patient. Patient feels better today appetite improving, patient denies chest pain, dyspnea at rest, abdomen pain nausea vomiting diarrhea. Patient is afebrile, blood pressure stable Exam Narrative: GENERAL: Pleasant, in no acute distress. Severe malnutrition - EYES: EOMI. Anicteric. - HENT: Moist mucous membranes. - LUNGS: Lungs clear bilaterally - CARDIOVASCULAR: Regular rate and rhyth m. No murmur. No JVD. - ABDOMEN: Soft, non-tender and non-dist ended. No palpable masses. - EXTREMITIES: No edema. Peripheral puls es 2+. Non-tender. - NEUROLOGIC: No focal neurological defi cits. CN II-XII grossly intact. General weakness - PSYCHIATRIC: Awake, Alert and oriented x 3. Appropriate mood and affect. - SKIN: No rashes or lesions. Warm. - LYMPH: No cervical lymphadenopathy. Objective Data Vital Signs Vital Signs: Vital Signs - 24 hr 10/12/24 13:57 10/12/24 14:28 10/12/24 14:28 Temperature 98.5 F Pulse Rate 64 92 Respiratory Rate 16 16 Blood Pressure 137/80 Pulse Oximetry 94 96 Oxygen Delivery Nasal Cannula Oxygen Flow Rate 2 10/12/24 14:39 10/12/24 20:00 10/12/24 20:22 Temperature 97.7 F Pulse Rate 92 109 H Respiratory Rate 16 18 Blood Pressure 124/75 Pulse Oximetry 97 97 Oxygen Delivery Nasal Cannula Oxygen Flow Rate 2 10/12/24 20:25 10/12/24 20:28 10/12/24 20:45 Temperature Pulse Rate 109 H 109 H Respiratory Rate 18 18 Blood Pressure Pulse Oximetry 97 Oxygen Delivery Nasal Cannula Oxygen Flow Rate 2 10/13/24 02:31 10/13/24 02:40 10/13/24 03:51 Temperature 98.6 F Pulse Rate 96 96 105 H Respiratory Rate 16 16 18 Blood Pressure 127/78 Pulse Oximetry 98 Oxygen Delivery Oxygen Flow Rate 10/13/24 07:32 10/13/24 07:32 10/13/24 07:50 Temperature Pulse Rate 97 99 Respiratory Rate 20 20 Blood Pressure Pulse Oximetry 98 Oxygen Delivery Nasal Cannula Oxygen Flow Rate 2 Intake/Output Intake/Output: Intake & Output 10/10/24 10/11/24 10/12/24 10/13/24 23:59 23:59 23:59 23:59 Intake Total 2470 1989 650 290 Balance 2470 1989 650 290 Meds/Results Medications: Active Medications Generic Name Dose Route Start Last Admin Trade Name Freq PRN Reason Stop Dose Admin Albuterol 2.5 mg 10/08/24 18:29 Albuterol Sulfate Neb 2.5 Mg/3 Ml Inh NEBULIZE Q4HRT PRN wheezing Albuterol/Ipratropium 3 ml 10/11/24 14:00 10/13/24 07:30 Ipratropium 0.5 Mg/Albuterol Sulfate 2.5 Mg Ampul.Neb 3 Ml INHALATION 3 ml Q6HRT KALA Administration Amoxicillin/Clavulanate Potassium 1 tablet 10/12/24 21:00 10/12/24 21:21 Amoxicillin/Clavulanate K 500-125 Mg Tab PO 10/18/24 21:01 1 tablet Q12HR KALA Administration Aspirin 81 mg 10/09/24 09:00 10/12/24 08:53 Aspirin 81 Mg Enteric Tablet PO 81 mg DAILY KALA Administration Atorvastatin Calcium 5 mg 10/09/24 09:00 10/12/24 08:52 Atorvastatin 5 Mg Tablet PO 5 mg DAILY [facility] Administration Benzonatate 100 mg 10/11/24 13:00 10/12/24 16:35 Benzonatate 100 Mg Capsule PO 100 mg TID KALA Administration Budesonide 0.5 mg 10/11/24 20:00 10/13/24 07:30 Budesonide Respule Neb 0.5 Mg/2 Ml Amp INHALATION 0.5 mg Q12HRT KALA Administration Cyanocobalamin 1,000 mcg 10/09/24 09:00 10/12/24 08:52 Cyanocobalamin 1,000 Mcg Tablet PO 1,000 mcg DAILY [facility] Administration Enoxaparin Sodium 30 mg 10/09/24 09:00 10/12/24 08:54 Enoxaparin 30 Mg/0.3 Ml Syringe SUB-Q 30 mg DAILY [facility] Administration Ferrous Sulfate 325 mg 10/09/24 09:00 10/12/24 08:53 Ferrous Sulfate [address] PO 325 mg DAILY [facility] Administration Mirtazapine 30 mg 10/09/24 09:00 10/12/24 08:54 Mirtazapine 30 Mg Tablet PO 30 mg DAILY [facility] Administration Montelukast Sodium 10 mg 10/09/24 09:00 10/12/24 08:52 Montelukast Sodium 10 Mg Tablet PO 10 mg DAILY [facility] Administration Morphine Sulfate 1 mg 10/08/24 22:36 10/08/24 22:54 Morphine Sulfate (*Crx) 2 Mg/Ml Inj IV PUSH 1 mg Q4H PRN Administration Pain Rated 7-10 Oseltamivir Phosphate 30 mg 10/11/24 13:00 10/12/24 08:53 Oseltamivir Phosphate 30 Mg Capsule PO 10/15/24 09:01 30 mg DAILY [facility] Administration Oxycodone HCl 2.5 mg 10/08/24 18:37 Oxycodone Hcl (*Crx) 2.5 Mg Tab Ir PO Q8H PRN Pain, Severe Oxycodone/Acetaminophen 1 tablet 10/08/24 18:36 Oxycodone/Acetaminophen (*Crx) 5-325 Mg Tablet PO Q8H PRN Pain, Severe Pantoprazole Sodium 40 mg 10/09/24 09:00 10/12/24 08:50 Pantoprazole Sodium Iv 40 Mg Vial IV PUSH 40 mg QAM KALA Administration Polyethylene Glycol 17 gm 10/12/24 09:00 10/12/24 08:49 Polyethylene Glycol 3350 17 Gm Powd.Pack PO 17 gm QAM KALA Administration Polyethylene Glycol 17 gm 10/11/24 10:07 Polyethylene Glycol 3350 17 Gm Powd.Pack PO QAM PRN Constipation Sulfasalazine 1,000 mg 10/08/24 18:35 10/12/24 16:33 Sulfasalazine 500 Mg Tablet PO 1,000 mg TID KALA Administration Radiology Results: ITS Impressions Head CT 10/08/24 11:02 IMPRESSION: 1. 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 No acute intracranial process. 2. Normal aging brain with mild diffuse volume loss and moderate scattered white matter hypoattenuation consistent with chronic small vessel ischemic disease. Chest/Abdomen/Pelvis CT 10/08/24 11:07 IMPRESSION: 1. Severe emphysema. Head/Neck CTA 10/08/24 12:08 IMPRESSION: 1. Moderate nonspecific cerebral white matter disease, which likely represents chronic small vessel ischemic disease. 2. 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 Multifocal moderate stenosis of cervical left vertebral artery. 3. 0% stenosis of the proximal internal carotid arteries relative to normal distal artery lumen diameters (NASCET criteria). Brain MRI 10/09/24 10:28 IMPRESSION: 1. 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 2. Moderate nonspecific cerebral white matter disease, which likely represents chronic small vessel ischemic disease. Modified Barium Swallow 10/09/24 12:57 IMPRESSION: 1. Aspiration. 2. Please refer to the speech therapy report for recommendations. Chest X-Ray 10/11/24 15:41 IMPRESSION: 1. Severe emphysema.
[2024-10-13] MEDS: ENOXAPARIN 30 MG/0.3 ML SYRINGE SUB-Q (09:17)
[2024-10-13] MEDS: polyethylene glycoL 3350 17 GM POWD.PACK PO (09:17)
[2024-10-13] MEDS: AMOXICILLIN/CLAVULANATE K 500-125 MG TAB 1 TABLET PO (09:18)
[2024-10-13] MEDS: CYANOCOBALAMIN 1,000 MCG TABLET 1000 MCG PO (09:18)
[2024-10-13] MEDS: MONTELUKAST SODIUM 10 MG TABLET PO (09:18)
[2024-10-13] MEDS: ASPIRIN 81 MG ENTERIC TABLET PO (09:18)
[2024-10-13] MEDS: sulfaSALAzine 500 MG TABLET 1000 MG PO ×2 (09:18→12:31)
[2024-10-13] MEDS: OSELTAMIVIR PHOSPHATE 30 MG CAPSULE PO (09:18)
[2024-10-13] MEDS: MIRTAZAPINE 30 MG TABLET PO (09:18)
[2024-10-13] MEDS: FERROUS SULFATE 325 MG TABLET DR PO (09:18)
[2024-10-13] MEDS: PANTOPRAZOLE SODIUM IV 40 MG VIAL IV PUSH (09:18)
[2024-10-13] MEDS: ATORVASTATIN 5 MG TABLET PO (09:18)
[2024-10-13] MEDS: BENZONATATE 100 MG CAPSULE PO ×2 (09:18→12:31)
--- NOTE | 2024-10-13 12:42 | WPDNEUROPN ---
Subjective Date/time seen: 10/13/24 12:42 Interval history: Discussed with the patient's daughter, regarding the tremor which are not parkinsonian more of like action tremor there is no specific treatment is being started because of the is stable medical status. Patient does have underlying vertebral artery stenosis for which I have discussed with her daughter no surgical intervention or stenting is being considered patient can be continued on aspirin and Plavix and she is anxious to go home can be discharged. Objective Data Vital Signs Vital Signs: Vital Signs - 24 hr 10/12/24 13:57 10/12/24 14:28 10/12/24 14:28 Temperature 36.9 C Pulse Rate 64 92 Respiratory Rate 16 16 Blood Pressure 137/80 Pulse Oximetry 94 96 Oxygen Delivery Nasal Cannula Oxygen Flow Rate 2 10/12/24 14:39 10/12/24 20:00 10/12/24 20:22 Temperature 36.5 C Pulse Rate 92 109 H Respiratory Rate 16 18 Blood Pressure 124/75 Pulse Oximetry 97 97 Oxygen Delivery Nasal Cannula Oxygen Flow Rate 2 10/12/24 20:25 10/12/24 20:28 10/12/24 20:45 Temperature Pulse Rate 109 H 109 H Respiratory Rate 18 18 Blood Pressure Pulse Oximetry 97 Oxygen Delivery Nasal Cannula Oxygen Flow Rate 2 10/13/24 02:31 10/13/24 02:40 10/13/24 03:51 Temperature 37.0 C Pulse Rate 96 96 105 H Respiratory Rate 16 16 18 Blood Pressure 127/78 Pulse Oximetry 98 Oxygen Delivery Oxygen Flow Rate 10/13/24 07:32 10/13/24 07:32 10/13/24 07:50 Temperature Pulse Rate 97 99 Respiratory Rate 20 20 Blood Pressure Pulse Oximetry 98 Oxygen Delivery Nasal Cannula Oxygen Flow Rate 2 10/13/24 09:29 Temperature Pulse Rate Respiratory Rate Blood Pressure Pulse Oximetry 94 Oxygen Delivery Nasal Cannula Oxygen Flow Rate 2 Intake/Output Intake/Output: Intake & Output 10/10/24 10/11/24 10/12/24 10/13/24 23:59 23:59 23:59 23:59 Intake Total 2470 1989 650 530 Balance 2470 1989 650 530 Meds/Results Medications: Active Medications Generic Name Dose Route Start Last Admin Trade Name Freq PRN Reason Stop Dose Admin Albuterol 2.5 mg 10/08/24 18:29 Albuterol Sulfate Neb 2.5 Mg/3 Ml Inh NEBULIZE Q4HRT PRN wheezing Albuterol/Ipratropium 3 ml 10/11/24 14:00 10/13/24 07:30 Ipratropium 0.5 Mg/Albuterol Sulfate 2.5 Mg Ampul.Neb 3 Ml INHALATION 3 ml Q6HRT KALA Administration Amoxicillin/Clavulanate Potassium 1 tablet 10/12/24 21:00 10/13/24 09:18 Amoxicillin/Clavulanate K 500-125 Mg Tab PO 10/18/24 21:01 1 tablet Q12HR KALA Administration Aspirin 81 mg 10/09/24 09:00 10/13/24 09:18 Aspirin 81 Mg Enteric Tablet PO 81 mg DAILY KALA Administration Atorvastatin Calcium 5 mg 10/09/24 09:00 10/13/24 09:18 Atorvastatin 5 Mg Tablet PO 5 mg DAILY KALA Administration Benzonatate 100 mg 10/11/24 13:00 10/13/24 12:31 Benzonatate 100 Mg Capsule PO 100 mg TID KALA Administration Budesonide 0.5 mg 10/11/24 20:00 10/13/24 07:30 Budesonide Respule Neb 0.5 Mg/2 Ml Amp INHALATION 0.5 mg Q12HRT KALA Administration Cyanocobalamin 1,000 mcg 10/09/24 09:00 10/13/24 09:18 Cyanocobalamin 1,000 Mcg Tablet PO 1,000 mcg DAILY KALA Administration Enoxaparin Sodium 30 mg 10/09/24 09:00 10/13/24 09:17 Enoxaparin 30 Mg/0.3 Ml Syringe SUB-Q 30 mg DAILY [facility] Administration Ferrous Sulfate 325 mg 10/09/24 09:00 10/13/24 09:18 Ferrous Sulfate [address] PO 325 mg DAILY KALA Administration Mirtazapine 30 mg 10/09/24 09:00 10/13/24 09:18 Mirtazapine 30 Mg Tablet PO 30 mg DAILY [facility] Administration Montelukast Sodium 10 mg 10/09/24 09:00 10/13/24 09:18 Montelukast Sodium 10 Mg Tablet PO 10 mg DAILY [facility]AL[facility] Administration Morphine Sulfate 1 mg 10/08/24 22:36 10/08/24 22:54 Morphine Sulfate (*Crx) 2 Mg/Ml Inj IV PUSH 1 mg Q4H PRN Administration Pain Rated 7-10 Oseltamivir Phosphate 30 mg 10/11/24 13:00 10/13/24 09:18 Oseltamivir Phosphate 30 Mg Capsule PO 10/15/24 09:01 30 mg DAILY KALA Administration Oxycodone HCl 2.5 mg 10/08/24 18:37 Oxycodone Hcl (*Crx) 2.5 Mg Tab Ir PO Q8H PRN Pain, Severe Oxycodone/Acetaminophen 1 tablet 10/08/24 18:36 Oxycodone/Acetaminophen (*Crx) 5-325 Mg Tablet PO Q8H PRN Pain, Severe Pantoprazole Sodium 40 mg 10/09/24 09:00 10/13/24 09:18 Pantoprazole Sodium Iv 40 Mg Vial IV PUSH 40 mg QAM KALA Administration Polyethylene Glycol 17 gm 10/12/24 09:00 10/13/24 09:17 Polyethylene Glycol 3350 17 Gm Powd.Pack PO 17 gm QAM KALA Administration Polyethylene Glycol 17 gm 10/11/24 10:07 Polyethylene Glycol 3350 17 Gm Powd.Pack PO QAM PRN Constipation Sulfasalazine 1,000 mg 10/08/24 18:35 10/13/24 12:31 Sulfasalazine 500 Mg Tablet PO 1,000 mg TID KALA Administration Radiology Results: ITS Impressions Head CT 10/08/24 11:02 IMPRESSION: 1. 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 No acute intracranial process. 2. Normal aging brain with mild diffuse volume loss and moderate scattered white matter hypoattenuation consistent with chronic small vessel ischemic disease. Chest/Abdomen/Pelvis CT 10/08/24 11:07 IMPRESSION: 1. Severe emphysema. Head/Neck CTA 10/08/24 12:08 IMPRESSION: 1. Moderate nonspecific cerebral white matter disease, which likely represents chronic small vessel ischemic disease. 2. 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 Multifocal moderate stenosis of cervical left vertebral artery. 3. 0% stenosis of the proximal internal carotid arteries relative to normal distal artery lumen diameters (NASCET criteria). Brain MRI 10/09/24 10:28 IMPRESSION: 1. 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 2. Moderate nonspecific cerebral white matter disease, which likely represents chronic small vessel ischemic disease. Modified Barium Swallow 10/09/24 12:57 IMPRESSION: 1. Aspiration. 2. Please refer to the speech therapy report for recommendations. Chest X-Ray 10/11/24 15:41 IMPRESSION: 1. Severe emphysema.
--- NOTE | 2024-10-13 14:06 | P.DS_ITS ---
DS: Admitting Diagnosis Discharge Date 10/13/24 Admitting Diagnosis (1) Pulmonary hypertension: Code(s): I27.20 - Pulmonary hypertension, unspecified Status: Acute (2) (HFpEF) heart failure with preserved ejection fraction: Qualifiers: Heart failure chronicity: chronic Qualified Code(s): I50.32 - Chronic diastolic (congestive) heart failure Code(s): I50.30 - Unspecified diastolic (congestive) heart failure Status: Chronic (3) Atrial fibrillation: Qualifiers: Atrial fibrillation type: unspecified Qualified Code(s): I48.91 - Unspecified atrial fibrillation Code(s): I48.91 - Unspecified atrial fibrillation Status: Chronic (4) PAD (peripheral artery disease): Code(s): I73.9 - Peripheral vascular disease, unspecified Status: Acute (5) Crohn's disease with complication: Qualifiers: Gastrointestinal tract location: unspecified location Qualified Code(s): K50.919 - Crohn's disease, unspecified, with unspecified complications Code(s): K50.919 - Crohn's disease, unspecified, with unspecified complications Status: Acute (6) Chronic obstructive pulmonary disease: Qualifiers: COPD type: unspecified COPD Qualified Code(s): J44.9 - Chronic obstructive pulmonary disease, unspecified Code(s): J44.9 - Chronic obstructive pulmonary disease, unspecified Status: Acute (7) Chronic hypoxemic respiratory failure: Code(s): J96.11 - Chronic respiratory failure with hypoxia Status: Acute (8) Severe protein-calorie malnutrition: Code(s): E43 - Unspecified severe protein-calorie malnutrition Status: Acute DS: Discharge Diagnosis Discharge Diagnosis (1) Pulmonary hypertension: Code(s): I27.20 - Pulmonary hypertension, unspecified Status: Acute (2) (HFpEF) heart failure with preserved ejection fraction: Qualifiers: Heart failure chronicity: chronic Qualified Code(s): I50.32 - Chronic diastolic (congestive) heart failure Code(s): I50.30 - Unspecified diastolic (congestive) heart failure Status: Chronic (3) Atrial fibrillation: Qualifiers: Atrial fibrillation type: unspecified Qualified Code(s): I48.91 - Unspecified atrial fibrillation Code(s): I48.91 - Unspecified atrial fibrillation Status: Chronic (4) PAD (peripheral artery disease): Code(s): I73.9 - Peripheral vascular disease, unspecified Status: Acute (5) Crohn's disease with complication: Qualifiers: Gastrointestinal tract location: unspecified location Qualified Code(s): K50.919 - Crohn's disease, unspecified, with unspecified complications Code(s): K50.919 - Crohn's disease, unspecified, with unspecified complications Status: Acute (6) Chronic obstructive pulmonary disease: Qualifiers: COPD type: unspecified COPD Qualified Code(s): J44.9 - Chronic obstructive pulmonary disease, unspecified Code(s): J44.9 - Chronic obstructive pulmonary disease, unspecified Status: Acute (7) Chronic hypoxemic respiratory failure: Code(s): J96.11 - Chronic respiratory failure with hypoxia Status: Acute (8) Severe protein-calorie malnutrition: Code(s): E43 - Unspecified severe protein-calorie malnutrition Status: Acute DS: Summary Hospital Course Hospital Course: This is an 89-year-old female patient who lives at home with her granddaughter. Patient awoke this morning around 4:00 a.m. experiencing jaw tremors that were intermittent every few minutes and nonpainful. Once the patient was able to reach the granddaughter and the granddaughter witnessed these events they called EMS for possible seizures. Patient brought to our emergency department and evaluated with multiple episodes witnessed by care team. Initially these were isolated to the face and jaw and did affect speech at time of event but throughout the day episodes became more frequent and began to involve more aspects of the body. Workup in the emergency department included a noncontrast CT scan of the head as well as CTA of the head neck and CT abdomen pelvis. 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 CTA shows stenosis of the left vertebral artery and nonspecific cerebellar white matter disease consistent with chronic small-vessel ischemic disease. Internal carotids are 0% stenosed. Neurology will be on service and consulted tomorrow and MRI has been ordered by the ER. Initial suspicion from ER provider was diaphragmatic spasms causing these episodes of tremors. Throughout the day the episodes have become more frequent and involve more of the patient's body now including the jaw, face, eyes, upper extremities and to a certain extent the torso. Patient was using mouth swabs and had tremor episode leading to possible aspiration. She was made NPO and speech therapy swallow study was ordered. On time of my exam patient having multiple 5-10 second spasms every minute however there is no loss of cognition or consciousness. Patient's voice does stutter then stop until the spasm resolves then she can speak normally until the next event. Patient stated she could not sleep last night and thinks that the more tired she gets the more often these episodes are happening. Long time spent at bedside discussing case with patient and her granddaughter. Ordered IV fluids for hydration as patient also has SAUNDRA and mild hyperkalemia on labs. Patient denies any pain, shortness of breath, nausea, vomiting, constipation or diarrhea. Granddaughter states patient has lost about 20 pounds since June 2024. Patient reports that she uses supplemental oxygen and has for about the last 8-10 years. Granddaughter reports that patient was started on mirtazapine about a month ago and dose was recently escalated from 15 mg to 30 mg to attempt to stimulate appetite. The following med issues have been addressed during hospitalization Tremor: Code(s): R25.1 - Tremor, unspecified Status: Acute Assessment and Plan: -For lack of better descriptor, tremor of the jaw/face was presenting complaint but now involving most of the upper body -ER provider felt this may have been caused by diaphragmatic spasm -Episodes more frequent and more severe throughout the day -Now happening a few times per minute and lasting about 5-10 seconds on average with some shorter and some longer -No history of Parkinson's or seizures -Patient awake and alert, able to hear and recall/respond to questions asked during event -Does affect speech, causing stutter or complete stoppage of speech during event -Patient reports no sleep last night -NPO because she had cough/choking episode from mouth swab during tremor episode -Speech Therapy consulted for swallow study -CTA shows left vertebral artery stenosis but no signs of acute stroke, MRI ordered -Neurology consulted, will be on service tomorrow (10/09) -EEG ordered, unsure if this can be done over the weekend -Patient may need transfer for higher level of Neurology care but at this time vitals are stable and she has no airway compromise -IM Thorazine 25 mg x1 given to see if this would help decrease episodes and allow patient to get some rest 10/09, no tremor today, pending brain MRI. I discussed case with Dr. Rojo, he will see pt today MRI of brain 10/09 1. 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 2. Moderate nonspecific cerebral white matter disease, which likely represents chronic small vessel ischemic disease. 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 Patient is receiving aspirin 81mg daily Management per neurologist att Plavix 75 mg daily p.o. per neurologist recommendation Dysphagia: Code(s): R13.10 - Dysphagia, unspecified Status: Acute Assessment and Plan: -Coughing/choking episode due to mouth swab during tremor event -NPO for now -ST consult for swallow study -IV fluids for hydration and IV/IM medications when possible -Potentially may need to discuss feeding tube barium swallowing test: . Aspiration. Re-evaluation. Resolved, Sepsis patient has leukocytosis 12,800, tachycardia tachypnea CT shows severe emphysema UA unremarkable Patient has hypoxemia Possible early stage aspiration Received Unasyn IV changed to Augmentin since October 12, will finish last does October 18 per ID pharmacist recommendation Influenza A infection Patient has sneezing and coughing intermittent today Coarse breath sound bilateral lung Repeated screening positive for influenza A today, on the admission day, influenza a was negative Suspecting infection from family visit Start Tamiflu p.o. DuoNeb scheduled q.6 hours, albuterol nebulizer q4h prn Repeat chest x-ray, showed emphysema SAUNDRA (acute kidney injury): Code(s): N17.9 - Acute kidney failure, unspecified Status: Acute Assessment and Plan: -Cr 1.41, BUN 49, eGFR 35 and estimated creatinine clearance 14 -Labs similar on 09/16/24 but in December of 2023 Cr 0.7, BUN 16, eGFR >60 and estim cr clear 29 -NPO due to dysphagia -IV fluids LR at 45 mL/hr (weight 34.8 kg and hx HFpEF) change to D51/2NS 100ML/H resolved 10/10 dc iv fluid 10/11 Severe protein-calorie malnutrition: Code(s): E43 - Unspecified severe protein-calorie malnutrition Status: Acute Assessment and Plan: Severely underweight with BMI 15 Weight loss of about 20 pounds since June 2024 per family report (HFpEF) heart failure with preserved ejection fraction: Qualifiers: Heart failure chronicity: chronic Qualified Code(s): I50.32 - Chronic diastolic (congestive) heart failure Code(s): I50.30 - Unspecified diastolic (congestive) heart failure Status: Chronic Assessment and Plan: -Cautious use of diuretics PRN, careful to balance fluid volume status against SAUNDRA -Resume home oral meds when able to take PO after swallow study HTN (hypertension): Onset Date: 02/06/15 Qualifiers: Hypertension type: primary hypertension Qualified Code(s): I10 - Essential (primary) hypertension Code(s): I10 - Essential (primary) hypertension Status: Chronic Assessment and Plan: -Hold lisinopril due to SAUNDRA -May need PRN IV labetalol or hydralazine if significantly elevated blood pressure resume home meds on discharge Atrial fibrillation: Qualifiers: Atrial fibrillation type: unspecified Qualified Code(s): I48.91 - Unspecified atrial fibrillation Code(s): I48.91 - Unspecified atrial fibrillation Status: Chronic Assessment and Plan: -Heart sounds and peripheral pulse regular at time of exam -Patient not on home anticoagulation, likely due to frail nature Mixed hyperlipidemia: Code(s): E78.2 - Mixed hyperlipidemia Status: Chronic Assessment and Plan: -Resume home medication Plan Modified Code status: Full treatment at this time but if heart stops no CPR, if breathing stops no intubation, contact family if elective intubation being considered for presumed short term needs Patient family request discharge patient home and declines rehab in long-term Time Spent with Patient Time attestation: Total time spent providing and/or coordinating discharge services: Exam Narrative: GENERAL: Pleasant, in no acute distress. Severe malnutrition - EYES: EOMI. Anicteric. - HENT: Moist mucous membranes. - LUNGS: Lungs clear bilaterally - CARDIOVASCULAR: Regular rate and rhyth m. No murmur. No JVD. - ABDOMEN: Soft, non-tender and non-dist ended. No palpable masses. - EXTREMITIES: No edema. Peripheral puls es 2+. Non-tender. - NEUROLOGIC: No focal neurological defi cits. CN II-XII grossly intact. General weakness - PSYCHIATRIC: Awake, Alert and oriented x 3. Appropriate mood and affect. - SKIN: No rashes or lesions. Warm. - LYMPH: No cervical lymphadenopathy. Discharge Plan Discharge Attending physician on discharge: Meenu Valle Consulting providers: Cortez Rojo Discharging Clinician: Meenu Valle Anticipated Discharge Date/Time: 10/13/24 14:06 Patient Disposition: Home, Self-Care Activity: as tolerated Diet: as tolerated and heart healthy Patient Instructions: Antibiotic Form Patient Language: Mauritian Stand Alone Forms: General Discharge Information Follow-up/Referrals: Jaden Gardner MD [Primary Care Provider] - (See primary doctor in 1 week) Discharge Medications: New polyethylene glycol 3350 [Miralax] 17 gram Powder In Packet 17 g PO QAM Qty: 30 0RF amoxicillin-pot clavulanate [Augmentin] 500-125 mg Tablet 1 tablet PO Q12HR Qty: 10 0RF oseltamivir [Tamiflu] 30 mg Capsule 30 mg PO DAILY Qty: 7 0RF Continued oxycodone-acetaminophen 7.5-325 mg tablet 1 tablet PO Q8H PRN (Reason: Pain, Severe) aspirin [Adult Low Dose Aspirin] 81 mg tablet,delayed release (DR/EC) 81 mg PO DAILY atorvastatin 10 mg tablet 5 mg PO DAILY Qty: 90 2RF potassium chloride 20 mEq tablet extended release 20 meq PO DAILY Qty: 90 1RF budesonide 0.5 mg/2 mL suspension for nebulization See Rx Instructions .ROUTE .COMPLEX Qty: 60 11RF Dose Instruction: USE 1 VIAL IN NEBULIZER TWICE DAILY - Rinse mouth after use Rx Instructions: USE 1 VIAL IN NEBULIZER TWICE DAILY - Rinse mouth after use albuterol sulfate 2.5 mg /3 mL (0.083 %) solution for nebulization See Rx Instructions .ROUTE .COMPLEX Qty: 30 11RF Dose Instruction: USE 1 VIAL IN NEBULIZER DAILY - As needed (for rescue) shortness of breath. Rx Instructions: USE 1 VIAL IN NEBULIZER DAILY - As needed (for rescue) shortness of breath. ipratropium bromide 0.02 % solution See Rx Instructions .ROUTE .COMPLEX Qty: 120 11RF Dose Instruction: USE 1 VIAL IN NEBULIZER 4 TIMES DAILY - As needed for shortness of breath Rx Instructions: USE 1 VIAL IN NEBULIZER 4 TIMES DAILY - As needed for shortness of breath arformoterol 15 mcg/2 mL solution for nebulization See Rx Instructions .ROUTE .COMPLEX Qty: 60 11RF Dose Instruction: USE 1 VIAL IN NEBULIZER TWICE DAILY - Morning and evening Rx Instructions: USE 1 VIAL IN NEBULIZER TWICE DAILY - Morning and evening mecobalamin (vitamin B12) 1,000 mcg tablet,chewable 1,000 mcg PO DAILY Qty: 90 3RF montelukast 10 mg tablet 10 mg PO DAILY Qty: 30 5RF Rx Instructions: Take 1 tablet by mouth once daily lisinopril 20 mg tablet 20 mg PO DAILY Qty: 90 1RF Rx Instructions: Take 1 tablet by mouth daily esomeprazole magnesium 40 mg capsule,delayed release(DR/EC) See Rx Instructions .ROUTE .COMPLEX Qty: 90 0RF Dose Instruction: TAKE ONE CAPSULE ORALLY DAILY Rx Instructions: TAKE ONE CAPSULE ORALLY DAILY ergocalciferol (vitamin D2) 1,250 mcg (50,000 unit) capsule See Rx Instructions .ROUTE .COMPLEX Qty: 12 0RF Dose Instruction: TAKE ONE CAPSULE BY MOUTH EVERY 2 WEEKS. Rx Instructions: TAKE ONE CAPSULE BY MOUTH EVERY 2 WEEKS. furosemide 40 mg tablet 40 mg PO QAM Qty: 90 1RF sulfasalazine 500 mg tablet See Rx Instructions .ROUTE .COMPLEX Qty: 180 0RF Dose Instruction: TAKE TWO TABLETS BY MOUTH THREE TIMES A DAY Rx Instructions: TAKE TWO TABLETS BY MOUTH THREE TIMES A DAY alendronate 70 mg tablet 70 mg PO WEEKLY Qty: 12 1RF Rx Instructions: Take 1 tablet by mouth once a week ferrous sulfate 325 mg (65 mg iron) tablet 325 mg PO DAILY Qty: 90 1RF Rx Instructions: Take 1 tablet by mouth once daily mirtazapine 30 mg tablet 30 mg PO DAILY Qty: 7 0RF albuterol sulfate 90 mcg/actuation HFA aerosol inhaler 2 inh inhalation Q4-6H PRN (Reason: shortness of breath or wheezing) Qty: 8.5 2RF Date of admission: 10/09/24 11:17 Primary Care Provider: Jaden Gardner Admitting Provider: Leobardo Birmingham Attending physician on admission: Leobardo Birmingham Condition: Serious
== END 2024-10-13 15:50 | disposition home or self-care (01) | DRG 871 ==
LOC: ANHED 07:56 → ANH3MEDSUR 15:36 → ANH2MED 10-13 14:07 → ANH3MEDSUR 10-15 08:56
PROVIDERS: Admitting Provider Internal Medicine; Emergency Provider Emergency Medicine; PCP Family Medicine; Visit Provider Hospitalist
DX: A41.89 Other specified sepsis (principal); E43 Unspecified severe protein-calorie malnutrition; J96.11 Chronic respiratory failure with hypoxia; N17.9 Acute kidney failure, unspecified; I50.32 Chronic diastolic (congestive) heart failure; I48.20 Chronic atrial fibrillation, unspecified; K50.919 Crohn's disease, unspecified, with unspecified complications; Z68.1 Body mass index [BMI] 19.9 or less, adult; R25.1 Tremor, unspecified; J10.1 Influenza due to other identified influenza virus with other respiratory manifestations; T17.990A Other foreign object in respiratory tract, part unspecified in causing asphyxiation, initial encounter; I11.0 Hypertensive heart disease with heart failure; R13.10 Dysphagia, unspecified; K21.9 Gastro-esophageal reflux disease without esophagitis; J44.9 Chronic obstructive pulmonary disease, unspecified; E78.2 Mixed hyperlipidemia; I65.09 Occlusion and stenosis of unspecified vertebral artery; I65.02 Occlusion and stenosis of left vertebral artery; I73.9 Peripheral vascular disease, unspecified; M81.0 Age-related osteoporosis without current pathological fracture; Z79.82 Long term (current) use of aspirin; Z86.73 Personal history of transient ischemic attack (TIA), and cerebral infarction without residual deficits; Z86.711 Personal history of pulmonary embolism; Z87.891 Personal history of nicotine dependence
CPT/HCPCS: 36415; 36600; 70450; 70496; 70498; 70553; 71045; 71260; 74177; 80048; 80053; 81003; 82805; 83735; 85018; 85025; 85610; 85730; 87637; 92526; 92611; 94640; 94762; 95816; 96372; 96374; 96375; 96376; 99285; A9270; A9577; G0378; J0295; J1650; J2270; J2470; J3230; J7030; J7120; Q9967

== ENCOUNTER 2025-02-25 19:22 | Inpatient (IN) | payer MEDICARE, SELFPAY ==
--- NOTE | ~2025-02-25 | XR_ITS ---
CHEST RADIOGRAPH CLINICAL HISTORY: Cough . COMPARISON: 02/27/2025 and dating back to 09/16/2024. Reference is also made to CT examination of the c hest abdomen and pelvis dated 10/08/2024 TECHNIQUE: Single portable view of the chest. FINDINGS Retained oral contrast within the esophagus and projecting over the right hilum, consistent with rece nt modified barium swallow. The remainder of the cardiomediastinal silhouette is otherwise unremarkable. Bibasilar increased interstitial markings are noted, consistent with either atelectasis versus consol idation. The remainder of the lungs are clear. IMPRESSION: Retained oral contrast projecting over the esophagus and right hilum, as detailed above. Reviewed, dictated and finalized at location A. IMPRESSION: Retained oral contrast projecting over the esophagus and right hilum, as detail ed above.
--- NOTE | ~2025-02-25 | XR_ITS ---
CHEST RADIOGRAPH CLINICAL HISTORY: sob . COMPARISON: 10/11/2024 TECHNIQUE: Single portable view of the chest. Examination is limited by patient rotation (towards the ir left side). FINDINGS The cardiomediastinal silhouette is unremarkable. Panlobular emphysema. Hazy opacification of the right heart border, secondary to rotation versus a focal infiltrate. The remainder of the lungs are clear. IMPRESSION: Possible right middle lobe infiltrate, as detailed above. Reviewed, dictated and finalized at location A.
--- NOTE | ~2025-02-25 | XR_ITS ---
EXAMINATION: XR chest 1V portable Exam Date/Time: 02/27/2025 14:35 CDT HISTORY: increased o2 requirement Comparison: 02/25/2025. RESULT: Lines, tubes, and devices: None. Lungs and pleura: Emphysematous/senescent change. Streaky left basilar opacities. Patchy subsegmenta l right basilar airspace disease. Minimal bilateral costophrenic angle blunting. Cardiomediastinal silhouette: Stable. Dilated central pulmonary arteries as can be seen with pulmona ry hypertension. Other: No acute osseous or upper abdominal finding. IMPRESSION: Subsegmental bibasilar atelectasis/consolidation. Trace bilateral pleural effusions versus chronic pl eural blunting. Reviewed, dictated and finalized at location K. IMPRESSION: Subsegmental bibasilar atelectasis/consolidation. Trace bilateral pleural effus ions versus chronic pleural blunting.
--- NOTE | ~2025-02-25 | XR_ITS ---
MODIFIED ESOPHAGRAM HISTORY: Evaluate cough TECHNIQUE: Modified barium esophagram was performed by speech pathologist under radiologist fluorosco pic guidance. This was recorded on tape. The exam was reviewed on 02/28/2025 14:07 CDT. The DAP for this procedure was 1.568 Gycm2. Fluoroscopy time is 4.4 minutes. FINDINGS: Lateral projection of the cervical spine demonstrates significant age-appropriate degener ative disease. Laryngeal penetration is identified with thin, pureed, and moderately thick liquids. A spiration identified with thin and pureed. IMPRESSION: As above. Reviewed, dictated and finalized at location A. IMPRESSION: As above.
--- NOTE | 2025-02-25 19:35 | ECG_ITS ---
Test Date: 2025-02-25 21:57:53 Measurements Intervals Shorter Rate: 116 P: 77 OH: 124 QRS: -69 QRSD: 123 T: 87 QT: 318 QTc: 443 Interpretive Statements SINUS TACHYCARDIA WITH SUPRAVENTRICULAR BIGEMINY RIGHT BUNDLE BRANCH BLOCK LEFT ANTERIOR FASCICULAR BLOCK CANNOT R/O SEPTAL INFARCT, AGE INDETERMINATE BORDERLINE ST-T WAVE ABNORMALITY- HIGH LATERAL LEADS BASELINE ARTIFACT- I, II, III, AVL, AVF, V2-V6 ABNORMAL ECG No previous ECG available for comparison Electronically Signed On 02-26-2025 07:24:15 CDT by Gato Fisher D.O.
[2025-02-25 19:38] VITALS: BP 113/83; PULSE 106; RESP 24; O2SAT 98
--- NOTE | 2025-02-25 19:38 | ED.GENADULT ---
HPI - General Adult General Chief complaint: Shortness of Breath/Dyspnea Stated complaint: shortness of breath History of Present Illness HPI narrative: 81-year-old female with history of pulmonary hypertension, hypertension, Crohn's disease my AFib, high cholesterol, COPD with oxygen requirement present to the emergency department for evaluation for worsening shortness of breath. Patient was diagnosed with pneumonia at [facility]. Patient had been started on antibiotics and discharged back to her care facility. Family checked on the patient and found that she was more ill-appearing. EMS was called. Patient is normally on 2 L but have been bumped up to 3 L and when EMS arrived patient was saturating at 70% on her normal 3 L. patient was placed on 6 L and brought to the emergency department. Patient is alert at her baseline upon arrival emergency department. Patient is frail and ill-appearing. Prior to Friday patient had lived at home with a family member. Patient had no significant issues with oxygen desaturation at that time. Patient had always been on 2 L of oxygen by nasal cannula. Family member states that she had an upper respiratory viral infection a few weeks ago. Patient was brought to an outside hospital on Friday and admitted through for a bilateral pneumonia. When patient was discharged from the hospital and has been staying [facility] with a family member works at. Today patient had a desaturation down into the 70s even after prolonged rest on 6 L of oxygen after a breathing treatment. Related Data Home Medications ?Medication ?Instructions ?Recorded ?Confirmed ?Last Taken ?Type aspirin 81 mg tablet,delayed 81 mg PO DAILY 09/16/19 02/26/25 10/07/24 History release (Adult Low Dose Aspirin) oxycodone-acetaminophen 7.5 mg-325 1 tablet PO Q8H PRN Pain, Severe 06/05/23 02/26/25 10/07/24 History mg tablet azithromycin 250 mg tablet 250 mg PO 3XW 10/25/24 02/26/25 Unknown History polyethylene glycol 3350 17 gram 17 g PO PRN constipation 02/26/25 02/26/25 Unknown History oral powder packet (Miralax) Allergies Allergy/AdvReac Type Severity Reaction Status Date / Time No Known Allergies Allergy Unknown Verified 10/15/24 14:39 Review of Systems Review of Systems: All systems reviewed & are unremarkable except as noted in HPI and below PMFSH Past Medical History Medical History Pleural effusion Pulmonary embolism Coccyx pain Opacity of lung on imaging study Stroke Abnormal CT scan, lung Osteoporosis (HFpEF) heart failure with preserved ejection fraction Atrial fibrillation Chronic hypoxemic respiratory failure Frailty GERD without esophagitis Hx of completed stroke Mixed hyperlipidemia PAD (peripheral artery disease) Rhinitis Chronic obstructive pulmonary disease Former smoker Hypertension, essential Family History Family History Mother Family history of cardiovascular disease Father Family history of emphysema Family history of chronic obstructive pulmonary disease Sibling Family history of malignant neoplasm Social History Social History Smoking packs per day: 1 Smoking cigarettes per day: 20.0 Years smoked: 40 Smoking pack-years: 40.00 Smoking status: Former smoker Second hand tobacco smoke exposure: No Alcohol intake: former Substance use: never Substance use type: does not use Do You Feel Safe in your Home?: Yes Lack of Transportation: No Lack of Food: Never True Current Housing: I Have Housing Concerned About Future Housing: No Difficulty Paying Gas/Electric Bills: No Difficulty Paying for Meds: No Currently Unemployed: No Education: High School Diploma/GED Difficulty w/ Childcare or Family Care: No Gender identity (if verbalized by the patient): Female Spiritual care concerns: No Exam Narrative: APPEARANCE: Frail and ill-appearing HEAD: normocephalic, atraumatic. EYES: PERRLA/EOMI, conjunctivae clear. NOSE: Normal no drainage EARS:TMS clear with good light reflex. THROAT: Pharynx clear, no exudate. NECK: Supple. No adenopathy, no masses. RESPIRATORY: Congested lung sounds CARDIOVASCULAR: Regular rate and rhythm without murmurs rubs or gallops. ABDOMINAL: Soft, nontender, nondistended, normal bowel sounds MUSCULOSKELETAL: Moves all extremities. Strength/ROM intact, No edema, No calf tenderness. NEURO: Alert. Cranial nerves II through XII intact. Good gait. Good coordination SKIN: Warm, dry. Normal Color Course Vital Signs Vital signs: Vital Signs Pulse Rate 106 H 02/25/25 19:38 Respiratory Rate 24 H 02/25/25 19:38 Blood Pressure 113/83 02/25/25 19:38 Pulse Oximetry 98 02/25/25 19:38 Oxygen Delivery Nasal Cannula 02/25/25 19:38 Oxygen Flow Rate 3 02/25/25 19:38 Temperature 97.3 F L 02/26/25 00:23 Pulse Rate 97 02/26/25 02:31 Respiratory Rate 18 02/26/25 02:31 Blood Pressure 155/61 H 02/26/25 00:23 Pulse Oximetry 95 02/26/25 02:20 Oxygen Delivery Nasal Cannula 02/26/25 02:20 Oxygen Flow Rate 3 02/26/25 02:20 Medical Decision Making MDM Narrative Medical decision making narrative: 89-year-old female presenting to the emergency department for evaluation for worsening exertional hypoxia secondary to recent pneumonia diagnosis. Patient's x-ray does confirm a pneumonia. Patient's lactic acid was elevated at 2.3 patient's CRP was elevated at 3.8. Patient was treated with a L of lactated Ringer's. Patient is afebrile but does have a leukocytosis of 14.5 and hemoglobin of 13.3. Patient's ABG did show pCO2 of 50.8 but this is similar to the patient's baseline. Initially the patient arrived to the emergency department she had an oxygen requirement approximately 6 L but after breathing treatment patient's pulse ox was stable at her typical 2 L. Primary concern was her x-ray and her rapid desaturation with any exertion. Patient's urine was negative for infection. Due to patient being on recent antibiotics and having a recent hospitalization patient was started on cefepime and vanc for her pneumonia. Patient and family were updated the results of the workup plan for admission. Case was discussed with hospitalist and patient was accepted for admission. Differential Diagnosis Differential Diagnosis: Pneumonia, pneumothorax, COVID, RSV, influenza, COPD Vital Signs Vital Signs: Vital Signs Pulse Rate 106 H 02/25/25 19:38 Respiratory Rate 24 H 02/25/25 19:38 Blood Pressure 113/83 02/25/25 19:38 Pulse Oximetry 98 02/25/25 19:38 Oxygen Delivery Nasal Cannula 02/25/25 19:38 Oxygen Flow Rate 3 02/25/25 19:38 Temperature 97.3 F L 02/26/25 00:23 Pulse Rate 97 02/26/25 02:31 Respiratory Rate 18 02/26/25 02:31 Blood Pressure 155/61 H 02/26/25 00:23 Pulse Oximetry 95 02/26/25 02:20 Oxygen Delivery Nasal Cannula 02/26/25 02:20 Oxygen Flow Rate 3 02/26/25 02:20 Lab Data Lab results reviewed: Yes I reviewed the patient's lab results. 02/25/25 20:49 02/25/25 20:49 Labs: Lab Results 02/25/25 02/25/25 02/25/25 Range/Units 19:52 20:49 20:50 WBC 14.5 H (4.5-10.0) K/mm3 RBC 4.79 (4.2-5.4) M/mm3 Hgb 13.3 (12.0-15.0) g/dL Hct 45.8 (37.0-47.0) % MCV 95.6 (80-100) fl MCH 27.8 (26-34) pg MCHC 29.0 L (32-36) g/dl RDW 12.6 (11.5-14.5) % Plt Count 442 H D (150-375) k/mm3 MPV 10.4 (7.4-10.4) fl Immature Gran % (Auto) Not Reportable Neut % (Auto) Not Reportable Lymph % (Auto) Not Reportable [place] % (Auto) Not Reportable Eos % (Auto) Not Reportable Baso % (Auto) Not Reportable Lymph # (Auto) Not Reportable [place] # (Auto) Not Reportable Eos # (Auto) Not Reportable Baso # (Auto) Not Reportable Abs Immat Gran (auto) Not Reportable Absolute Neuts (auto) Not Reportable Absolute Nucleated RBC Not Reportable Total Counted 100 Neutrophils % (Manual) 95 H (46-73) % Band Neutrophils % 0 (0-6) % Lymphocytes % (Manual) 1.0 L (18-44) % Monocytes % (Manual) 4 (3-9) % Nucleated RBC % Not Reportable Abs Neuts (Manual) 13.77 H (1.3-6.7) K/mm3 Abs Lymphs (Manual) 0.14 L (1.1-4.5) K/mm3 Abs Monocytes (Manual) 0.58 (0.1-0.90) K/mm3 Platelet Estimate Increased (Adequate) Hypochromasia 1+ Schistocytes None seen PT 11.9 (11.1-14.7) Seconds INR 0.9 APTT 37.3 H (22.3-36.8) Seconds Methemoglobin 0.4 (0-1.5) %THb Sodium 141 (137-145) mmol/L Potassium 4.0 (3.4-5.0) mmol/L Chloride 89 L (98-107) mmol/L Carbon Dioxide 37 H (22-30) mmol/L Anion Gap 15 H (4-12) mmol/L BUN 25 H D (7-17) mg/dL Creatinine 1.04 H (0.7-1.0) mg/dL Estim Creat Clear Calc Not Reportable Estimated GFR 50 L (59 - ) Glucose 146 H (65-110) mg/dL Lactic Acid 2.3 H (0.7-2.0) mmol/L Calcium 9.3 (8.4-10.2) mg/dL Total Bilirubin 0.3 (0.2-1.3) mg/dL AST 31 (14-36) U/L ALT 14 (6-35) U/L Alkaline Phosphatase 84 (38-126) U/L C-Reactive Protein 3.8 H (<1.0) mg/dL Total Protein 8.4 H (6.3-8.2) g/dL Albumin 3.9 (3.5-5.1) g/dL ABG Data ABG results: 02/25/25 19:52 Puncture Site Right brachial ABG pH 7.474 H ABG pCO2 50.8 H ABG pO2 68.4 L ABG PO2/FiO2 Ratio 2.14 ABG HCO3 36.5 H ABG O2 Saturation 94.5 L ABG O2 Content 17.2 ABG Base Excess 11.1 A-a Gradient 100.3 Oxyhemoglobin 93.1 Carboxyhemoglobin 0.8 Reduced Hemoglobin 5.7 H Total Hemoglobin 13.1 O2 Delivery Device Nasal cannula O2 Liters/Min 3.0 FiO2 32 Imaging Data Radiologist's impression: Impressions Chest X-Ray 02/25/25 20:47 IMPRESSION: Possible right middle lobe infiltrate, as detailed above. Discharge Plan Discharge Clinical Impression: Pneumonia Patient Disposition: Still a Patient Condition: Serious
[2025-02-25 19:47] VITALS: PULSE 106
[2025-02-25 19:48] VITALS: O2SAT 100
[2025-02-25] MEDS: ALBUTEROL SULFATE NEB 2.5 MG/3 ML INH 5 MG INHALATION (19:53)
[2025-02-25 19:55] VITALS: PULSE 109; RESP 21
[2025-02-25 20:00] VITALS: O2SAT 98
[2025-02-25 20:13] LABS: Alveolar/Arterial O2 Gradient 100.3 mmHg; Carboxyhemoglobin 0.8 % THb (0-2.0); Fractional Inspired Oxygen 32 %; HCO3 ABG 36.5 mEq/l (22.0-26.0); Methemoglobin ABG 0.4 %THb (0-1.5); Oxygen Content ABG 17.2 %vol (16.0-22.0); Oxygen Saturation ABG 94.5 % (95.0-100.0); PCO2 ABG 50.8 mmHg (35.0-45.0); PO2 ABG 68.4 mmHg (80.0-100.0); PO2 FiO2 Ratio Arterial Blood 2.14 %; Reduced Hemoglobin 5.7 %THb (0-5.0)
[2025-02-25 20:14] LABS: Liters per Minute 3.0 LPM; Modified Allen's Test Pass; Site Drawn RIGHT BRACHIAL
[2025-02-25] MEDS: LACTATED RINGERS 1,000 ML 999 ML IV CONT (20:28)
[2025-02-25 20:59] LABS: Hematocrit 45.8 % (37.0-47.0); Hemoglobin 13.3 g/dL (12.0-15.0); Mean Corpuscular HGB Conc 29.0 g/dl (32-36); Mean Corpuscular Hemoglobin 27.8 pg (26-34); Mean Corpuscular Volume 95.6 fl (80-100); Platelet Count Result 442 k/mm3 (150-375); Red Blood Count 4.79 M/mm3 (4.2-5.4); White Blood Count 14.5 K/mm3 (4.5-10.0)
[2025-02-25 21:12] LABS: Alanine Aminotransferase 14 U/L (6-35); Albumin Level 3.9 g/dL (3.5-5.1); Alkaline Phosphatase 84 U/L (38-126); Anion Gap 15 mmol/L (4-12); Aspartate Amino Transferase 31 U/L (14-36); Bilirubin,Total 0.3 mg/dL (0.2-1.3); Blood Urea Nitrogen 25 mg/dL (7-17); CRP 3.8 mg/dL (<1.0); Calcium 9.3 mg/dL (8.4-10.2); Carbon Dioxide 37 mmol/L (22-30); Chloride 89 mmol/L (98-107); Estimated Glomerular Filt Rate 50; Glucose 146 mg/dL (65-110); Potassium 4.0 mmol/L (3.4-5.0); Sodium 141 mmol/L (137-145); Total Protein 8.4 g/dL (6.3-8.2)
[2025-02-25 21:16] LABS: INR 0.9; Prothrombin Time 11.9 Seconds (11.1-14.7)
[2025-02-25 21:18] LABS: Partial Thromboplastin Time 37.3 Seconds (22.3-36.8)
[2025-02-25 21:20] LABS: Lymphocytes Absolute Manual 0.14 K/mm3 (1.1-4.5); Lymphocytes Percent Manual 1.0 % (18-44); Monocytes Absolute Manual 0.58 K/mm3 (0.1-0.90); Monocytes Percent Manual 4 % (3-9); Neutrophils Percent Manual 95 % (46-73); Total Cells Counted 100
[2025-02-25 21:21] LABS: Hypochromasia 1+; Schistocytes None Seen
[2025-02-25 21:25] LABS: Band Neutrophils Percent 0 % (0-6); Neutrophils Absolute Manual 13.77 K/mm3 (1.3-6.7)
[2025-02-25] MEDS: CEFEPIME 2 GM/NS 50 ML 2 GM/50 ML BAG IVPB (22:22)
[2025-02-25] MEDS: VANCOMYCIN 500 MG/NS 100 ML 500 MG/100 ML BAG 100 MG IVPB (22:30)
--- NOTE | 2025-02-25 22:35 | PC.NURSE ---
Dr Jhon aware of failed attempt to do a straight cath for urine. Patient vaginal opening extremely small and caused a large amount of pain for patient. Patient placed onto bedpan instead. Patient unable to void at this time. Granddaughter at bedside and will encourage patient to use bedpan
[2025-02-25 23:26] VITALS: BP 145/62; PULSE 105; RESP 19; TEMP 36.2; O2SAT 94
[2025-02-26] VITALS (14 sets, daily range): BP systolic 140–166; BP diastolic 50–72; PULSE 56–97; RESP 18–22; TEMP 36.3–37; O2SAT 89–100; BMI 13.8
--- NOTE | 2025-02-26 00:15 | ADMGEN ---
This patient, Humaira Moralez, was admitted to Medical Room 246-01. Patient/family oriented to hospital policies and general routines including ID bracelet, bed and alarms, visiting hours, pain management, procedures, bathroom and other care routines, personal items, smoking policy, room service/diet, and visiting hours. Information on how to activate the Rapid Response Team has been discussed. Patient/Family are encouraged to report perceived risks to care and to ask questions if they do not understand what they are told or what they should do.
[2025-02-26 00:58] LABS: MRSA (PCR) NOT DETECTED (NOT DETECTE)
[2025-02-26 01:24] LABS: Add Urine Microscopic? YES; Appearance Urine Clear (Clear); Glucose Urine UA Negative (Negative); Leukocyte Esterase Ur Trace LEU/UL (Negative); Need Manual Microscopic Reviewed; Nitrate Urine Negative (Negative); Specific Grav Ur 1.012 (1.001-1.035)
[2025-02-26] MEDS: ALBUTEROL SULFATE NEB 2.5 MG/3 ML INH INHALATION ×4 (02:15→20:09)
--- NOTE | 2025-02-26 03:25 | P.HP_ITS ---
H&P: HPI History of Present Illness Date/Time: 02/26/25 05:00 Chief Complaint: Shortness of breath. Narrative: This is a very pleasant 89-year-old female with chronic obstructive pulmonary disease, chronic respiratory failure with hypoxia on 2 L home oxygen, heart failure with preserved ejection fraction, paroxysmal atrial fibrillation, pulmonary embolism, cerebrovascular accident, peripheral arterial disease, hypertension, dyslipidemia, and Crohn's disease who presented to the emergency department via EMS from a local rehab facility for evaluation of shortness of breath. The patient lives in her own home in [place] but more recently she has been living with her granddaughter in [place]. She is currently at a local care home facility however after being treated for pneumonia at [facility]. Family members came to visit today and found her more ill- appearing and EMS was summoned. On their arrival her SpO2 was reportedly in the 70s on her usual 3 L nasal cannula. She continues to have a nonproductive cough and overall does not feel great. Her appetite has been fair. She denies fever, chills, sweats, chest pain, pleuritic pain, dysphagia, aspiration, nausea, vomiting, diarrhea, lower extremity edema, and calf pain. In the ED: Vital signs on arrival include a temperature of 97.2?, pulse 106, respiratory rate 24, SpO2 96% on 6 L, and a blood pressure 113/83. Labs are significant for WBC count of 14.5, chloride 89, carbon dioxide 37, anion gap 15, BUN 25, creatinine 1.04, lactic acid 2.3, CRP 3.8. Chest x-ray showed possible right middle lobe infiltrate. She was administered a nebulizer treatment, lactate Ringer's 1 L, cefepime, and vancomycin. She is being admitted in this setting for further treatment of pneumonia and acute kidney injury. Review of Systems Review of Systems: 12 systems were reviewed and are negativ e except for as per HPI. [facility] Past Medical History Medical History Hypertension, essential Crohn's disease Peripheral arterial disease Pulmonary embolism Stroke Osteoporosis (HFpEF) heart failure with preserved ejection fraction Atrial fibrillation Chronic hypoxemic respiratory failure GERD without esophagitis Mixed hyperlipidemia Chronic obstructive pulmonary disease Former smoker Surgical History Surgical History (Updated 02/26/25 @ 05:52 by Marisa Estevez PA-C) History of appendectomy Family History Family History Mother Family history of cardiovascular disease Father Family history of emphysema Family history of chronic obstructive pulmonary disease Sibling Family history of malignant neoplasm Social History Social History (Updated 02/26/25 @ 05:53 by Marisa Estevez PA-C) Social History: Surrogate medical decision maker: Shraddha Moralez, granddaughter. Code status: Full code. Smoking packs per day: 1 Smoking cigarettes per day: 20.0 Years smoked: 40 Smoking pack-years: 40.00 Smoking status: Former smoker Second hand tobacco smoke exposure: No Alcohol intake: former Substance use: never Substance use type: does not use Do You Feel Safe in your Home?: Yes Lack of Transportation: No Lack of Food: Never True Current Housing: I Have Housing Concerned About Future Housing: No Difficulty Paying Gas/Electric Bills: No Difficulty Paying for Meds: No Currently Unemployed: No Education: High School Diploma/GED Difficulty w/ Childcare or Family Care: No Spiritual care concerns: No Meds Home Medications and Allergies Home Medications ?Medication ?Instructions ?Recorded ?Confirmed ?Type aspirin 81 mg tablet,delayed 81 mg PO DAILY 09/16/19 02/26/25 History release (Adult Low Dose Aspirin) oxycodone-acetaminophen 7.5 mg-325 1 tablet PO Q8H PRN Pain, Severe 06/05/23 02/26/25 History mg tablet potassium chloride 20 mEq 20 meq PO DAILY #90 tabs 01/13/24 02/26/25 Rx tablet,extended release mecobalamin (vitamin B12) 1,000 1,000 mcg PO DAILY #90 tabs 02/06/24 02/26/25 Rx mcg chewable tablet sulfasalazine 500 mg tablet See Rx Instructions .Route 08/30/24 02/26/25 Rx .COMPLEX #180 tabs mirtazapine 30 mg tablet 30 mg PO DAILY #7 tabs 10/01/24 02/26/25 Rx albuterol sulfate 90 mcg/actuation 2 inh inhalation Q4-6H PRN 10/13/24 02/26/25 Rx aerosol inhaler shortness of breath or wheezing #8.5 grams clopidogrel 75 mg tablet (Plavix) 75 mg PO DAILY #30 tabs 10/13/24 02/26/25 Rx azithromycin 250 mg tablet 250 mg PO 3XW 10/25/24 02/26/25 History albuterol sulfate 2.5 mg/3 mL See Rx Instructions .Route 10/28/24 02/26/25 Rx (0.083 %) solution for nebulization .COMPLEX #30 ea budesonide 0.5 mg/2 mL suspension See Rx Instructions .Route 10/28/24 02/26/25 Rx for nebulization .COMPLEX #60 ea ipratropium bromide 0.02 % See Rx Instructions .Route 10/28/24 02/26/25 Rx solution for inhalation .COMPLEX #120 ea alendronate 70 mg tablet 70 mg PO WEEKLY #12 tabs 12/08/24 02/26/25 Rx atorvastatin 10 mg tablet 5 mg (1/2 x 10 mg) PO DAILY #90 12/08/24 02/26/25 Rx tabs ergocalciferol (vitamin D2) 1,250 See Rx Instructions .Route 12/08/24 02/26/25 Rx mcg (50,000 unit) capsule .COMPLEX #12 caps esomeprazole magnesium 40 mg See Rx Instructions .Route 12/08/24 02/26/25 Rx capsule,delayed release .COMPLEX #90 caps ferrous sulfate 325 mg (65 mg 325 mg PO DAILY #90 tabs 12/08/24 02/26/25 Rx iron) tablet furosemide 40 mg tablet 40 mg PO QAM #90 tabs 12/08/24 02/26/25 Rx lisinopril 20 mg tablet 20 mg PO DAILY #90 tabs 12/08/24 02/26/25 Rx montelukast 10 mg tablet 10 mg PO DAILY #30 tabs 12/13/24 02/26/25 Rx polyethylene glycol 3350 17 gram 17 g PO PRN constipation 02/26/25 02/26/25 History oral powder packet (Miralax) Allergies Allergy/AdvReac Type Severity Reaction Status Date / Time No Known Allergies Allergy Unknown Verified 10/15/24 14:39 Vital Signs Vital Signs - 24 hr 02/25/25 19:38 02/25/25 19:47 02/25/25 19:48 Temperature Pulse Rate 106 H 106 H Respiratory Rate 24 H Blood Pressure 113/83 Pulse Oximetry 98 100 Oxygen Delivery Nasal Cannula Nasal Cannula Oxygen Flow Rate 3 4 02/25/25 19:55 02/25/25 20:00 06/27/25 23:26 Temperature 97.2 F L Pulse Rate 109 H 105 H Respiratory Rate 21 H 19 Blood Pressure 145/62 H Pulse Oximetry 98 94 Oxygen Delivery Nasal Cannula Oxygen Flow Rate 3 02/26/25 00:23 02/26/25 00:54 02/26/25 02:20 Temperature 97.3 F L Pulse Rate 56 L Respiratory Rate 22 H Blood Pressure 155/61 H Pulse Oximetry 92 92 95 Oxygen Delivery Nasal Cannula Nasal Cannula Oxygen Flow Rate 3 3 02/26/25 02:22 02/26/25 02:31 Temperature Pulse Rate 94 97 Respiratory Rate 18 18 Blood Pressure Pulse Oximetry Oxygen Delivery Oxygen Flow Rate Exam Narrative: General: Very thin, frail elderly female sitting up in bed in no acute distress. Weight: 32.3 kg. BMI: 13.9. HEENT: Temporal wasting. PERRL, EOMI. Sclera anicteric. Tacky mucous membranes. Neck: Supple. No JVD or lymphadenopathy. Respiratory: Respirations are nonlabored she is speaking in full sentences. Currently on her usual 3 L nasal cannula. Lung sounds are diminished with occasional wheezing and rales on the right. Cardiovascular: Regular rate and rhythm with S1-S2. Systolic murmur at the left sternal border. Gastrointestinal: Abdomen is soft, scaphoid, nontender, and nondistended with positive bowel sounds. Skin: Warm and dry. Extremities: No cyanosis, clubbing, or significant edema. Radial and pedal pulses intact. No palpable knots or cords. Negative Lois sign bilaterally. Neurological: Alert. Cranial nerves grossly intact. No gross focal deficits to casual conversation. Psychiatric: Pleasant and cooperative with normal mood and affect. Judgment and insight intact. H&P: Results Labs Labs: Short CBC 02/25/25 Range/Units 20:49 WBC 14.5 H (4.5-10.0) K/mm3 Hgb 13.3 (12.0-15.0) g/dL Hct 45.8 (37.0-47.0) % Plt Count 442 H D (150-375) k/mm3 BMP 02/25/25 20:49 Sodium 141 Potassium 4.0 Chloride 89 L Carbon Dioxide 37 H BUN 25 H D Creatinine 1.04 H Glucose 146 H Calcium 9.3 Liver Function 02/25/25 Range/Units 20:49 Total Bilirubin 0.3 (0.2-1.3) mg/dL AST 31 (14-36) U/L ALT 14 (6-35) U/L Alkaline Phosphatase 84 (38-126) U/L Albumin 3.9 (3.5-5.1) g/dL Urine 02/26/25 Range/Units 01:00 Urine Color Dark yellow (Yellow) Urine Appearance Clear (Clear) Urine pH 6.5 (5.0-9.0) Ur Specific Delta 1.012 (1.001-1.035) Urine Protein Negative (Negative) mg/dL Urine Glucose (UA) Negative (Negative) mg/dL Imaging Chest X-Ray 02/25/25 20:47 IMPRESSION: Possible right middle lobe infiltrate, as detailed above. Assessment and Plan Assessment and plan (1) Pneumonia: Code(s): J18.9 - Pneumonia, unspecified organism Status: Acute (2) Chronic respiratory failure with hypoxia, on home oxygen therapy: Code(s): J96.11 - Chronic respiratory failure with hypoxia; Z99.81 - Dependence on suppl emental oxygen Status: Acute (3) Chronic obstructive pulmonary disease: Qualifiers: COPD type: unspecified COPD Qualified Code(s): J44.9 - Chronic obstructive pulmonary disease, unspecified Code(s): J44.9 - Chronic obstructive pulmonary disease, unspecified Status: Acute (4) Acute kidney injury: Code(s): N17.9 - Acute kidney failure, unspecified Status: Acute (5) (HFpEF) heart failure with preserved ejection fraction: Qualifiers: Heart failure chronicity: chronic Qualified Code(s): I50.32 - Chronic diastolic (congestive) heart failure Code(s): I50.30 - Unspecified diastolic (congestive) heart failure Status: Chronic (6) Hypertension, essential: Code(s): I10 - Essential (primary) hypertension Status: Acute Plan The patient presented to the emergency department with complaints of shortness of breath and generalized malaise not long after being treated for pneumonia as detailed in HPI. Labs, imaging, EKG, and all reports were personally reviewed. Findings in the ED were significant for WBC count of 14.5, lactic acid of 2.3, and chest x-ray showing evidence of a right-sided infiltrate. She has been started on ceftriaxone and doxycycline for pneumonia. Mucinex and Cornet ordered to help mobilize secretions. Continue scheduled bronchodilators. Sputum culture ordered. Oxygen has been weaned back to her baseline requirement of 3 L. Bedside swallow evaluation ordered to rule out possible silent aspiration. She does not have any significant wheezing thus no indication for steroids. She has an acute kidney injury with a creatinine of 1.04 which is up from 0.74 earlier this year. She looks dry on exam and is likely due to decreased oral intake. Hold lisinopril and furosemide for now and hydrate overnight. If no improvements with IV fluids alone, further workup will need to be pursued. Monitor volume status and strict I/O to avoid over-hydration. Blood pressures were reviewed and they have been reasonable. The rest of her home medications will be reviewed and resumed as appropriate. Findings and treatment plan were discussed with the patient. Questions were solicited and answered to satisfaction. The patient's medical management will be taken over by the hospitalist team in a.m. Quality VTE Prophylaxis VTE prophylaxis: mechanical ordered If No VTE Prophylaxis Answer both mechanical and pharmacologic: Reason no pharmacologic proph: medical contraindication (patient on dual anti- platelet therapy, pharmacologic prophylaxis would put him at increased risk for bleeding) The patient has been admitted under observation status. Hospitalist [facility] Advance Care Plan I have confirmed that the patient's Advanced Care Plan is present, code status is documented, or surrogate decision maker is listed in patient medical record.: Yes Medication Reconciliation I have utilized all available resources to obtain, update and review the patien ts current medications (includes all prescriptions, OTC, herbals, cannabis, and nutritional supplements).: Yes
[2025-02-26 05:53] LABS: Estimated CRCL calculation 20 ml/min; Estimated Glomerular Filt Rate > 60
[2025-02-26] MEDS: SODIUM CHLORIDE 0.9% IV 1,000 ML 50 ML IV CONT (06:19)
[2025-02-26 07:12] LABS: Influenza A QL RT-PCR Negative (Negative); Influenza B QL RT-PCR Negative (Negative); SARS-CoV-2 RNA PCR Negative (Negative)
--- NOTE | 2025-02-26 07:29 | P.PNIM_ITS ---
Progress Note: A&P Assessment and Plan (1) Pneumonia: Code(s): J18.9 - Pneumonia, unspecified organism Status: Acute Assessment and Plan: CXR: Possible right middle lobe infiltrate - started on HAP tx given recent hospitalization: cefepime and vancomycin started on 02/25, remains on cefepime previously treated for pneumonia at [facility], will now cover for pseudomonas given contiued pneumonia - Viral PCR: negative for Flu/COVID/RSV. MRSA negative. - Blood cultures collected on 02/25: pending - Mucinex and Cornet ordered to help mobilize secretions. - Ordered legionella, mycoplasma and pneumococcal - remains on baseline supplemental oxygen of 2L NC, maintain SPO2 > 88% given COPD history - Monitor vital signs, I&Os, neuro status and patient is a fall risk - Follow WBC, serum electrolytes, temperature curves and cultures - Speech therapy consulted, patient noted to have a weak cough with sips of water (2) Chronic respiratory failure with hypoxia, on home oxygen therapy: Code(s): J96.11 - Chronic respiratory failure with hypoxia; Z99.81 - Dependence on supplemental oxygen Status: Acute Assessment and Plan: On EMS arrival her SpO2 was reportedly in the 70s on her usual 2-3 L nasal cannula, placed on 6 L and brought to hospital. Received a breathing treatment in the ER and was able to wean back to her baseline 2 L. Oxygen remains stable on her 2 liters Keep spO2 > 88% Continue to monitor (3) Acute kidney injury: Code(s): N17.9 - Acute kidney failure, unspecified Status: Acute Assessment and Plan: Acute kidney injury on admission with BUN/Cr 25/1.04 which is up from 11/0.74 earlier this year. - Likely related to poor oral intake and dehydration - Hold lisinopril and furosemide, resume as appropriate. Blood pressure remains stable. - Avoid nephrotoxic medications - Renally dose medications - Monitor I/O Patient hydrated overnight and BUN/Cr WNL. Fluids DC. Encourage adequate hydration. (4) Chronic obstructive pulmonary disease: Qualifiers: COPD type: unspecified COPD Qualified Code(s): J44.9 - Chronic obstructive pulmonary disease, unspecified Code(s): J44.9 - Chronic obstructive pulmonary disease, unspecified Status: Acute Assessment and Plan: Chronic Does not appear in acute exacerbation No significant wheezing thus no indication for steroids (5) (HFpEF) heart failure with preserved ejection fraction: Qualifiers: Heart failure chronicity: chronic Qualified Code(s): I50.32 - Chronic diastolic (congestive) heart failure Code(s): I50.30 - Unspecified diastolic (congestive) heart failure Status: Chronic Assessment and Plan: Chronic, patient appears euvolemic. Does not appear in acute exacerbation Continue to monitor I/O, do not overhydrate (6) Hypertension, essential: Code(s): I10 - Essential (primary) hypertension Status: Acute Assessment and Plan: Chronic, currently holding antihypertensives given SAUNDRA - Hold lisinopril and furosemide, resume as appropriate. - Blood pressure remains stable. (7) Protein calorie malnutrition: Code(s): E46 - Unspecified protein-calorie malnutrition Status: Acute Assessment and Plan: Nutrition consulted, supplement per their recommendations Time Spent With Patient Time with patient: 25 - 35 minutes Subjective Date/time seen: 02/26/25 07:29 Interval history: 89-year-old female with chronic obstructive pulmonary disease, chronic respiratory failure with hypoxia on 2 L home oxygen, heart failure with preserved ejection fraction, paroxysmal atrial fibrillation, pulmonary embolism, cerebrovascular accident, peripheral arterial disease, hypertension, dyslipidemia, and Crohn's disease who presented to the hospital via EMS from a local rehab facility for evaluation of shortness of breath. Patient is pleasant lying in bed. She endorses slight shortness of breath but notes that it has improved since admission. She also has a weak nonproductive cough. During admission she started coughing immediately after drinking sips of water. She states she has occasionally coughing with meals but it has never bothered her in the past. Speech consulted. She has no other complaints denying chest pain, palpitations, nausea/vomiting and abdominal pain. Encouraged patient to get out of bed and up to chair for meals. Review of Systems Review of Systems: All systems reviewed & are unremarkable except as noted in HPI and below Exam Narrative: AF HR 90 RR 20 Spo2 92 2L NC (baseline) BP 166/50 General: frail female in no acute respiratory distress who is nontoxic appearing, lying semi recumbent in bed. HEENT: Normocephalic. Atraumatic. Extraocular movement intact. Sclera clear and anicteric. No facial asymmetry. Chest: Lungs are diminished to auscultation bilaterally with slight crackle to right base. No wheezes. CV: Heart was regular rate and rhythm. S1-S2. No murmurs, gallops, or rubs. Abd: Abdomen was soft. Nontender. Nondistended. Positive bowel sounds. Ext: No clubbing, cyanosis, or edema. DP pulses bilaterally. Neuro: Patient is alert and oriented x3. Speech is clear. Objective Data Vital Signs Vital Signs: Vital Signs - 24 hr 02/25/25 19:38 02/25/25 19:47 02/25/25 19:48 Temperature Pulse Rate 106 H 106 H Respiratory Rate 24 H Blood Pressure 113/83 Pulse Oximetry 98 100 Oxygen Delivery Nasal Cannula Nasal Cannula Oxygen Flow Rate 3 4 02/25/25 19:55 02/25/25 20:00 02/25/25 23:26 Temperature 97.2 F L Pulse Rate 109 H 105 H Respiratory Rate 21 H 19 Blood Pressure 145/62 H Pulse Oximetry 98 94 Oxygen Delivery Nasal Cannula Oxygen Flow Rate 3 02/26/25 00:23 02/26/25 00:54 02/26/25 02:20 Temperature 97.3 F L Pulse Rate 56 L Respiratory Rate 22 H Blood Pressure 155/61 H Pulse Oximetry 92 92 95 Oxygen Delivery Nasal Cannula Nasal Cannula Oxygen Flow Rate 3 3 02/26/25 02:22 02/26/25 02:31 02/26/25 05:58 Temperature 98.6 F Pulse Rate 94 97 90 Respiratory Rate 18 18 22 H Blood Pressure 166/50 H Pulse Oximetry 89 L Oxygen Delivery Oxygen Flow Rate Intake/Output Intake/Output: Intake & Output 02/23/25 02/24/25 02/25/25 02/26/25 23:59 23:59 23:59 23:59 Intake Total 1050 100 Output Total 300 Balance 1050 -200 Meds/Results Medications: Active Medications Generic Name Dose Route Start Last Admin Trade Name Freq PRN Reason Stop Dose Admin Acetaminophen 650 mg 02/26/25 06:00 Acetaminophen 325 Mg Tablet PO Q6H PRN Mild Pain (1-3) or Fever Albuterol 2.5 mg 02/26/25 02:00 02/26/25 02:15 Albuterol Sulfate Neb 2.5 Mg/3 Ml Inh INHALATION 2.5 mg Q6HRT [facility]ALA Administration Aspirin 81 mg 02/26/25 09:00 Aspirin 81 Mg Enteric Tablet PO DAILY [facility] Atorvastatin Calcium 5 mg 02/26/25 09:00 Atorvastatin 5 Mg Tablet PO DAILY [facility] Budesonide 0.5 mg 02/26/25 08:00 Budesonide Respule Neb 0.5 Mg/2 Ml Amp INHALATION Q12HRT [facility] Clopidogrel Bisulfate 75 mg 02/26/25 09:00 Clopidogrel Bisulfate 75 Mg Tablet PO DAILY [facility] Cyanocobalamin 1,000 mcg 02/26/25 09:00 Cyanocobalamin 1,000 Mcg Tablet PO QAM [facility] Ergocalciferol 0 mcg 02/26/25 06:05 Ergocalciferol (Vitamin D2) 1,250 Mcg (50,000 Units) Capsule BY MOUTH .COMPLEX [facility] Ferrous Sulfate 325 mg 02/26/25 09:00 Ferrous Sulfate [address] BY MOUTH DAILY [facility] Guaifenesin 600 mg 02/26/25 09:00 Guaifenesin 12 Hr 600 Mg Tabcr PO Q12HR [facility] Sodium Chloride 1,000 mls @ 50 mls/hr 02/26/25 06:04 02/26/25 06:19 Normal Saline Iv IV CONT 02/27/25 02:03 50 mls/hr .Q20H ONE Administration Ipratropium [place] 0.5 mg 02/26/25 06:05 Ipratropium Br 0.02% Inh Soln 0.5 Mg/2.5 Ml Vial INHALATION Q6H PRN Shortness Of Breath Mirtazapine 30 mg 02/26/25 09:00 Mirtazapine 30 Mg Tablet PO DAILY [facility] Miscellaneous Information 0 each 02/26/25 06:20 Vitamin D- When Was The Last Dose Taken? XX 03/28/25 06:19 CLARIFY [facility] Montelukast Sodium 10 mg 02/26/25 09:00 Montelukast Sodium 10 Mg Tablet PO DAILY [facility] Pantoprazole Sodium 40 mg 02/26/25 09:00 Pantoprazole 40 Mg Tablet PO QAM [facility] Potassium Chloride 20 meq 02/26/25 09:00 Potassium Chloride 20 Meq Er Tablet PO DAILY [facility] Sulfasalazine 1,000 mg 02/26/25 09:00 Sulfasalazine 500 Mg Tablet BY MOUTH [id number],[id number],1800 [facility] Radiology Results: ITS Impressions Chest X-Ray 02/25/25 20:47 IMPRESSION: Possible right middle lobe infiltrate, as detailed above. Labs Labs: Laboratory Results - last 24 hr 02/25/25 02/25/2525 19:52 20:49 20:50 WBC 14.5 H RBC 4.79 Hgb 13.3 Hct 45.8 MCV 95.6 MCH 27.8 MCHC 29.0 L RDW 12.6 Plt Count 442 H D MPV 10.4 Immature Gran % (Auto) Not Reportable Neut % (Auto) Not Reportable Lymph % (Auto) Not Reportable Bell % (Auto) Not Reportable Eos % (Auto) Not Reportable Baso % (Auto) Not Reportable Lymph # (Auto) Not Reportable Bell # (Auto) Not Reportable Eos # (Auto) Not Reportable Baso # (Auto) Not Reportable Abs Immat Gran (auto) Not Reportable Absolute Neuts (auto) Not Reportable Absolute Nucleated RBC Not Reportable Total Counted 100 Neutrophils % (Manual) 95 H Band Neutrophils % 0 Lymphocytes % (Manual) 1.0 L Monocytes % (Manual) 4 Nucleated RBC % Not Reportable Abs Neuts (Manual) 13.77 H Abs Lymphs (Manual) 0.14 L Abs Monocytes (Manual) 0.58 Platelet Estimate Increased Hypochromasia 1+ Schistocytes None seen PT 11.9 INR 0.9 APTT 37.3 H Puncture Site Right brachial ABG pH 7.474 H ABG pCO2 50.8 H ABG pO2 68.4 L ABG PO2/FiO2 Ratio 2.14 ABG HCO3 36.5 H ABG O2 Saturation 94.5 L ABG O2 Content 17.2 ABG Base Excess 11.1 A-a Gradient 100.3 Oxyhemoglobin 93.1 Carboxyhemoglobin 0.8 Methemoglobin 0.4 Reduced Hemoglobin 5.7 H Total Hemoglobin 13.1 O2 Delivery Device Nasal cannula O2 Liters/Min 3.0 FiO2 32 Sodium 141 Potassium 4.0 Chloride 89 L Carbon Dioxide 37 H Anion Gap 15 H BUN 25 H D Creatinine 1.04 H Estim Creat Clear Calc Not Reportable Estimated GFR 50 L Glucose 146 H Lactic Acid 2.3 H Calcium 9.3 Total Bilirubin 0.3 AST 31 ALT 14 Alkaline Phosphatase 84 C-Reactive Protein 3.8 H Total Protein 8.4 H Albumin 3.9 Urine Color Urine Appearance Urine pH Ur Specific [place] Urine Protein Urine Glucose (UA) Urine Ketones Ur Blood (Man) Urine Nitrate Urine Bilirubin Urine Urobilinogen Add Ur Microanalysis Leukocyte Esterase Rfl Urine RBC Urine WBC Ur Squamous Epith Cells Urine Bacteria Urine Casts Nasal MRSA (PCR) Influenza A (RT-PCR) Influenza B (RT-PCR) SARS-CoV-2 RNA (RT-PCR) 02/25/25 02/26/25 02/26/25 23:33 00:59 01:00 WBC RBC Hgb Hct MCV MCH MCHC RDW Plt Count MPV Immature Gran % (Auto) Neut % (Auto) Lymph % (Auto) Bell % (Auto) Eos % (Auto) Baso % (Auto) Lymph # (Auto) Bell # (Auto) Eos # (Auto) Baso # (Auto) Abs Immat Gran (auto) Absolute Neuts (auto) Absolute Nucleated RBC Total Counted Neutrophils % (Manual) Band Neutrophils % Lymphocytes % (Manual) Monocytes % (Manual) Nucleated RBC % Abs Neuts (Manual) Abs Lymphs (Manual) Abs Monocytes (Manual) Platelet Estimate Hypochromasia Schistocytes PT INR APTT Puncture Site ABG pH ABG pCO2 ABG pO2 ABG PO2/FiO2 Ratio ABG HCO3 ABG O2 Saturation ABG O2 Content ABG Base Excess A-a Gradient Oxyhemoglobin Carboxyhemoglobin Methemoglobin Reduced Hemoglobin Total Hemoglobin O2 Delivery Device O2 Liters/Min FiO2 Sodium Potassium Chloride Carbon Dioxide Anion Gap BUN Creatinine Estim Creat Clear Calc Estimated GFR Glucose Lactic Acid 1.5 Calcium Total Bilirubin AST ALT Alkaline Phosphatase C-Reactive Protein Total Protein Albumin Urine Color Dark yellow Urine Appearance Clear Urine pH 6.5 Ur Specific [place] 1.012 Urine Protein Negative Urine Glucose (UA) Negative Urine Ketones Negative Ur Blood (Man) Non-hemolyzed trace H Urine Nitrate Negative Urine Bilirubin Negative Urine Urobilinogen 0.2 Add Ur Microanalysis Reviewed Leukocyte Esterase Rfl Trace H Urine RBC 3-5 H Urine WBC 0-5 Ur Squamous Epith Cells None seen Urine Bacteria None seen Urine Casts 6-10 Nasal MRSA (PCR) Not detected Influenza A (RT-PCR) Influenza B (RT-PCR) SARS-CoV-2 RNA (RT-PCR) 02/26/25 02/26/25 05:16 06:23 WBC RBC Hgb Hct MCV MCH MCHC RDW Plt Count MPV Immature Gran % (Auto) Neut % (Auto) Lymph % (Auto) Bell % (Auto) Eos % (Auto) Baso % (Auto) Lymph # (Auto) Bell # (Auto) Eos # (Auto) Baso # (Auto) Abs Immat Gran (auto) Absolute Neuts (auto) Absolute Nucleated RBC Total Counted Neutrophils % (Manual) Band Neutrophils % Lymphocytes % (Manual) Monocytes % (Manual) Nucleated RBC % Abs Neuts (Manual) Abs Lymphs (Manual) Abs Monocytes (Manual) Platelet Estimate Hypochromasia Schistocytes PT INR APTT Puncture Site ABG pH ABG pCO2 ABG pO2 ABG PO2/FiO2 Ratio ABG HCO3 ABG O2 Saturation ABG O2 Content ABG Base Excess A-a Gradient Oxyhemoglobin Carboxyhemoglobin Methemoglobin Reduced Hemoglobin Total Hemoglobin O2 Delivery Device O2 Liters/Min FiO2 Sodium Potassium Chloride Carbon Dioxide Anion Gap BUN Creatinine 0.86 Estim Creat Clear Calc 20 Estimated GFR > 60 Glucose Lactic Acid Calcium Total Bilirubin AST ALT Alkaline Phosphatase C-Reactive Protein Total Protein Albumin Urine Color Urine Appearance Urine pH Ur Specific [place] Urine Protein Urine Glucose (UA) Urine Ketones Ur Blood (Man) Urine Nitrate Urine Bilirubin Urine Urobilinogen Add Ur Microanalysis Leukocyte Esterase Rfl Urine RBC Urine WBC Ur Squamous Epith Cells Urine Bacteria Urine Casts Nasal MRSA (PCR) Influenza A (RT-PCR) Negative Influenza B (RT-PCR) Negative SARS-CoV-2 RNA (RT-PCR) Negative Quality VTE Prophylaxis VTE prophylaxis: pharmacologic ordered
[2025-02-26 07:30] LABS: Hematocrit 38.1 % (37.0-47.0); Hemoglobin 11.3 g/dL (12.0-15.0); Mean Corpuscular HGB Conc 29.7 g/dl (32-36); Mean Corpuscular Hemoglobin 28.7 pg (26-34); Mean Corpuscular Volume 96.7 fl (80-100); Platelet Count Result 381 k/mm3 (150-375); Red Blood Count 3.94 M/mm3 (4.2-5.4); White Blood Count 14.4 K/mm3 (4.5-10.0)
[2025-02-26] MEDS: BUDESONIDE RESPULE NEB 0.5 MG/2 ML AMP INHALATION ×2 (07:40→20:09)
[2025-02-26 07:46] LABS: MRSA (PCR) NOT DETECTED (NOT DETECTE)
[2025-02-26 08:10] LABS: Anion Gap 9 mmol/L (4-12); Blood Urea Nitrogen 21 mg/dL (7-17); Calcium 8.9 mg/dL (8.4-10.2); Carbon Dioxide 36 mmol/L (22-30); Chloride 94 mmol/L (98-107); Estimated CRCL calculation 20 ml/min; Estimated Glomerular Filt Rate 60; Glucose 100 mg/dL (65-110); Potassium 3.8 mmol/L (3.4-5.0); Sodium 139 mmol/L (137-145)
[2025-02-26] MEDS: CYANOCOBALAMIN 1,000 MCG TABLET 1000 MCG PO (08:56)
[2025-02-26] MEDS: FERROUS SULFATE 325 MG TABLET DR BY MOUTH (08:56)
[2025-02-26] MEDS: MONTELUKAST SODIUM 10 MG TABLET PO (08:56)
[2025-02-26] MEDS: MIRTAZAPINE 30 MG TABLET PO (08:56)
[2025-02-26] MEDS: CLOPIDOGREL BISULFATE 75 MG TABLET PO (08:56)
[2025-02-26] MEDS: PANTOPRAZOLE 40 MG TABLET PO (08:57)
[2025-02-26] MEDS: ASPIRIN 81 MG ENTERIC TABLET PO (08:57)
[2025-02-26] MEDS: ATORVASTATIN 5 MG TABLET PO (08:57)
[2025-02-26] MEDS: CEFEPIME 1 GM/NS 50 ML 1 GM/50 ML BAG IVPB ×2 (09:09→20:32)
[2025-02-27] VITALS (19 sets, daily range): BP systolic 136–152; BP diastolic 66–84; PULSE 81–106; RESP 14–22; TEMP 36.3–36.9; O2SAT 83–100
[2025-02-27] MEDS: ALBUTEROL SULFATE NEB 2.5 MG/3 ML INH INHALATION ×4 (01:43→20:32)
--- NOTE | 2025-02-27 07:24 | P.PNIM_ITS ---
Progress Note: A&P Assessment and Plan (1) Pneumonia: Code(s): J18.9 - Pneumonia, unspecified organism Status: Acute Assessment and Plan: CXR: Possible right middle lobe infiltrate - started on HAP tx given recent hospitalization: cefepime and vancomycin started on 02/25, remains on cefepime previously treated for pneumonia at [facility], will now cover for pseudomonas given continued pneumonia - Viral PCR: negative for Flu/COVID/RSV. MRSA negative. - Blood cultures collected on 02/25: NGTD - Mucinex and Cornet ordered to help mobilize secretions. IS ordered. - Pending legionella, mycoplasma and pneumococcal - remains on baseline supplemental oxygen of 2L NC, maintain SPO2 > 88% given COPD history - Monitor vital signs, I&Os, neuro status and patient is a fall risk - Follow WBC, serum electrolytes, temperature curves and cultures - Speech therapy consulted for swallow study, patient noted to have a weak cough with sips of water Recommending nectar thick liquids and MBS. (2) Chronic respiratory failure with hypoxia, on home oxygen therapy: Code(s): J96.11 - Chronic respiratory failure with hypoxia; Z99.81 - Dependence on [place]illo pplemental oxygen Status: Acute Assessment and Plan: On EMS arrival her SpO2 was reportedly in the 70s on her usual 2-3 L nasal cannula, placed on 6 L and brought to hospital. Received a breathing treatment in the ER and was able to wean back to her baseline 2 L. Oxygen remains stable on her 2 liters Keep spO2 > 88% Continue to monitor (3) Acute kidney injury: Code(s): N17.9 - Acute kidney failure, unspecified Status: Acute Assessment and Plan: Acute kidney injury on admission with BUN/Cr 25/1.04 which is up from 11/0.74 earlier this year. - Likely related to poor oral intake and dehydration - Avoid nephrotoxic medications - Renally dose medications - Monitor I/O BUN/Cr remain WNL. Lisinopril and lasix resumed. Encourage adequate hydration. (4) Chronic obstructive pulmonary disease: Qualifiers: COPD type: unspecified COPD Qualified Code(s): J44.9 - Chronic obstructive pulmonary disease, unspecified Code(s): J44.9 - Chronic obstructive pulmonary disease, unspecified Status: Acute Assessment and Plan: Chronic Does not appear in acute exacerbation No significant wheezing thus no indication for steroids (5) (HFpEF) heart failure with preserved ejection fraction: Qualifiers: Heart failure chronicity: chronic Qualified Code(s): I50.32 - Chronic diastolic (congestive) heart failure Code(s): I50.30 - Unspecified diastolic (congestive) heart failure Status: Chronic Assessment and Plan: Chronic, patient appears euvolemic. Does not appear in acute exacerbation Continue to monitor I/O, do not overhydrate (6) Hypertension, essential: Code(s): I10 - Essential (primary) hypertension Status: Acute Assessment and Plan: Chronic - Resumed lisinopril 20 mg daily and furosemide 40 mg daily - Blood pressure remains stable. (7) Protein calorie malnutrition: Code(s): E46 - Unspecified protein-calorie malnutrition Status: Acute Assessment and Plan: Nutrition consulted, started on ensure TID. Further supplement per nutritions recommendations Time Spent With Patient Time with patient: 25 - 35 minutes Subjective Date/time seen: 02/27/25 07:24 Interval history: 89-year-old female with chronic obstructive pulmonary disease, chronic respiratory failure with hypoxia on 2 L home oxygen, heart failure with preserved ejection fraction, paroxysmal atrial fibrillation, pulmonary embolism, cerebrovascular accident, peripheral arterial disease, hypertension, dyslipidemia, and Crohn's disease who presented to the hospital via EMS from a local rehab facility for evaluation of shortness of breath. Patient is pleasant lying comfortably in her bed. She is alert and oriented x3 at time of assessment and remains on her baseline 2 L nasal cannula. She continues to endorse slight shortness of breath worse than her baseline but states that this is improved since admission. She has no other complaints denying chest pain, palpitations, nausea/vomiting, and abdominal pain. Patient was evaluated by speech therapy today as she continued to have a weak cough following sips. Patient was placed on mildly thick liquids and will have a MBS tomorrow. Review of Systems Review of Systems: All systems reviewed & are unremarkable except as noted in HPI and below Exam Narrative: AF HR 92 RR 20 SpO2 95 2LNC baseline BP 138/66 General: frail female in no acute respiratory distress who is nontoxic appearing, lying semi recumbent in bed. HEENT: Normocephalic. Atraumatic. Extraocular movement intact. Sclera clear and anicteric. No facial asymmetry. Chest: Lungs are diminished to auscultation bilaterally with slight crackle to right base. No wheezes. CV: Heart was regular rate and rhythm. S1-S2. No murmurs, gallops, or rubs. Abd: Abdomen was soft. Nontender. Nondistended. Positive bowel sounds. Ext: No clubbing, cyanosis, or edema. DP pulses bilaterally. Neuro: Patient is alert and oriented x3. Speech is clear. Objective Data Vital Signs Vital Signs: Vital Signs - 24 hr 02/26/25 07:44 02/26/25 07:44 02/26/25 07:55 Temperature Pulse Rate 97 97 92 Respiratory Rate 20 20 20 Blood Pressure Pulse Oximetry 95 Oxygen Delivery Nasal Cannula Oxygen Flow Rate 2 02/26/25 13:57 02/26/25 13:57 02/26/25 14:00 Temperature 97.6 F Pulse Rate 85 82 88 Respiratory Rate 20 20 19 Blood Pressure 148/72 H Pulse Oximetry 92 96 Oxygen Delivery Nasal Cannula Oxygen Flow Rate 2 02/26/25 14:10 02/26/25 20:10 02/26/25 20:10 Temperature Pulse Rate 90 87 Respiratory Rate 20 20 Blood Pressure Pulse Oximetry 93 Oxygen Delivery Nasal Cannula Oxygen Flow Rate 2 02/26/25 20:25 02/26/25 20:25 02/26/25 21:01 Temperature 98.6 F Pulse Rate 91 93 91 Respiratory Rate 22 H 20 22 H Blood Pressure 140/65 Pulse Oximetry 100 100 Oxygen Delivery Nasal Cannula Oxygen Flow Rate 3 02/27/25 01:45 02/27/25 01:55 02/27/25 06:00 Temperature 97.4 F L Pulse Rate 91 94 88 Respiratory Rate 18 18 20 Blood Pressure 137/72 Pulse Oximetry 95 Oxygen Delivery Oxygen Flow Rate Intake/Output Intake/Output: Intake & Output 02/24/25 02/25/25 02/26/25 02/27/25 23:59 23:59 23:59 23:59 Intake Total 1050 630 250 Output Total 650 600 Balance 1050 -20 -350 Meds/Results Medications: Active Medications Generic Name Dose Route Start Last Admin Trade Name Freq PRN Reason Stop Dose Admin Acetaminophen 650 mg 02/26/25 06:00 Acetaminophen 325 Mg Tablet PO Q6H PRN Mild Pain (1-3) or Fever Albuterol 2.5 mg 02/26/25 02:00 02/27/25 01:43 Albuterol Sulfate Neb 2.5 Mg/3 Ml Inh INHALATION 2.5 mg Q6HRT [facility] Administration Aspirin 81 mg 02/26/25 09:00 02/26/25 08:57 Aspirin 81 Mg Enteric Tablet PO 81 mg DAILY [facility] Administration Atorvastatin Calcium 5 mg 02/26/25 09:00 02/26/25 08:57 Atorvastatin 5 Mg Tablet PO 5 mg DAILY [facility] Administration Budesonide 0.5 mg 02/26/25 08:00 02/26/25 20:09 Budesonide Respule Neb 0.5 Mg/2 Ml Amp INHALATION 0.5 mg Q12HRT [facility] Administration Clopidogrel Bisulfate 75 mg 02/26/25 09:00 02/26/25 08:56 Clopidogrel Bisulfate 75 Mg Tablet PO 75 mg DAILY [facility] Administration Cyanocobalamin 1,000 mcg 02/26/25 09:00 02/26/25 08:56 Cyanocobalamin 1,000 Mcg Tablet PO 1,000 mcg QAM [facility] Administration Ferrous Sulfate 325 mg 02/26/25 09:00 02/26/25 08:56 Ferrous Sulfate [address] BY MOUTH 325 mg DAILY [facility] Administration Guaifenesin 600 mg 02/26/25 09:00 02/26/25 20:32 Guaifenesin 12 Hr 600 Mg Tabcr PO Not Given Q12HR [facility] Cefepime HCl 1 gm in 50 mls @ 100 mls/hr 02/26/25 09:05 02/26/25 20:32 Maxipime 1 Gm/Ns 50 Ml IVPB 100 mls/hr Q12H [facility] Administration Ipratropium [place] 0.5 mg 02/26/25 06:05 Ipratropium Br 0.02% Inh Soln 0.5 Mg/2.5 Ml Vial INHALATION Q6H PRN Shortness Of Breath Mirtazapine 30 mg 02/26/25 09:00 02/26/25 08:56 Mirtazapine 30 Mg Tablet PO 30 mg DAILY [facility] Administration Montelukast Sodium 10 mg 02/26/25 09:00 02/26/25 08:56 Montelukast Sodium 10 Mg Tablet PO 10 mg DAILY [facility] Administration Pantoprazole Sodium 40 mg 02/26/25 09:00 02/26/25 08:57 Pantoprazole 40 Mg Tablet PO 40 mg QAM [facility] Administration Potassium Chloride 20 meq 02/26/25 09:00 02/26/25 09:07 Potassium Chloride 20 Meq Er Tablet PO Not Given DAILY [facility] Sulfasalazine 1,000 mg 02/26/25 09:00 02/26/25 17:48 Sulfasalazine 500 Mg Tablet BY MOUTH 1,000 mg 0900,1300,1800 [facility] Administration Radiology Results: ITS Impressions Chest X-Ray 02/25/25 20:47 IMPRESSION: Possible right middle lobe infiltrate, as detailed above. Labs Labs: Laboratory Results - last 24 hr 02/26/25 02/26/25 05:16 06:23 WBC 14.4 H RBC 3.94 L Hgb 11.3 L Hct 38.1 MCV 96.7 MCH 28.7 MCHC 29.7 L RDW 12.6 Plt Count 381 H MPV 10.9 H Sodium 139 Potassium 3.8 Chloride 94 L Carbon Dioxide 36 H Anion Gap 9 BUN 21 H Creatinine 0.89 Estim Creat Clear Calc 20 Estimated GFR 60 Glucose 100 Calcium 8.9 Nasal MRSA (PCR) Not detected Quality VTE Prophylaxis VTE prophylaxis: pharmacologic ordered
[2025-02-27 07:37] LABS: Hematocrit 37.0 % (37.0-47.0); Hemoglobin 10.8 g/dL (12.0-15.0); Mean Corpuscular HGB Conc 29.2 g/dl (32-36); Mean Corpuscular Hemoglobin 28.3 pg (26-34); Mean Corpuscular Volume 96.9 fl (80-100); Platelet Count Result 336 k/mm3 (150-375); Red Blood Count 3.82 M/mm3 (4.2-5.4); White Blood Count 13.5 K/mm3 (4.5-10.0)
[2025-02-27 07:51] LABS: Alanine Aminotransferase 8 U/L (6-35); Albumin Level 3.1 g/dL (3.5-5.1); Alkaline Phosphatase 61 U/L (38-126); Anion Gap 5 mmol/L (4-12); Aspartate Amino Transferase 25 U/L (14-36); Bilirubin,Total 0.2 mg/dL (0.2-1.3); Blood Urea Nitrogen 15 mg/dL (7-17); Calcium 8.6 mg/dL (8.4-10.2); Carbon Dioxide 38 mmol/L (22-30); Chloride 97 mmol/L (98-107); Estimated CRCL calculation 21 ml/min; Estimated Glomerular Filt Rate > 60; Glucose 106 mg/dL (65-110); Potassium 3.2 mmol/L (3.4-5.0); Sodium 140 mmol/L (137-145); Total Protein 6.4 g/dL (6.3-8.2)
[2025-02-27] MEDS: BUDESONIDE RESPULE NEB 0.5 MG/2 ML AMP INHALATION ×2 (08:00→20:32)
[2025-02-27] MEDS: MONTELUKAST SODIUM 10 MG TABLET PO (09:58)
[2025-02-27] MEDS: guaiFENesin 12 HR 600 MG TABCR PO ×2 (09:58→21:27)
[2025-02-27] MEDS: CYANOCOBALAMIN 1,000 MCG TABLET 1000 MCG PO (09:58)
[2025-02-27] MEDS: PANTOPRAZOLE 40 MG TABLET PO (09:58)
[2025-02-27] MEDS: CLOPIDOGREL BISULFATE 75 MG TABLET PO (09:58)
[2025-02-27] MEDS: POTASSIUM CHLORIDE 20 MEQ ER TABLET 40 MEQ PO (09:58)
[2025-02-27] MEDS: ASPIRIN 81 MG ENTERIC TABLET PO (09:58)
[2025-02-27] MEDS: MIRTAZAPINE 30 MG TABLET PO (09:58)
[2025-02-27] MEDS: ATORVASTATIN 5 MG TABLET PO (09:58)
[2025-02-27] MEDS: FERROUS SULFATE 325 MG TABLET DR BY MOUTH (09:58)
[2025-02-27] MEDS: CEFEPIME 1 GM/NS 50 ML 1 GM/50 ML BAG IVPB ×2 (09:59→21:27)
[2025-02-27] MEDS: FUROSEMIDE 40 MG TABLET PO (10:10)
[2025-02-27] MEDS: POTASSIUM CHLORIDE 20 MEQ ER TABLET PO (10:10)
--- NOTE | 2025-02-27 10:23 | PCSTNOTE ---
Please refer to the Bedside Swallow Evaluation in the EMR. Please note, silent aspiration cannot be ruled out at bedside.
[2025-02-28] VITALS (20 sets, daily range): BP systolic 104–139; BP diastolic 60–68; PULSE 85–105; RESP 18–22; TEMP 36.7–37.2; O2SAT 86–100; BMI 14.4
[2025-02-28] MEDS: ALBUTEROL SULFATE NEB 2.5 MG/3 ML INH INHALATION ×4 (02:54→20:07)
[2025-02-28 05:14] LABS: Hematocrit 38.0 % (37.0-47.0); Hemoglobin 11.3 g/dL (12.0-15.0); Mean Corpuscular HGB Conc 29.7 g/dl (32-36); Mean Corpuscular Hemoglobin 28.5 pg (26-34); Mean Corpuscular Volume 95.7 fl (80-100); Platelet Count Result 381 k/mm3 (150-375); Red Blood Count 3.97 M/mm3 (4.2-5.4); White Blood Count 14.9 K/mm3 (4.5-10.0)
[2025-02-28 05:34] LABS: Alanine Aminotransferase 8 U/L (6-35); Albumin Level 3.4 g/dL (3.5-5.1); Alkaline Phosphatase 81 U/L (38-126); Anion Gap 10 mmol/L (4-12); Aspartate Amino Transferase 29 U/L (14-36); Bilirubin,Total 0.4 mg/dL (0.2-1.3); Blood Urea Nitrogen 18 mg/dL (7-17); Calcium 8.6 mg/dL (8.4-10.2); Carbon Dioxide 36 mmol/L (22-30); Chloride 95 mmol/L (98-107); Estimated CRCL calculation 20 ml/min; Estimated Glomerular Filt Rate 57; Glucose 101 mg/dL (65-110); Potassium 3.3 mmol/L (3.4-5.0); Sodium 141 mmol/L (137-145); Total Protein 7.2 g/dL (6.3-8.2)
[2025-02-28] MEDS: BUDESONIDE RESPULE NEB 0.5 MG/2 ML AMP INHALATION ×2 (07:49→20:07)
--- NOTE | 2025-02-28 08:14 | P.PNIM_ITS ---
Progress Note: A&P Assessment and Plan (1) Pneumonia: Code(s): J18.9 - Pneumonia, unspecified organism Status: Acute Assessment and Plan: CXR: Possible right middle lobe infiltrate - started on HAP tx given recent hospitalization: cefepime and vancomycin started on 02/25, remains on cefepime previously treated for pneumonia at [facility], will now cover for pseudomonas given continued pneumonia - Viral PCR: negative for Flu/COVID/RSV. MRSA negative. - Blood cultures collected on 02/25: NGTD - Mucinex and Cornet ordered to help mobilize secretions. IS ordered. - Pending legionella, mycoplasma and pneumococcal - remains on baseline supplemental oxygen of 2L NC, maintain SPO2 > 88% given COPD history - Monitor vital signs, I&Os, neuro status and patient is a fall risk - Follow WBC, serum electrolytes, temperature curves and cultures - Speech therapy consulted for swallow study, patient noted to have a weak cough with sips of water Recommending nectar thick liquids and MBS. 02/27: Received a call from RN that patient had an increased O2 requirement and was currently on 10 L NC with low 90 saturations. Reported to patients room at that time. Patient continues to state that she is slightly more short of breath than her baseline. She is speaking about 5-7 words. She remains AOx3 and does not appear lethargic with stable respirations thus no ABG has been ordered. She sounds slightly more diminished with continued right basilar crackles. Repeat chest XR appears unchanged from prior imaging on 02/25 with right middle lobe pneumonia. Patients pulse ox was noted to be on her fingers which were cold. Pulse ox sticker was placed on her ear and saturations were in the upper 90s on the 10LNC. Patient was weaned back to 3LNC with stable saturations of 90-92. She will remain on telemetry for continued pulse ox monitoring. 02/28: Remains on 3 L nasal cannula with stable saturations on pulse oximetry. She states that she is at her baseline shortness of breath. Speaking full sentences. Slight non productive wet cough. Started on PEP and mucinex. (2) Chronic respiratory failure with hypoxia, on home oxygen therapy: Code(s): J96.11 - Chronic respiratory failure with hypoxia; Z99.81 - Dependence on supplemental oxygen Status: Acute Assessment and Plan: On EMS arrival her SpO2 was reportedly in the 70s on her usual 2-3 L nasal cannula, placed on 6 L and brought to hospital. Received a breathing treatment in the ER and was able to wean back to her baseline 2 L. Oxygen remains stable on her 2-3 liters Keep spO2 > 88% Continue to monitor (3) Acute kidney injury: Code(s): N17.9 - Acute kidney failure, unspecified Status: Acute Assessment and Plan: Acute kidney injury on admission with BUN/Cr 25/1.04 which is up from 11/0.74 earlier this year. - Likely related to poor oral intake and dehydration - Avoid nephrotoxic medications - Renally dose medications - Monitor I/O BUN/Cr remain WNL. Encourage adequate hydration. (4) Chronic obstructive pulmonary disease: Qualifiers: COPD type: unspecified COPD Qualified Code(s): J44.9 - Chronic obstructive pulmonary disease, unspecified Code(s): J44.9 - Chronic obstructive pulmonary disease, unspecified Status: Acute Assessment and Plan: Chronic Does not appear in acute exacerbation No significant wheezing thus no indication for steroids (5) (HFpEF) heart failure with preserved ejection fraction: Qualifiers: Heart failure chronicity: chronic Qualified Code(s): I50.32 - Chronic diastolic (congestive) heart failure Code(s): I50.30 - Unspecified diastolic (congestive) heart failure Status: Chronic Assessment and Plan: Chronic, patient appears euvolemic. Does not appear in acute exacerbation Continue to monitor I/O, do not overhydrate (6) Hypertension, essential: Code(s): I10 - Essential (primary) hypertension Status: Acute Assessment and Plan: Chronic - lisinopril 20 mg daily and furosemide 40 mg daily - Blood pressure remains stable. (7) Protein calorie malnutrition: Qualifiers: Protein-calorie malnutrition severity: severe Qualified Code(s): E43 - Unspecified severe protein-calorie malnutrition Code(s): E46 - Unspecified protein-calorie malnutrition Status: Acute Assessment and Plan: Nutrition consulted, started nutritional ice cream Time Spent With Patient Time with patient: 25 - 35 minutes Subjective Date/time seen: 02/28/25 08:14 Interval history: 89-year-old female with chronic obstructive pulmonary disease, chronic respiratory failure with hypoxia on 2 L home oxygen, heart failure with preserved ejection fraction, paroxysmal atrial fibrillation, pulmonary embolism, cerebrovascular accident, peripheral arterial disease, hypertension, dyslipidemia, and Crohn's disease who presented to the hospital via EMS from a local rehab facility for evaluation of shortness of breath. Patient is pleasant sitting up comfortably. She states that she is at her baseline shortness of breath. She has a slight wet sounding cough, denies productivity. She was placed on increased oxygen of 5L NC but was able to wean back to the 2-3 L NC while in the room. She has no other complaints denying chest pain, palpitations, nausea/vomiting and abdominal pain. Review of Systems Review of Systems: All systems reviewed & are unremarkable except as noted in HPI and below Exam Narrative: AF HR 105 RR 20 SPO2 94 3LNC BP 139/67 General: frail female in no acute respiratory distress who is nontoxic appearing, sitting up in bed HEENT: Normocephalic. Atraumatic. Extraocular movement intact. Sclera clear and anicteric. No facial asymmetry. Chest: Lungs are slightly more diminished to auscultation bilaterally with s light crackle to right base. No wheezes. Speaking full sentences. CV: Heart was regular rate and rhythm. S1-S2. No murmurs, gallops, or rubs. Abd: Abdomen was soft. Nontender. Nondistended. Positive bowel sounds. Ext: No clubbing, cyanosis, or edema. DP pulses bilaterally. Neuro: Patient is alert and oriented x3. Speech is clear. Objective Data Vital Signs Vital Signs: Vital Signs - 24 hr 02/27/25 08:15 02/27/25 09:40 02/27/25 10:00 Temperature Pulse Rate 86 Respiratory Rate 20 Blood Pressure Pulse Oximetry 95 Oxygen Delivery Nasal Cannula Nasal Cannula Oxygen Flow Rate 2 3 02/27/25 10:05 02/27/25 10:11 02/27/25 13:33 Temperature Pulse Rate 92 Respiratory Rate 20 Blood Pressure 138/66 Pulse Oximetry Oxygen Delivery Nasal Cannula Oxygen Flow Rate 2 02/27/25 13:47 02/27/25 14:35 02/27/25 14:45 Temperature 98.5 F Pulse Rate 102 H 101 H 91 Respiratory Rate 20 16 22 H Blood Pressure 152/77 H Pulse Oximetry 83 L 94 Oxygen Delivery Nasal Cannula Oxygen Flow Rate 3 02/27/25 15:12 02/27/25 16:00 02/27/25 20:00 Temperature Pulse Rate 89 88 98 Respiratory Rate Blood Pressure Pulse Oximetry Oxygen Delivery Oxygen Flow Rate 02/27/25 20:33 02/27/25 20:34 02/27/25 20:45 Temperature Pulse Rate 100 106 H Respiratory Rate 20 20 Blood Pressure Pulse Oximetry 93 Oxygen Delivery High Flow Nasal Cannula Oxygen Flow Rate 7 02/27/25 21:25 02/27/25 22:00 02/28/25 00:00 Temperature 98.1 F Pulse Rate 95 89 Respiratory Rate 14 Blood Pressure 136/84 Pulse Oximetry 90 96 Oxygen Delivery High Flow Nasal Cannula Oxygen Flow Rate 5 02/28/25 02:54 02/28/25 03:10 02/28/25 04:00 Temperature Pulse Rate 98 102 H 88 Respiratory Rate 20 20 Blood Pressure Pulse Oximetry Oxygen Delivery Oxygen Flow Rate 02/28/25 06:00 02/28/25 07:50 02/28/25 07:50 Temperature 98.0 F Pulse Rate 100 96 Respiratory Rate 18 20 Blood Pressure 139/67 Pulse Oximetry 90 97 Oxygen Delivery High Flow Nasal Cannula Oxygen Flow Rate 5 02/28/25 08:05 Temperature Pulse Rate 102 H Respiratory Rate 20 Blood Pressure Pulse Oximetry Oxygen Delivery Oxygen Flow Rate Intake/Output Intake/Output: Intake & Output 02/25/25 02/26/25 02/27/25 02/28/25 23:59 23:59 23:59 23:59 Intake Total 1050 680 660 100 Output Total 650 1850 800 Balance 1050 30 1190 -700 Meds/Results Medications: Active Medications Generic Name Dose Route Start Last Admin Trade Name Freq PRN Reason Stop Dose Admin Acetaminophen 650 mg 02/26/25 06:00 Acetaminophen 325 Mg Tablet PO Q6H PRN Mild Pain (1-3) or Fever Albuterol 2.5 mg 02/26/25 02:00 02/28/25 07:49 Albuterol Sulfate Neb 2.5 Mg/3 Ml Inh INHALATION 2.5 mg Q6HRT KALA Administration Aspirin 81 mg 02/26/25 09:00 02/27/25 09:58 Aspirin 81 Mg Enteric Tablet PO 81 mg DAILY KALA Administration Atorvastatin Calcium 5 mg 02/26/25 09:00 02/27/25 09:58 Atorvastatin 5 Mg Tablet PO 5 mg DAILY KALA Administration Budesonide 0.5 mg 02/26/25 08:00 02/28/25 07:49 Budesonide Respule Neb 0.5 Mg/2 Ml Amp INHALATION 0.5 mg Q12HRT KALA Administration Clopidogrel Bisulfate 75 mg 02/26/25 09:00 02/27/25 09:58 Clopidogrel Bisulfate 75 Mg Tablet PO 75 mg DAILY KALA Administration Cyanocobalamin 1,000 mcg 02/26/25 09:00 02/27/25 09:58 Cyanocobalamin 1,000 Mcg Tablet PO 1,000 mcg QAM KALA Administration Ferrous Sulfate 325 mg 02/26/25 09:00 02/27/25 09:58 Ferrous Sulfate [address] BY MOUTH 325 mg DAILY KALA Administration Furosemide 40 mg 02/27/25 09:00 02/27/25 10:10 Furosemide 40 Mg Tablet PO 40 mg QAM KALA Administration Guaifenesin 600 mg 02/26/25 09:00 02/27/25 21:27 Guaifenesin 12 Hr 600 Mg Tabcr PO 600 mg Q12HR KALA Administration Cefepime HCl 1 gm in 50 mls @ 100 mls/hr 02/26/25 09:05 02/27/25 21:27 Maxipime 1 Gm/Ns 50 Ml IVPB 100 mls/hr Q12H KALA Administration Ipratropium [place] 0.5 mg 02/26/25 06:05 Ipratropium Br 0.02% Inh Soln 0.5 Mg/2.5 Ml Vial INHALATION Q6H PRN Shortness Of Breath Lisinopril 20 mg 02/27/25 09:00 02/27/25 10:10 Lisinopril 20 Mg Tablet PO 20 mg DAILY KALA Administration Mirtazapine 30 mg 02/26/25 09:00 02/27/25 09:58 Mirtazapine 30 Mg Tablet PO 30 mg DAILY KALA Administration Montelukast Sodium 10 mg 02/26/25 09:00 02/27/25 09:58 Montelukast Sodium 10 Mg Tablet PO 10 mg DAILY KALA Administration Pantoprazole Sodium 40 mg 02/26/25 09:00 02/27/25 09:58 Pantoprazole 40 Mg Tablet PO 40 mg QAM KALA Administration Potassium Chloride 20 meq 02/26/25 09:00 02/27/25 10:10 Potassium Chloride 20 Meq Er Tablet PO 20 meq DAILY KALA Administration Sulfasalazine 1,000 mg 02/26/25 09:00 02/27/25 18:35 Sulfasalazine 500 Mg Tablet BY MOUTH 1,000 mg 0900,1300,1800 KALA Administration Radiology Results: ITS Impressions Chest X-Ray 02/27/25 15:00 IMPRESSION: Subsegmental bibasilar atelectasis/consolidation. Trace bilateral pleural effusions versus chronic pleural blunting. Labs Labs: Laboratory Results - last 24 hr 02/28/25 04:35 WBC 14.9 H RBC 3.97 L Hgb 11.3 L Hct 38.0 MCV 95.7 MCH 28.5 MCHC 29.7 L RDW 12.8 Plt Count 381 H MPV 10.6 H Sodium 141 Potassium 3.3 L Chloride 95 L Carbon Dioxide 36 H Anion Gap 10 BUN 18 H Creatinine 0.93 Estim Creat Clear Calc 20 Estimated GFR 57 L Glucose 101 Calcium 8.6 Total Bilirubin 0.4 AST 29 ALT 8 Alkaline Phosphatase 81 Total Protein 7.2 Albumin 3.4 L Quality VTE Prophylaxis VTE prophylaxis: pharmacologic ordered
[2025-02-28] MEDS: CEFEPIME 1 GM/NS 50 ML 1 GM/50 ML BAG IVPB ×2 (08:59→22:22)
[2025-02-28] MEDS: MIRTAZAPINE 30 MG TABLET PO (09:00)
[2025-02-28] MEDS: ASPIRIN 81 MG ENTERIC TABLET PO (09:00)
[2025-02-28] MEDS: guaiFENesin 12 HR 600 MG TABCR PO (09:00)
[2025-02-28] MEDS: FERROUS SULFATE 325 MG TABLET DR BY MOUTH (09:00)
[2025-02-28] MEDS: MONTELUKAST SODIUM 10 MG TABLET PO (09:00)
[2025-02-28] MEDS: CLOPIDOGREL BISULFATE 75 MG TABLET PO (09:00)
[2025-02-28] MEDS: ATORVASTATIN 5 MG TABLET PO (09:00)
[2025-02-28] MEDS: POTASSIUM CHLORIDE 20 MEQ ER TABLET 40 MEQ PO (09:02)
[2025-02-28] MEDS: CYANOCOBALAMIN 1,000 MCG TABLET 1000 MCG PO (09:03)
[2025-02-28] MEDS: FUROSEMIDE 40 MG TABLET PO (09:03)
[2025-02-28] MEDS: PANTOPRAZOLE 40 MG TABLET PO (09:03)
[2025-02-28] MEDS: POTASSIUM CHLORIDE 20 MEQ ER TABLET PO (09:06)
--- NOTE | 2025-02-28 14:43 | PCSTNOTE ---
Please refer to the Modified Barium Swallow Evaluation in the EMR. Humaira was seen this date for a modified barium swallow study due to overt signs and symptoms during her bedside swallow evaluation. Humaira was presented with thin liquids (via tsp), moderately thick liquids (via tsp) and puree (via tsp). Her oral phase of swallowing was WFL. During the pharyngeal stage of swallowing, Humaira presented with reduced base of tongue retraction, incomplete laryngeal vestibule closure and reduced hyolaryngeal elevation. This resulted in frequent penetration and aspiration. With thin liquids via tsp, pt presented with laryngeal penetration before, during and after the swallow (residue from the vallecula spills over the epiglottic edge and into the laryngeal vestibule). Aspiration was noted during and after the initial swallow. A chin tuck positioning was attempted; however, was not effective in eliminating penetration or aspiration. Puree via tsp in both head neutral and chin tuck positioning resulted in penetration and eventually aspiration as penetrated material does not fully clear the laryngeal vestibule. Notable vallecular residue was visualized and she was unable to fully clear with subsequent swallows. Chin tuck positioning did not aid in the reduction of this residue. With moderately thick trials via tsp in a chin tuck position, no definitive penetration or aspiration was visualized; however, mild vallecular residue was visualized and she independently clear it with subsequent swallows. Impression: Severe dysphagia Recommendations: NPO; Mildly Thick Liquids with CHIN TUCK via tsp for pleasure ONLY; ST will continue to follow for treatment and further evaluation as warranted
[2025-03-01] VITALS (17 sets, daily range): BP systolic 139–144; BP diastolic 72–76; PULSE 61–114; RESP 18–20; TEMP 36.3–36.6; O2SAT 91–100
[2025-03-01 05:57] LABS: Hematocrit 37.1 % (37.0-47.0); Hemoglobin 10.8 g/dL (12.0-15.0); Mean Corpuscular HGB Conc 29.1 g/dl (32-36); Mean Corpuscular Hemoglobin 28.6 pg (26-34); Mean Corpuscular Volume 98.1 fl (80-100); Platelet Count Result 383 k/mm3 (150-375); Red Blood Count 3.78 M/mm3 (4.2-5.4); White Blood Count 13.1 K/mm3 (4.5-10.0)
[2025-03-01 06:24] LABS: Alanine Aminotransferase 9 U/L (6-35); Albumin Level 3.4 g/dL (3.5-5.1); Alkaline Phosphatase 66 U/L (38-126); Anion Gap 6 mmol/L (4-12); Aspartate Amino Transferase 25 U/L (14-36); Bilirubin,Total 0.3 mg/dL (0.2-1.3); Blood Urea Nitrogen 25 mg/dL (7-17); Calcium 8.6 mg/dL (8.4-10.2); Carbon Dioxide 37 mmol/L (22-30); Chloride 98 mmol/L (98-107); Estimated CRCL calculation 15 ml/min; Estimated Glomerular Filt Rate 42; Glucose 95 mg/dL (65-110); Potassium 4.2 mmol/L (3.4-5.0); Sodium 141 mmol/L (137-145); Total Protein 7.0 g/dL (6.3-8.2)
--- NOTE | 2025-03-01 08:57 | P.PNIM_ITS ---
Progress Note: A&P Assessment and Plan (1) Pneumonia: Code(s): J18.9 - Pneumonia, unspecified organism Status: Acute Assessment and Plan: CXR: Possible right middle lobe infiltrate - started on HAP tx given recent hospitalization: cefepime and vancomycin started on 02/25, remains on cefepime previously treated for pneumonia at [facility], will now cover for pseudomonas given continued pneumonia - Viral PCR: negative for Flu/COVID/RSV. MRSA negative. - Blood cultures collected on 02/25: NGTD - Mucinex and Cornet ordered to help mobilize secretions. IS ordered. - Pending legionella, mycoplasma and pneumococcal - supplemental oxygen of 3L NC, maintain SPO2 > 88% given COPD history - Monitor vital signs, I&Os, neuro status and patient is a fall risk - Follow WBC, serum electrolytes, temperature curves and cultures - Speech therapy consulted for swallow study, patient noted to have a weak cough with sips of water Recommending nectar thick liquids and MBS. Remains on 3 L nasal cannula with stable saturations on pulse oximetry. She states that she is at her baseline shortness of breath. Speaking full sentences. Remains on cefepime. Continue IS, PEP and mucinex. (2) Dysphagia: Code(s): R13.10 - Dysphagia, unspecified Status: Acute Assessment and Plan: MBS showed Lateral projection of the cervical spine demonstrates significant age-appropriate degenerative disease. Laryngeal penetration is identified with thin, pureed, and moderately thick liquids. Aspiration identified with thin and pureed. Spoke with Speech Therapy and patient placed on NPO with thickened liquids level 3 for pleasure feeds. 02/28: Returned to patients room to discuss the MBS with her. Also spoke with patients grand daughter Nahomi via phone. Per patient Nahomi is to be made her POA, Nahomi plans to discuss with care coordination about paperwork. Discussed in detail that patient is NPO at this time with the thickened liquids because of the risk of aspiration seen on the MBS. They stated understanding. Further discussed that if patient continues to fail the MBS will have to consider PEG vs hospice. Per grand daughter patient was worked up for PEG tube in the past and deemed not a good candidate. Patient and grand daughter stating understanding to the current treatment plan. Continues to work with speech therapy. (3) Chronic respiratory failure with hypoxia, on home oxygen therapy: Code(s): J96.11 - Chronic respiratory failure with hypoxia; Z99.81 - Dependence on supplemental oxygen Status: Acute Assessment and Plan: On EMS arrival her SpO2 was reportedly in the 70s on her usual 2-3 L nasal cannula, placed on 6 L and brought to hospital. Received a breathing treatment in the ER and was able to wean back to her baseline 2 L. Oxygen remains stable on her 2-3 liters Keep spO2 > 88% Continue to monitor (4) Acute kidney injury: Code(s): N17.9 - Acute kidney failure, unspecified Status: Acute Assessment and Plan: Acute kidney injury on admission with BUN/Cr 25/1.04 which is up from 11/0.74 earlier this year. - Likely related to poor oral intake and dehydration - Avoid nephrotoxic medications - Renally dose medications - Monitor I/O BUN/Cr elevated at 25/1.22. Given 500 ml bolus at 75ml/hr. If no improvement consider holding lisinopril and lasix. (5) Chronic obstructive pulmonary disease: Qualifiers: COPD type: unspecified COPD Qualified Code(s): J44.9 - Chronic obstructive pulmonary disease, unspecified Code(s): J44.9 - Chronic obstructive pulmonary disease, unspecified Status: Acute Assessment and Plan: Chronic Does not appear in acute exacerbation No significant wheezing thus no indication for steroids (6) (HFpEF) heart failure with preserved ejection fraction: Qualifiers: Heart failure chronicity: chronic Qualified Code(s): I50.32 - Chronic diastolic (congestive) heart failure Code(s): I50.30 - Unspecified diastolic (congestive) heart failure Status: Chronic Assessment and Plan: Chronic, patient appears euvolemic. Does not appear in acute exacerbation Continue to monitor I/O, do not overhydrate (7) Hypertension, essential: Code(s): I10 - Essential (primary) hypertension Status: Acute Assessment and Plan: Chronic - lisinopril 20 mg daily and furosemide 40 mg daily - Blood pressure remains stable. (8) Protein calorie malnutrition: Qualifiers: Protein-calorie malnutrition severity: severe Qualified Code(s): E43 - Unspecified severe protein-calorie malnutrition Code(s): E46 - Unspecified protein-calorie malnutrition Status: Acute Assessment and Plan: Nutrition consulted, started nutritional ice cream Time Spent With Patient Time with patient: 25 - 35 minutes Subjective Date/time seen: 03/01/25 08:57 Interval history: 89-year-old female with chronic obstructive pulmonary disease, chronic respiratory failure with hypoxia on 2 L home oxygen, heart failure with preser mukund ejection fraction, paroxysmal atrial fibrillation, pulmonary embolism, cerebrovascular accident, peripheral arterial disease, hypertension, dyslipidemia, and Crohn's disease who presented to the hospital via EMS from a local rehab facility for evaluation of shortness of breath. Patient is pleasant sitting up in her chair. She continues to say that her shortness of breath is no different than her normal. She remains on 3 L nasal cannula at this time. She has no other complaints denying chest pain, palpitations, nausea/vomiting, and abdominal pain. Review of Systems Review of Systems: All systems reviewed & are unremarkable except as noted in HPI and below Exam 2 Narrative: AF HR 89 RR 20 SPO2 97 3LNC BP 144/76 General: frail female in no acute respiratory distress who is nontoxic appearing, sitting up in chair HEENT: Normocephalic. Atraumatic. Extraocular movement intact. Sclera clear and anicteric. No facial asymmetry. Chest: Lungs are slightly diminished to auscultation bilaterally. No wheezes. Speaking full sentences. CV: Heart was regular rate and rhythm. S1-S2. No murmurs, gallops, or rubs. Abd: Abdomen was soft. Nontender. Nondistended. Positive bowel sounds. Ext: No clubbing, cyanosis, or edema. DP pulses bilaterally. Neuro: Patient is alert and oriented x3. Speech is clear. Objective Data Vital Signs Vital Signs: Vital Signs - 24 hr 02/28/25 09:00 02/28/25 09:00 02/28/25 12:00 Temperature Pulse Rate 105 H Respiratory Rate Blood Pressure Pulse Oximetry 92 94 Oxygen Delivery High Flow Nasal Cannula Nasal Cannula Oxygen Flow Rate 5 5 02/28/25 13:57 02/28/25 13:57 02/28/25 14:00 Temperature 98.0 F Pulse Rate 99 99 Respiratory Rate 20 22 H Blood Pressure 104/68 Pulse Oximetry 97 97 Oxygen Delivery High Flow Nasal Cannula Oxygen Flow Rate 3 02/28/25 14:10 02/28/25 14:40 02/28/25 16:00 Temperature Pulse Rate 103 H 95 Respiratory Rate 20 Blood Pressure Pulse Oximetry 93 Oxygen Delivery Nasal Cannula Oxygen Flow Rate 3 02/28/25 20:00 02/28/25 20:00 02/28/25 20:07 Temperature Pulse Rate 90 85 Respiratory Rate 20 Blood Pressure Pulse Oximetry 100 Oxygen Delivery Nasal Cannula Oxygen Flow Rate 3 02/28/25 20:13 02/28/25 22:00 03/01/25 00:00 Temperature 98.9 F Pulse Rate 86 96 Respiratory Rate 20 Blood Pressure 106/60 Pulse Oximetry 90 97 Oxygen Delivery High Flow Nasal Cannula Oxygen Flow Rate 3 03/01/25 04:00 03/01/25 06:00 Temperature 97.4 F L Pulse Rate 80 78 Respiratory Rate 20 Blood Pressure 143/72 H Pulse Oximetry 100 Oxygen Delivery Oxygen Flow Rate Intake/Output Intake/Output: Intake & Output 02/26/25 02/27/25 02/28/25 03/01/25 23:59 23:59 23:59 23:59 Intake Total 680 710 560 50 Output Total 650 1850 1050 Balance 40 -7041 -142 50 Meds/Results Medications: Active Medications Generic Name Dose Route Start Last Admin Trade Name Freq PRN Reason Stop Dose Admin Acetaminophen 650 mg 02/26/25 06:00 Acetaminophen 325 Mg Tablet PO Q6H PRN Mild Pain (1-3) or Fever Albuterol 2.5 mg 02/26/25 02:00 03/01/25 03:47 Albuterol Sulfate Neb 2.5 Mg/3 Ml Inh INHALATION Not Given Q6HRT KALA Aspirin 81 mg 02/26/25 09:00 02/28/25 09:00 Aspirin 81 Mg Enteric Tablet PO 81 mg DAILY KALA Administration Atorvastatin Calcium 5 mg 02/26/25 09:00 02/28/25 09:00 Atorvastatin 5 Mg Tablet PO 5 mg DAILY KALA Administration Budesonide 0.5 mg 02/26/25 08:00 02/28/25 20:07 Budesonide Respule Neb 0.5 Mg/2 Ml Amp INHALATION 0.5 mg Q12HRT KALA Administration Clopidogrel Bisulfate 75 mg 02/26/25 09:00 02/28/25 09:00 Clopidogrel Bisulfate 75 Mg Tablet PO 75 mg DAILY KALA Administration Cyanocobalamin 1,000 mcg 02/26/25 09:00 02/28/25 09:03 Cyanocobalamin 1,000 Mcg Tablet PO 1,000 mcg QAM KALA Administration Ferrous Sulfate 325 mg 02/26/25 09:00 02/28/25 09:00 Ferrous Sulfate [address] BY MOUTH 325 mg DAILY KALA Administration Furosemide 40 mg 02/27/25 09:00 02/28/25 09:03 Furosemide 40 Mg Tablet PO 40 mg QAM [facility] Administration Guaifenesin 600 mg 02/26/25 09:00 02/28/25 22:19 Guaifenesin 12 Hr 600 Mg Tabcr PO Not Given Q12HR KALA Guaifenesin/Dextromethorphan 1 tab 02/28/25 21:00 02/28/25 22:19 Guaifenesin 600 Mg/Dextromethorphan 30 Mg Sr Tab 12 Hr PO Not Given Q12HR KALA Cefepime HCl 1 gm in 50 mls @ 100 mls/hr 02/26/25 09:05 02/28/25 22:52 Maxipime 1 Gm/Ns 50 Ml IVPB Infused Q12H KALA Infusion Ipratropium [place] 0.5 mg 02/26/25 06:05 Ipratropium Br 0.02% Inh Soln 0.5 Mg/2.5 Ml Vial INHALATION Q6H PRN Shortness Of Breath Lisinopril 20 mg 02/27/25 09:00 02/28/25 09:00 Lisinopril 20 Mg Tablet PO 20 mg DAILY KALA Administration Mirtazapine 30 mg 02/26/25 09:00 02/28/25 09:00 Mirtazapine 30 Mg Tablet PO 30 mg DAILY KALA Administration Montelukast Sodium 10 mg 02/26/25 09:00 02/28/25 09:00 Montelukast Sodium 10 Mg Tablet PO 10 mg DAILY KALA Administration Pantoprazole Sodium 40 mg 02/26/25 09:00 02/28/25 09:03 Pantoprazole 40 Mg Tablet PO 40 mg QAM [facility] Administration Potassium Chloride 20 meq 02/26/25 09:00 02/28/25 09:06 Potassium Chloride 20 Meq Er Tablet PO 20 meq DAILY [facility] Administration Sulfasalazine 1,000 mg 02/26/25 09:00 02/28/25 18:57 Sulfasalazine 500 Mg Tablet BY MOUTH Not Given 0900,1300,1800 [facility] Radiology Results: ITS Impressions Chest X-Ray 02/28/25 13:52 IMPRESSION: Retained oral contrast projecting over the esophagus and right hilum, as detailed above. Modified Barium Swallow 02/28/25 14:07 IMPRESSION: As above. Labs Labs: Laboratory Results - last 24 hr 03/01/25 05:22 WBC 13.1 H RBC 3.78 L Hgb 10.8 L Hct 37.1 MCV 98.1 MCH 28.6 MCHC 29.1 L RDW 13.0 Plt Count 383 H MPV 10.6 H Sodium 141 Potassium 4.2 Chloride 98 Carbon Dioxide 37 H Anion Gap 6 BUN 25 H Creatinine 1.22 H Estim Creat Clear Calc 15 Estimated GFR 42 L Glucose 95 Calcium 8.6 Total Bilirubin 0.3 AST 25 ALT 9 Alkaline Phosphatase 66 Total Protein 7.0 Albumin 3.4 L Quality VTE Prophylaxis VTE prophylaxis: pharmacologic ordered
[2025-03-01] MEDS: FUROSEMIDE 40 MG TABLET PO (09:18)
[2025-03-01] MEDS: ASPIRIN 81 MG ENTERIC TABLET PO (09:19)
[2025-03-01] MEDS: PANTOPRAZOLE 40 MG TABLET PO (09:19)
[2025-03-01] MEDS: FERROUS SULFATE 325 MG TABLET DR BY MOUTH (09:20)
[2025-03-01] MEDS: POTASSIUM CHLORIDE 20 MEQ ER TABLET PO (09:20)
[2025-03-01] MEDS: CLOPIDOGREL BISULFATE 75 MG TABLET PO (09:20)
[2025-03-01] MEDS: MIRTAZAPINE 30 MG TABLET PO (09:20)
[2025-03-01] MEDS: CYANOCOBALAMIN 1,000 MCG TABLET 1000 MCG PO (09:20)
[2025-03-01] MEDS: MONTELUKAST SODIUM 10 MG TABLET PO (09:20)
[2025-03-01] MEDS: ATORVASTATIN 5 MG TABLET PO (09:20)
[2025-03-01] MEDS: CEFEPIME 1 GM/NS 50 ML 1 GM/50 ML BAG IVPB ×2 (09:21→20:46)
[2025-03-01] MEDS: guaiFENesin 600 MG/DEXTROMETHORPHAN 30 MG SR TAB 12 HR 1 TAB PO (09:21)
[2025-03-01] MEDS: SODIUM CHLORIDE 0.9% IV 500 ML 75 ML IV CONT (09:21)
[2025-03-01] MEDS: BUDESONIDE RESPULE NEB 0.5 MG/2 ML AMP INHALATION ×2 (09:34→20:05)
[2025-03-01] MEDS: ALBUTEROL SULFATE NEB 2.5 MG/3 ML INH INHALATION ×3 (09:34→20:05)
[2025-03-02] VITALS (20 sets, daily range): BP systolic 114–132; BP diastolic 62–65; PULSE 74–97; RESP 16–84; TEMP 36.2–36.8; O2SAT 91–99; BMI 14.1
[2025-03-02] MEDS: ALBUTEROL SULFATE NEB 2.5 MG/3 ML INH INHALATION ×4 (02:22→20:13)
[2025-03-02 05:54] LABS: Hematocrit 34.8 % (37.0-47.0); Hemoglobin 9.9 g/dL (12.0-15.0); Mean Corpuscular HGB Conc 28.4 g/dl (32-36); Mean Corpuscular Hemoglobin 28.0 pg (26-34); Mean Corpuscular Volume 98.6 fl (80-100); Platelet Count Result 372 k/mm3 (150-375); Red Blood Count 3.53 M/mm3 (4.2-5.4); White Blood Count 11.9 K/mm3 (4.5-10.0)
[2025-03-02 07:00] LABS: Anion Gap 8 mmol/L (4-12); Blood Urea Nitrogen 22 mg/dL (7-17); Carbon Dioxide 35 mmol/L (22-30); Chloride 100 mmol/L (98-107); Estimated CRCL calculation 16 ml/min; Potassium 4.0 mmol/L (3.4-5.0); Sodium 143 mmol/L (137-145)
[2025-03-02 07:01] LABS: Alanine Aminotransferase 7 U/L (6-35); Albumin Level 3.1 g/dL (3.5-5.1); Alkaline Phosphatase 63 U/L (38-126); Aspartate Amino Transferase 25 U/L (14-36); Bilirubin,Total 0.2 mg/dL (0.2-1.3); Calcium 8.7 mg/dL (8.4-10.2); Estimated Glomerular Filt Rate 45; Glucose 90 mg/dL (65-110); Total Protein 6.6 g/dL (6.3-8.2)
[2025-03-02] MEDS: BUDESONIDE RESPULE NEB 0.5 MG/2 ML AMP INHALATION ×2 (07:41→20:13)
[2025-03-02] MEDS: guaiFENesin 600 MG/DEXTROMETHORPHAN 30 MG SR TAB 12 HR 1 TAB PO ×2 (10:05→20:35)
[2025-03-02] MEDS: ACETAMINOPHEN 325 MG TABLET 650 MG PO (10:05)
[2025-03-02] MEDS: FERROUS SULFATE 325 MG TABLET DR BY MOUTH (10:05)
[2025-03-02] MEDS: CLOPIDOGREL BISULFATE 75 MG TABLET PO (10:06)
[2025-03-02] MEDS: CYANOCOBALAMIN 1,000 MCG TABLET 1000 MCG PO (10:07)
[2025-03-02] MEDS: MONTELUKAST SODIUM 10 MG TABLET PO (10:07)
[2025-03-02] MEDS: PANTOPRAZOLE 40 MG TABLET PO (10:08)
[2025-03-02] MEDS: POTASSIUM CHLORIDE 20 MEQ ER TABLET PO (10:08)
[2025-03-02] MEDS: ATORVASTATIN 5 MG TABLET PO (10:08)
[2025-03-02] MEDS: MIRTAZAPINE 30 MG TABLET PO (10:08)
[2025-03-02] MEDS: ASPIRIN 81 MG ENTERIC TABLET PO (10:08)
[2025-03-02] MEDS: FUROSEMIDE 40 MG TABLET PO (10:08)
[2025-03-02] MEDS: CEFEPIME 1 GM/NS 50 ML 1 GM/50 ML BAG IVPB ×2 (10:09→20:35)
[2025-03-02 10:19] LABS: Magnesium 1.9 mg/dL (1.6-2.3)
[2025-03-02 10:26] LABS: Transferrin 119 mg/dL (206-381)
[2025-03-02 10:45] LABS: Partial Thromboplastin Time 32.8 Seconds (22.3-36.8)
--- NOTE | 2025-03-02 13:33 | P.PNIM_ITS ---
Progress Note: A&P Assessment and Plan (1) Pneumonia: Code(s): J18.9 - Pneumonia, unspecified organism Status: Acute Assessment and Plan: CXR: Possible right middle lobe infiltrate - started on HAP tx given recent hospitalization: cefepime and vancomycin started on 02/25, remains on cefepime previously treated for pneumonia at [facility], will now cover for pseudomonas given continued pneumonia - Viral PCR: negative for Flu/COVID/RSV. MRSA negative. - Blood cultures collected on 02/25: NGTD - Mucinex and Cornet ordered to help mobilize secretions. IS ordered. - Pending legionella, mycoplasma and pneumococcal - supplemental oxygen of 3L NC, maintain SPO2 > 88% given COPD history - Monitor vital signs, I&Os, neuro status and patient is a fall risk - Follow WBC, serum electrolytes, temperature curves and cultures - Speech therapy consulted for swallow study, patient noted to have a weak cough with sips of water Recommending nectar thick liquids and MBS. Remains on 3 L nasal cannula with stable saturations on pulse oximetry. She states that she is at her baseline shortness of breath. Speaking full sentences. Remains on cefepime. Continue IS, PEP and mucinex. (2) Dysphagia: Code(s): R13.10 - Dysphagia, unspecified Status: Acute Assessment and Plan: MBS showed Lateral projection of the cervical spine demonstrates significant age-appropriate degenerative disease. Laryngeal penetration is identified with thin, pureed, and moderately thick liquids. Aspiration identified with thin and pureed. Spoke with Speech Therapy and patient placed on NPO with thickened liquids level 3 for pleasure feeds. 02/28: Returned to patients room to discuss the MBS with her. Also spoke with patients grand daughter Nahomi via phone. Per patient Nahomi is to be made her POA, Nahomi plans to discuss with care coordination about paperwork. Discussed in detail that patient is NPO at this time with the thickened liquids because of the risk of aspiration seen on the MBS. They stated understanding. Further discussed that if patient continues to fail the MBS will have to consider PEG vs hospice. Per grand daughter patient was worked up for PEG tube in the past and deemed not a good candidate. Patient and grand daughter stating understanding to the current treatment plan. Continues to work with speech therapy. failed swallow study npo for now' will add PPN while we discuss options for [facility] care (3) Chronic respiratory failure with hypoxia, on home oxygen therapy: Code(s): J96.11 - Chronic respiratory failure with hypoxia; Z99.81 - Dependence on sup plemental oxygen Status: Acute Assessment and Plan: On EMS arrival her SpO2 was reportedly in the 70s on her usual 2-3 L nasal cannula, placed on 6 L and brought to hospital. Received a breathing treatment in the ER and was able to wean back to her baseline 2 L. Oxygen remains stable on her 2-3 liters Keep spO2 > 88% Continue to monitor (4) Acute kidney injury: Code(s): N17.9 - Acute kidney failure, unspecified Status: Acute Assessment and Plan: Acute kidney injury on admission with BUN/Cr 25/1.04 which is up from 11/0.74 earlier this year. - Likely related to poor oral intake and dehydration - Avoid nephrotoxic medications - Renally dose medications - Monitor I/O BUN/Cr elevated at 25/1.22. Given 500 ml bolus at 75ml/hr. If no improvement consider holding lisinopril and lasix. (5) Chronic obstructive pulmonary disease: Qualifiers: COPD type: unspecified COPD Qualified Code(s): J44.9 - Chronic obstructive pulmonary disease, unspecified Code(s): J44.9 - Chronic obstructive pulmonary disease, unspecified Status: Acute Assessment and Plan: Chronic Does not appear in acute exacerbation No significant wheezing thus no indication for steroids (6) (HFpEF) heart failure with preserved ejection fraction: Qualifiers: Heart failure chronicity: chronic Qualified Code(s): I50.32 - Chronic diastolic (congestive) heart failure Code(s): I50.30 - Unspecified diastolic (congestive) heart failure Status: Chronic Assessment and Plan: Chronic, patient appears euvolemic. Does not appear in acute exacerbation Continue to monitor I/O, do not overhydrate (7) Hypertension, essential: Code(s): I10 - Essential (primary) hypertension Status: Acute Assessment and Plan: Chronic - lisinopril 20 mg daily and furosemide 40 mg daily - Blood pressure remains stable. (8) Protein calorie malnutrition: Qualifiers: Protein-calorie malnutrition severity: severe Qualified Code(s): E43 - Unspecified severe protein-calorie malnutrition Code(s): E46 - Unspecified protein-calorie malnutrition Status: Acute Assessment and Plan: Nutrition consulted, started nutritional ice cream - PPN ordered while pt is NPO Plan discussion with family about further plan of care: peg tube vs comfort/hospice Time Spent With Patient Time with patient: 25 - 35 minutes Subjective Date/time seen: 03/02/25 13:33 Interval history: 89-year-old female with chronic obstructive pulmonary disease, chronic respiratory failure with hypoxia on 2 L home oxygen, heart failure with preserved ejection fraction, paroxysmal atrial fibrillation, pulmonary embolism, cerebrovascular accident, peripheral arterial disease, hypertension, dyslipidemia, and Crohn's disease who presented to the hospital via EMS from a local rehab facility for evaluation of shortness of breath. Patient is pleasant sitting up in her chair. She just finished working with PT/OT. She remains on 3 L nasal cannula at this time. She has no other complaints denying chest pain, palpitations, nausea/vomiting, and abdominal pain. Sh is very weak. Discussed with grandaugher, options discussed about PEG tube vs comfort measures. Care coordination is involved as well. Pt states that she wnats to go comfort measures, wants to eat and realizes that she may aspirate and get pneumonia. Review of Systems Review of Systems: 12 systems were reviewed and are negativ e except for as per HPI. All systems reviewed & are unremarkable except as noted in HPI and below Exam Narrative: General: frail female in no acute respiratory distress who is nontoxic appearing, sitting up in chair HEENT: Normocephalic. Atraumatic. Extraocular movement intact. Sclera clear and anicteric. No facial asymmetry. Chest: Lungs are slightly diminished to auscultation bilaterally. No wheezes. Speaking full sentences. CV: Heart was regular rate and rhythm. S1-S2. No murmurs, gallops, or rubs. Abd: Abdomen was soft. Nontender. Nondistended. Positive bowel sounds. Ext: No clubbing, cyanosis, or edema. DP pulses bilaterally. Neuro: Patient is alert and oriented x3. Speech is clear. Objective Data Vital Signs Vital Signs: Vital Signs - 24 hr 03/01/25 13:59 03/01/25 14:28 03/01/25 14:28 Temperature 97.8 F Pulse Rate 89 78 78 Respiratory Rate 20 20 20 Blood Pressure 144/76 H Pulse Oximetry 97 96 Oxygen Delivery Nasal Cannula Oxygen Flow Rate 3 Fraction of Inspired Oxygen 03/01/25 14:39 03/01/25 16:00 03/01/25 20:00 Temperature Pulse Rate 72 114 H 85 Respiratory Rate 20 18 Blood Pressure Pulse Oximetry 96 Oxygen Delivery Nasal Cannula Oxygen Flow Rate 3 Fraction of Inspired Oxygen 03/01/25 20:00 03/01/25 20:05 03/01/25 20:07 Temperature Pulse Rate 72 84 Respiratory Rate 18 Blood Pressure Pulse Oximetry 96 Oxygen Delivery Nasal Cannula Oxygen Flow Rate 3 Fraction of Inspired Oxygen 03/01/25 20:19 03/01/25 22:00 03/02/25 00:00 Temperature 97.7 F Pulse Rate 85 85 78 Respiratory Rate 18 18 Blood Pressure 139/76 Pulse Oximetry 99 Oxygen Delivery Oxygen Flow Rate Fraction of Inspired Oxygen 03/02/25 02:23 03/02/25 02:34 03/02/25 05:07 Temperature 97.4 F L Pulse Rate 86 91 84 Respiratory Rate 18 18 84 H Blood Pressure 121/63 Pulse Oximetry 99 Oxygen Delivery Oxygen Flow Rate Fraction of Inspired Oxygen 03/02/25 06:11 03/02/25 07:40 03/02/25 07:40 Temperature Pulse Rate 83 90 90 Respiratory Rate 18 18 Blood Pressure Pulse Oximetry 96 Oxygen Delivery Nasal Cannula Oxygen Flow Rate 2 Fraction of Inspired Oxygen 03/02/25 07:50 03/02/25 08:00 03/02/25 10:00 Temperature Pulse Rate 88 87 Respiratory Rate 18 Blood Pressure Pulse Oximetry 96 Oxygen Delivery Nasal Cannula Oxygen Flow Rate 3 Fraction of Inspired Oxygen 03/02/25 12:00 Temperature Pulse Rate 97 Respiratory Rate Blood Pressure Pulse Oximetry Oxygen Delivery Oxygen Flow Rate Fraction of Inspired Oxygen Intake/Output Intake/Output: Intake & Output 02/27/25 02/28/25 03/01/25 03/02/25 23:59 23:59 23:59 23:59 Intake Total 710 560 150 50 Output Total 1850 1050 600 [facility] -[phone] -490 -450 50 Meds/Results Medications: Active Medications Generic Name Dose Route Start Last Admin Trade Name Freq PRN Reason Stop Dose Admin Acetaminophen 650 mg 02/26/25 06:00 03/02/25 10:05 Acetaminophen 325 Mg Tablet PO 650 mg Q6H PRN Administration Mild Pain (1-3) or Fever Albuterol 2.5 mg 02/26/25 02:00 03/02/25 07:41 Albuterol Sulfate Neb 2.5 Mg/3 Ml Inh INHALATION 2.5 mg Q6HRT KALA Administration Aspirin 81 mg 02/26/25 09:00 03/02/25 10:08 Aspirin 81 Mg Enteric Tablet PO 81 mg DAILY KALA Administration Atorvastatin Calcium 5 mg 02/26/25 09:00 03/02/25 10:08 Atorvastatin 5 Mg Tablet PO 5 mg DAILY KALA Administration Budesonide 0.5 mg 02/26/25 08:00 03/02/25 07:41 Budesonide Respule Neb 0.5 Mg/2 Ml Amp INHALATION 0.5 mg Q12HRT KALA Administration Clopidogrel Bisulfate 75 mg 02/26/25 09:00 03/02/25 10:06 Clopidogrel Bisulfate 75 Mg Tablet PO 75 mg DAILY KALA Administration Cyanocobalamin 1,000 mcg 02/26/25 09:00 03/02/25 10:07 Cyanocobalamin 1,000 Mcg Tablet PO 1,000 mcg QAM KALA Administration Ferrous Sulfate 325 mg 02/26/25 09:00 03/02/25 10:05 Ferrous Sulfate [address] BY MOUTH 325 mg DAILY KALA Administration Furosemide 40 mg 02/27/25 09:00 03/02/25 10:08 Furosemide 40 Mg Tablet PO 40 mg QAM KALA Administration Guaifenesin/Dextromethorphan 1 tab 02/28/25 21:00 03/02/25 10:05 Guaifenesin 600 Mg/Dextromethorphan 30 Mg Sr Tab 12 Hr PO 1 tab Q12HR KALA Administration Cefepime HCl 1 gm in 50 mls @ 100 mls/hr 02/26/25 09:05 03/02/25 10:39 Maxipime 1 Gm/Ns 50 Ml IVPB 03/04/25 09:34 Infused Q12H KALA Infusion Dextrose 1,000 mls @ 50 mls/hr 03/02/25 12:00 Dextrose 10% IV CONT .Q20H PRN if PN is interrupted Amino Acids/Electrolytes/Dextrose 1,000 mls @ 80 mls/hr 03/02/25 14:00 Clinimix E 4.25%/5% Solution IV CONT .[id number] KALA Protocol Fat Emulsion Intravenous 250 mls @ 20.833 mls/hr 03/02/25 14:00 Lipids 20% IVPB Q24H KALA Ipratropium [place] 0.5 mg 02/26/25 06:05 Ipratropium Br 0.02% Inh Soln 0.5 Mg/2.5 Ml Vial INHALATION Q6H PRN Shortness Of Breath Lisinopril 20 mg 02/27/25 09:00 03/02/25 10:05 Lisinopril 20 Mg Tablet PO 20 mg DAILY KALA Administration Mirtazapine 30 mg 02/26/25 09:00 03/02/25 10:08 Mirtazapine 30 Mg Tablet PO 30 mg DAILY KALA Administration Montelukast Sodium 10 mg 02/26/25 09:00 03/02/25 10:07 Montelukast Sodium 10 Mg Tablet PO 10 mg DAILY KALA Administration Pantoprazole Sodium 40 mg 02/26/25 09:00 03/02/25 10:08 Pantoprazole 40 Mg Tablet PO 40 mg QAM KALA Administration Potassium Chloride 20 meq 02/26/25 09:00 03/02/25 10:08 Potassium Chloride 20 Meq Er Tablet PO 20 meq DAILY KALA Administration Sulfasalazine 1,000 mg 02/26/25 09:00 03/02/25 10:06 Sulfasalazine 500 Mg Tablet BY MOUTH 1,000 mg 0900,1300,1800 KALA Administration Radiology Results: ITS Impressions Chest X-Ray 02/28/25 13:52 IMPRESSION: Retained oral contrast projecting over the esophagus and right hilum, as detailed above. Modified Barium Swallow 02/28/25 14:07 IMPRESSION: As above. Labs Labs: Laboratory Results - last 24 hr 03/02/25 03/02/25 03/02/25 04:57 05:47 10:14 WBC 11.9 H RBC 3.53 L Hgb 9.9 L Hct 34.8 L MCV 98.6 MCH 28.0 MCHC 28.4 L RDW 13.2 Plt Count 372 MPV 10.6 H APTT 32.8 Sodium 143 Potassium 4.0 Chloride 100 Carbon Dioxide 35 H Anion Gap 8 BUN 22 H Creatinine 1.14 H Estim Creat Clear Calc 16 Estimated GFR 45 L Glucose 90 POC Capillary Glucose Calcium 8.7 Magnesium 1.9 Transferrin 119 L Total Bilirubin 0.2 AST 25 ALT 7 Alkaline Phosphatase 63 Total Protein 6.6 Albumin 3.1 L 03/02/25 12:25 WBC RBC Hgb Hct MCV MCH MCHC RDW Plt Count MPV APTT Sodium Potassium Chloride Carbon Dioxide Anion Gap BUN Creatinine Estim Creat Clear Calc Estimated GFR Glucose POC Capillary Glucose 107 H Calcium Magnesium Transferrin Total Bilirubin AST ALT Alkaline Phosphatase Total Protein Albumin Quality VTE Prophylaxis VTE prophylaxis: pharmacologic ordered
[2025-03-02] MEDS: AMINO ACIDS 4.25%/D5W/LYTES/CA 1,000 ML 80 ML IV CONT (14:46)
[2025-03-02] MEDS: FAT EMULSIONS IV 20% 250 ML 20.83 ML IVPB (14:46)
[2025-03-02 15:39] LABS: Pneumococcal Antigen Urine NOT DETECTED
[2025-03-03] VITALS (19 sets, daily range): BP systolic 131–155; BP diastolic 70–84; PULSE 76–105; RESP 14–24; TEMP 36.3–36.6; O2SAT 96–99
[2025-03-03] MEDS: ALBUTEROL SULFATE NEB 2.5 MG/3 ML INH INHALATION ×3 (01:21→20:03)
[2025-03-03] MEDS: AMINO ACIDS 4.25%/D5W/LYTES/CA 1,000 ML 80 ML IV CONT ×2 (03:12→15:10)
[2025-03-03 05:08] LABS: Hematocrit 34.8 % (37.0-47.0); Hemoglobin 10.2 g/dL (12.0-15.0); Immature Granulocyte Percent A 3.3 % (0-0.5); Lymphocytes Absolute Auto 0.94 K/mm3 (0.9-3.2); Mean Corpuscular HGB Conc 29.3 g/dl (32-36); Mean Corpuscular Hemoglobin 28.5 pg (26-34); Mean Corpuscular Volume 97.2 fl (80-100); Nucleated Red Blood Cells Absolute Auto 0.000 K/mm3 (0.0-0.012); Nucleated Red Blood Cells Perc 0.0 % (0.0-0.2); Platelet Count Result 369 k/mm3 (150-375); Red Blood Count 3.58 M/mm3 (4.2-5.4); White Blood Count 16.7 K/mm3 (4.5-10.0)
[2025-03-03 05:19] LABS: Alanine Aminotransferase 9 U/L (6-35); Albumin Level 3.2 g/dL (3.5-5.1); Alkaline Phosphatase 62 U/L (38-126); Anion Gap 7 mmol/L (4-12); Aspartate Amino Transferase 25 U/L (14-36); Bilirubin,Total 0.2 mg/dL (0.2-1.3); Blood Urea Nitrogen 38 mg/dL (7-17); Calcium 8.8 mg/dL (8.4-10.2); Carbon Dioxide 34 mmol/L (22-30); Chloride 97 mmol/L (98-107); Estimated CRCL calculation 18 ml/min; Estimated Glomerular Filt Rate 56; Glucose 123 mg/dL (65-110); Magnesium 1.9 mg/dL (1.6-2.3); Potassium 4.5 mmol/L (3.4-5.0); Sodium 138 mmol/L (137-145); Total Protein 6.7 g/dL (6.3-8.2); Triglycerides 90 mg/dL (<150)
[2025-03-03 05:28] LABS: Hypochromasia 1+; Schistocytes None Seen
[2025-03-03] MEDS: BUDESONIDE RESPULE NEB 0.5 MG/2 ML AMP INHALATION ×2 (08:14→20:02)
[2025-03-03] MEDS: PANTOPRAZOLE 40 MG TABLET PO (09:33)
[2025-03-03] MEDS: MIRTAZAPINE 30 MG TABLET PO (09:33)
[2025-03-03] MEDS: MONTELUKAST SODIUM 10 MG TABLET PO (09:33)
[2025-03-03] MEDS: POTASSIUM CHLORIDE 20 MEQ ER TABLET PO (09:34)
[2025-03-03] MEDS: CEFEPIME 1 GM/NS 50 ML 1 GM/50 ML BAG IVPB ×2 (09:34→20:11)
[2025-03-03] MEDS: FERROUS SULFATE 325 MG TABLET DR BY MOUTH (09:34)
[2025-03-03] MEDS: ATORVASTATIN 5 MG TABLET PO (09:34)
[2025-03-03] MEDS: FUROSEMIDE 40 MG TABLET PO (09:34)
[2025-03-03] MEDS: CLOPIDOGREL BISULFATE 75 MG TABLET PO (09:34)
[2025-03-03] MEDS: ASPIRIN 81 MG ENTERIC TABLET PO (09:34)
[2025-03-03] MEDS: CYANOCOBALAMIN 1,000 MCG TABLET 1000 MCG PO (09:34)
[2025-03-03] MEDS: guaiFENesin 600 MG/DEXTROMETHORPHAN 30 MG SR TAB 12 HR 1 TAB PO ×2 (09:34→20:11)
--- NOTE | 2025-03-03 11:21 | PCSTNOTE ---
Therapist attempted to see patient around 11:15 am, however she was speaking with staff and family concerning plans for discharge. Will continue plan of care.
--- NOTE | 2025-03-03 13:44 | PM.IMPN ---
Progress Note: A&P Assessment and Plan (1) Pneumonia: Code(s): J18.9 - Pneumonia, unspecified organism Status: Acute Assessment and Plan: CXR: Possible right middle lobe infiltrate - started on HAP tx given recent hospitalization: cefepime and vancomycin started on 02/25, remains on cefepime previously treated for pneumonia at [facility], will now cover for pseudomonas given continued pneumonia - Viral PCR: negative for Flu/COVID/RSV. MRSA negative. - Blood cultures collected on 02/25: NGTD - Mucinex and Cornet ordered to help mobilize secretions. IS ordered. - Pending legionella, mycoplasma and pneumococcal - supplemental oxygen of 3L NC, maintain SPO2 > 88% given COPD history - Monitor vital signs, I&Os, neuro status and patient is a fall risk - Follow WBC, serum electrolytes, temperature curves and cultures - Speech therapy consulted for swallow study, patient noted to have a weak cough with sips of water Recommending nectar thick liquids and MBS. Remains on 3 L nasal cannula with stable saturations on pulse oximetry. She states that she is at her baseline shortness of breath. Speaking full sentences. Remains on cefepime. Continue IS, PEP and mucinex. 03/03 due for 2 more doses of cefepime -tonight and one in am (2) Dysphagia: Code(s): R13.10 - Dysphagia, unspecified Status: Acute Assessment and Plan: MBS showed Lateral projection of the cervical spine demonstrates significant age-appropriate degenerative disease. Laryngeal penetration is identified with thin, pureed, and moderately thick liquids. Aspiration identified with thin and pureed. Spoke with Speech Therapy and patient placed on NPO with thickened liquids level 3 for pleasure feeds. 02/28: Returned to patients room to discuss the MBS with her. Also spoke with patients grand daughter Nahomi via phone. Per patient Nahomi is to be made her POA, Nahomi plans to discuss with care coordination about paperwork. Discussed in detail that patient is NPO at this time with the thickened liquids because of the risk of aspiration seen on the MBS. They stated understanding. Further discussed that if patient continues to fail the MBS will have to consider PEG vs hospice. Per grand daughter patient was worked up for PEG tube in the past and deemed not a good candidate. Patient and grand daughter stating understanding to the current treatment plan. Continues to work with speech therapy. failed swallow study npo for now' will add PPN while we discuss options for further care (3) Chronic respiratory failure with hypoxia, on home oxygen therapy: Code(s): J96.11 - Chronic respiratory failure with hypoxia; Z99.81 - Dependence on supplemental oxygen Status: Acute Assessment and Plan: On EMS arrival her SpO2 was reportedly in the 70s on her usual 2-3 L nasal cannula, placed on 6 L and brought to hospital. Received a breathing treatment in the ER and was able to wean back to her baseline 2 L. Oxygen remains stable on her 2-3 liters Keep spO2 > 88% Continue to monitor (4) Acute kidney injury: Code(s): N17.9 - Acute kidney failure, unspecified Status: Acute Assessment and Plan: Acute kidney injury on admission with BUN/Cr 25/1.04 which is up from 11/0.74 earlier this year. - Likely related to poor oral intake and dehydration - Avoid nephrotoxic medications - Renally dose medications - Monitor I/O BUN/Cr elevated at 25/1.22. Given 500 ml bolus at 75ml/hr. If no improvement consider holding lisinopril and lasix. (5) Chronic obstructive pulmonary disease: Qualifiers: COPD type: unspecified COPD Qualified Code(s): J44.9 - Chronic obstructive pulmonary disease, unspecified Code(s): J44.9 - Chronic obstructive pulmonary disease, unspecified Status: Acute Assessment and Plan: Chronic Does not appear in acute exacerbation No significant wheezing thus no indication for steroids (6) (HFpEF) heart failure with preserved ejection fraction: Qualifiers: Heart failure chronicity: chronic Qualified Code(s): I50.32 - Chronic diastolic (congestive) heart failure Code(s): I50.30 - Unspecified diastolic (congestive) heart failure Status: Chronic Assessment and Plan: Chronic, patient appears euvolemic. Does not appear in acute exacerbation Continue to monitor I/O, do not overhydrate (7) Hypertension, essential: Code(s): I10 - Essential (primary) hypertension Status: Acute Assessment and Plan: Chronic - lisinopril 20 mg daily and furosemide 40 mg daily - Blood pressure remains stable. (8) Protein calorie malnutrition: Qualifiers: Protein-calorie malnutrition severity: severe Qualified Code(s): E43 - Unspecified severe protein-calorie malnutrition Code(s): E46 - Unspecified protein-calorie malnutrition Status: Acute Assessment and Plan: Nutrition consulted, started nutritional ice cream - PPN ordered while pt is NPO Plan [facility] hospice was contacted per care coordination for comfort/hospice Time Spent With Patient Time with patient: 25 - 35 minutes Subjective Date/time seen: 03/03/25 13:44 Interval history: 89-year-old female with chronic obstructive pulmonary disease, chronic respiratory failure with hypoxia on 2 L home oxygen, heart failure with preserved ejection fraction, paroxysmal atrial fibrillation, pulmonary embolism, cerebrovascular accident, peripheral arterial disease, hypertension, dyslipidemia, and Crohn's disease who presented to the hospital via EMS from a local rehab facility for evaluation of shortness of breath. Patient is pleasant sitting up in her chair. She is working with PT/OT. She remains on 3 L nasal cannula at this time. She has no other complaints denying chest pain, palpitations, nausea/vomiting, and abdominal pain. She is very weak. Family leaning toward hospice and [facility] hospice got arrange. Review of Systems Review of Systems: 12 systems were reviewed and are negative except for as per HPI. All systems reviewed & are unremarkable except as noted in HPI and below Exam Narrative: General: frail female in no acute respiratory distress who is nontoxic appearing, sitting up in chair HEENT: Normocephalic. Atraumatic. Extraocular movement intact. Sclera clear and anicteric. No facial asymmetry. Chest: Lungs are slightly diminished to auscultation bilaterally. No wheezes. Speaking full sentences. CV: Heart was regular rate and rhythm. S1-S2. No murmurs, gallops, or rubs. Abd: Abdomen was soft. Nontender. Nondistended. Positive bowel sounds. Ext: No clubbing, cyanosis, or edema. DP pulses bilaterally. Neuro: Patient is alert and oriented x3. Speech is clear. Const: General: comfortable Objective Data Vital Signs Vital Signs: Vital Signs - 24 hr 03/02/25 13:50 03/02/25 14:00 03/02/25 14:10 Temperature Pulse Rate 90 89 88 Respiratory Rate 18 18 18 Blood Pressure Pulse Oximetry Oxygen Delivery Oxygen Flow Rate Fraction of Inspired Oxygen 03/02/25 15:07 03/02/25 16:00 03/02/25 20:00 Temperature 98.2 F Pulse Rate 88 81 80 Respiratory Rate 16 Blood Pressure 114/62 Pulse Oximetry 96 Oxygen Delivery Oxygen Flow Rate Fraction of Inspired Oxygen 03/02/25 20:13 03/02/25 20:13 03/02/25 20:20 Temperature Pulse Rate 74 87 Respiratory Rate 20 18 Blood Pressure Pulse Oximetry 91 96 Oxygen Delivery Nasal Cannula Nasal Cannula Oxygen Flow Rate 3 3 Fraction of Inspired Oxygen 03/02/25 20:23 03/02/25 22:00 03/03/25 00:00 Temperature 97.2 F L Pulse Rate 85 87 76 Respiratory Rate 20 18 Blood Pressure 132/65 Pulse Oximetry 96 Oxygen Delivery Oxygen Flow Rate Fraction of Inspired Oxygen 03/03/25 01:22 03/03/25 01:28 03/03/25 04:00 Temperature Pulse Rate 86 84 86 Respiratory Rate 20 20 Blood Pressure Pulse Oximetry Oxygen Delivery Oxygen Flow Rate Fraction of Inspired Oxygen 03/03/25 06:00 03/03/25 08:00 03/03/25 09:56 Temperature 97.4 F L Pulse Rate 79 76 Respiratory Rate 18 Blood Pressure 155/76 H Pulse Oximetry 97 97 Oxygen Delivery Nasal Cannula Oxygen Flow Rate 3 Fraction of Inspired Oxygen 03/03/25 12:00 Temperature Pulse Rate 79 Respiratory Rate Blood Pressure Pulse Oximetry Oxygen Delivery Oxygen Flow Rate Fraction of Inspired Oxygen Intake/Output Intake/Output: Intake & Output 02/28/25 03/01/25 03/02/25 03/03/25 23:59 23:59 23:59 23:59 Intake Total 560 712 801 6796 Output Total 1050 600 500 500 Balance -490 -450 -200 1104 Meds/Results Medications: Active Medications Generic Name Dose Route Start Last Admin Trade Name Freq PRN Reason Stop Dose Admin Acetaminophen 650 mg 02/26/25 06:00 03/02/25 10:05 Acetaminophen 325 Mg Tablet PO 650 mg Q6H PRN Administration Mild Pain (1-3) or Fever Albuterol 2.5 mg 02/26/25 02:00 03/03/25 01:21 Albuterol Sulfate Neb 2.5 Mg/3 Ml Inh INHALATION 2.5 mg Q6HRT KALA Administration Aspirin 81 mg 02/26/25 09:00 03/03/25 09:34 Aspirin 81 Mg Enteric Tablet PO 81 mg DAILY KALA Administration Atorvastatin Calcium 5 mg 02/26/25 09:00 03/03/25 09:34 Atorvastatin 5 Mg Tablet PO 5 mg DAILY KALA Administration Budesonide 0.5 mg 02/26/25 08:00 03/02/25 20:13 Budesonide Respule Neb 0.5 Mg/2 Ml Amp INHALATION 0.5 mg Q12HRT KALA Administration Clopidogrel Bisulfate 75 mg 02/26/25 09:00 03/03/25 09:34 Clopidogrel Bisulfate 75 Mg Tablet PO 75 mg DAILY KALA Administration Cyanocobalamin 1,000 mcg 02/26/25 09:00 03/03/25 09:34 Cyanocobalamin 1,000 Mcg Tablet PO 1,000 mcg QAM KALA Administration Ferrous Sulfate 325 mg 02/26/25 09:00 03/03/25 09:34 Ferrous Sulfate [address] BY MOUTH 325 mg DAILY KALA Administration Furosemide 40 mg 02/27/25 09:00 03/03/25 09:34 Furosemide 40 Mg Tablet PO 40 mg QAM KALA Administration Guaifenesin/Dextromethorphan 1 tab 02/28/25 21:00 03/03/25 09:34 Guaifenesin 600 Mg/Dextromethorphan 30 Mg Sr Tab 12 Hr PO 1 tab Q12HR KALA Administration Cefepime HCl 1 gm in 50 mls @ 100 mls/hr 02/26/25 09:05 03/03/25 10:07 Maxipime 1 Gm/Ns 50 Ml IVPB 03/04/25 09:34 Infused Q12H KALA Infusion Dextrose 1,000 mls @ 50 mls/hr 03/02/25 12:00 Dextrose 10% IV CONT .Q20H PRN if PN is interrupted Amino Acids/Electrolytes/Dextrose 1,000 mls @ 80 mls/hr 03/02/25 14:00 03/03/25 10:11 Clinimix E 4.25%/5% Solution IV CONT 80 mls/hr .[id number] KALA Infusion Protocol Fat Emulsion Intravenous 250 mls @ 20.833 mls/hr 03/02/25 14:00 03/03/25 02:47 Lipids 20% IVPB Infused Q24H KALA Infusion Ipratropium [place] 0.5 mg 02/26/25 06:05 Ipratropium Br 0.02% Inh Soln 0.5 Mg/2.5 Ml Vial INHALATION Q6H PRN Shortness Of Breath Lisinopril 20 mg 02/27/25 09:00 03/03/25 09:34 Lisinopril 20 Mg Tablet PO 20 mg DAILY KALA Administration Mirtazapine 30 mg 02/26/25 09:00 03/03/25 09:33 Mirtazapine 30 Mg Tablet PO 30 mg DAILY KALA Administration Montelukast Sodium 10 mg 02/26/25 09:00 03/03/25 09:33 Montelukast Sodium 10 Mg Tablet PO 10 mg DAILY KALA Administration Pantoprazole Sodium 40 mg 02/26/25 09:00 03/03/25 09:33 Pantoprazole 40 Mg Tablet PO 40 mg QAM KALA Administration Potassium Chloride 20 meq 02/26/25 09:00 03/03/25 09:34 Potassium Chloride 20 Meq Er Tablet PO 20 meq DAILY KALA Administration Sulfasalazine 1,000 mg 02/26/25 09:00 03/03/25 12:22 Sulfasalazine 500 Mg Tablet BY MOUTH 1,000 mg 0900,1300,1800 KALA Administration Radiology Results: ITS Impressions Chest X-Ray 02/28/25 13:52 IMPRESSION: Retained oral contrast projecting over the esophagus and right hilum, as detailed above. Modified Barium Swallow 02/28/25 14:07 IMPRESSION: As above. Labs Labs: Laboratory Results - last 24 hr 02/27/25 03/02/25 03/02/25 00:54 18:44 23:59 WBC RBC Hgb Hct MCV MCH MCHC RDW Plt Count MPV Immature Gran % (Auto) Neut % (Auto) Lymph % (Auto) Cole % (Auto) Eos % (Auto) Baso % (Auto) Lymph # (Auto) Cole # (Auto) Eos # (Auto) Baso # (Auto) Abs Immat Gran (auto) Absolute Neuts (auto) Absolute Nucleated RBC Band Neutrophils % Nucleated RBC % Platelet Estimate Hypochromasia Schistocytes Sodium Potassium Chloride Carbon Dioxide Anion Gap BUN Creatinine Estim Creat Clear Calc Estimated GFR Glucose POC Capillary Glucose 122 H 134 H Calcium Phosphorus Magnesium Total Bilirubin AST ALT Alkaline Phosphatase Total Protein Albumin Triglycerides Urine Pneumococcal Ag Not detected 03/03/25 03/03/25 03/03/25 04:35 06:00 11:21 WBC 16.7 H RBC 3.58 L Hgb 10.2 L Hct 34.8 L MCV 97.2 MCH 28.5 MCHC 29.3 L RDW 13.2 Plt Count 369 MPV 10.6 H Immature Gran % (Auto) 3.3 H Neut % (Auto) 83.0 H Lymph % (Auto) 5.6 L Cole % (Auto) 6.6 Eos % (Auto) 1.0 Baso % (Auto) 0.5 Lymph # (Auto) 0.94 Cole # (Auto) 1.1 H Eos # (Auto) 0.2 Baso # (Auto) 0.1 Abs Immat Gran (auto) 0.56 H Absolute Neuts (auto) 13.9 H Absolute Nucleated RBC 0.000 Band Neutrophils % Not Reportable Nucleated RBC % 0.0 Platelet Estimate Adequate Hypochromasia 1+ Schistocytes None seen Sodium 138 Potassium 4.5 Chloride 97 L Carbon Dioxide 34 H Anion Gap 7 BUN 38 H D Creatinine 0.95 Estim Creat Clear Calc 18 Estimated GFR 56 L Glucose 123 H POC Capillary Glucose 118 H 146 H Calcium 8.8 Phosphorus 3.7 Magnesium 1.9 Total Bilirubin 0.2 AST 25 ALT 9 Alkaline Phosphatase 62 Total Protein 6.7 Albumin 3.2 L Triglycerides 90 Urine Pneumococcal Ag Quality VTE Prophylaxis VTE prophylaxis: pharmacologic ordered
--- NOTE | 2025-03-03 14:55 | PCOTNOTE ---
Attempted to see Patient at this time. Patient verbalized she is not interested in participating in therapy services. Patient verbalized she will be going home tomorrow.
[2025-03-03] MEDS: FAT EMULSIONS IV 20% 250 ML 20.8 ML IVPB (15:09)
[2025-03-04] VITALS (17 sets, daily range): BP systolic 110–123; BP diastolic 47–62; PULSE 72–108; RESP 18–24; TEMP 36.4–36.6; O2SAT 96–100
[2025-03-04] MEDS: ALBUTEROL SULFATE NEB 2.5 MG/3 ML INH INHALATION ×4 (01:17→20:57)
[2025-03-04] MEDS: AMINO ACIDS 4.25%/D5W/LYTES/CA 1,000 ML 80 ML IV CONT ×2 (03:00→14:48)
[2025-03-04 05:29] LABS: Hematocrit 34.7 % (37.0-47.0); Hemoglobin 10.4 g/dL (12.0-15.0); Mean Corpuscular HGB Conc 30.0 g/dl (32-36); Mean Corpuscular Hemoglobin 28.5 pg (26-34); Mean Corpuscular Volume 95.1 fl (80-100); Platelet Count Result 367 k/mm3 (150-375); Red Blood Count 3.65 M/mm3 (4.2-5.4); White Blood Count 14.9 K/mm3 (4.5-10.0)
[2025-03-04 05:46] LABS: Alanine Aminotransferase 11 U/L (6-35); Albumin Level 3.3 g/dL (3.5-5.1); Alkaline Phosphatase 60 U/L (38-126); Anion Gap 7 mmol/L (4-12); Aspartate Amino Transferase 26 U/L (14-36); Bilirubin,Total 0.2 mg/dL (0.2-1.3); Blood Urea Nitrogen 49 mg/dL (7-17); Calcium 8.8 mg/dL (8.4-10.2); Carbon Dioxide 35 mmol/L (22-30); Chloride 90 mmol/L (98-107); Estimated CRCL calculation 19 ml/min; Estimated Glomerular Filt Rate 60; Glucose 111 mg/dL (65-110); Potassium 4.5 mmol/L (3.4-5.0); Sodium 132 mmol/L (137-145); Total Protein 6.8 g/dL (6.3-8.2)
--- NOTE | 2025-03-04 07:38 | PM.DS ---
DS: Admitting Diagnosis Discharge Date 03/04 Admitting Diagnosis SOB, weakness DS: Discharge Diagnosis Discharge Diagnosis (1) Pneumonia: Code(s): J18.9 - Pneumonia, unspecified organism Status: Acute (2) Dysphagia: Code(s): R13.10 - Dysphagia, unspecified Status: Acute (3) Chronic respiratory failure with hypoxia, on home oxygen therapy: Code(s): J96.11 - Chronic respiratory failure with hypoxia; Z99.81 - Dependence on supplemental oxygen Status: Acute (4) Acute kidney injury: Code(s): N17.9 - Acute kidney failure, unspecified Status: Acute (5) Chronic obstructive pulmonary disease: Qualifiers: COPD type: unspecified COPD Qualified Code(s): J44.9 - Chronic obstructive pulmonary disease, unspecified Code(s): J44.9 - Chronic obstructive pulmonary disease, unspecified Status: Acute Assessment and Plan: Chronic Does not appear in acute exacerbation No significant wheezing thus no indication for steroids (6) (HFpEF) heart failure with preserved ejection fraction: Qualifiers: Heart failure chronicity: chronic Qualified Code(s): I50.32 - Chronic diastolic (congestive) heart failure Code(s): I50.30 - Unspecified diastolic (congestive) heart failure Status: Chronic (7) Hypertension, essential: Code(s): I10 - Essential (primary) hypertension Status: Acute (8) Protein calorie malnutrition: Qualifiers: Protein-calorie malnutrition severity: severe Qualified Code(s): E43 - Unspecified severe protein-calorie malnutrition Code(s): E46 - Unspecified protein-calorie malnutrition Status: Acute DS: Summary Hospital Course Hospital Course: 89-year-old female with chronic obstructive pulmonary disease, chronic respiratory failure with hypoxia on 2 L home oxygen, heart failure with preserved ejection fraction, paroxysmal atrial fibrillation, pulmonary embolism, cerebrovascular accident, peripheral arterial disease, hypertension, dyslipidemia, and Crohn's disease who presented to the hospital via EMS from a local rehab facility for evaluation of shortness of breath. Several problems were addressed. See below. During the course of hospitalization, pt failed multiple swallow studies. PLan of care was discussed with pt and family and all were in agreement to proceed with comfort/hospice care. Care coordination contacted [facility] hospice who accepted pt to their care. Pt is to receive her last antibiotic dose on 7/4 am and ok to be discharged. Further care and mngmnt will be taken over per hospice. # pnemonia CXR: Possible right middle lobe infiltrate - started on HAP tx given recent hospitalization: cefepime and vancomycin started on 02/25, remains on cefepime previously treated for pneumonia at [facility], will now cover for pseudomonas given continued pneumonia - Viral PCR: negative for Flu/COVID/RSV. MRSA negative. - Blood cultures collected on 02/25: NGTD - Mucinex and Cornet ordered to help mobilize secretions. IS ordered. - Pending legionella, mycoplasma and pneumococcal - supplemental oxygen of 3L NC, maintain SPO2 > 88% given COPD history - Monitor vital signs, I&Os, neuro status and patient is a fall risk - Speech therapy consulted for swallow study, patient noted to have a weak cough with sips of water Recommending nectar thick liquids and MBS. Remains on 3 L nasal cannula with stable saturations on pulse oximetry. She states that she is at her baseline shortness of breath. Speaking full sentences. Remains on cefepime. Continue IS, PEP and mucinex. 03/03 due for 2 more doses of cefepime -tonight and one in am- completed course # dysphagia MBS showed Lateral projection of the cervical spine demonstrates significant age-appropriate degenerative disease. Laryngeal penetration is identified with thin, pureed, and moderately thick liquids. Aspiration identified with thin and pureed. Spoke with Speech Therapy and patient placed on NPO with thickened liquids level 3 for pleasure feeds. 02/28: Returned to patients room to discuss the MBS with her. Also spoke with patients grand daughter Nahomi via phone. Per patient Nahomi is to be made her POA, Nahomi plans to discuss with care coordination about paperwork. Discussed in detail that patient is NPO at this time with the thickened liquids because of the risk of aspiration seen on the MBS. They stated understanding. Further discussed that if patient continues to fail the MBS will have to consider PEG vs hospice. Per grand daughter patient was worked up for PEG tube in the past and deemed not a good candidate. Patient and grand daughter stating understanding to the current treatment plan. Continues to work with speech therapy. failed swallow study npo for now' will add PPN while we discuss options for further care # chronic resp failure On EMS arrival her SpO2 was reportedly in the 70s on her usual 2-3 L nasal cannula, placed on 6 L and brought to hospital. Received a breathing treatment in the ER and was able to wean back to her baseline 2 L. Oxygen remains stable on her 2-3 liters Keep spO2 > 88% Continue to monitor # damaris Acute kidney injury on admission with BUN/Cr 25/1.04 which is up from 11/0.74 earlier this year. - Likely related to poor oral intake and dehydration - Avoid nephrotoxic medications - Renally dose medications - Monitor I/O # chf Chronic, patient appears euvolemic. Does not appear in acute exacerbation Continue to monitor I/O, do not overhydrate Status at Discharge Functional status at discharge: uses cane/walker Overall status at discharge: other (failed swallow studies multiple times, plan of care is to proceed with hospice and discharge home) Time Spent with Patient Time attestation: Total time spent providing and/or coordinating discharge services: Time spent: Greater than 30 minutes Exam Narrative: General: frail female in no acute respiratory distress who is nontoxic appearing, sitting up in chair HEENT: Normocephalic. Atraumatic. Extraocular movement intact. Sclera clear and anicteric. No facial asymmetry. Chest: Lungs are slightly diminished to auscultation bilaterally. No wheezes. Speaking full sentences. CV: Heart was regular rate and rhythm. S1-S2. No murmurs, gallops, or rubs. Abd: Abdomen was soft. Nontender. Nondistended. Positive bowel sounds. Ext: No clubbing, cyanosis, or edema. DP pulses bilaterally. Neuro: Patient is alert and oriented x3. Speech is clear. Const: General: comfortable DS: Data Data Completed and Pending Labs on day of discharge: Labs from last 24 hours 03/04/25 03/04/25 03/04/25 05:22 04:46 01:10 WBC 14.9 H RBC 3.65 L Hgb 10.4 L Hct 34.7 L MCV 95.1 MCH 28.5 MCHC 30.0 L RDW 13.2 Plt Count 367 MPV 10.6 H Sodium 132 L Potassium 4.5 Chloride 90 L Carbon Dioxide 35 H Anion Gap 7 BUN 49 H D Creatinine 0.89 Estim Creat Clear Calc 19 Estimated GFR 60 Glucose 111 H POC Capillary Glucose 109 H 117 H Calcium 8.8 Phosphorus 4.3 Total Bilirubin 0.2 AST 26 ALT 11 Alkaline Phosphatase 60 Total Protein 6.8 Albumin 3.3 L 03/03/25 03/03/25 17:18 11:21 WBC RBC Hgb Hct MCV MCH MCHC RDW Plt Count MPV Sodium Potassium Chloride Carbon Dioxide Anion Gap BUN Creatinine Estim Creat Clear Calc Estimated GFR Glucose POC Capillary Glucose 131 H 146 H Calcium Phosphorus Total Bilirubin AST ALT Alkaline Phosphatase Total Protein Albumin Discharge Plan Discharge Attending physician on discharge: Alex Cross Consulting providers: Gloria Vasquez Discharging Clinician: Virginia Hicks Patient Disposition: Hospice - Home Activity: may shower Diet: as tolerated and regular Discharge Instructions: please follow up with hospice for further instructions about medications. Patient Language: Faroese Stand Alone Forms: General Discharge Information Discharge Medications: Continued oxycodone-acetaminophen 7.5-325 mg tablet 1 tablet PO Q8H PRN (Reason: Pain, Severe) aspirin [Adult Low Dose Aspirin] 81 mg tablet,delayed release (DR/EC) 81 mg PO DAILY potassium chloride 20 mEq tablet extended release 20 meq PO DAILY Qty: 90 1RF polyethylene glycol 3350 [Miralax] 17 gram Powder In Packet 17 g PO PRN albuterol sulfate 90 mcg/actuation HFA aerosol inhaler 2 inh inhalation Q4-6H PRN (Reason: shortness of breath or wheezing) Qty: 8.5 2RF clopidogrel [Plavix] 75 mg tablet 75 mg PO DAILY Qty: 30 1RF mecobalamin (vitamin B12) 1,000 mcg tablet,chewable 1,000 mcg PO DAILY Qty: 90 3RF sulfasalazine 500 mg tablet See Rx Instructions .ROUTE .COMPLEX Qty: 180 0RF Dose Instruction: TAKE TWO TABLETS BY MOUTH THREE TIMES A DAY Rx Instructions: TAKE TWO TABLETS BY MOUTH THREE TIMES A DAY mirtazapine 30 mg tablet 30 mg PO DAILY Qty: 7 0RF azithromycin 250 mg tablet 250 mg PO 3XW Rx Instructions: Take one tablet by mouth every Friday, Friday, and Friday budesonide 0.5 mg/2 mL suspension for nebulization See Rx Instructions .ROUTE .COMPLEX Qty: 60 11RF Dose Instruction: USE 1 VIAL IN NEBULIZER TWICE DAILY - Rinse mouth after use Rx Instructions: USE 1 VIAL IN NEBULIZER TWICE DAILY - Rinse mouth after use ipratropium bromide 0.02 % solution See Rx Instructions .ROUTE .COMPLEX Qty: 120 11RF Dose Instruction: USE 1 VIAL IN NEBULIZER 4 TIMES DAILY - As needed for shortness of breath Rx Instructions: USE 1 VIAL IN NEBULIZER 4 TIMES DAILY - As needed for shortness of breath albuterol sulfate 2.5 mg /3 mL (0.083 %) solution for nebulization See Rx Instructions .ROUTE .COMPLEX Qty: 30 11RF Dose Instruction: USE 1 VIAL IN NEBULIZER DAILY - As needed (for rescue) shortness of breath. Rx Instructions: USE 1 VIAL IN NEBULIZER DAILY - As needed (for rescue) shortness of breath. alendronate 70 mg tablet 70 mg PO WEEKLY Qty: 12 1RF Rx Instructions: Take 1 tablet by mouth once a week atorvastatin 10 mg tablet 5 mg PO DAILY Qty: 90 2RF ergocalciferol (vitamin D2) 1,250 mcg (50,000 unit) capsule See Rx Instructions .ROUTE .COMPLEX Qty: 12 0RF Dose Instruction: TAKE ONE CAPSULE BY MOUTH EVERY 2 WEEKS. Rx Instructions: TAKE ONE CAPSULE BY MOUTH EVERY 2 WEEKS. esomeprazole magnesium 40 mg capsule,delayed release(DR/EC) See Rx Instructions .ROUTE .COMPLEX Qty: 90 0RF Dose Instruction: TAKE ONE CAPSULE ORALLY DAILY Rx Instructions: TAKE ONE CAPSULE ORALLY DAILY ferrous sulfate 325 mg (65 mg iron) tablet 325 mg PO DAILY Qty: 90 1RF Rx Instructions: Take 1 tablet by mouth once daily furosemide 40 mg tablet 40 mg PO QAM Qty: 90 1RF lisinopril 20 mg tablet 20 mg PO DAILY Qty: 90 1RF Rx Instructions: Take 1 tablet by mouth daily montelukast 10 mg tablet 10 mg PO DAILY Qty: 30 5RF Rx Instructions: Take 1 tablet by mouth once daily Date of admission: 02/26/25 07:57 Primary Care Provider: Shelly Geiger Admitting Provider: Ana Paula Bertrand Attending physician on admission: Ana Paula Bertrand Condition: Serious Quality VTE Prophylaxis VTE prophylaxis: pharmacologic ordered Hospitalist MIPS Heart Failure (Exclusion) Patient has history of Heart Transplant or Left Ventricular Assistive Device?: No IF YES, STOP HERE Heart Failure (Qualifier) Patient has current or prior documentation of LVEF less than or equal to 40%, or mod/servere depressed LVSF?: No IF NO, STOP HERE
[2025-03-04] MEDS: BUDESONIDE RESPULE NEB 0.5 MG/2 ML AMP INHALATION ×2 (07:45→20:57)
[2025-03-04] MEDS: POTASSIUM CHLORIDE 20 MEQ ER TABLET PO (09:17)
[2025-03-04] MEDS: ATORVASTATIN 5 MG TABLET PO (09:17)
[2025-03-04] MEDS: CLOPIDOGREL BISULFATE 75 MG TABLET PO (09:17)
[2025-03-04] MEDS: FUROSEMIDE 40 MG TABLET PO (09:17)
[2025-03-04] MEDS: guaiFENesin 600 MG/DEXTROMETHORPHAN 30 MG SR TAB 12 HR 1 TAB PO (09:18)
[2025-03-04] MEDS: ASPIRIN 81 MG ENTERIC TABLET PO (09:18)
[2025-03-04] MEDS: MONTELUKAST SODIUM 10 MG TABLET PO (09:18)
[2025-03-04] MEDS: PANTOPRAZOLE 40 MG TABLET PO (09:18)
[2025-03-04] MEDS: CYANOCOBALAMIN 1,000 MCG TABLET 1000 MCG PO (09:18)
[2025-03-04] MEDS: FERROUS SULFATE 325 MG TABLET DR BY MOUTH (09:18)
[2025-03-04] MEDS: MIRTAZAPINE 30 MG TABLET PO (09:18)
[2025-03-04] MEDS: CEFEPIME 1 GM/NS 50 ML 1 GM/50 ML BAG IVPB (09:19)
--- NOTE | 2025-03-04 13:03 | PCNFU ---
Nutrition Follow-Up Complete: 1. Severe protein calorie malnutrition related to chronic loss of appetite as evidenced by intakes <75% needs >1 month; severe muscle wasting and fat loss 2. Inadequate energy intake related to MBS, dysphagia as evidenced by need for parenteral nutrition Goal:Tolerate PPN at goal rate Pt meeting goal Pt current nutrition is PPN @ 80ml/hr to provide [id number], 82g protein. Nutrition recommendation: continue with plan of care Last recorded weight is 31 kg. Bowel Motility: +BM 03/03 Labs Reviewed: Hgb:10.4, HCT:34.7, Alb:3.3, NA:132, BUN:49, Glu:109 Meds Noted: protonix, remeron, KCL, lasix Skin: WNL Additional Notes: Pt continues on a PPN, meeting needs. Noted pt is to go home on hospice care. Monitoring PPN tolerance while here, weights, labs, swallowing ability, plan of care Follow up Friday/Fridays
[2025-03-04] MEDS: FAT EMULSIONS IV 20% 250 ML 20.8 ML IVPB (14:48)
[2025-03-05] VITALS (7 sets, daily range): BP systolic 119; BP diastolic 48; PULSE 66–81; RESP 18; TEMP 36.3; O2SAT 98
[2025-03-05] MEDS: AMINO ACIDS 4.25%/D5W/LYTES/CA 1,000 ML 80 ML IV CONT (03:15)
--- NOTE | 2025-03-05 04:07 | PCRCNOTE ---
0200 tx omitted for ICU patient transport
[2025-03-05] MEDS: WATER FOR IRRIGATION, STERILE 500 ML BOTTLE (05:04)
[2025-03-05 05:33] LABS: Anion Gap 7 mmol/L (4-12); Blood Urea Nitrogen 65 mg/dL (7-17); Calcium 9.0 mg/dL (8.4-10.2); Carbon Dioxide 34 mmol/L (22-30); Chloride 91 mmol/L (98-107); Estimated CRCL calculation 19 ml/min; Estimated Glomerular Filt Rate 60; Glucose 100 mg/dL (65-110); Potassium 5.2 mmol/L (3.4-5.0); Sodium 132 mmol/L (137-145); Triglycerides 109 mg/dL (<150)
--- NOTE | 2025-03-05 07:28 | PM.DS ---
DS: Admitting Diagnosis Discharge Date 03/05 Admitting Diagnosis weakness DS: Discharge Diagnosis Discharge Diagnosis (1) Pneumonia: Code(s): J18.9 - Pneumonia, unspecified organism Status: Acute (2) Dysphagia: Code(s): R13.10 - Dysphagia, unspecified Status: Acute (3) Chronic respiratory failure with hypoxia, on home oxygen therapy: Code(s): J96.11 - Chronic respiratory failure with hypoxia; Z99.81 - Dependence on supplemental oxygen Status: Acute (4) Acute kidney injury: Code(s): N17.9 - Acute kidney failure, unspecified Status: Acute (5) Chronic obstructive pulmonary disease: Qualifiers: COPD type: unspecified COPD Qualified Code(s): J44.9 - Chronic obstructive pulmonary disease, unspecified Code(s): J44.9 - Chronic obstructive pulmonary disease, unspecified Status: Acute (6) (HFpEF) heart failure with preserved ejection fraction: Qualifiers: Heart failure chronicity: chronic Qualified Code(s): I50.32 - Chronic diastolic (congestive) heart failure Code(s): I50.30 - Unspecified diastolic (congestive) heart failure Status: Chronic (7) Hypertension, essential: Code(s): I10 - Essential (primary) hypertension Status: Acute (8) Protein calorie malnutrition: Qualifiers: Protein-calorie malnutrition severity: severe Qualified Code(s): E43 - Unspecified severe protein-calorie malnutrition Code(s): E46 - Unspecified protein-calorie malnutrition Status: Acute DS: Summary Hospital Course Hospital Course: 89-year-old female with chronic obstructive pulmonary disease, chronic respiratory failure with hypoxia on 2 L home oxygen, heart failure with preserved ejection fraction, paroxysmal atrial fibrillation, pulmonary embolism, cerebrovascular accident, peripheral arterial disease, hypertension, dyslipidemia, and Crohn's disease who presented to the hospital via EMS from a local rehab facility for evaluation of shortness of breath. Several problems were addressed. See below. During the course of hospitalization, pt failed multiple swallow studies. Plan of care was discussed with pt and family and all were in agreement to proceed with comfort/hospice care. Care coordination contacted [facility] hospice who accepted pt to their care. Pt is to receive her last antibiotic dose on 7/4 am and ok to be discharged. Further care and mngmnt will be taken over per hospice. Several issues were addressed during the hospitalization: # pneumonia CXR: Possible right middle lobe infiltrate - started on HAP tx given recent hospitalization: cefepime and vancomycin started on 02/25, remains on cefepime previously treated for pneumonia at [facility], will now cover for pseudomonas given continued pneumonia - Viral PCR: negative for Flu/COVID/RSV. MRSA negative. - Blood cultures collected on 02/25: NGTD - Mucinex and Cornet ordered to help mobilize secretions. IS ordered. - Pending legionella, mycoplasma and pneumococcal - supplemental oxygen of 3L NC, maintain SPO2 > 88% given COPD history - Monitor vital signs, I&Os, neuro status and patient is a fall risk - Speech therapy consulted for swallow study, patient noted to have a weak cough with sips of water Recommending nectar thick liquids and MBS. Remains on 3 L nasal cannula with stable saturations on pulse oximetry. She states that she is at her baseline shortness of breath. Speaking full sentences. Remains on cefepime. Continue IS, PEP and mucinex. 03/03 due for 2 more doses of cefepime -tonight and one in am, 7/5 am- completed course # dysphagia MBS showed Lateral projection of the cervical spine demonstrates significant age-appropriate degenerative disease. Laryngeal penetration is identified with thin, pureed, and moderately thick liquids. Aspiration identified with thin and pureed. Spoke with Speech Therapy and patient placed on NPO with thickened liquids level 3 for pleasure feeds. 02/28: Returned to patients room to discuss the MBS with her. Also spoke with patients grand daughter Nahomi via phone. Per patient Nahomi is to be made her POA, Nahomi plans to discuss with care coordination about paperwork. Discussed in detail that patient is NPO at this time with the thickened liquids because of the risk of aspiration seen on the MBS. They stated understanding. Further discussed that if patient continues to fail the MBS will have to consider PEG vs hospice. Per grand daughter patient was worked up for PEG tube in the past and deemed not a good candidate. Patient and grand daughter stating understanding to the current treatment plan. Continues to work with speech therapy. failed swallow study npo for now' Had been on parenteral IV nutrition while in the hospital # chronic resp failure On EMS arrival her SpO2 was reportedly in the 70s on her usual 2-3 L nasal cannula, placed on 6 L and brought to hospital. Received a breathing treatment in the ER and was able to wean back to her baseline 2 L. Oxygen remains stable on her 2-3 liters Keep spO2 > 88% Continue to monitor # damaris Acute kidney injury on admission with BUN/Cr 25/1.04 which is up from 11/0.74 earlier this year. - Likely related to poor oral intake and dehydration - Avoid nephrotoxic medications - Renally dose medications # chf Chronic, patient appears euvolemic. Does not appear in acute exacerbation Status at Discharge Functional status at discharge: wheelchair bound Overall status at discharge: other Time Spent with Patient Time attestation: Total time spent providing and/or coordinating discharge services: Time spent: Less than 30 minutes Exam Narrative: General: frail female in no acute respiratory distress who is nontoxic appearing, resting in bed HEENT: Normocephalic. Atraumatic. Extraocular movement intact. Sclera clear and anicteric. No facial asymmetry. Chest: Lungs are slightly diminished to auscultation bilaterally. No wheezes. Speaking full sentences. CV: Heart was regular rate and rhythm. S1-S2. No murmurs, gallops, or rubs. Abd: Abdomen was soft. Nontender. Nondistended. Positive bowel sounds. Ext: No clubbing, cyanosis, or edema. DP pulses bilaterally. Neuro: Patient is alert and oriented x3. Speech is clear. Const: General: comfortable DS: Data Data Completed and Pending Labs on day of discharge: Labs from last 24 hours 03/05/25 03/05/25 03/05/25 04:37 04:20 00:22 Sodium 132 L Potassium 5.2 H Chloride 91 L Carbon Dioxide 34 H Anion Gap 7 BUN 65 H D Creatinine 0.89 Estim Creat Clear Calc 19 Estimated GFR 60 Glucose 100 POC Capillary Glucose 107 H 119 H Calcium 9.0 Phosphorus 4.9 H Triglycerides 109 03/04/25 18:31 Sodium Potassium Chloride Carbon Dioxide Anion Gap BUN Creatinine Estim Creat Clear Calc Estimated GFR Glucose POC Capillary Glucose 127 H Calcium Phosphorus Triglycerides Discharge Plan Discharge Attending physician on discharge: Alex Cross Consulting providers: Vasquez,Gloria L. Discharging Clinician: Virginia Hicks Patient Disposition: Hospice - Home Activity: may shower Diet: as tolerated and regular Discharge Instructions: please follow up with hospice for further instructions about medications. Patient Language: Somali Stand Alone Forms: General Discharge Information Discharge Medications: Continued oxycodone-acetaminophen 7.5-325 mg tablet 1 tablet PO Q8H PRN (Reason: Pain, Severe) aspirin [Adult Low Dose Aspirin] 81 mg tablet,delayed release (DR/EC) 81 mg PO DAILY potassium chloride 20 mEq tablet extended release 20 meq PO DAILY Qty: 90 1RF polyethylene glycol 3350 [Miralax] 17 gram Powder In Packet 17 g PO PRN albuterol sulfate 90 mcg/actuation HFA aerosol inhaler 2 inh inhalation Q4-6H PRN (Reason: shortness of breath or wheezing) Qty: 8.5 2RF clopidogrel [Plavix] 75 mg tablet 75 mg PO DAILY Qty: 30 1RF mecobalamin (vitamin B12) 1,000 mcg tablet,chewable 1,000 mcg PO DAILY Qty: 90 3RF sulfasalazine 500 mg tablet See Rx Instructions .ROUTE .COMPLEX Qty: 180 0RF Dose Instruction: TAKE TWO TABLETS BY MOUTH THREE TIMES A DAY Rx Instructions: TAKE TWO TABLETS BY MOUTH THREE TIMES A DAY mirtazapine 30 mg tablet 30 mg PO DAILY Qty: 7 0RF azithromycin 250 mg tablet 250 mg PO 3XW Rx Instructions: Take one tablet by mouth every Friday, Friday, and Friday budesonide 0.5 mg/2 mL suspension for nebulization See Rx Instructions .ROUTE .COMPLEX Qty: 60 11RF Dose Instruction: USE 1 VIAL IN NEBULIZER TWICE DAILY - Rinse mouth after use Rx Instructions: USE 1 VIAL IN NEBULIZER TWICE DAILY - Rinse mouth after use ipratropium bromide 0.02 % solution See Rx Instructions .ROUTE .COMPLEX Qty: 120 11RF Dose Instruction: USE 1 VIAL IN NEBULIZER 4 TIMES DAILY - As needed for shortness of breath Rx Instructions: USE 1 VIAL IN NEBULIZER 4 TIMES DAILY - As needed for shortness of breath albuterol sulfate 2.5 mg /3 mL (0.083 %) solution for nebulization See Rx Instructions .ROUTE .COMPLEX Qty: 30 11RF Dose Instruction: USE 1 VIAL IN NEBULIZER DAILY - As needed (for rescue) shortness of breath. Rx Instructions: USE 1 VIAL IN NEBULIZER DAILY - As needed (for rescue) shortness of breath. alendronate 70 mg tablet 70 mg PO WEEKLY Qty: 12 1RF Rx Instructions: Take 1 tablet by mouth once a week atorvastatin 10 mg tablet 5 mg PO DAILY Qty: 90 2RF ergocalciferol (vitamin D2) 1,250 mcg (50,000 unit) capsule See Rx Instructions .ROUTE .COMPLEX Qty: 12 0RF Dose Instruction: TAKE ONE CAPSULE BY MOUTH EVERY 2 WEEKS. Rx Instructions: TAKE ONE CAPSULE BY MOUTH EVERY 2 WEEKS. esomeprazole magnesium 40 mg capsule,delayed release(DR/EC) See Rx Instructions .ROUTE .COMPLEX Qty: 90 0RF Dose Instruction: TAKE ONE CAPSULE ORALLY DAILY Rx Instructions: TAKE ONE CAPSULE ORALLY DAILY ferrous sulfate 325 mg (65 mg iron) tablet 325 mg PO DAILY Qty: 90 1RF Rx Instructions: Take 1 tablet by mouth once daily furosemide 40 mg tablet 40 mg PO QAM Qty: 90 1RF lisinopril 20 mg tablet 20 mg PO DAILY Qty: 90 1RF Rx Instructions: Take 1 tablet by mouth daily montelukast 10 mg tablet 10 mg PO DAILY Qty: 30 5RF Rx Instructions: Take 1 tablet by mouth once daily Date of admission: 02/26/25 07:57 Primary Care Provider: Shelly Geiger Admitting Provider: Ana Paula Bertrand Attending physician on admission: Ana Paula Bertrand Condition: Guarded Prognosis Quality VTE Prophylaxis VTE prophylaxis: pharmacologic ordered Hospitalist MIPS Heart Failure (Exclusion) Patient has history of Heart Transplant or Left Ventricular Assistive Device?: No IF YES, STOP HERE Heart Failure (Qualifier) Patient has current or prior documentation of LVEF less than or equal to 40%, or mod/servere depressed LVSF?: No IF NO, STOP HERE
[2025-03-05] MEDS: ALBUTEROL SULFATE NEB 2.5 MG/3 ML INH INHALATION ×2 (08:19→14:21)
[2025-03-05] MEDS: BUDESONIDE RESPULE NEB 0.5 MG/2 ML AMP INHALATION (08:19)
--- NOTE | 2025-03-05 11:58 | PCSTNOTE ---
Patient had reached max frequency on 03/02 however patient is being discharged, possibly to Hospice. Therapist requested additional order to see patient and family to discuss d/c recommendations including diet suggestions, consistency recommendations, and several exercises they can do.
--- NOTE | 2025-03-05 12:00 | PCSTNOTE ---
Clarification Note: Patient already has therapy orders for a second week/additional Speech Therapy sessions. Virginia notified that essentially one of those treatments has been moved to an additional fourth treatment session this week for patient/family discharge education. She is in agreement.
[2025-03-05 20:29] LABS: Mycoplasma IgM Antibody Titer. 270 U/mL
[2025-03-09 16:58] LABS: Legionella pneumophila Ag Ur. NOT DETECTED
== END 2025-03-05 14:55 | disposition hospice, home (50) | DRG 194 ==
LOC: ANHED 21:21 → ANH2MED 23:06
PROVIDERS: Physician Assistant; Student in an Organized Health Care Education/Training Program; Admitting Provider Internal Medicine; Emergency Provider Emergency Medicine; PCP Nurse Practitioner Family; Visit Provider Nurse Practitioner
DX: J18.9 Pneumonia, unspecified organism (principal); E46 Unspecified protein-calorie malnutrition; I50.32 Chronic diastolic (congestive) heart failure; J44.0 Chronic obstructive pulmonary disease with (acute) lower respiratory infection; J96.11 Chronic respiratory failure with hypoxia; K50.90 Crohn's disease, unspecified, without complications; N17.9 Acute kidney failure, unspecified; Z68.1 Body mass index [BMI] 19.9 or less, adult; M81.0 Age-related osteoporosis without current pathological fracture; K21.9 Gastro-esophageal reflux disease without esophagitis; I48.0 Paroxysmal atrial fibrillation; R13.10 Dysphagia, unspecified; E78.2 Mixed hyperlipidemia; E86.0 Dehydration; I11.0 Hypertensive heart disease with heart failure; I73.9 Peripheral vascular disease, unspecified; Z86.711 Personal history of pulmonary embolism; Z87.891 Personal history of nicotine dependence; Z99.81 Dependence on supplemental oxygen; Z86.73 Personal history of transient ischemic attack (TIA), and cerebral infarction without residual deficits
CPT/HCPCS: 36415; 36600; 71045; 74230; 80048; 80053; 81001; 82375; 82565; 82805; 82948; 83050; 83605; 83735; 84100; 84466; 84478; 85018; 85025; 85027; 85610; 85730; 86140; 86738; 87040; 87449; 87636; 87641; 87899; 92526; 92610; 92611; 93005; 94640; 94667; 96361; 96365; 96367; 97110; 97161; 97165; 97530; 99285; A9270; G0378; J0692; J3370; J7030; J7040; J7120